=== PATIENT | female | born 1980 | race African-American/Black ===

== ENCOUNTER 2017-02-04 06:35 | Emergency (ER) | payer MEDICAID ==
[2017-02-04] MEDS ORDERED: HALOPERIDOL LACTATE INJ 5 MG/1 ML VIAL IV ONE (07:29)
[2017-02-04] MEDS ORDERED: NORMAL SALINE 1000 ML 1,000 ML IV ONE (07:55)
[2017-02-04 08:26] LABS: ABSOLUTE BASOPHILS # (AUTO) 0.1 10^3/uL (0.0-0.2); ABSOLUTE EOSINOPHILS # (AUTO) 0.4 10^3/uL (0.0-0.6); ABSOLUTE LYMPHOCYTES (AUTO) 1.8 10^3/uL (0.5-4.7); ABSOLUTE MONOCYTES (AUTO) 0.7 10^3/uL (0.1-1.4); ABSOLUTE NEUT (AUTO) 6.3 10^3/uL (1.7-8.2); BASOPHILS % (AUTO) 0.8 % (0-2); EOSINOPHILS % (AUTO) 3.9 % (0-6); HEMATOCRIT 30.4 % (36.0-47.0); HEMOGLOBIN 9.6 g/dL (12.0-15.5); HGB HCT DIFFERENCE -1.6; LYMPHOCYTES % (AUTO) 19.6 % (13-45); MEAN CORPUSCULAR HEMOGLOBIN 21.5 pg (27.0-33.4); MEAN CORPUSCULAR HGB CONC 31.7 g/dL (32.0-36.0); MEAN CORPUSCULAR VOLUME 68 fl (80-97); MONOCYTES % (AUTO) 7.2 % (3-13); RED BLOOD COUNT 4.48 10^6/uL (3.72-5.28); RED CELL DISTRIBUTION WIDTH 19.6 % (11.5-14.0); SEGMENTED NEUTROPHILS % (AUTO) 68.5 % (42-78); WHITE BLOOD COUNT 9.2 10^3/uL (4.0-10.5)
[2017-02-04 08:36] LABS: APPEARANCE,URINE SLIGHTLY-CLOUDY; BILIRUBIN,URINE NEGATIVE (NEGATIVE); GLUCOSE, URINE NEGATIVE (NEGATIVE); KETONES,URINE 80 mg/dL (NEGATIVE); LEUKOCYTE ESTERASE,URINE NEGATIVE (NEGATIVE); NITRITE,URINE NEGATIVE (NEGATIVE); PROTEIN,URINE 30 mg/dL (NEGATIVE); URINE SPECIFIC GRAVITY 1.024
[2017-02-04 08:55] LABS: ALANINE AMINOTRANSFERASE 23 U/L (9-52); ALBUMIN 4.5 g/dL (3.5-5.0); ALKALINE PHOSPHATASE 67 U/L (38-126); ASPARTATE AMINO TRANSFERASE 24 U/L (14-36); BILIRUBIN,DIRECT 0.5 mg/dL (0.0-0.4); BILIRUBIN,TOTAL 0.8 mg/dL (0.2-1.3); BLOOD UREA NITROGEN 18 mg/dL (7-20); CALCIUM 10.4 mg/dL (8.4-10.2); CARBON DIOXIDE 23 mmol/L (22-30); CHLORIDE 95 mmol/L (98-107); CREATININE RESULT 1.02 mg/dL (0.52-1.25); GLUCOSE 92 mg/dL (75-110); LIPASE 40.2 U/L (23-300); POTASSIUM 3.2 mmol/L (3.6-5.0); TOTAL PROTEIN 7.5 g/dL (6.3-8.2)
[2017-02-04 09:01] LABS: SODIUM 137.9 mmol/L (137-145)
[2017-02-04 09:08] LABS: ANION GAP 20 (5-19)
[2017-02-04] MEDS ORDERED: POTASSIUM CHLORIDE 10 MEQ TABLET.SA PO ONE (09:09)
--- NOTE | 2017-02-04 10:11 | ER Document Report ---
ED General - General Chief Complaint: Abdominal Pain Stated Complaint: STOMACH PAIN Time Seen by Provider: 02/04/17 07:28 Mode of Arrival: Ambulatory Information source: Patient Notes: 36-year-old female history of gastroparesis presents with complaints of nausea vomiting that will make duration. Patient was seen here recently was treated discharged home she states she has been able to hold down fluids but not solid food. Patient has not followed up with GI specialist as requested. Patient denies any blood in vomit or diarrhea. Patient states this is similar to all her previous gastroparesis TRAVEL OUTSIDE OF THE [place] IN LAST 30 DAYS: No - HPI Onset: Last week Onset/Duration: Intermittent Quality of pain: Cramping Severity: Mild Pain Level: 1 Associated symptoms: Nausea, Vomiting Exacerbated by: Food Relieved by: Denies Similar symptoms previously: Yes Recently seen / treated by doctor: Yes - Related Data Allergies/Adverse Reactions: No Known Allergies Allergy (Verified 01/30/17 19:05) Past Medical History - Social History Smoking Status: Never Smoker Cigarette use (# per day): No Chew tobacco use (# tins/day): No Smoking Education Provided: No Family History: Reviewed & Not Pertinent Patient has suicidal ideation: No Patient has homicidal ideation: No - Past Medical History Cardiac Medical History: Reports: Hx Hypertension Endocrine Medical History: Reports: Hx Diabetes Mellitus Type 2 Renal/ Medical History: Denies: Hx Peritoneal Dialysis Past Surgical History: Reports: Hx Section - Immunizations Hx Diphtheria, Pertussis, Tetanus Vaccination: Yes Review of Systems - Review of Systems Notes: REVIEW OF SYSTEMS: CONSTITUTIONAL : Denies fever, chills, or sweats. Denies recent illness. EENT: Denies eye, ear, throat, or mouth pain or symptoms. Denies nasal or sinus congestion or discharge. Denies throat, tongue, or mouth swelling or difficulty swallowing. CARDIOVASCULAR: Denies chest pain. Denies palpitations or racing or irregular heart beat. Denies ankle edema. RESPIRATORY: Denies cough, cold, or chest congestion. Denies shortness of breath, difficulty breathing, or wheezing. GASTROINTESTINAL: Admits to abdominal pain nausea vomiting diarrhea GENITOURINARY: Denies difficulty urinating, painful urination, burning, frequency, blood in urine, or discharge. FEMALE GENITOURINARY: Denies vaginal bleeding, heavy or abnormal periods, irregular periods. Denies vaginal discharge or odor. MUSCULOSKELETAL: Denies back or neck pain or stiffness. Denies joint pain or swelling. SKIN: Denies rash, lesions or sores. HEMATOLOGIC : Denies easy bruising or bleeding. LYMPHATIC: Denies swollen, enlarged glands. NEUROLOGICAL: Denies confusion or altered mental status. Denies passing out or loss of consciousness. Denies dizziness or lightheadedness. Denies headache. Denies weakness or paralysis or loss of use of either side. Denies problems with gait or speech. Denies sensory loss, numbness, or tingling. Denies seizures. PSYCHIATRIC: Denies anxiety or stress. Denies depression, suicidal ideation, or homicidal ideation. ALL OTHER SYSTEMS REVIEWED AND NEGATIVE. PHYSICAL EXAMINATION: GENERAL: Well-appearing, well-nourished and in no acute distress. HEAD: Atraumatic, normocephalic. EYES: Pupils equal round and reactive to light, extraocular movements intact, conjunctiva are normal. ENT: Nares patent, oropharynx clear without exudates. Moist mucous membranes. NECK: Normal range of motion, supple without lymphadenopathy LUNGS: Breath sounds clear to auscultation bilaterally and equal. No wheezes rales or rhonchi. HEART: Regular rate and rhythm without murmurs ABDOMEN: Soft, nontender, nondistended abdomen. No guarding, no rebound. No masses appreciated. Female : deferred Musculoskeletal: Normal range of motion, no pitting or edema. No cyanosis. NEUROLOGICAL: Cranial nerves grossly intact. Normal speech, normal gait. Normal sensory, motor exams PSYCH: Normal mood, normal affect. SKIN: Warm, Dry, normal turgor, no rashes or lesions noted. Dictation was performed using [employer] voice recognition software Physical Exam - Vital signs Vitals: Temp Pulse Resp BP Pulse Ox 98.0 F 108 H 19 154/89 H 96 02/04/17 06:38 02/04/17 06:38 02/04/17 06:38 02/04/17 06:38 02/04/17 06:38 Course - Re-evaluation Re-evalutation: 02/04/17 15:07 Patient was given Haldol and that symptom have improved significantly, I reevaluate her 3 separate times and she was in no distress felt well. We discussed the use of rectal Phenergan and oral Phenergan, she states she has had these in the past and they have worked for her. Given the patient has no fevers vital signs otherwise look well at this time I believe she is stable for discharge with understand that she must return immediately if there are any other concerns Mild hypokalemia noted and was placed After performing a Medical Screening Examination, I estimate there is LOW risk for ACUTE APPENDICITIS, BOWEL OBSTRUCTION, ACUTE CHOLECYSTITIS, PERFORATED DIVERTICULITIS, INCARCERATED HERNIA, PANCREATITIS, PELVIC INFLAMMATORY DISEASE, PERFORATED ULCER, ECTOPIC , or TUBO-OVARIAN ABSCESS, thus I consider the discharge disposition reasonable. Also, there is no evidence or peritonitis , sepsis, or toxicity. I have reevaluated this patient multiple times and no significant life threatening changes are noted. The patient and I have discussed the diagnosis and risks, and we agree with discharging home with close follow-up with the understanding that symptoms and presentations can change. We also discussed returning to the Emergency Department immediately if new or worsening symptoms occur. We have discussed the symptoms which are most concerning (e.g., bloody stool, fever, changing or worsening pain, vomiting) that necessitate immediate return. 02/04/17 15:08 - Vital Signs Vital signs: Temp Pulse Resp BP Pulse Ox 98.0 F 99 19 147/81 H 100 02/04/17 10:42 02/04/17 10:42 02/04/17 06:38 02/04/17 10:42 02/04/17 10:42 - Laboratory Result Diagrams: 02/04/17 08:01 02/04/17 08:01 Laboratory results interpreted by me: 02/04/17 02/04/17 02/04/17 08:01 08:01 08:01 Hgb 9.6 L Hct 30.4 L MCV 68 L MCH 21.5 L MCHC 31.7 L RDW 19.6 H Potassium 3.2 L Chloride 95 L Anion Gap 20 H Calcium 10.4 H Direct Bilirubin 0.5 H Urine Protein 30 H Urine Ketones 80 H Urine Urobilinogen 2.0 H Discharge - Discharge Clinical Impression: Gastroparesis, Hypokalemia Nausea & vomiting Qualifiers: Vomiting type: unspecified Vomiting Intractability: non-intractable Qualified Code(s): R11.2 - Nausea with vomiting, unspecified Condition: Stable Disposition: HOME, SELF-CARE Instructions: Vomiting ([facility]) Prescriptions: Promethazine HCl 25 mg PO Q6 #20 tablet Promethazine HCl 25 mg RC Q6 #20 supp.rect Referrals: ESTELITA BEARDEN MD [ACTIVE STAFF] - Follow up tomorrow
[2017-02-04 10:43] VITALS: BP 147/81
== END 2017-02-04 10:43 | disposition home or self-care (01) ==
LOC: ER 06:35
DX: K31.84 Gastroparesis (principal); E87.6 Hypokalemia; R10.9 Unspecified abdominal pain; R11.2 Nausea with vomiting, unspecified; R19.7 Diarrhea, unspecified; I10 Essential (primary) hypertension; E11.9 Type 2 diabetes mellitus without complications
CPT/HCPCS: 99284; 96374; 36415; 83690; 85025; 81025; 80053; 81001; J1630; J7030

== ENCOUNTER 2017-02-06 07:57 | Observation (INO) | payer MEDICAID ==
[2017-02-06] MEDS ORDERED: NORMAL SALINE 1000 ML 1,000 ML IV ONE (08:07)
[2017-02-06 08:40] LABS: ABSOLUTE EOSINOPHILS # (AUTO) 0.1 10^3/uL (0.0-0.6); ABSOLUTE LYMPHOCYTES (AUTO) 1.4 10^3/uL (0.5-4.7); ABSOLUTE MONOCYTES (AUTO) 0.5 10^3/uL (0.1-1.4); ABSOLUTE NEUT (AUTO) 7.8 10^3/uL (1.7-8.2); BASOPHILS % (AUTO) 0.4 % (0-2); EOSINOPHILS % (AUTO) 1.4 % (0-6); HEMATOCRIT 33.3 % (36.0-47.0); HEMOGLOBIN 10.4 g/dL (12.0-15.5); HGB HCT DIFFERENCE -2.1; LYMPHOCYTES % (AUTO) 14.3 % (13-45); MEAN CORPUSCULAR HEMOGLOBIN 21.6 pg (27.0-33.4); MEAN CORPUSCULAR HGB CONC 31.2 g/dL (32.0-36.0); MEAN CORPUSCULAR VOLUME 69 fl (80-97); MONOCYTES % (AUTO) 5.2 % (3-13); RED BLOOD COUNT 4.82 10^6/uL (3.72-5.28); RED CELL DISTRIBUTION WIDTH 20.5 % (11.5-14.0); SEGMENTED NEUTROPHILS % (AUTO) 78.7 % (42-78); WHITE BLOOD COUNT 9.9 10^3/uL (4.0-10.5)
[2017-02-06] MEDS ORDERED: METOCLOPRAMIDE HCL INJ/PF 10 MG/2 ML SDV IV ONE (08:41)
[2017-02-06] MEDS ORDERED: PANTOPRAZOLE SODIUM 40 MG VIAL IV ONE (08:41)
[2017-02-06 08:46] LABS: APPEARANCE,URINE SLIGHTLY-CLOUDY; BILIRUBIN,URINE NEGATIVE (NEGATIVE); GLUCOSE, URINE NEGATIVE (NEGATIVE); KETONES,URINE 80 mg/dL (NEGATIVE); LEUKOCYTE ESTERASE,URINE NEGATIVE (NEGATIVE); NITRITE,URINE NEGATIVE (NEGATIVE); PROTEIN,URINE 100 mg/dL (NEGATIVE); URINE SPECIFIC GRAVITY 1.027; UROBILINOGEN,URINE NEGATIVE mg/dL (<2.0)
[2017-02-06 09:06] LABS: ALANINE AMINOTRANSFERASE 24 U/L (9-52); ALKALINE PHOSPHATASE 71 U/L (38-126); ASPARTATE AMINO TRANSFERASE 23 U/L (14-36); BILIRUBIN,DIRECT 0.4 mg/dL (0.0-0.4); BILIRUBIN,TOTAL 0.6 mg/dL (0.2-1.3); BLOOD UREA NITROGEN 10 mg/dL (7-20); CALCIUM 10.7 mg/dL (8.4-10.2); CHLORIDE 93 mmol/L (98-107); CREATININE RESULT 0.93 mg/dL (0.52-1.25); GLUCOSE 93 mg/dL (75-110); LIPASE 40.8 U/L (23-300); POTASSIUM 3.4 mmol/L (3.6-5.0); TOTAL PROTEIN 7.9 g/dL (6.3-8.2)
[2017-02-06 09:17] LABS: CARBON DIOXIDE 24 mmol/L (22-30); SODIUM 139.8 mmol/L (137-145)
--- NOTE | 2017-02-06 09:17 | ER Document Report ---
ED GI/ - General Mode of Arrival: Ambulatory Information source: Patient TRAVEL OUTSIDE OF THE [place] IN LAST 30 DAYS: No <BIRGIT ALEJANDRA - Last Filed: 02/06/17 13:01> <ISHMAEL FISH - Last Filed: 02/06/17 15:11> - General Chief Complaint: Abdominal Pain Stated Complaint: ABDOMINAL PAIN Time Seen by Provider: 02/06/17 08:06 Notes: Patient is a 36-year-old female that presents to the emergency department today with complaints of a "gastroparesis flareup". Patient has been seen multiple times in the past for gastroparesis. Patient does smoke marijuana on a daily basis. Patient states "I need to be admitted". (BIRGIT ALEJANDRA) - Related Data Allergies/Adverse Reactions: No Known Allergies Allergy (Verified 02/06/17 07:59) Past Medical History - General Information source: Patient - Social History Smoking Status: Never Smoker Cigarette use (# per day): No Chew tobacco use (# tins/day): No Frequency of alcohol use: None Drug Abuse: Marijuana Lives with: Family Family History: Reviewed & Not Pertinent Patient has suicidal ideation: No Patient has homicidal ideation: No - Past Medical History Cardiac Medical History: Reports: Hx Hypertension Endocrine Medical History: Reports: Hx Diabetes Mellitus Type 2 GI Medical History: Reports: Hx Gastroesophageal Reflux Disease Past Surgical History: Reports: Hx Section - Immunizations Hx Diphtheria, Pertussis, Tetanus Vaccination: Yes <BIRGIT ALEJANDRA - Last Filed: 02/06/17 13:01> Review of Systems - Review of Systems Constitutional: No symptoms reported EENT: No symptoms reported Cardiovascular: No symptoms reported Respiratory: No symptoms reported Gastrointestinal: See HPI, Nausea, Vomiting Genitourinary: No symptoms reported Female Genitourinary: No symptoms reported Musculoskeletal: No symptoms reported Skin: No symptoms reported Hematologic/Lymphatic: No symptoms reported Neurological/Psychological: No symptoms reported -: Yes All other systems reviewed and negative <BIRGIT ALEJANDRA - Last Filed: 02/06/17 13:01> Physical Exam <BIRGIT ALEJANDRA - Last Filed: 02/06/17 13:01> <ISHMAEL FISH - Last Filed: 02/06/17 15:11> - Vital signs Vitals: Temp Pulse Resp BP Pulse Ox 98.4 F 125 H 16 131/88 H 99 02/06/17 08:00 02/06/17 08:00 02/06/17 08:00 02/06/17 08:00 02/06/17 08:00 - Notes Notes: Physical Exam: General: Alert, appears uncomfortable. Pleasant. HEENT: Normocephalic. Atraumatic. PERRL. Extraocular movements intact. Oropharynx clear. Dry mucous membranes. Neck: Supple. Non-tender. Respiratory: No respiratory distress. Clear and equal breath sounds bilaterally. Cardiovascular: Tachycardic, regular rhythm. Abdominal: Mild diffuse tenderness with palpation. No distension. Normal Bowel Sounds. Back: Non-tender. No deformity or step off. Extremities: Moves all four extremities. Upper extremities: Normal inspection. Normal ROM. Lower extremities: Normal inspection. No edema. Normal ROM. Neurological: Normal cognition. AAOx4. Normal speech. Psychological: Normal affect. Normal Mood. Skin: Warm. Dry. Normal color. (BIRGIT ALEJANDRA) Course - Laboratory Result Diagrams: 02/06/17 08:20 02/06/17 08:20 <BIRGIT ALEJANDRA - Last Filed: 02/06/17 13:01> - Laboratory Result Diagrams: 02/06/17 08:20 02/06/17 08:20 - Diagnostic Test Radiology reviewed: Reports reviewed <ISHMAEL FISH - Last Filed: 02/06/17 15:11> - Re-evaluation Re-evalutation: 02/06/17 Patient presents with abdominal cramping and vomiting. Patient states that she is unable to keep things down when she gets home. This is despite taking her nausea medicine. Patient states that when she tries to she just vomits it back up. Patient does not have a primary care doctor in the area. Patient has been fluid resuscitated. This is her third presentation for the same symptoms. Patient does have 80+ ketones on her urine. Patient is able to tolerate p.o. but states that now that she is woken up she is starting to feel nauseated again. No acute findings on imaging. Patient was discussed with the hospitalist service and will be admitted for intractable nausea and vomiting. ( ISHMAEL FISH) - Vital Signs Vital signs: Temp Pulse Resp BP Pulse Ox 98.0 F 92 18 137/72 H 100 02/06/17 14:07 02/06/17 14:07 02/06/17 14:07 02/06/17 14:07 02/06/17 14:07 - Laboratory Laboratory results interpreted by me: 02/06/17 02/06/17 02/06/17 08:20 08:20 08:20 Hgb 10.4 L Hct 33.3 L MCV 69 L MCH 21.6 L MCHC 31.2 L RDW 20.5 H Seg Neutrophils % 78.7 H Potassium 3.4 L Chloride 93 L Anion Gap 23 H Calcium 10.7 H Urine Protein 100 H Urine Ketones 80 H Discharge <BIRGIT ALEJANDRA - Last Filed: 02/06/17 13:01> - [facility] [place] [facility] Ad[facility]: Telemetry <ISHMAEL FISH - Last Filed: 02/06/17 15:11> - Discharge Clinical Impression: Abdominal cramping Vomiting Qualifiers: Vomiting type: unspecified Vomiting Intractability: intractable Nausea presence : with nausea Qualified Code(s): R11.2 - Nausea with vomiting, unspecified Condition: Stable Disposition: ADMITTED INPATIENT Scribe Attestation: 02/06/17 15:11 I personally performed the services described in the documentation, reviewed and edited the documentation which was dictated to the scribe in my presence, and it accurately records my words and actions. (ISHMAEL FISH) Scribe Documentation - Scribe Written by Judie:: Finn Nielsen, 02/06/2017 [id number] acting as scribe for :: Natalie <BIRGIT ALEJANDRA - Last Filed: 02/06/17 13:01>
[2017-02-06 09:20] LABS: ANION GAP 23 (5-19)
[2017-02-06] MEDS ORDERED: RINGERS SOLUTION,LACTATED 1,000 ML IV ONE (09:48)
--- NOTE | 2017-02-06 10:23 | RADIOLOGY REPORT (SQ) ---
EXAM DESCRIPTION: CT LTD RENAL STONE PROTOCOL ON COMPLETED DATE/TIME: 02/06/2017 9:43 am REASON FOR STUDY: pain, vomiting, dehydration COMPARISON: No previous TECHNIQUE: CT scan of the abdomen and pelvis performed without intravenous or oral contrast. Images reviewed with lung, soft tissue, and bone windows. Reconstructed coronal and sagittal MPR images revi ewed. All images stored on PACS. All CT scanners at this facility use dose modulation, iterative reconstruction, and/or weight based d osing when appropriate to reduce radiation dose to as low as reasonably achievable (ALARA). [facility]: Dose Right [facility]: CareDose [facility]: Dose Right [facility]: Teradose 4D [facility]: [employer] RADIATION DOSE: Up-to-date CT equipment and radiation dose reduction techniques were employed. CTDIv ol: 16.3 mGy. DLP: 891 mGy-cm.mGy. LIMITATIONS: No oral contrast FINDINGS: LOWER CHEST: Small hiatal hernia. No nodules or infiltrates. NON-CONTRASTED LIVER, SPLEEN, ADRENALS: Evaluation limited by lack of IV contrast. No identified sign ificant masses. PANCREAS: No masses. No peripancreatic inflammatory changes. GALLBLADDER: No identified stones by CT criteria. No inflammatory changes to suggest cholecystitis. RIGHT KIDNEY AND URETER: No suspicious masses. Assessment limited by lack of IV contrast. No signif icant calcifications. No hydronephrosis or hydroureter. LEFT KIDNEY AND URETER: No suspicious masses. Assessment limited by lack of IV contrast. No signifi cant calcifications. No hydronephrosis or hydroureter. AORTA AND RETROPERITONEUM: No aneurysm. No retroperitoneal masses or adenopathy. BOWEL AND PERITONEAL CAVITY: No obvious masses or inflammatory changes. No free fluid. APPENDIX: Normal. Best shown on coronal reconstruction image 34 PELVIS, BLADDER, AND ABDOMINAL WALL:No abnormal masses. No free fluid. Bladder normal. Normal size f emale pelvic organs. Clips post tubal ligation. BONES: No significant findings. OTHER: No other significant finding. IMPRESSION: Unremarkable noncontrast CT abdomen and pelvis COMMENT: Quality ID # [id number]: Final reports with documentation of one or more dose reduction techniques (e.g., Automated exposure control, adjustment of the mA and/or kV according to patient size, use of iterative reconstruction technique) TECHNICAL DOCUMENTATION: JOB ID: [id number]- All Rights Reserved
[2017-02-06] MEDS ORDERED: ONDANSETRON HCL INJ/PF 4 MG/2 ML SDV IV ONE (11:17)
[2017-02-06] MEDS ORDERED: DEXTROSE 50%-WATER 25 GM/50 ML DISP.SYRIN IV PRN ×2 (11:39)
[2017-02-06] MEDS ORDERED: GLUCAGON,HUMAN RECOMB 1 MG INJ IM PRN (11:39)
[2017-02-06] MEDS ORDERED: INSULIN LISPRO 100 UNIT/ML 3 ML VIAL SUBCUT PRN (11:39)
[2017-02-06] MEDS ORDERED: DEXTROSE 40% GEL 15 GM TUBE PO PRN ×2 (11:39)
--- NOTE | 2017-02-06 11:58 | PDOC H&P ---
History of Present Illness Admission Date/PCP: 02/06/2017 Patient complains of: Abd pain and Nausea History of Present Illness: JOSE GIVENS is a 36 year old female presents with complaint of abd pain for the last several days. Pt states that she is having a gastroparesis flare up. Pt states that she has not been able to keep anything down. Pt states that she smokes Marijuana on a regular bases. Pt states that her abd pain is severe 01/01. Past Medical History Cardiac Medical History: Reports: Hypertension Endocrine Medical History: Reports: Diabetes Mellitus Type 2 GI Medical History: Reports: Gastroesophageal Reflux Disease Past Surgical History Past Surgical History: Reports: Section Social History Lives with: Family Smoking Status: Never Smoker Drugs: Marijuana Family History Family History: Reviewed & Not Pertinent Parental Family History Reviewed: Yes Children Family History Reviewed: Yes Sibling(s) Family History Reviewed.: Yes Medication/Allergy Home Medications: Glyburide [Diabeta 5 mg Tablet] 5 mg PO 12/17/12 Glyburide [Diabeta 5 mg Tablet] 5 mg PO QAM #30 tablet 12/17/12 Lisinopril [Prinivil 10 mg Tablet] 10 mg PO DAILY #30 tablet 12/17/12 Metformin HCl [Glucophage 500 Mg Tablet] 500 mg PO 12/17/12 Metformin HCl [Glucophage 500 Mg Tablet] 500 mg PO BID #60 tablet 12/17/12 Promethazine HCl [Phenergan 25 mg Tablet] 1 - 2 tab PO Q6H PRN #15 tablet Promethazine HCl 25 mg PO Q6 #20 tablet 02/04/17 Promethazine HCl 25 mg RC Q6 #20 supp.rect 02/04/17 Allergies/Adverse Reactions: No Known Allergies Allergy (Verified 02/06/17 07:59) Review of Systems Constitutional: ABSENT: chills, fever(s), headache(s), weight gain, weight loss Eyes: ABSENT: visual disturbances Ears: ABSENT: hearing changes Cardiovascular: ABSENT: chest pain, dyspnea on exertion, edema, orthropnea, palpitations Respiratory: ABSENT: cough, hemoptysis Gastrointestinal: PRESENT: abdominal pain, nausea, vomiting. ABSENT: constipation, diarrhea, hematemesis, hematochezia Genitourinary: ABSENT: dysuria, hematuria Musculoskeletal: ABSENT: joint swelling Integumentary: ABSENT: rash, wounds Neurological: ABSENT: abnormal gait, abnormal speech, confusion, dizziness, focal weakness, syncope Psychiatric: ABSENT: anxiety, depression, homidical ideation, suicidal ideation Endocrine: ABSENT: cold intolerance, heat intolerance, polydipsia, polyuria Hematologic/Lymphatic: ABSENT: easy bleeding, easy bruising Physical Exam Vital Signs: Temp Pulse Resp BP Pulse Ox 98.4 F 125 H 16 131/88 H 99 02/06/17 08:00 02/06/17 08:00 02/06/17 08:00 02/06/17 08:00 02/06/17 08:00 Intake & Output 02/05/17 02/06/17 02/07/17 06:59 06:59 06:59 Weight 102.2 kg General appearance: PRESENT: mild distress, well-developed, well-nourished Head exam: PRESENT: atraumatic, normocephalic Eye exam: PRESENT: conjunctiva pink, EOMI, PERRLA. ABSENT: scleral icterus Ear exam: PRESENT: normal external ear exam Mouth exam: PRESENT: moist, tongue midline Neck exam: ABSENT: carotid bruit, JVD, lymphadenopathy, thyromegaly Respiratory exam: PRESENT: clear to auscultation andie. ABSENT: rales, rhonchi, wheezes Cardiovascular exam: PRESENT: RRR. ABSENT: diastolic murmur, rubs, systolic murmur Pulses: PRESENT: normal dorsalis pedis pul Vascular exam: PRESENT: normal capillary refill GI/Abdominal exam: PRESENT: normal bowel sounds, soft, tenderness. ABSENT: distended, guarding, mass, organolmegaly, rebound Rectal exam: PRESENT: deferred Extremities exam: PRESENT: full ROM. ABSENT: calf tenderness, clubbing, pedal edema Neurological exam: PRESENT: alert, awake, oriented to person, oriented to place , oriented to time, oriented to situation, CN II-XII grossly intact. ABSENT: motor sensory deficit Psychiatric exam: PRESENT: appropriate affect, normal mood. ABSENT: homicidal ideation, suicidal ideation Skin exam: PRESENT: dry, intact, warm. ABSENT: cyanosis, rash Results Laboratory Results: 02/06/17 08:20 02/06/17 08:20 02/06/17 02/06/17 02/06/17 08:20 08:20 08:20 WBC 9.9 RBC 4.82 Hgb 10.4 L Hct 33.3 L MCV 69 L MCH 21.6 L MCHC 31.2 L RDW 20.5 H Plt Count 430 Seg Neutrophils % 78.7 H Lymphocytes % 14.3 Monocytes % 5.2 Eosinophils % 1.4 Basophils % 0.4 Absolute Neutrophils 7.8 Absolute Lymphocytes 1.4 Absolute Monocytes 0.5 Absolute Eosinophils 0.1 Absolute Basophils 0.0 Sodium 139.8 Potassium 3.4 L Chloride 93 L Carbon Dioxide 24 Anion Gap 23 H BUN 10 Creatinine 0.93 Est GFR ( Amer) > 60 Est GFR (Non-Af Amer) > 60 Glucose 93 Calcium 10.7 H Total Bilirubin 0.6 AST 23 ALT 24 Alkaline Phosphatase 71 Total Protein 7.9 Albumin 5.0 Lipase 40.8 Urine Color YELLOW Urine Appearance SLIGHTLY-CLOUDY Urine pH 5.0 Ur Specific [place] 1.027 Urine Protein 100 H Urine Glucose (UA) NEGATIVE Urine Ketones 80 H Urine Blood NEGATIVE Urine Nitrite NEGATIVE Ur Leukocyte Esterase NEGATIVE Urine WBC (Auto) 2 Urine RBC (Auto) 0 Impressions: Limited or Localized CT 02/06/17 09:16 IMPRESSION: Unremarkable noncontrast CT abdomen and pelvis Assessment & Plan - Diagnosis (1) Nausea & vomiting Qualifiers: Vomiting type: unspecified Is this a current diagnosis for this admission?: Yes Plan: In setting of Marijuana Abuse and Gastroparesis: Will write for Zofran and continue IVF. Pt instructed to stop using marijuana because this is exasperating Gastroparesis. (2) Hypokalemia Is this a current diagnosis for this admission?: Yes Plan: Will give Potassium replacement. Will check Magnesium in am. (3) Hypercalcemia Is this a current diagnosis for this admission?: Yes Plan: Will give IVFs. Pt currently Volume depleted. Will check with pt about over the counter medications. (4) Metabolic acidosis Is this a current diagnosis for this admission?: Yes Plan: Will check Lactic acid level due to pt being on Metformin. Pt could have Lactic acidosis secondary to Metformin. Pt also noted to have ketones in urine which could be due to endocrine issues DKA. Will check abg. (5) Abdominal cramping Is this a current diagnosis for this admission?: Yes Plan: most likely secondary to Marijuana and Gastroparesis in setting of DM Type 2: Will improve. Will give Zofran and place pt on clear liquids. (6) Gastroparesis Is this a current diagnosis for this admission?: Yes Plan: Clear liquids and IVFs. (7) DVT prophylaxis Is this a current diagnosis for this admission?: Yes Plan: SCDs - Time Time Spent: 30 to 50 Minutes
[2017-02-06] MEDS: POTASSI CL 20 MEQ/50 ML RIDER 20 MEQ/50 ML RTUPB IV SCH ×3 (12:57→20:23)
[2017-02-06] MEDS: NORMAL SALINE 1000 ML 1,000 ML IV PRN ×2 (12:59→20:23)
[2017-02-06 13:34] LABS: ARTERIAL BLOOD BASE EXCESS -1.4 mmol/L; ARTERIAL BLOOD O2 SATURATION 97.8 % (94-98)
[2017-02-06] MEDS: METOCLOPRAMIDE HCL 10 MG TABLET PO SCH ×2 (14:40→17:29)
[2017-02-06] MEDS: ONDANSETRON HCL INJ/PF 4 MG/2 ML SDV IV SCH ×3 (14:40→21:25)
[2017-02-06] MEDS: MORPHINE SULFATE 10 MG/ML INJ IV PRN (21:25)
[2017-02-07] MEDS: ONDANSETRON HCL INJ/PF 4 MG/2 ML SDV IV SCH ×6 (03:49→21:24)
[2017-02-07] MEDS: MORPHINE SULFATE 10 MG/ML INJ IV PRN ×2 (03:49→21:12)
[2017-02-07 05:56] LABS: ABSOLUTE EOSINOPHILS # (AUTO) 0.4 10^3/uL (0.0-0.6); ABSOLUTE LYMPHOCYTES (AUTO) 1.5 10^3/uL (0.5-4.7); ABSOLUTE MONOCYTES (AUTO) 0.4 10^3/uL (0.1-1.4); ABSOLUTE NEUT (AUTO) 3.6 10^3/uL (1.7-8.2); BASOPHILS % (AUTO) 0.4 % (0-2); EOSINOPHILS % (AUTO) 6.6 % (0-6); HEMATOCRIT 27.6 % (36.0-47.0); HEMOGLOBIN 8.6 g/dL (12.0-15.5); HGB HCT DIFFERENCE -1.8; LYMPHOCYTES % (AUTO) 25.8 % (13-45); MEAN CORPUSCULAR HEMOGLOBIN 21.6 pg (27.0-33.4); MEAN CORPUSCULAR HGB CONC 31.3 g/dL (32.0-36.0); MEAN CORPUSCULAR VOLUME 69 fl (80-97); RED CELL DISTRIBUTION WIDTH 20.7 % (11.5-14.0); SEGMENTED NEUTROPHILS % (AUTO) 60.2 % (42-78); WHITE BLOOD COUNT 5.9 10^3/uL (4.0-10.5)
[2017-02-07 06:18] LABS: ALANINE AMINOTRANSFERASE 28 U/L (9-52); ALBUMIN 3.6 g/dL (3.5-5.0); ALKALINE PHOSPHATASE 54 U/L (38-126); ANION GAP 16 (5-19); ASPARTATE AMINO TRANSFERASE 17 U/L (14-36); BILIRUBIN,DIRECT 0.3 mg/dL (0.0-0.4); BILIRUBIN,TOTAL 0.5 mg/dL (0.2-1.3); BLOOD UREA NITROGEN 5 mg/dL (7-20); CALCIUM 9.3 mg/dL (8.4-10.2); CARBON DIOXIDE 20 mmol/L (22-30); CHLORIDE 105 mmol/L (98-107); CREATININE RESULT 0.75 mg/dL (0.52-1.25); GLUCOSE 76 mg/dL (75-110); MAGNESIUM 1.4 mg/dL (1.6-2.3); PHOSPHORUS 3.2 mg/dL (2.5-4.5); POTASSIUM 3.3 mmol/L (3.6-5.0); SODIUM 140.6 mmol/L (137-145)
[2017-02-07] MEDS: NORMAL SALINE 1000 ML 1,000 ML IV PRN (06:42)
[2017-02-07] MEDS: FAMOTIDINE 20 MG TABLET PO SCH (10:03)
[2017-02-07] MEDS: LISINOPRIL 10 MG TABLET PO SCH (10:04)
[2017-02-07] MEDS: METOCLOPRAMIDE HCL 10 MG TABLET PO SCH ×3 (10:04→18:05)
[2017-02-07] MEDS ORDERED: POTASSIUM CHLORIDE 10 MEQ TABLET.SA PO ONE (11:00)
[2017-02-07] MEDS: MAGNESIUM SULFATE 1 GM/D5W 100 ML IV SCH ×2 (11:14→12:29)
[2017-02-07] MEDS ORDERED: POTASSI CL 20 MEQ/50 ML RIDER 20 MEQ/50 ML RTUPB IV SCH (11:30)
--- NOTE | 2017-02-07 12:54 | PDOC PROGRESS REPORT ---
Subjective Progress Note for:: 02/07/17 Subjective:: Pt states that she is feeling better. Pt states that the cold shower did help with abd pain. Pt states that she is not going to smoke marijuana anymore. Pt was requesting for a regular diet. Physical Exam Vital Signs: Temp Pulse Resp BP Pulse Ox 98.1 F 77 20 148/88 H 100 02/07/17 07:43 02/07/17 07:43 02/07/17 07:43 02/07/17 07:43 02/07/17 07:43 Intake & Output 02/06/17 02/07/17 02/08/17 06:59 06:59 06:59 Intake Total 675 Balance 675 Weight 102.3 kg General appearance: PRESENT: no acute distress, well-developed, well-nourished Head exam: PRESENT: atraumatic, normocephalic Eye exam: PRESENT: conjunctiva pink, EOMI, PERRLA. ABSENT: scleral icterus Ear exam: PRESENT: normal external ear exam Mouth exam: PRESENT: moist, tongue midline Neck exam: ABSENT: carotid bruit, JVD, lymphadenopathy, thyromegaly Respiratory exam: PRESENT: clear to auscultation andie. ABSENT: rales, rhonchi, wheezes Cardiovascular exam: PRESENT: RRR. ABSENT: diastolic murmur, rubs, systolic murmur Pulses: PRESENT: normal dorsalis pedis pul Vascular exam: PRESENT: normal capillary refill GI/Abdominal exam: PRESENT: normal bowel sounds, soft. ABSENT: distended, guarding, mass, organolmegaly, rebound, tenderness Rectal exam: PRESENT: deferred Extremities exam: PRESENT: full ROM. ABSENT: calf tenderness, clubbing, pedal edema Neurological exam: PRESENT: alert, awake, oriented to person, oriented to place , oriented to time, oriented to situation, CN II-XII grossly intact. ABSENT: motor sensory deficit Psychiatric exam: PRESENT: appropriate affect, normal mood. ABSENT: homicidal ideation, suicidal ideation Skin exam: PRESENT: dry, intact, warm. ABSENT: cyanosis, rash Results Laboratory Results: 02/07/17 05:38 02/07/17 05:38 02/06/17 02/06/17 02/07/17 13:15 15:19 05:38 WBC 5.9 RBC 4.00 Hgb 8.6 L Hct 27.6 L MCV 69 L MCH 21.6 L MCHC 31.3 L RDW 20.7 H Plt Count 308 Seg Neutrophils % 60.2 Lymphocytes % 25.8 Monocytes % 7.0 Eosinophils % 6.6 H Basophils % 0.4 Absolute Neutrophils 3.6 Absolute Lymphocytes 1.5 Absolute Monocytes 0.4 Absolute Eosinophils 0.4 Absolute Basophils 0.0 Carbonic Acid 1.05 HCO3/H2CO3 Ratio 21:1 ABG pH 7.43 ABG pCO2 35.0 ABG pO2 101.0 H ABG HCO3 22.6 ABG O2 Saturation 97.8 ABG Base Excess -1.4 FiO2 21% Sodium Potassium Chloride Carbon Dioxide Anion Gap BUN Creatinine Est GFR ( Amer) Est GFR (Non-Af Amer) Glucose Lactic Acid 0.6 L Calcium Phosphorus Magnesium Total Bilirubin AST ALT Alkaline Phosphatase Total Protein Albumin 02/07/17 05:38 WBC RBC Hgb Hct MCV MCH MCHC RDW Plt Count Seg Neutrophils % Lymphocytes % Monocytes % Eosinophils % Basophils % Absolute Neutrophils Absolute Lymphocytes Absolute Monocytes Absolute Eosinophils Absolute Basophils Carbonic Acid HCO3/H2CO3 Ratio ABG pH ABG pCO2 ABG pO2 ABG HCO3 ABG O2 Saturation ABG Base Excess FiO2 Sodium 140.6 Potassium 3.3 L Chloride 105 Carbon Dioxide 20 L Anion Gap 16 BUN 5 L Creatinine 0.75 Est GFR ( Amer) > 60 Est GFR (Non-Af Amer) > 60 Glucose 76 Lactic Acid Calcium 9.3 Phosphorus 3.2 Magnesium 1.4 L Total Bilirubin 0.5 AST 17 ALT 28 Alkaline Phosphatase 54 Total Protein 6.0 L Albumin 3.6 Impressions: Limited or Localized CT 02/06/17 09:16 IMPRESSION: Unremarkable noncontrast CT abdomen and pelvis Assessment & Plan - Diagnosis (1) Nausea & vomiting Qualifiers: Vomiting type: unspecified Is this a current diagnosis for this admission?: Yes Plan: In setting of Marijuana Abuse and Gastroparesis: Zofran and continue IVF. Pt instructed to stop using marijuana because this is exasperating Gastroparesis. (2) Hypokalemia Is this a current diagnosis for this admission?: Yes Plan: Pt given 40 mEq of Potassium PO X 1 and 40 mEq of Potassium IV X 1. Will check BMP in am. (3) Hypomagnesemia Is this a current diagnosis for this admission?: Yes Plan: Will give 2 grams of magnesium sulfate X 1. Will check magnesium in am. (4) Hypercalcemia Is this a current diagnosis for this admission?: Yes Plan: Secondary to Volume Depletion: Resolved. (5) Metabolic acidosis Is this a current diagnosis for this admission?: Yes Plan: Possibly related to poor PO intake: Will check BMP in am. (6) Abdominal cramping Is this a current diagnosis for this admission?: Yes Plan: most likely secondary to Marijuana and Gastroparesis in setting of DM Type 2: Resolving. Will advance diet. (7) DVT prophylaxis Is this a current diagnosis for this admission?: Yes Plan: SCDs - Time Time Spent with patient: 15-24 minutes
[2017-02-07] MEDS ORDERED: MAG HYDROX/AL HYDROX/SIMETH SUSP 30 ML UDCUP PO ONE (13:00)
[2017-02-07] MEDS: POTASSIUM CHLORIDE 20 MEQ/50 ML RTU IV SCH ×2 (13:59→17:09)
[2017-02-07] MEDS ORDERED: MAGNESIUM SULFATE/D5W 1 GM/100 ML RTUPB IV SCH (16:00)
[2017-02-08] MEDS: ONDANSETRON HCL INJ/PF 4 MG/2 ML SDV IV SCH ×4 (01:27→13:36)
[2017-02-08] MEDS: MORPHINE SULFATE 10 MG/ML INJ IV PRN (05:22)
[2017-02-08 06:14] LABS: ABSOLUTE BASOPHILS # (AUTO) 0.1 10^3/uL (0.0-0.2); ABSOLUTE EOSINOPHILS # (AUTO) 0.3 10^3/uL (0.0-0.6); ABSOLUTE LYMPHOCYTES (AUTO) 1.4 10^3/uL (0.5-4.7); ABSOLUTE MONOCYTES (AUTO) 0.4 10^3/uL (0.1-1.4); ABSOLUTE NEUT (AUTO) 3.9 10^3/uL (1.7-8.2); EOSINOPHILS % (AUTO) 4.6 % (0-6); HEMATOCRIT 29.7 % (36.0-47.0); HEMOGLOBIN 9.3 g/dL (12.0-15.5); HGB HCT DIFFERENCE -1.8; LYMPHOCYTES % (AUTO) 23.1 % (13-45); MEAN CORPUSCULAR HEMOGLOBIN 21.5 pg (27.0-33.4); MEAN CORPUSCULAR HGB CONC 31.2 g/dL (32.0-36.0); MEAN CORPUSCULAR VOLUME 69 fl (80-97); MONOCYTES % (AUTO) 6.7 % (3-13); RED BLOOD COUNT 4.31 10^6/uL (3.72-5.28); RED CELL DISTRIBUTION WIDTH 20.9 % (11.5-14.0); SEGMENTED NEUTROPHILS % (AUTO) 64.6 % (42-78)
[2017-02-08 06:37] LABS: ANION GAP 11 (5-19); BLOOD UREA NITROGEN 2 mg/dL (7-20); CALCIUM 9.7 mg/dL (8.4-10.2); CARBON DIOXIDE 24 mmol/L (22-30); CHLORIDE 106 mmol/L (98-107); CREATININE RESULT 0.76 mg/dL (0.52-1.25); GLUCOSE 122 mg/dL (75-110); MAGNESIUM 1.7 mg/dL (1.6-2.3); PHOSPHORUS 2.5 mg/dL (2.5-4.5); POTASSIUM 3.8 mmol/L (3.6-5.0); SODIUM 141.2 mmol/L (137-145)
[2017-02-08] MEDS: LISINOPRIL 10 MG TABLET PO SCH (10:55)
[2017-02-08] MEDS: METOCLOPRAMIDE HCL 10 MG TABLET PO SCH ×2 (10:56→13:36)
[2017-02-08] MEDS: FAMOTIDINE 20 MG TABLET PO SCH (10:56)
--- NOTE | 2017-02-08 15:14 | PDOC DISCHARGE SUMMARY ---
General - Admit/Disc Date/PCP Admission Date/Primary Care Provider: 02/06/17 12:32 Discharge Date: 02/08/17 - Discharge Diagnosis (1) Nausea & vomiting Is this a current diagnosis for this admission?: Yes Summary: Secondary to Marijuana: Encouraged pt to stop smoking Marijuana. (2) Hypokalemia Is this a current diagnosis for this admission?: Yes Summary: Resolved. (3) Hypomagnesemia Is this a current diagnosis for this admission?: Yes Summary: Resolved. (4) Hypercalcemia Is this a current diagnosis for this admission?: Yes Summary: Secondary to Hypovolemia: Resolved. (5) Metabolic acidosis Is this a current diagnosis for this admission?: Yes Summary: resolved. (6) Abdominal cramping Is this a current diagnosis for this admission?: Yes Summary: Secondary to Marijuana: Resolved. - Additional Information Resuscitation Status: Full Code Discharge Diet: Cardiac, Diabetic Discharge Activity: Activity As Tolerated Home Medications: Fluoxetine HCl [Prozac] 20 mg PO DAILY MDD LAST FILLED 12/17/16 02/08/17 Lisinopril [Zestril] 20 mg PO DAILY 30 Days tablet 02/08/17 Metoclopramide HCl [Reglan 10 mg Tablet] 10 mg PO TID MDD LAST FILLED 12/17/16 02/08/17 Pantoprazole Sodium [Protonix] 40 mg PO DAILY 02/08/17 Potassium Chloride [Klor-Con M20] 20 meq PO BID MDD LAST FILLED 12/17/16 Promethazine HCl [Phenergan 25 mg Tablet] 25 mg PO Q6HP PRN 02/08/17 Triamterene/Hydrochlorothiazid [Dyazide 37.5-25 Capsule] 1 cap PO DAILY MDD LAST FILLED 12/20/16 02/08/17 History of Present Illness History of Present Illness: JOSE GIVENS is a 36 year old female presents with complaint of abd pain for the last several days. Pt states that she is having a gastroparesis flare up. Pt states that she has not been able to keep anything down. Pt states that she smokes Marijuana on a regular bases. Pt states that her abd pain is severe 10/10. Hospital Course Hospital Course: Pt was admitted to the hospital where she was placed on IVFs and made NPO. Pt' s nausea resolved and diet was advanced. Pt was instructed to stop smoking Marijuana. Pt's blood pressure medication was adjusted. Physical Exam Vital Signs: Temp Pulse Resp BP Pulse Ox 98.5 F 78 16 131/83 H 98 02/07/17 23:08 02/07/17 23:08 02/07/17 23:08 02/07/17 23:08 02/07/17 23:08 Intake & Output 02/07/17 02/08/17 02/09/17 06:59 06:59 06:59 Intake Total 675 100 Output Total 900 Balance 675 -800 Weight 102.3 kg 103.2 kg General appearance: PRESENT: no acute distress, well-developed, well-nourished Head exam: PRESENT: atraumatic, normocephalic Eye exam: PRESENT: conjunctiva pink, EOMI, PERRLA. ABSENT: scleral icterus Ear exam: PRESENT: normal external ear exam Mouth exam: PRESENT: moist, tongue midline Neck exam: ABSENT: carotid bruit, JVD, lymphadenopathy, thyromegaly Respiratory exam: PRESENT: clear to auscultation andie. ABSENT: rales, rhonchi, wheezes Cardiovascular exam: PRESENT: RRR. ABSENT: diastolic murmur, rubs, systolic murmur Pulses: PRESENT: normal dorsalis pedis pul Vascular exam: PRESENT: normal capillary refill GI/Abdominal exam: PRESENT: normal bowel sounds, soft. ABSENT: distended, guarding, mass, organolmegaly, rebound, tenderness Rectal exam: PRESENT: deferred Extremities exam: PRESENT: full ROM. ABSENT: calf tenderness, clubbing, pedal edema Neurological exam: PRESENT: alert, awake, oriented to person, oriented to place , oriented to time, oriented to situation, CN II-XII grossly intact. ABSENT: motor sensory deficit Psychiatric exam: PRESENT: appropriate affect, normal mood. ABSENT: homicidal ideation, suicidal ideation Skin exam: PRESENT: dry, intact, warm. ABSENT: cyanosis, rash Results Laboratory Results: 02/08/17 05:55 02/08/17 05:55 02/08/17 02/08/17 05:55 05:55 WBC 6.0 RBC 4.31 Hgb 9.3 L Hct 29.7 L MCV 69 L MCH 21.5 L MCHC 31.2 L RDW 20.9 H Plt Count 266 Seg Neutrophils % 64.6 Lymphocytes % 23.1 Monocytes % 6.7 Eosinophils % 4.6 Basophils % 1.0 Absolute Neutrophils 3.9 Absolute Lymphocytes 1.4 Absolute Monocytes 0.4 Absolute Eosinophils 0.3 Absolute Basophils 0.1 Sodium 141.2 Potassium 3.8 Chloride 106 Carbon Dioxide 24 Anion Gap 11 BUN 2 L Creatinine 0.76 Est GFR ( Amer) > 60 Est GFR (Non-Af Amer) > 60 Glucose 122 H Calcium 9.7 Phosphorus 2.5 Magnesium 1.7 Impressions: Limited or Localized CT 02/06/17 09:16 IMPRESSION: Unremarkable noncontrast CT abdomen and pelvis Plan Time Spent: Less than 30 Minutes
[2017-02-08 15:38] VITALS: BP 148/88
== END 2017-02-08 15:57 | disposition home or self-care (01) ==
LOC: ER 07:57 → EH 12:32 → INTOOBSV 12:32 → 5 14:18
PROVIDERS: ADMIT Emergency Medicine; ATTEND Emergency Medicine
DX: R11.2 Nausea with vomiting, unspecified (principal); R10.9 Unspecified abdominal pain; F12.10 Cannabis abuse, uncomplicated; K31.84 Gastroparesis; E87.6 Hypokalemia; E83.42 Hypomagnesemia; E86.1 Hypovolemia; E83.52 Hypercalcemia; E87.2 Acidosis; E11.43 Type 2 diabetes mellitus with diabetic autonomic (poly)neuropathy; Z79.899 Other long term (current) drug therapy; I10 Essential (primary) hypertension; Z79.84 Long term (current) use of oral hypoglycemic drugs; Z87.19 Personal history of other diseases of the digestive system
CPT/HCPCS: 99285; 96361; 96375; 96365; 36415 ×3; 82962 ×3; 82803; 83605; 83690; 83735 ×2; 84100 ×2; 85025 ×3; 80048; 80053 ×2; 81001; 83036; 76380; 36600; J3490 ×8; J2765; J2270 ×3; J3475; S0164; J2405 ×3; J3480 ×2; J7030 ×2; J7120

== ENCOUNTER 2017-02-09 14:31 | Emergency (ER) | payer MEDICAID ==
[2017-02-09] MEDS ORDERED: ONDANSETRON HCL INJ/PF 4 MG/2 ML SDV IV ONE (14:52)
[2017-02-09] MEDS ORDERED: NORMAL SALINE 1000 ML 1,000 ML IV ONE (14:52)
[2017-02-09] MEDS ORDERED: KETOROLAC TROMETHAMINE INJ/PF 30 MG/1 ML SDV IV ONE (14:52)
--- NOTE | 2017-02-09 14:57 | ER Document Report ---
ED Medical Screen (RME) - General Chief Complaint: Abdominal Pain Stated Complaint: STOMACH/ABDOMINAL PAIN Time Seen by Provider: 02/09/17 14:52 Mode of Arrival: Ambulatory Information source: Patient TRAVEL OUTSIDE OF THE [place] IN LAST 30 DAYS: No - HPI Patient complains to provider of: abd pain Onset: Other - pt states she has gastroparesis and was just d/c'd from [facility] yesterday. States pain recurred earlier today - Related Data Allergies/Adverse Reactions: No Known Allergies Allergy (Verified 02/09/17 14:40) Past Medical History - Social History Chew tobacco use (# tins/day): No Frequency of alcohol use: None Drug Abuse: None - Past Medical History Cardiac Medical History: Reports: Hx Hypertension Pulmonary Medical History: Reports: Hx Bronchitis Endocrine Medical History: Reports: Hx Diabetes Mellitus Type 2 Renal/ Medical History: Denies: Hx Peritoneal Dialysis GI Medical History: Reports: Hx Gastroesophageal Reflux Disease Past Surgical History: Reports: Hx Section - Immunizations Hx Diphtheria, Pertussis, Tetanus Vaccination: Yes History of Influenza Vaccine for 12/2016 - 05/2017 Season: Refused Physical Exam - Vital signs Vitals: Temp Pulse Resp BP Pulse Ox 99.1 F 106 H 16 142/91 H 97 02/09/17 14:39 02/09/17 14:39 02/09/17 14:39 02/09/17 14:39 02/09/17 14:39 Course - Vital Signs Vital signs: Temp Pulse Resp BP Pulse Ox 99.1 F 106 H 16 142/91 H 97 02/09/17 14:39 02/09/17 14:39 02/09/17 14:39 02/09/17 14:39 02/09/17 14:39
[2017-02-09 16:06] LABS: ABSOLUTE EOSINOPHILS # (AUTO) 0.2 10^3/uL (0.0-0.6); ABSOLUTE LYMPHOCYTES (AUTO) 1.7 10^3/uL (0.5-4.7); ABSOLUTE MONOCYTES (AUTO) 0.4 10^3/uL (0.1-1.4); ABSOLUTE NEUT (AUTO) 6.1 10^3/uL (1.7-8.2); BASOPHILS % (AUTO) 0.6 % (0-2); EOSINOPHILS % (AUTO) 2.3 % (0-6); HEMATOCRIT 30.6 % (36.0-47.0); HEMOGLOBIN 9.5 g/dL (12.0-15.5); HGB HCT DIFFERENCE -2.1; LYMPHOCYTES % (AUTO) 20.3 % (13-45); MEAN CORPUSCULAR HEMOGLOBIN 21.3 pg (27.0-33.4); MEAN CORPUSCULAR HGB CONC 30.9 g/dL (32.0-36.0); MEAN CORPUSCULAR VOLUME 69 fl (80-97); MONOCYTES % (AUTO) 5.1 % (3-13); RED BLOOD COUNT 4.44 10^6/uL (3.72-5.28); RED CELL DISTRIBUTION WIDTH 20.7 % (11.5-14.0); SEGMENTED NEUTROPHILS % (AUTO) 71.7 % (42-78); WHITE BLOOD COUNT 8.6 10^3/uL (4.0-10.5)
[2017-02-09 16:20] LABS: APPEARANCE,URINE CLOUDY; BILIRUBIN,URINE SMALL (NEGATIVE); GLUCOSE, URINE 50 mg/dL (NEGATIVE); KETONES,URINE 20 mg/dL (NEGATIVE); LEUKOCYTE ESTERASE,URINE NEGATIVE (NEGATIVE); NITRITE,URINE POSITIVE (NEGATIVE); PROTEIN,URINE >=500 mg/dL (NEGATIVE); URINE SPECIFIC GRAVITY 1.019
[2017-02-09 16:25] LABS: URINE BARBITURATES SCREEN NEGATIVE; URINE METHADONE SCREEN NEGATIVE; URINE OPIATES LOW UNCONFIRMED POSITIVE; URINE PHENCYCLIDINE SCREEN NEGATIVE
[2017-02-09 16:28] LABS: ALANINE AMINOTRANSFERASE 24 U/L (9-52); ALBUMIN 4.2 g/dL (3.5-5.0); ALKALINE PHOSPHATASE 57 U/L (38-126); ANION GAP 15 (5-19); ASPARTATE AMINO TRANSFERASE 19 U/L (14-36); BILIRUBIN,DIRECT 0.3 mg/dL (0.0-0.4); BILIRUBIN,TOTAL 0.5 mg/dL (0.2-1.3); BLOOD UREA NITROGEN 4 mg/dL (7-20); CALCIUM 10.2 mg/dL (8.4-10.2); CARBON DIOXIDE 29 mmol/L (22-30); CHLORIDE 102 mmol/L (98-107); CREATININE RESULT 0.85 mg/dL (0.52-1.25); GLUCOSE 96 mg/dL (75-110); LIPASE 32.3 U/L (23-300); MAGNESIUM 1.6 mg/dL (1.6-2.3); POTASSIUM 3.4 mmol/L (3.6-5.0); SODIUM 146.3 mmol/L (137-145)
[2017-02-09] MEDS ORDERED: NORMAL SALINE 1000 ML 1,000 ML IV PRN (17:41)
[2017-02-09] MEDS ORDERED: MAG HYDROX/AL HYDROX/SIMETH SUSP 30 ML UDCUP PO ONE (17:41)
[2017-02-09] MEDS ORDERED: METOCLOPRAMIDE HCL ORAL SOLN 10 MG/10 ML UDCUP PO ONE (17:41)
[2017-02-09] MEDS ORDERED: LIDOCAINE 2% VISCOUS SOLN 20 ML UDCUP PO ONE (17:41)
[2017-02-09] MEDS ORDERED: DIPHENHYDRAMINE HCL 50 MG/ML VIAL IV ONE (17:42)
[2017-02-09] MEDS ORDERED: HALOPERIDOL LACTATE INJ 5 MG/1 ML VIAL IM ONE (17:42)
--- NOTE | 2017-02-09 17:42 | ER Document Report ---
ED GI/ - General Chief Complaint: Abdominal Pain Stated Complaint: STOMACH/ABDOMINAL PAIN Time Seen by Provider: 02/09/17 14:52 Mode of Arrival: Ambulatory Information source: Patient TRAVEL OUTSIDE OF THE [place] IN LAST 30 DAYS: No - HPI Patient complains to provider of: Abdominal pain, Vomiting Onset: This morning Timing/Duration: Sudden, Persistent Quality of pain: Achy Severity at maximum: Moderate Severity in ED: Moderate Location: Epigastric Associated symptoms: Nausea, Vomiting Exacerbated by: Denies Relieved by: Denies Similar symptoms previously: Yes Recently seen / treated by doctor: Yes Notes: 02/09/17 19:28 Patient is a 36-year-old female presenting to the emergency room today complaining of nausea and vomiting with epigastric abdominal pain that is associated with gastroparesis, she was just seen and admitted to this hospital, discharged yesterday, states she was unable to fill the prescriptions since being discharged, although she has a long-standing history of gastroparesis and has some medications at home, she states she was unable to tolerate, she denies any fever, she is not vomiting blood today although she has in the past, patient only recently moved to the area from [place] - Related Data Allergies/Adverse Reactions: No Known Allergies Allergy (Verified 02/09/17 14:40) Past Medical History - General Information source: Patient - Social History Smoking Status: Never Smoker Chew tobacco use (# tins/day): No Frequency of alcohol use: None Drug Abuse: None Family History: Reviewed & Not Pertinent Patient has suicidal ideation: No Patient has homicidal ideation: No - Past Medical History Cardiac Medical History: Reports: Hx Hypertension Pulmonary Medical History: Reports: Hx Bronchitis Endocrine Medical History: Reports: Hx Diabetes Mellitus Type 2 Renal/ Medical History: Denies: Hx Peritoneal Dialysis GI Medical History: Reports: Hx Gastroesophageal Reflux Disease Past Surgical History: Reports: Hx Section - Immunizations Hx Diphtheria, Pertussis, Tetanus Vaccination: Yes Review of Systems - Review of Systems Constitutional: No symptoms reported EENT: No symptoms reported Cardiovascular: No symptoms reported Respiratory: No symptoms reported Gastrointestinal: See HPI Genitourinary: No symptoms reported Female Genitourinary: No symptoms reported Musculoskeletal: No symptoms reported Skin: No symptoms reported Hematologic/Lymphatic: No symptoms reported Neurological/Psychological: No symptoms reported -: Yes All other systems reviewed and negative Physical Exam - Vital signs Vitals: Temp Pulse Resp BP Pulse Ox 99.1 F 102 H 16 142/91 H 97 02/09/17 14:39 02/09/17 14:39 02/09/17 14:39 02/09/17 14:39 02/09/17 14:39 Interpretation: Tachycardic - General General appearance: Appears well, Alert - HEENT Head: Normocephalic, Atraumatic Eyes: Normal Pupils: PERRL - Respiratory Respiratory status: No respiratory distress Chest status: Nontender Breath sounds: Normal Chest palpation: Normal - Cardiovascular Rhythm: Regular Heart sounds: Normal auscultation Murmur: No - Abdominal Inspection: Obese Distension: No distension Bowel sounds: Normal Tenderness: Tender - Epigastric Organomegaly: No organomegaly - Back Back: Normal, Nontender - Extremities General upper extremity: Normal inspection, Nontender, Normal color, Normal ROM , Normal temperature General lower extremity: Normal inspection, Nontender, Normal color, Normal ROM , Normal temperature, Normal weight bearing. No: Teodoro's sign - Neurological Neuro grossly intact: Yes Cognition: Normal Orientation: AAOx4 Stacy Coma Scale Eye Opening: Spontaneous Stacy Coma Scale Verbal: Oriented Stacy Coma Scale Motor: Obeys Commands [place] Coma Scale Total: 15 Speech: Normal Motor strength normal: LUE, RUE, LLE, RLE Sensory: Normal - Psychological Associated symptoms: Normal affect, Normal mood - Skin Skin Temperature: Warm Skin Moisture: Dry Skin Color: Normal Course - Re-evaluation Re-evalutation: 02/09/17 18:51 Patient sleeping comfortably 02/09/17 20:23 Patient is still sleeping comfortably 02/09/17 20:25 Patient is awake and alert, no vomiting for several hours after being medicated , will be discharged with appropriate prescriptions and follow-up information - Vital Signs Vital signs: Temp Pulse Resp BP Pulse Ox 99.1 F 102 H 16 142/91 H 102 H 02/09/17 14:39 02/09/17 14:39 02/09/17 14:39 02/09/17 14:39 02/09/17 14:39 - Laboratory Result Diagrams: 02/09/17 15:20 02/09/17 15:20 Laboratory results interpreted by me: 02/09/17 02/09/17 02/09/17 15:20 15:20 15:45 Hgb 9.5 L Hct 30.6 L MCV 69 L MCH 21.3 L MCHC 30.9 L RDW 20.7 H Sodium 146.3 H Potassium 3.4 L BUN 4 L Urine Protein >=500 H Urine Glucose (UA) 50 H Urine Ketones 20 H Urine Nitrite POSITIVE H Urine Bilirubin SMALL H Urine Urobilinogen 4.0 H Discharge - Discharge Clinical Impression: Nausea & vomiting Qualifiers: Vomiting type: unspecified Vomiting Intractability: non-intractable Qualified Code(s): R11.2 - Nausea with vomiting, unspecified Condition: Stable Disposition: HOME, SELF-CARE Instructions: Antinausea Medication ([facility]), Gastroenterology, Intravenous (IV) Fluids ([facility]), Vomiting ([facility]) Additional Instructions: Follow up with your primary care provider in one to 2 days. Return to the emergency room immediately if symptoms worsen or any additional concerns. Prescriptions: Esomeprazole Mag Trihydrate [Nexium] 40 mg PO DAILY #30 capsule.
--- NOTE | 2017-02-09 17:50 | RADIOLOGY REPORT (SQ) ---
EXAM DESCRIPTION: ACUTE ABDOMEN SERIES COMPLETED DATE/TIME: 02/09/2017 5:34 pm REASON FOR STUDY: abd pain COMPARISON: None. NUMBER OF VIEWS: Three views. TECHNIQUE: Frontal chest, supine abdomen and upright/decubitus abdomen radiographic images acquired. LIMITATIONS: None. FINDINGS: CHEST: Lungs clear of infiltrates. FREE AIR: None. No abnormal gas collections. BOWEL GAS PATTERN: Nonobstructive pattern. No dilated loops or air fluid levels. CALCIFICATIONS: No suspicious calcifications. HARDWARE: None in the abdomen. SOFT TISSUES: No gross mass or suggestion of organomegaly. BONES: No acute fracture. No worrisome bone lesions. OTHER: No other significant finding. IMPRESSION: NO RADIOGRAPHIC EVIDENCE FOR ACUTE ABDOMINAL DISEASE. TECHNICAL DOCUMENTATION: JOB ID: [id number] [employer]- All Rights Reserved
[2017-02-09] MEDS ORDERED: ONDANSETRON ODT 4 MG TAB (6 TAB/DSPK) PO PRN (20:27)
[2017-02-09] MEDS ORDERED: PROMETHAZINE HCL 25 MG SUPP (4 SUPP/ER DISP) PR ONE (20:27)
[2017-02-09 20:55] VITALS: BP 152/99
== END 2017-02-09 20:55 | disposition home or self-care (01) ==
LOC: ER 14:31
DX: R11.2 Nausea with vomiting, unspecified (principal); R10.13 Epigastric pain; K31.84 Gastroparesis
CPT/HCPCS: 99284; 96372; 96361; 96374; 96375; 36415; 83690; 83735; 85025; 81025; 80053; 81001; 80307; 74022; J1200; J1630; J3490 ×4; J1885; J2405; J7030

== ENCOUNTER 2017-02-19 07:41 | Emergency (ER) | payer MEDICAID ==
[2017-02-19] MEDS ORDERED: HALOPERIDOL LACTATE INJ 5 MG/1 ML VIAL IM ONE ×2 (07:48→08:32)
[2017-02-19] MEDS ORDERED: KETOROLAC TROMETHAMINE INJ/PF 30 MG/1 ML SDV IV ONE (07:48)
[2017-02-19] MEDS ORDERED: LIDOCAINE 5% (700 MG) TRANSDERMAL ADH..PATCH TP ONE (07:57)
--- NOTE | 2017-02-19 08:03 | ER Document Report ---
ED Neck/Back Problem - General Chief Complaint: Back Pain Stated Complaint: BACK PAIN Time Seen by Provider: 02/19/17 07:47 Notes: The patient is a 36-year-old female who presents with 5 days of left lower back pain. She says that is worse with movement and improves when she sits. She received 1 mg of Dilaudid by EMS prior to arrival. Last time she had the symptoms, he said that it was an STD and she wishes to be checked again today. She denies change in bowel or bladder, saddle anesthesia, fall, injury, hematuria, dysuria, fevers, history of IVDA or difficulty walking. TRAVEL OUTSIDE OF THE [place] IN LAST 30 DAYS: No - Related Data Allergies/Adverse Reactions: No Known Allergies Allergy (Verified 02/09/17 14:40) Past Medical History - General Information source: Patient - Social History Smoking Status: Current Every Day Smoker Drug Abuse: Marijuana Family History: Reviewed & Not Pertinent - Past Medical History Cardiac Medical History: Reports: Hx Hypertension Pulmonary Medical History: Reports: Hx Bronchitis Endocrine Medical History: Reports: Hx Diabetes Mellitus Type 2 Renal/ Medical History: Denies: Hx Peritoneal Dialysis GI Medical History: Reports: Hx Gastroesophageal Reflux Disease Past Surgical History: Reports: Hx Section - Immunizations Hx Diphtheria, Pertussis, Tetanus Vaccination: Yes Review of Systems - Review of Systems Notes: REVIEW OF SYSTEMS: CONSTITUTIONAL: -fevers, -chills EENT: -eye pain, -difficulty swallowing, -nasal congestion CARDIOVASCULAR:-chest pain, -syncope. RESPIRATORY: -cough, -SOB GASTROINTESTINAL: -abdominal pain, - nausea, -vomiting, -diarrhea GENITOURINARY: -dysuria, -hematuria MUSCULOSKELETAL: +back pain, -neck pain SKIN: -rash or skin lesions. HEMATOLOGIC: -easy bruising or bleeding. LYMPHATIC: -swollen, enlarged glands. NEUROLOGICAL: -altered mental status or loss of consciousness, -headache, - neurologic symptoms PSYCHIATRIC: -anxiety, -depression. ALL OTHER SYSTEMS REVIEWED AND NEGATIVE. Physical Exam - Vital signs Vitals: Temp Pulse Resp BP Pulse Ox 98.5 F 106 H 20 189/119 H 100 02/19/17 07:57 02/19/17 07:57 02/19/17 07:57 02/19/17 07:57 02/19/17 07:57 - Notes Notes: PHYSICAL EXAMINATION: GENERAL: Well-appearing, well-nourished and in no acute distress. HEAD: Atraumatic, normocephalic. EYES: Pupils equal round and reactive to light, extraocular movements intact, sclera anicteric, conjunctiva are normal. ENT: nares patent, oropharynx clear without exudates. Moist mucous membranes. NECK: Normal range of motion, supple without lymphadenopathy LUNGS: Breath sounds clear to auscultation bilaterally and equal. No wheezes rales or rhonchi. HEART: Regular rate and rhythm without murmurs ABDOMEN: Soft, nontender, normoactive bowel sounds. No guarding, no rebound. No masses appreciated. EXTREMITIES: Normal range of motion, no pitting or edema. No cyanosis. BACK: Tenderness over right lower back, no midline tenderness. NEUROLOGICAL: Cranial nerves grossly intact. Normal speech, normal gait. Normal sensory and motor exams. PSYCH: Normal mood, normal affect. SKIN: Warm, Dry, normal turgor, no rashes or lesions noted. Course - Re-evaluation Re-evalutation: Pt did not take her BP meds this morning. She has no red flag signs for low back pain at this time. Her urinalysis does not show evidence of pyelonephritis and she is not . She is requesting testing for gonorrhea and chlamydia. Will hold off on treatment at this time. Instructed patient to continue anti-inflammatories, Lidoderm patch and f/u with her PMD. 02/19/17 08:58 Upon discharge, pt began to feel nauseous and vomited. She has no abdominal tenderness and suspect that it may have been from her 1 mg of Dilaudid given by EMS. She smokes marijuana daily, so Haldol was chosen as an antiemetic to help with possible marijuana hyperemesis. - Vital Signs Vital signs: Temp Pulse Resp BP Pulse Ox 98.7 F 98 18 170/99 H 98 02/19/17 08:57 02/19/17 08:57 02/19/17 08:57 02/19/17 08:57 02/19/17 08:57 - Laboratory Laboratory results interpreted by me: 02/19/17 07:51 Urine Glucose (UA) 150 H Discharge - Discharge Clinical Impression: Low back pain Qualifiers: Chronicity: acute Back pain laterality: left Sciatica presence: without sciatica Qualified Code(s): M54.5 - Low back pain Condition: Stable Disposition: HOME, SELF-CARE Additional Instructions: LOW BACK PAIN: Three out of every four people will have an episode of disabling back pain during their lifetime. Most commonly the pain is due to straining of the muscles and ligaments in the low back. Usual treatment includes: (1) Rest on a firm surface. Avoid lying on your stomach. (2) Ice pack the painful area. After a few days, gentle heat may be used intermittently to relax the area, or ice packs can be continued. (3) Medication may be needed -- muscle relaxers and antiinflammatory medicines are commonly used. (4) As the back improves, exercises are prescribed to strengthen the back and abdominal muscles. Your doctor will advise you on the proper care for your back at each stage in your recovery. You may be better in a few days -- or healing may take several weeks. If new symptoms of a "herniated disc" (radiation of pain, numbness, or tingling down the back of the leg or weakness in the leg) occur, you should be re-examined. Further testing may be necessary. ICE PACKS: Apply ice packs frequently against the painful area. Many different schedules are recommended, such as "20 minutes on, 20 minutes off" or "one hour ice, two hours rest." If you need to work, you may need to go longer between ice treatments. You should plan to have the area ice packed AT LEAST one fourth of the time. The ice should be applied over the wrap, tape, or splint, or over a layer of cloth -- not directly against the skin. Some ice bags have a built-in cloth and can be put directly on the skin. WARM PACKS: After approximately two days, apply gentle heat (such as a heating pad or hot water bottle) for about 20 to 30 minutes about every two hours -- at least four times daily. Warmth and elevation will help you make a more rapid recovery , and will ease the pain considerably. Do not use HOT heat, and never apply heat for longer than 30 minutes. The continuous heat can invisibly damage skin and muscles -- even when no burn is seen on the surface. Damaged muscles can make you MORE sore. FOLLOW-UP CARE: If you have been referred to a physician for follow-up care, call the physician s office for an appointment as you were instructed or within the next two days. If you experience worsening or a significant change in your symptoms, notify the physician immediately or return to the Emergency Department at any time for re-evaluation. Prescriptions: Lidocaine [Lidoderm 5% (700 mg) Transdermal Patch] 1 patch TP DAILY #10 adh..patch Naproxen [Naprosyn 250 mg Tablet] 500 mg PO Q12H PRN #30 tablet PRN Reason: Forms: Elevated Blood Pressure Referrals: [facility] [Outside] - Follow up as needed
[2017-02-19] MEDS ORDERED: HYDROCHLOROTHIAZIDE 25 MG TABLET PO ONE (08:04)
[2017-02-19] MEDS ORDERED: LISINOPRIL 10 MG TABLET PO ONE (08:04)
[2017-02-19 08:13] LABS: APPEARANCE,URINE CLEAR; BILIRUBIN,URINE NEGATIVE (NEGATIVE); GLUCOSE, URINE 150 mg/dL (NEGATIVE); KETONES,URINE NEGATIVE (NEGATIVE); LEUKOCYTE ESTERASE,URINE NEGATIVE (NEGATIVE); NITRITE,URINE NEGATIVE (NEGATIVE); PROTEIN,URINE NEGATIVE (NEGATIVE); URINE SPECIFIC GRAVITY 1.008; UROBILINOGEN,URINE NEGATIVE mg/dL (<2.0)
[2017-02-19 08:58] VITALS: BP 170/99
[2017-02-19 09:37] LABS: CHLAM PCR NOT DETECTED (NOT DETECT)
== END 2017-02-19 08:59 | disposition home or self-care (01) ==
LOC: ER 07:41
DX: M54.5 Low back pain (principal); F12.90 Cannabis use, unspecified, uncomplicated; R11.2 Nausea with vomiting, unspecified; F17.200 Nicotine dependence, unspecified, uncomplicated; E11.9 Type 2 diabetes mellitus without complications; I10 Essential (primary) hypertension
CPT/HCPCS: 99283; 96372; 96374; 81025; 81001; 87491; 87591; J1630; J3490 ×3; J1885

== ENCOUNTER 2017-04-19 11:37 | Inpatient (IN) | payer MEDICAID ==
[2017-04-19] MEDS ORDERED: DIPHENHYDRAMINE HCL 50 MG/ML VIAL IV ONE (12:38)
[2017-04-19] MEDS ORDERED: HALOPERIDOL LACTATE INJ 5 MG/1 ML VIAL IV ONE (12:38)
[2017-04-19] MEDS: NORMAL SALINE 1000 ML 1,000 ML IV PRN ×2 (12:50→16:36)
[2017-04-19 12:56] LABS: ABSOLUTE LYMPHOCYTES (AUTO) 2.4 10^3/uL (0.5-4.7); ABSOLUTE NEUT (AUTO) 14.7 10^3/uL (1.7-8.2); BASOPHILS % (AUTO) 0.2 % (0-2); EOSINOPHILS % (AUTO) 0.2 % (0-6); HEMATOCRIT 32.8 % (36.0-47.0); MEAN CORPUSCULAR HEMOGLOBIN 19.6 pg (27.0-33.4); MEAN CORPUSCULAR HGB CONC 30.5 g/dL (32.0-36.0); MONOCYTES % (AUTO) 5.3 % (3-13); PLATELET COUNT 436 10^3/uL (150-450); RED BLOOD COUNT 5.11 10^6/uL (3.72-5.28); RED CELL DISTRIBUTION WIDTH 19.5 % (11.5-14.0); SEGMENTED NEUTROPHILS % (AUTO) 81.3 % (42-78); TOTAL CELLS COUNTED % (AUTO) 100 %; WHITE BLOOD COUNT 18.1 10^3/uL (4.0-10.5)
[2017-04-19 13:16] LABS: MEAN CORPUSCULAR VOLUME 64 fl (80-97)
[2017-04-19 13:18] LABS: HYPOCHROMASIA 1+; OVALOCYTES 2+; PLATELET COMMENT ADEQUATE; POIKILOCYTOSIS 3+; POLYCHROMASIA SLIGHT; STOMATOCYTES 1+
[2017-04-19 13:41] LABS: ALANINE AMINOTRANSFERASE 47 U/L (9-52); ALKALINE PHOSPHATASE 91 U/L (38-126); ANION GAP 16 (5-19); ASPARTATE AMINO TRANSFERASE 43 U/L (14-36); BILIRUBIN,DIRECT 0.3 mg/dL (0.0-0.4); BLOOD UREA NITROGEN 36 mg/dL (7-20); CARBON DIOXIDE 39 mmol/L (22-30); CHLORIDE 76 mmol/L (98-107); GLUCOSE 229 mg/dL (75-110); POTASSIUM 3.3 mmol/L (3.6-5.0); SODIUM 131.3 mmol/L (137-145); TOTAL PROTEIN 8.6 g/dL (6.3-8.2)
--- NOTE | 2017-04-19 13:42 | ER Document Report ---
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 Patient states she vomited 100 times today but then when asked about the vomiting states she just spit up. She notes symptoms have been ongoing for 4 days. Patient denies any fevers or chills denies any diarrhea TRAVEL OUTSIDE OF THE [place] IN LAST 30 DAYS: No - HPI Onset: Last week Onset/Duration: Persistent Quality of pain: No pain Severity: Mild Pain Level: Denies Associated symptoms: Nausea, Vomiting Exacerbated by: Other - marijuana Relieved by: Denies Similar symptoms previously: Yes Recently seen / treated by doctor: Yes - Related Data Allergies/Adverse Reactions: No Known Allergies Allergy (Verified 02/09/17 14:40) Past Medical History - Social History Smoking Status: Never Smoker Cigarette use (# per day): No Chew tobacco use (# tins/day): No Smoking Education Provided: No Frequency of alcohol use: None Drug Abuse: Marijuana Family History: Reviewed & Not Pertinent Patient has suicidal ideation: No Patient has homicidal ideation: No - Past Medical History Cardiac Medical History: Reports: Hx Hypertension Pulmonary Medical History: Reports: Hx Bronchitis Endocrine Medical History: Reports: Hx Diabetes Mellitus Type 2 Renal/ Medical History: Denies: Hx Peritoneal Dialysis GI Medical History: Reports: Hx Gastroesophageal Reflux Disease Past Surgical History: Reports: Hx Section - Immunizations Hx Diphtheria, Pertussis, Tetanus Vaccination: Yes Review of Systems - Review of Systems Notes: REVIEW OF SYSTEMS: CONSTITUTIONAL : Denies fever, chills, or sweats. Denies recent illness. EENT: Denies eye, ear, throat, or mouth pain or symptoms. Denies nasal or sinus congestion or discharge. Denies throat, tongue, or mouth swelling or difficulty swallowing. CARDIOVASCULAR: Denies chest pain. Denies palpitations or racing or irregular heart beat. Denies ankle edema. RESPIRATORY: Denies cough, cold, or chest congestion. Denies shortness of breath, difficulty breathing, or wheezing. GASTROINTESTINAL: Admits to vomiting GENITOURINARY: Denies difficulty urinating, painful urination, burning, frequency, blood in urine, or discharge. FEMALE GENITOURINARY: Denies vaginal bleeding, heavy or abnormal periods, irregular periods. Denies vaginal discharge or odor. MUSCULOSKELETAL: Denies back or neck pain or stiffness. Denies joint pain or swelling. SKIN: Denies rash, lesions or sores. HEMATOLOGIC : Denies easy bruising or bleeding. LYMPHATIC: Denies swollen, enlarged glands. NEUROLOGICAL: Denies confusion or altered mental status. Denies passing out or loss of consciousness. Denies dizziness or lightheadedness. Denies headache. Denies weakness or paralysis or loss of use of either side. Denies problems with gait or speech. Denies sensory loss, numbness, or tingling. Denies seizures. PSYCHIATRIC: Denies anxiety or stress. Denies depression, suicidal ideation, or homicidal ideation. ALL OTHER SYSTEMS REVIEWED AND NEGATIVE. PHYSICAL EXAMINATION: GENERAL: Well-appearing, well-nourished and in no acute distress. HEAD: Atraumatic, normocephalic. EYES: Pupils equal round and reactive to light, extraocular movements intact, conjunctiva are normal. ENT: Dry lips moist mucous membranes NECK: Normal range of motion, supple without lymphadenopathy LUNGS: Breath sounds clear to auscultation bilaterally and equal. No wheezes rales or rhonchi. HEART: Regular rate and rhythm without murmurs ABDOMEN: Soft, nontender, nondistended abdomen. No guarding, no rebound. No masses appreciated. Female : deferred Musculoskeletal: Normal range of motion, no pitting or edema. No cyanosis. NEUROLOGICAL: Cranial nerves grossly intact. Normal speech, normal gait. Normal sensory, motor exams PSYCH: Normal mood, normal affect. SKIN: Right side had shaved left side. Grown out Dictation was performed using [employer] voice recognition software Physical Exam - Vital signs Vitals: Temp Pulse Resp BP Pulse Ox 98.3 F 126 H 18 114/75 98 04/19/17 11:48 04/19/17 11:48 04/19/17 11:48 04/19/17 11:48 04/19/17 11:48 Course - Re-evaluation Re-evalutation: 04/19/17 13:43 Patient has a white count 18, this would be consistent with her vomiting episodes. She overall looks well was noted to be tachycardic upon arrival IV was placed fluids will be given patient realizes that her symptoms are secondary to her marijuana use she continues to use it nonetheless. She was given Haldol and is resting comfortably when I woke her she asked for pain medication and immediately fell back to sleep, I will refrain from giving any pain medication at this time as it is not appropriate 04/19/17 14:37 Patient's CMP does come back, she is in acute renal failure, she continues to be quite drowsy and I do not believe narcotics are appropriate for her but I will observe her in the hospital for IV hydration. I explained to the patient that she needs to stop smoking marijuana - Vital Signs Vital signs: Temp Pulse Resp BP Pulse Ox 98.3 F 126 H 18 114/75 98 04/19/17 11:48 04/19/17 11:48 04/19/17 12:22 04/19/17 11:48 04/19/17 11:48 - Laboratory Result Diagrams: 04/19/17 12:40 04/19/17 12:40 Laboratory results interpreted by me: 04/19/17 04/19/17 12:40 12:40 WBC 18.1 H Hgb 10.0 L Hct 32.8 L MCV 64 L MCH 19.6 L MCHC 30.5 L RDW 19.5 H Seg Neutrophils % 81.3 H Absolute Neutrophils 14.7 H Sodium 131.3 L Potassium 3.3 L Chloride 76 L Carbon Dioxide 39 H BUN 36 H Creatinine 1.77 H Est GFR ( Amer) 39 L Est GFR (Non-Af Amer) 32 L Glucose 229 H Calcium 11.0 H AST 43 H Total Protein 8.6 H Critical Care Note - Critical Care Note Total time excluding time spent on procedures (mins): 34 Comments: 34 minutes of critical care time spent in direct contact evaluating and reevaluating the patient, treating symptoms, reviewing labs and studies and speaking with family and consultants excluding any procedures Discharge - Discharge Clinical Impression: Abdominal cramping, Tachycardia Vomiting Qualifiers: Vomiting type: unspecified Vomiting Intractability: intractable Nausea presence : with nausea Qualified Code(s): R11.2 - Nausea with vomiting, unspecified Acute renal failure Qualifiers: Acute renal failure type: unspecified Qualified Code(s): N17.9 - Acute kidney failure, unspecified Condition: Stable Disposition: ADMITTED INPATIENT Admitting Provider: Hospitalist Unit Admitted: Medical Floor
[2017-04-19] MEDS ORDERED: ONDANSETRON HCL INJ/PF 4 MG/2 ML SDV IV PRN (15:15)
[2017-04-19] MEDS ORDERED: ACETAMINOPHEN 325 MG TABLET PO PRN (15:15)
[2017-04-19] MEDS ORDERED: GLUCAGON,HUMAN RECOMB 1 MG INJ IM PRN (15:20)
[2017-04-19] MEDS ORDERED: DEXTROSE 40% GEL 15 GM TUBE PO PRN ×2 (15:20)
[2017-04-19] MEDS ORDERED: DEXTROSE 50%-WATER 25 GM/50 ML DISP.SYRIN IV PRN ×2 (15:20)
--- NOTE | 2017-04-19 15:39 | PDOC H&P ---
History of Present Illness Admission Date/PCP: 04/19/2015 Patient complains of: Abdominal Pain and Nausea History of Present Illness: JOSE GIVENS is a 36 year old female Presents with complaint of nausea and vomiting for the last several days. Patient states that she has had this happen before and was told that it was related to her marijuana use. Patient reports that she has tried to decrease her marijuana use however problem continues to happen. Patient states that she does not think that is due to her marijuana use. Past Medical History Cardiac Medical History: Reports: Hypertension Pulmonary Medical History: Reports: Bronchitis Endocrine Medical History: Reports: Diabetes Mellitus Type 2 GI Medical History: Reports: Gastroesophageal Reflux Disease Past Surgical History Past Surgical History: Reports: Section Social History Information Source: Patient Lives with: Alone Smoking Status: Never Smoker Frequency of Alcohol Use: Social Hx Recreational Drug Use: Yes Drugs: Marijuana Hx Prescription Drug Abuse: No - Advance Directive Resuscitation Status: Full Code Family History Family History: Reviewed & Not Pertinent Parental Family History Reviewed: No Children Family History Reviewed: No Sibling(s) Family History Reviewed.: No Medication/Allergy Home Medications: Fluoxetine HCl [Prozac] 20 mg PO DAILY MDD LAST FILLED 12/17/16 02/08/17 Lisinopril [Zestril] 20 mg PO DAILY 30 Days tablet 02/08/17 Metoclopramide HCl [Reglan 10 mg Tablet] 10 mg PO TID MDD LAST FILLED 12/17/16 02/08/17 Pantoprazole Sodium [Protonix] 40 mg PO DAILY 02/08/17 Potassium Chloride [Klor-Con M20] 20 meq PO BID MDD LAST FILLED 12/17/16 Promethazine HCl [Phenergan 25 mg Tablet] 25 mg PO Q6HP PRN 02/08/17 Triamterene/Hydrochlorothiazid [Dyazide 37.5-25 Capsule] 1 cap PO DAILY MDD LAST FILLED 12/20/16 02/08/17 Esomeprazole Mag Trihydrate [Nexium] 40 mg PO DAILY #30 capsule. 02/09/17 Lidocaine [Lidoderm 5% (700 mg) Transdermal Patch] 1 patch TP DAILY #10 adh..patch 02/19/17 Naproxen [Naprosyn 250 mg Tablet] 500 mg PO Q12H PRN #30 tablet 02/19/17 Allergies/Adverse Reactions: No Known Allergies Allergy (Verified 02/09/17 14:40) Review of Systems Constitutional: ABSENT: chills, fever(s), headache(s), weight gain, weight loss Eyes: ABSENT: visual disturbances Ears: ABSENT: hearing changes Cardiovascular: ABSENT: chest pain, dyspnea on exertion, edema, orthropnea, palpitations Respiratory: ABSENT: cough, hemoptysis Gastrointestinal: PRESENT: abdominal pain, nausea, vomiting. ABSENT: constipation, diarrhea, hematemesis, hematochezia Genitourinary: ABSENT: dysuria, hematuria Musculoskeletal: ABSENT: joint swelling Integumentary: ABSENT: rash, wounds Neurological: ABSENT: abnormal gait, abnormal speech, confusion, dizziness, focal weakness, syncope Psychiatric: ABSENT: anxiety, depression, homidical ideation, suicidal ideation Endocrine: ABSENT: cold intolerance, heat intolerance, polydipsia, polyuria Hematologic/Lymphatic: ABSENT: easy bleeding, easy bruising Physical Exam Vital Signs: Temp Pulse Resp BP Pulse Ox 98.3 F 126 H 18 114/75 98 04/19/17 11:48 04/19/17 11:48 04/19/17 12:22 04/19/17 11:48 04/19/17 11:48 Intake & Output 04/18/17 04/19/17 04/20/17 06:59 06:59 06:59 Weight 106.1 kg General appearance: PRESENT: mild distress, well-developed, well-nourished Head exam: PRESENT: atraumatic, normocephalic Eye exam: PRESENT: conjunctiva pink, EOMI. ABSENT: scleral icterus Ear exam: PRESENT: normal external ear exam Mouth exam: PRESENT: moist, tongue midline Neck exam: ABSENT: carotid bruit, JVD, lymphadenopathy, thyromegaly Respiratory exam: PRESENT: clear to auscultation andie. ABSENT: rales, rhonchi, wheezes Cardiovascular exam: PRESENT: RRR. ABSENT: diastolic murmur, rubs, systolic murmur Pulses: PRESENT: normal dorsalis pedis pul Vascular exam: PRESENT: normal capillary refill GI/Abdominal exam: PRESENT: normal bowel sounds, soft, tenderness. ABSENT: distended, guarding, mass, organolmegaly, rebound Rectal exam: PRESENT: deferred Extremities exam: PRESENT: full ROM. ABSENT: calf tenderness, clubbing, pedal edema Neurological exam: PRESENT: alert, awake, oriented to person, oriented to place , oriented to time, oriented to situation, CN II-XII grossly intact. ABSENT: motor sensory deficit Psychiatric exam: PRESENT: appropriate affect, normal mood. ABSENT: homicidal ideation, suicidal ideation Skin exam: PRESENT: dry, intact, warm. ABSENT: cyanosis, rash Results Laboratory Results: 04/19/17 12:40 04/19/17 12:40 04/19/17 04/19/17 04/19/17 12:40 12:40 12:40 WBC 18.1 H RBC 5.11 Hgb 10.0 L Hct 32.8 L MCV 64 L MCH 19.6 L MCHC 30.5 L RDW 19.5 H Plt Count 436 Seg Neutrophils % 81.3 H Lymphocytes % 13.0 Monocytes % 5.3 Eosinophils % 0.2 Basophils % 0.2 Absolute Neutrophils 14.7 H Absolute Lymphocytes 2.4 Absolute Monocytes 1.0 Absolute Eosinophils 0.0 Absolute Basophils 0.0 Sodium 131.3 L Potassium 3.3 L Chloride 76 L Carbon Dioxide 39 H Anion Gap 16 BUN 36 H Creatinine 1.77 H Est GFR ( Amer) 39 L Est GFR (Non-Af Amer) 32 L Glucose 229 H Calcium 11.0 H Total Bilirubin 1.0 AST 43 H ALT 47 Alkaline Phosphatase 91 Total Protein 8.6 H Albumin 5.0 Lipase 63.0 Serum HCG, Qual NEGATIVE Assessment & Plan - Diagnosis (1) Marijuana dependence Is this a current diagnosis for this admission?: Yes Plan: Will continue to encourage pt to stop using marijuana. (2) Abdominal cramping Is this a current diagnosis for this admission?: Yes Plan: Secondary to Marijuana dependence: continue to encourage pt to stop using marijuana. (3) Acute renal failure Qualifiers: Acute renal failure type: unspecified Qualified Code(s): N17.9 - Acute kidney failure, unspecified Is this a current diagnosis for this admission?: Yes Plan: Secondary to Dehydration: Will continue IVFs (4) Vomiting Qualifiers: Vomiting type: unspecified Vomiting Intractability: intractable Nausea presence: with nausea Qualified Code(s): R11.2 - Nausea with vomiting, unspecified Is this a current diagnosis for this admission?: Yes Plan: Secondary to Marijuana use: Encourage pt to stop using marijuana. (5) Hypercalcemia Is this a current diagnosis for this admission?: Yes Plan: Secondary to Dehydration: Will continue IVFs and check CMP in am (6) Hypokalemia Is this a current diagnosis for this admission?: Yes Plan: Will give Potassium Replacement. Will check CMP. (7) DVT prophylaxis Is this a current diagnosis for this admission?: Yes Plan: SCDs - Time Time Spent: 30 to 50 Minutes Anticipated discharge: Home
[2017-04-19] MEDS ORDERED: POTASSIUM CHLORIDE 10 MEQ TABLET.SA PO ONE (16:00)
[2017-04-19] MEDS: INSULIN LISPRO 100 UNIT/ML 3 ML VIAL SUBCUT PRN (18:45)
[2017-04-20] MEDS: INSULIN LISPRO 100 UNIT/ML 3 ML VIAL SUBCUT PRN ×3 (00:07→13:06)
[2017-04-20] MEDS: NORMAL SALINE 1000 ML 1,000 ML IV PRN ×2 (00:07→04:10)
[2017-04-20] MEDS ORDERED: LANSOPRAZOLE 30 MG TAB.RAP.DR PO SCH (06:00)
[2017-04-20 07:59] LABS: ABSOLUTE EOSINOPHILS # (AUTO) 0.1 10^3/uL (0.0-0.6); ABSOLUTE LYMPHOCYTES (AUTO) 2.3 10^3/uL (0.5-4.7); ABSOLUTE MONOCYTES (AUTO) 0.6 10^3/uL (0.1-1.4); BASOPHILS % (AUTO) 0.5 % (0-2); EOSINOPHILS % (AUTO) 1.3 % (0-6); HEMATOCRIT 30.9 % (36.0-47.0); HEMOGLOBIN 9.4 g/dL (12.0-15.5); LYMPHOCYTES % (AUTO) 22.6 % (13-45); MEAN CORPUSCULAR HEMOGLOBIN 20.1 pg (27.0-33.4); MEAN CORPUSCULAR HGB CONC 30.6 g/dL (32.0-36.0); MEAN CORPUSCULAR VOLUME 66 fl (80-97); MONOCYTES % (AUTO) 5.6 % (3-13); PLATELET COUNT 319 10^3/uL (150-450); RED BLOOD COUNT 4.68 10^6/uL (3.72-5.28); RED CELL DISTRIBUTION WIDTH 19.2 % (11.5-14.0); TOTAL CELLS COUNTED % (AUTO) 100 %
[2017-04-20 08:08] LABS: ALANINE AMINOTRANSFERASE 37 U/L (9-52); ALBUMIN 4.4 g/dL (3.5-5.0); ALKALINE PHOSPHATASE 79 U/L (38-126); ANION GAP 13 (5-19); ASPARTATE AMINO TRANSFERASE 28 U/L (14-36); BILIRUBIN,DIRECT 0.4 mg/dL (0.0-0.4); BILIRUBIN,TOTAL 0.8 mg/dL (0.2-1.3); BLOOD UREA NITROGEN 25 mg/dL (7-20); CALCIUM 9.9 mg/dL (8.4-10.2); CARBON DIOXIDE 35 mmol/L (22-30); CHLORIDE 88 mmol/L (98-107); GLUCOSE 163 mg/dL (75-110); SODIUM 136.4 mmol/L (137-145); TOTAL PROTEIN 7.4 g/dL (6.3-8.2)
--- NOTE | 2017-04-20 16:01 | PDOC DISCHARGE SUMMARY ---
General - Admit/Disc Date/PCP Admission Date/Primary Care Provider: 04/19/17 15:42 Discharge Date: 04/20/17 - Discharge Diagnosis (1) Marijuana dependence Is this a current diagnosis for this admission?: Yes Summary: Encourage pt to stop using Marijuana. (2) Abdominal cramping Is this a current diagnosis for this admission?: Yes Summary: Secondary to Marijuana: Resolved. (3) Acute renal failure Is this a current diagnosis for this admission?: Yes Summary: Resolved. (4) Vomiting Is this a current diagnosis for this admission?: Yes Summary: Resolved. (5) Hypercalcemia Is this a current diagnosis for this admission?: Yes Summary: Secondary Dehydration: Resolved. (6) Hypokalemia Is this a current diagnosis for this admission?: Yes Summary: Potassium Chloride 40mEq Qdaily for 3 days - Additional Information Resuscitation Status: Full Code Discharge Diet: Diabetic Discharge Activity: Activity As Tolerated Prescriptions: Potassium Chloride 40 meq PO Q8HP PRN #6 tab.er.prt PRN Reason: Home Medications: Esomeprazole Magnesium [Nexium] 40 mg PO DAILY 04/19/17 Lisinopril [Prinivil 10 mg Tablet] 10 mg PO DAILY 04/19/17 Metformin HCl [Glucophage] 1,000 mg PO BIDBS 04/19/17 Metoclopramide HCl [Reglan 10 mg Tablet] 10 mg PO TIDP PRN 04/19/17 Potassium Chloride [Klor-Con 10] 20 meq PO DAILY 04/19/17 Ranitidine HCl [Zantac 150 mg Tablet] 150 mg PO BID 04/19/17 Triamterene/Hydrochlorothiazid [Triamterene-Hctz 37.5-25 mg Cp] 1 cap PO DAILY 04/19/17 Potassium Chloride 40 meq PO Q8HP PRN #6 tab.er.prt 04/20/17 History of Present Illness Patient complains of: Vomiting History of Present Illness: JOSE GIVENS is a 36 year old female Presents with complaint of nausea and vomiting for the last several days. Patient states that she has had this happen before and was told that it was related to her marijuana use. Patient reports that she has tried to decrease her marijuana use however problem continues to happen. Patient states that she does not think that is due to her marijuana use. Hospital Course Hospital Course: Pt was placed on IVFs and given potassium replacement. Pt's nausea has resolved. Pt requesting to be discharge. Pt was noted to have acute renal injury secondary to dehydration which has resolved. Pt was told to stop use Marijuana. Physical Exam Vital Signs: Temp Pulse Resp BP Pulse Ox 99.5 F 117 H 20 113/74 100 04/20/17 08:37 04/20/17 08:37 04/20/17 08:37 04/20/17 08:37 04/20/17 08:37 Intake & Output 04/19/17 04/20/17 04/21/17 06:59 06:59 06:59 Intake Total 525 Output Total 0 Balance 525 Weight 108.4 kg General appearance: PRESENT: no acute distress, well-developed, well-nourished Head exam: PRESENT: atraumatic, normocephalic Eye exam: PRESENT: conjunctiva pink, EOMI. ABSENT: scleral icterus Ear exam: PRESENT: normal external ear exam Mouth exam: PRESENT: moist, tongue midline Neck exam: ABSENT: carotid bruit, JVD, lymphadenopathy, thyromegaly Respiratory exam: PRESENT: clear to auscultation andie. ABSENT: rales, rhonchi, wheezes Cardiovascular exam: PRESENT: RRR. ABSENT: diastolic murmur, rubs, systolic murmur Pulses: PRESENT: normal dorsalis pedis pul Vascular exam: PRESENT: normal capillary refill GI/Abdominal exam: PRESENT: normal bowel sounds, soft. ABSENT: distended, guarding, mass, organolmegaly, rebound, tenderness Rectal exam: PRESENT: deferred Extremities exam: PRESENT: full ROM. ABSENT: calf tenderness, clubbing, pedal edema Neurological exam: PRESENT: alert, awake, oriented to person, oriented to place , oriented to time, oriented to situation, CN II-XII grossly intact. ABSENT: motor sensory deficit Psychiatric exam: PRESENT: appropriate affect, normal mood. ABSENT: homicidal ideation, suicidal ideation Skin exam: PRESENT: dry, intact, warm. ABSENT: cyanosis, rash Results Laboratory Results: 04/20/17 07:12 04/20/17 07:12 04/20/17 04/20/17 07:12 07:12 WBC 10.0 RBC 4.68 Hgb 9.4 L Hct 30.9 L MCV 66 L MCH 20.1 L MCHC 30.6 L RDW 19.2 H Plt Count 319 Seg Neutrophils % 70.0 Lymphocytes % 22.6 Monocytes % 5.6 Eosinophils % 1.3 Basophils % 0.5 Absolute Neutrophils 7.0 Absolute Lymphocytes 2.3 Absolute Monocytes 0.6 Absolute Eosinophils 0.1 Absolute Basophils 0.0 Sodium 136.4 L Potassium 3.0 L* Chloride 88 L Carbon Dioxide 35 H Anion Gap 13 BUN 25 H Creatinine 1.01 Est GFR ( Amer) > 60 Est GFR (Non-Af Amer) > 60 Glucose 163 H Calcium 9.9 Total Bilirubin 0.8 AST 28 ALT 37 Alkaline Phosphatase 79 Total Protein 7.4 Albumin 4.4 Plan Time Spent: Greater than 30 Minutes
[2017-04-20 16:12] VITALS: BP 114/70
== END 2017-04-20 17:03 | disposition home or self-care (01) | DRG 684 ==
LOC: ER 11:37 → EH 15:42 → 3S 04-20 03:30
PROVIDERS: ADMIT Emergency Medicine; ATTEND Emergency Medicine
DX: N17.9 Acute kidney failure, unspecified (principal); F12.20 Cannabis dependence, uncomplicated; E83.52 Hypercalcemia; E87.6 Hypokalemia; E86.0 Dehydration; I10 Essential (primary) hypertension; E11.9 Type 2 diabetes mellitus without complications; K21.9 Gastro-esophageal reflux disease without esophagitis; R11.2 Nausea with vomiting, unspecified; Z60.2 Problems related to living alone; Z79.899 Other long term (current) drug therapy
CPT/HCPCS: 36415; 80053; 82962; 83690; 84703; 85025; 96361; 96374; 96375; 99291; J1200; J1630; J1815; J7030

== ENCOUNTER 2017-04-27 06:54 | Emergency (ER) | payer MEDICAID ==
[2017-04-27] MEDS ORDERED: ONDANSETRON HCL INJ/PF 4 MG/2 ML SDV IV ONE (07:20)
[2017-04-27] MEDS ORDERED: NORMAL SALINE 1000 ML 1,000 ML IV ONE (07:20)
[2017-04-27] MEDS ORDERED: DIPHENHYDRAMINE HCL 50 MG/ML VIAL IV ONE (07:23)
[2017-04-27] MEDS ORDERED: HALOPERIDOL LACTATE INJ 5 MG/1 ML VIAL IV ONE (07:25)
--- NOTE | 2017-04-27 07:26 | ER Document Report ---
ED General - General Chief Complaint: Vomiting Stated Complaint: VOMITING Time Seen by Provider: 04/27/17 07:10 Mode of Arrival: Ambulatory Information source: Patient Notes: Patient presents emergency department with complaints of vomiting for over a week. Patient reports she has a history of gastroparesis. Patient reports that she has been vomiting nonstop unable to hold any fluids or food down for the past week. Denies body aches, fever or diarrhea. LBM . Reports abdominal cramps. Patient was admitted last week for same symptoms. Patient reports she smokes marijuana and has been counseled on the correlation between vomiting and marijuana. She reports hot showers and marijuana helps decrease her stomach pain. Patient reports she did not drive herself here. She has not taken any medications for the vomiting. Patient constantly spitting in emesis bag, no active vomiting. TRAVEL OUTSIDE OF THE [place] IN LAST 30 DAYS: No - HPI Onset: Last week Onset/Duration: Persistent Quality of pain: Achy, Cramping Pain Level: 5 Associated symptoms: Vomiting Exacerbated by: Denies Relieved by: Denies Similar symptoms previously: Yes Recently seen / treated by doctor: Yes - Related Data Allergies/Adverse Reactions: No Known Allergies Allergy (Verified 02/09/17 14:40) Past Medical History - General Information source: Patient Last Menstrual Period: current - Social History Smoking Status: Unknown if Ever Smoked Cigarette use (# per day): No Frequency of alcohol use: None Drug Abuse: Marijuana Family History: Reviewed & Not Pertinent Patient has suicidal ideation: No Patient has homicidal ideation: No - Past Medical History Cardiac Medical History: Reports: Hx Hypertension Pulmonary Medical History: Reports: Hx Bronchitis Endocrine Medical History: Reports: Hx Diabetes Mellitus Type 2 Renal/ Medical History: Denies: Hx Peritoneal Dialysis GI Medical History: Reports: Hx Gastroesophageal Reflux Disease Psychiatric Medical History: Reports: Hx Depression Past Surgical History: Reports: Hx Section - Immunizations Hx Diphtheria, Pertussis, Tetanus Vaccination: Yes Review of Systems - Review of Systems Notes: Review HPI for review of systems., All other systems negative Physical Exam - Vital signs Vitals: Temp Pulse Resp BP Pulse Ox 98.7 F 103 H 18 147/90 H 98 04/27/17 06:54 04/27/17 06:54 04/27/17 06:54 04/27/17 06:54 04/27/17 06:54 - Notes Notes: PHYSICAL EXAMINATION: GENERAL: Well-appearing and in no acute distress nontoxic looking, emotional. HEAD: Atraumatic, normocephalic. EYES: Pupils equal round and reactive to light, extraocular movements intact, sclera anicteric, conjunctiva are normal. ENT: nares patent, oropharynx clear without exudates. Moist mucous membranes. NECK: Normal range of motion, supple without lymphadenopathy LUNGS: CTAB and equal. No wheezes rales or rhonchi. HEART: Regular rate and rhythm without murmurs ABDOMEN: Soft, slight facial grimacing with RUQ palpation. No guarding, no rebound EXTREMITIES: Normal range of motion, no pitting edema. No cyanosis. NEUROLOGICAL: Cranial nerves grossly intact. Normal sensory/motor exams. PSYCH: Normal mood, normal affect. SKIN: Warm, Dry, normal turgor, no rashes or lesions noted Course - Re-evaluation Re-evalutation: 04/27/17 07:[address] Zhang. He is very familiar with patient. He advises 5 mg Haldol IV with Benadryl. Will also give bolus of IV fluids. 04/27/17 09:23 No further vomiting. Patient has received IV fluids. Labs unremarkable. Patient was instructed to take antinausea medicine, reduce smoking marijuana, and follow-up with the primary care provider. She verbalized understanding to all instructions. - Vital Signs Vital signs: Temp Pulse Resp BP Pulse Ox 98.7 F 103 H 18 147/90 H 98 04/27/17 06:54 04/27/17 06:54 04/27/17 06:54 04/27/17 06:54 04/27/17 06:54 - Laboratory Result Diagrams: 04/27/17 07:27 04/27/17 07:27 Laboratory results interpreted by me: 04/27/17 04/27/17 04/27/17 07:20 07:27 07:27 Hgb 9.8 L Hct 32.4 L MCV 67 L MCH 20.1 L MCHC 30.2 L RDW 19.9 H Potassium 3.2 L Chloride 91 L Carbon Dioxide 35 H Glucose 182 H Calcium 10.9 H Urine Protein 100 H Urine Glucose (UA) 50 H Urine Ketones TRACE H Urine Urobilinogen 2.0 H Discharge - Discharge Clinical Impression: Marijuana abuse Vomiting Qualifiers: Vomiting type: unspecified Vomiting Intractability: non-intractable Condition: Stable Disposition: HOME, SELF-CARE Instructions: Antinausea Medication ([facility]), Intravenous (IV) Fluids ([facility]), Vomiting ([facility]) Additional Instructions: *You have been evaluated for nausea/vomiting, marijuana abuse *Take medication as prescribed for vomiting *Ensure adequate fluid intake as discussed to prevent dehydration *Follow up with a primary care provider within one week *Return to ED for worsening condition, changes, needs Prescriptions: Promethazine HCl [Phenergan 25 mg Tablet] 25 - 50 mg PO ASDIR PRN #12 tablet PRN Reason: Forms: Elevated Blood Pressure
[2017-04-27 07:48] LABS: ABSOLUTE BASOPHILS # (AUTO) 0.1 10^3/uL (0.0-0.2); ABSOLUTE EOSINOPHILS # (AUTO) 0.2 10^3/uL (0.0-0.6); ABSOLUTE LYMPHOCYTES (AUTO) 2.2 10^3/uL (0.5-4.7); ABSOLUTE MONOCYTES (AUTO) 0.5 10^3/uL (0.1-1.4); ABSOLUTE NEUT (AUTO) 3.8 10^3/uL (1.7-8.2); EOSINOPHILS % (AUTO) 3.4 % (0-6); HEMATOCRIT 32.4 % (36.0-47.0); HEMOGLOBIN 9.8 g/dL (12.0-15.5); LYMPHOCYTES % (AUTO) 32.4 % (13-45); MEAN CORPUSCULAR HEMOGLOBIN 20.1 pg (27.0-33.4); MEAN CORPUSCULAR HGB CONC 30.2 g/dL (32.0-36.0); MEAN CORPUSCULAR VOLUME 67 fl (80-97); MONOCYTES % (AUTO) 6.9 % (3-13); PLATELET COUNT 415 10^3/uL (150-450); RED BLOOD COUNT 4.87 10^6/uL (3.72-5.28); RED CELL DISTRIBUTION WIDTH 19.9 % (11.5-14.0); SEGMENTED NEUTROPHILS % (AUTO) 56.3 % (42-78); TOTAL CELLS COUNTED % (AUTO) 100 %; WHITE BLOOD COUNT 6.7 10^3/uL (4.0-10.5)
[2017-04-27 07:55] LABS: APPEARANCE,URINE SLIGHTLY-CLOUDY; BILIRUBIN,URINE NEGATIVE (NEGATIVE); COLOR,URINE YELLOW; GLUCOSE, URINE 50 mg/dL (NEGATIVE); KETONES,URINE TRACE mg/dL (NEGATIVE); LEUKOCYTE ESTERASE,URINE NEGATIVE (NEGATIVE); NITRITE,URINE NEGATIVE (NEGATIVE); PROTEIN,URINE 100 mg/dL (NEGATIVE); URINE SPECIFIC GRAVITY 1.017
[2017-04-27 07:56] LABS: ALANINE AMINOTRANSFERASE 25 U/L (9-52); ALBUMIN 4.8 g/dL (3.5-5.0); ALKALINE PHOSPHATASE 69 U/L (38-126); ANION GAP 12 (5-19); ASPARTATE AMINO TRANSFERASE 19 U/L (14-36); BILIRUBIN,DIRECT 0.2 mg/dL (0.0-0.4); BILIRUBIN,TOTAL 0.6 mg/dL (0.2-1.3); BLOOD UREA NITROGEN 8 mg/dL (7-20); CALCIUM 10.9 mg/dL (8.4-10.2); CARBON DIOXIDE 35 mmol/L (22-30); CHLORIDE 91 mmol/L (98-107); GLUCOSE 182 mg/dL (75-110); LIPASE 43.9 U/L (23-300); POTASSIUM 3.2 mmol/L (3.6-5.0); SODIUM 138.1 mmol/L (137-145); TOTAL PROTEIN 7.9 g/dL (6.3-8.2)
[2017-04-27 09:32] VITALS: BP 132/75
== END 2017-04-27 09:32 | disposition home or self-care (01) ==
LOC: ER 06:54
DX: F12.10 Cannabis abuse, uncomplicated (principal); R11.10 Vomiting, unspecified
CPT/HCPCS: 99283; 96361; 96374; 96375; 36415; 83690; 84703; 85025; 80053; 81001; J1200; J1630; J7030

== ENCOUNTER 2017-04-29 03:09 | Emergency (ER) | payer MEDICAID ==
--- NOTE | 2017-04-29 04:01 | ER Document Report ---
ED General - General Mode of Arrival: Ambulatory Information source: Patient TRAVEL OUTSIDE OF THE [place] IN LAST 30 DAYS: No <VERONICA LOREDO - Last Filed: 04/29/17 06:02> <PAOLA ORBBINS - Last Filed: 04/29/17 06:58> - General Chief Complaint: Abdominal Pain Stated Complaint: ABDOMINAL PAIN Time Seen by Provider: 04/29/17 03:44 Notes: Patient is a 36 year old female with a history of diabetes presents to the emergency department complaining of abdominal pain and vomiting. Patient was last seen here for the same symptoms 2 days ago and patient states her symptoms are not improving. Patient believes this is another flare up of her gastroparesis. Patients associated symptoms include decreased fluid intake, inability to down solids, and decreased bowel movements (last BM 2 days ago). Patient denies any fevers. Patient states that her vomiting is worsened with marijuana usage. (VERONICA LOREDO) - Related Data Allergies/Adverse Reactions: No Known Allergies Allergy (Verified 02/09/17 14:40) Past Medical History - General Information source: Patient - Social History Smoking Status: Current Some Day Smoker Cigarette use (# per day): No - Marijuana Drug Abuse: Marijuana Family History: Reviewed & Not Pertinent - Past Medical History Cardiac Medical History: Reports: Hx Hypertension Pulmonary Medical History: Reports: Hx Bronchitis Endocrine Medical History: Reports: Hx Diabetes Mellitus Type 2 GI Medical History: Reports: Hx Gastroesophageal Reflux Disease Psychiatric Medical History: Reports: Hx Depression Past Surgical History: Reports: Hx Section - Immunizations Hx Diphtheria, Pertussis, Tetanus Vaccination: Yes <VERONICA LOREDO - Last Filed: 04/29/17 06:02> Review of Systems - Review of Systems Constitutional: No symptoms reported EENT: No symptoms reported Cardiovascular: No symptoms reported Respiratory: No symptoms reported Gastrointestinal: See HPI, Abdominal pain, Vomiting, Poor fluid intake Genitourinary: No symptoms reported Female Genitourinary: No symptoms reported Musculoskeletal: No symptoms reported Skin: No symptoms reported Hematologic/Lymphatic: No symptoms reported Neurological/Psychological: No symptoms reported -: Yes All other systems reviewed and negative <VERONICA LOREDO - Last Filed: 04/29/17 06:02> Physical Exam <VERONICA LOREDO - Last Filed: 04/29/17 06:02> <PAOLA ROBBINS - Last Filed: 02/05/18 06:58> - Vital signs Vitals: Temp Pulse Resp BP Pulse Ox 98.8 F 98 16 121/77 98 04/29/17 03:18 04/29/17 03:18 04/29/17 03:18 04/29/17 03:18 04/29/17 03:18 - Notes Notes: GENERAL: Alert, interacts well. No acute distress. HEAD: Normocephalic, atraumatic. EYES: Pupils equal, round, and reactive to light. Extraocular movements intact. ENT: Oral mucosa moist, tongue midline. NECK: Full range of motion. Supple. Trachea midline. LUNGS: Clear to auscultation bilaterally, no wheezes, rales, or rhonchi. No respiratory distress. HEART: Mild tachycardia. No murmurs, gallops, or rubs. ABDOMEN: Soft, non-tender. Non-distended. Bowel sounds present in all 4 quadrants. EXTREMITIES: Moves all 4 extremities spontaneously. NEUROLOGICAL: Alert and oriented x3. Normal speech. PSYCH: Normal affect, normal mood. SKIN: Warm, dry, normal turgor. No rashes or lesions noted. (VERONICA LOREDO) Course - Laboratory Result Diagrams: 04/29/17 02:48 04/29/17 02:48 <VERONICA LOREDO - Last Filed: 04/29/17 06:02> - Laboratory Result Diagrams: 04/29/17 02:48 04/29/17 02:48 <PAOLA ROBBINS - Last Filed: 04/29/17 06:58> - Re-evaluation Re-evalutation: 04/29/17 06:52 CBC shows chronic anemia with hemoglobin 9.8, chemistries show worsening hypokalemia with a potassium of 2.9, no evidence of acute renal failure, urinalysis shows 20 of ketones, specific gravity of 1.027. No signs of infection. Patient was treated with reglan and benadryl, all vomiting is resolved. Patient 's vomiting in the room was actually just spitting into a bag no actual vomiting. Discussed with patient that her abdominal pain vomiting is worsened by smoking marijuana. I suspect patient is not actually having a gastroparesis flare but is having cyclic vomiting syndrome instead. Patient will continue to be repleted in the potassium with both IV and oral potassium. EKG does not have any changes related to hypokalemia. After fluids and potassium are finished patient will be discharged home with a prescription for Benadryl and Phenergan, she already has Reglan at home. Patient has been counseled once again to not smoke marijuana. (PAOLA ROBBINS) - Vital Signs Vital signs: Temp Pulse Resp BP Pulse Ox 98.8 F 98 16 121/77 98 04/29/17 03:18 04/29/17 03:18 04/29/17 03:18 04/29/17 03:18 04/29/17 03:18 - Laboratory Laboratory results interpreted by me: 04/29/17 04/29/17 04/29/17 02:48 02:48 04:20 Hgb 9.8 L Hct 31.3 L MCV 66 L MCH 20.9 L MCHC 31.5 L RDW 20.2 H Sodium 134.9 L Potassium 2.9 L* Chloride 88 L Carbon Dioxide 35 H Glucose 170 H Calcium 10.8 H Direct Bilirubin 0.5 H Urine Protein 100 H Urine Glucose (UA) 50 H Urine Ketones 20 H Urine Bilirubin SMALL H Urine Urobilinogen 4.0 H - EKG Interpretation by Me Additional EKG results interpreted by me: 04/29/17 06:54 EKG shows sinus rhythm at a rate of 74, normal axis, normal intervals, no ST segment elevations or depressions, there are T-wave inversions in 1, 2, aVF, V5 and V6, no QRS widening per my interpretation. (PAOLA ROBBINS) Discharge <VERONICA LOREDO - Last Filed: 04/29/17 06:02> <PAOLA ROBBINS - Last Filed: 04/29/17 06:58> - Discharge Clinical Impression: Hypokalemia Cyclic vomiting syndrome Qualifiers: Vomiting Intractability: intractable Nausea presence: with nausea Qualified Code(s): G43.A1 - Cyclical vomiting, intractable Condition: Stable Disposition: HOME, SELF-CARE Additional Instructions: Stop smoking marijuana. This is part of what is causing your vomiting. The Reglan that you have at home will help to decrease the vomiting. If you take it with Benadryl that can help. I have also given you a prescription for Phenergan. You do not need a prescription for Benadryl, it is available over- the-counter. Prescriptions: Promethazine HCl [Phenergan 25 mg Tablet] 1 - 2 tab PO Q6H PRN #15 tablet PRN Reason: Referrals: KAYCEE BONILLA MD [[facility] BASED STAFF] - Follow up as needed Scribe Documentation - Scribe Written by Scribe:: Finn Arteaga, 04/29/2017 04:06 acting as scribe for :: Sesar <VERONICA LOREDO - Last Filed: 04/29/17 06:02>
[2017-04-29] MEDS ORDERED: METOCLOPRAMIDE HCL INJ/PF 10 MG/2 ML SDV IV ONE (04:08)
[2017-04-29] MEDS ORDERED: DIPHENHYDRAMINE HCL 50 MG/ML VIAL IV ONE (04:08)
[2017-04-29] MEDS: RINGERS SOLUTION,LACTATED 1,000 ML IV PRN ×2 (04:21→04:22)
[2017-04-29 04:26] LABS: ABSOLUTE BASOPHILS # (AUTO) 0.1 10^3/uL (0.0-0.2); ABSOLUTE EOSINOPHILS # (AUTO) 0.2 10^3/uL (0.0-0.6); ABSOLUTE LYMPHOCYTES (AUTO) 2.9 10^3/uL (0.5-4.7); ABSOLUTE MONOCYTES (AUTO) 0.5 10^3/uL (0.1-1.4); ABSOLUTE NEUT (AUTO) 3.5 10^3/uL (1.7-8.2); BASOPHILS % (AUTO) 0.7 % (0-2); EOSINOPHILS % (AUTO) 3.3 % (0-6); HEMATOCRIT 31.3 % (36.0-47.0); HEMOGLOBIN 9.8 g/dL (12.0-15.5); LYMPHOCYTES % (AUTO) 39.9 % (13-45); MEAN CORPUSCULAR HEMOGLOBIN 20.9 pg (27.0-33.4); MEAN CORPUSCULAR HGB CONC 31.5 g/dL (32.0-36.0); MEAN CORPUSCULAR VOLUME 66 fl (80-97); MONOCYTES % (AUTO) 7.4 % (3-13); PLATELET COUNT 430 10^3/uL (150-450); RED CELL DISTRIBUTION WIDTH 20.2 % (11.5-14.0); SEGMENTED NEUTROPHILS % (AUTO) 48.7 % (42-78); TOTAL CELLS COUNTED % (AUTO) 100 %; WHITE BLOOD COUNT 7.3 10^3/uL (4.0-10.5)
[2017-04-29 04:41] LABS: ALANINE AMINOTRANSFERASE 24 U/L (9-52); ALBUMIN 4.3 g/dL (3.5-5.0); ALKALINE PHOSPHATASE 66 U/L (38-126); ANION GAP 12 (5-19); ASPARTATE AMINO TRANSFERASE 17 U/L (14-36); BILIRUBIN,DIRECT 0.5 mg/dL (0.0-0.4); BILIRUBIN,TOTAL 0.6 mg/dL (0.2-1.3); BLOOD UREA NITROGEN 7 mg/dL (7-20); CALCIUM 10.8 mg/dL (8.4-10.2); CARBON DIOXIDE 35 mmol/L (22-30); CHLORIDE 88 mmol/L (98-107); GLUCOSE 170 mg/dL (75-110); LIPASE 50.2 U/L (23-300); SODIUM 134.9 mmol/L (137-145); TOTAL PROTEIN 7.4 g/dL (6.3-8.2)
[2017-04-29 04:44] LABS: POTASSIUM 2.9 mmol/L (3.6-5.0)
[2017-04-29 04:45] LABS: BILIRUBIN,URINE SMALL (NEGATIVE); GLUCOSE, URINE 50 mg/dL (NEGATIVE); KETONES,URINE 20 mg/dL (NEGATIVE); LEUKOCYTE ESTERASE,URINE NEGATIVE (NEGATIVE); NITRITE,URINE NEGATIVE (NEGATIVE); PROTEIN,URINE 100 mg/dL (NEGATIVE); URINE SPECIFIC GRAVITY 1.027
[2017-04-29 04:49] LABS: APPEARANCE,URINE SLIGHTLY HAZY; COLOR,URINE DARK YELLOW
[2017-04-29] MEDS ORDERED: POTASSIUM CHLORIDE 20 MEQ/15 ML UDCUP PO ONE (05:01)
[2017-04-29] MEDS: POTASSI CL 20 MEQ/50 ML RIDER 20 MEQ/50 ML RTUPB IV SCH ×3 (05:25→09:44)
[2017-04-29] MEDS ORDERED: PROMETHAZINE HCL INJ 25 MG/1 ML VIAL IM ONE (07:21)
--- NOTE | 2017-04-29 09:52 | EKG REPORT ---
SEVERITY:- ABNORMAL ECG - SINUS RHYTHM NONSPECIFIC T ABNORMALITIES, LATERAL LEADS : Confirmed by: Jordyn Brandon 29-Apr-2017 09:51:26
[2017-04-29 12:46] VITALS: BP 146/88
== END 2017-04-29 12:45 | disposition home or self-care (01) ==
LOC: ER 03:09
DX: G43.A1 Cyclical vomiting, in migraine, intractable (principal); E87.6 Hypokalemia; R10.9 Unspecified abdominal pain; E11.9 Type 2 diabetes mellitus without complications; F12.90 Cannabis use, unspecified, uncomplicated
CPT/HCPCS: 93005; 99284; 96361; 96375; 96365; 96366; 36415; 83690; 85025; 80053; 81001; 93010; J1200; J2765; J3490; J2550; J3480; J7120

== ENCOUNTER 2017-05-03 05:39 | Emergency (ER) | payer MEDICAID, OTHER ==
[2017-05-03 06:42] LABS: APPEARANCE,URINE CLOUDY; BILIRUBIN,URINE SMALL (NEGATIVE); COLOR,URINE AMBER; GLUCOSE, URINE 50 mg/dL (NEGATIVE); KETONES,URINE TRACE mg/dL (NEGATIVE); LEUKOCYTE ESTERASE,URINE MODERATE (NEGATIVE); NITRITE,URINE NEGATIVE (NEGATIVE); PROTEIN,URINE >=500 mg/dL (NEGATIVE); URINE SPECIFIC GRAVITY 1.029
[2017-05-03] MEDS ORDERED: NORMAL SALINE 1000 ML 1,000 ML IV PRN (07:34)
[2017-05-03] MEDS ORDERED: ONDANSETRON HCL INJ/PF 4 MG/2 ML SDV IV ONE (08:07)
[2017-05-03] MEDS ORDERED: DIPHENHYDRAMINE HCL 50 MG/ML VIAL IV ONE (08:17)
--- NOTE | 2017-05-03 08:17 | ER Document Report ---
ED Medical Screen (RME) - General Chief Complaint: Abdominal Pain Stated Complaint: NAUSEA AND VOMIT Time Seen by Provider: 05/03/17 08:15 Notes: Patient is a 36-year-old female returns emergency department admitting to nausea and vomiting consistent with her history of esophageal reflux, gastroparesis. She also admits to odor to her urine and color change. She admits to mild pyuria but denies any hematuria, flank pain. Denies any fevers. Patient states that she follows with a apprentice stylist down in [place] she called him 2 days ago and has an appointment scheduled for May I have greeted and performed a rapid initial assessment of this patient. A comprehensive ED assessment and evaluation of the patient, analysis of test results and completion of the medical decision making process will be conducted by additional ED providers. TRAVEL OUTSIDE OF THE [place] IN LAST 30 DAYS: No - Related Data Allergies/Adverse Reactions: No Known Allergies Allergy (Verified 02/09/17 14:40) Past Medical History - Social History Frequency of alcohol use: None Drug Abuse: Marijuana - Past Medical History Cardiac Medical History: Reports: Hx Hypertension Pulmonary Medical History: Reports: Hx Bronchitis Endocrine Medical History: Reports: Hx Diabetes Mellitus Type 2 Renal/ Medical History: Denies: Hx Peritoneal Dialysis GI Medical History: Reports: Hx Gastroesophageal Reflux Disease Psychiatric Medical History: Reports: Hx Depression Past Surgical History: Reports: Hx Section - Immunizations Hx Diphtheria, Pertussis, Tetanus Vaccination: Yes History of Influenza Vaccine for 12/2016 - 05/2017 Season: Refused Physical Exam - Vital signs Vitals: Temp Pulse Resp BP Pulse Ox 98.8 F 109 H 28 H 150/98 H 98 05/03/17 05:40 05/03/17 05:40 05/03/17 05:40 05/03/17 05:40 05/03/17 05:40 - Notes Notes: PHYSICAL EXAM GENERAL: Alert, interacts well. ENT: Oral mucosa moist, tongue midline. NECK: Full range of motion. Supple. Trachea midline. LUNGS: Clear to auscultation bilaterally, no wheezes, rales, or rhonchi. No respiratory distress. HEART: Regular rate and rhythm. No murmurs, gallops, or rubs. NEUROLOGICAL: Alert and oriented x4. Normal speech. PSYCH: Normal affect, normal mood. Course - Vital Signs Vital signs: Temp Pulse Resp BP Pulse Ox 98.7 F 112 H 24 H 147/107 H 100 05/03/17 06:59 05/03/17 06:59 05/03/17 06:59 05/03/17 06:59 05/03/17 06:59 - Laboratory Laboratory results interpreted by me: 05/03/17 05:53 Urine Protein >=500 H Urine Glucose (UA) 50 H Urine Ketones TRACE H Urine Bilirubin SMALL H Urine Urobilinogen 4.0 H Ur Leukocyte Esterase MODERATE H
[2017-05-03 08:48] LABS: ABSOLUTE BASOPHILS # (AUTO) 0.1 10^3/uL (0.0-0.2); ABSOLUTE EOSINOPHILS # (AUTO) 0.2 10^3/uL (0.0-0.6); ABSOLUTE LYMPHOCYTES (AUTO) 1.6 10^3/uL (0.5-4.7); ABSOLUTE MONOCYTES (AUTO) 0.3 10^3/uL (0.1-1.4); ABSOLUTE NEUT (AUTO) 7.5 10^3/uL (1.7-8.2); EOSINOPHILS % (AUTO) 1.6 % (0-6); HEMATOCRIT 32.1 % (36.0-47.0); HEMOGLOBIN 9.9 g/dL (12.0-15.5); LYMPHOCYTES % (AUTO) 16.5 % (13-45); MEAN CORPUSCULAR HEMOGLOBIN 20.6 pg (27.0-33.4); MEAN CORPUSCULAR HGB CONC 30.7 g/dL (32.0-36.0); MEAN CORPUSCULAR VOLUME 67 fl (80-97); PLATELET COUNT 483 10^3/uL (150-450); RED BLOOD COUNT 4.78 10^6/uL (3.72-5.28); RED CELL DISTRIBUTION WIDTH 19.8 % (11.5-14.0); SEGMENTED NEUTROPHILS % (AUTO) 77.9 % (42-78); TOTAL CELLS COUNTED % (AUTO) 100 %; WHITE BLOOD COUNT 9.6 10^3/uL (4.0-10.5)
[2017-05-03] MEDS ORDERED: HALOPERIDOL LACTATE INJ 5 MG/1 ML VIAL IV ONE (09:13)
--- NOTE | 2017-05-03 09:30 | ER Document Report ---
ED General - General Chief Complaint: Abdominal Pain Stated Complaint: NAUSEA AND VOMIT Time Seen by Provider: 05/03/17 08:15 Notes: 36-year-old female with a history of diabetes gastroparesis and marijuana- induced cyclic vomiting presents with a flareup of her "GERD" which she describes as burning epigastric pain with vomiting for 2 days. She states that she has been sick for over a month and is due to see GI as an outpatient. She denies fever chills and polyuria. No urinary symptoms. She is asking "can I just be admitted." TRAVEL OUTSIDE OF THE [place] IN LAST 30 DAYS: No - Related Data Allergies/Adverse Reactions: No Known Allergies Allergy (Verified 02/09/17 14:40) Past Medical History - Social History Smoking Status: Current Every Day Smoker Smoking Education Provided: Yes - The patient ED visit today was directly related to their abuse of tobacco. Frequency of alcohol use: None Drug Abuse: Marijuana Family History: Reviewed & Not Pertinent Patient has suicidal ideation: No Patient has homicidal ideation: No - Past Medical History Cardiac Medical History: Reports: Hx Hypertension Pulmonary Medical History: Reports: Hx Bronchitis Endocrine Medical History: Reports: Hx Diabetes Mellitus Type 2 Renal/ Medical History: Denies: Hx Peritoneal Dialysis GI Medical History: Reports: Hx Gastroesophageal Reflux Disease Psychiatric Medical History: Reports: Hx Depression Past Surgical History: Reports: Hx Section - Immunizations Hx Diphtheria, Pertussis, Tetanus Vaccination: Yes Review of Systems - Review of Systems Notes: REVIEW OF SYSTEMS GEN: Denies fever, chills, weight loss ENT: Denies sore throat, nasal discharge, ear pain EYES: Denies blurry vision, eye pain, discharge CV: Denies chest pain, palpitations, edema RESP: Denies cough, shortness of breath, wheezing GI: Abdominal pain vomiting MSK: Denies joint pain/swelling, edema, SKIN: Denies rash, skin lesions LYMPH: Denies swollen glands/lymph nodes NEURO: Denies headache, focal weakness or numbness, dizziness PSYCH: Denies depression, suicidal or homicidal ideation PHYSICAL EXAMINATION General: No acute distress, well-nourished Head: Atraumatic, normocephalic ENT: Mouth normal, oropharynx moist, no exudates or tonsillar enlargement Eyes: Conjunctiva normal, pupils equal, lids normal Neck: No JVD, supple, no guarding CVS: Normal rate, regular rhythm, no murmurs Resp: No resp distress, equal and normal breath sounds bilaterally GI: Nondistended, soft, no tenderness to palpation, no rebound or guarding Ext: No deformities, no edema, normal range of motion in upper and lower ext Back: No CVA or midline TTP Skin: No rash, warm Lymphatic: No lymphadeopathy noted Neuro: Awake, alert. Face symmetric. GCS 15. Physical Exam - Vital signs Vitals: Temp Pulse Resp BP Pulse Ox 98.8 F 109 H 28 H 150/98 H 98 05/03/17 05:40 05/03/17 05:40 05/03/17 05:40 05/03/17 05:40 05/03/17 05:40 Course - Re-evaluation Re-evalutation: 05/03/17 09:29 36-year-old female with diabetes cyclic vomiting and gastroparesis presents with flareup of intermittent symptoms she has had before namely epigastric pain and vomiting. Her vitals are normal, her abdominal exam is quite reassuring making pancreatitis or surgical lesion very unlikely. Will rule out DKA, she is already received meds in triage and I will add Haldol. 05/03/17 09:50 Labs show chronic anemia and hypokalemia. No anion gap. Will replete potassium. Patient will be discharged home if she tolerates oral intake. She orally has follow-up with GI. 05/03/17 11:08 repleted K orally, no vomoiting. GI f/u, dc in stable condition - Vital Signs Vital signs: Temp Pulse Resp BP Pulse Ox 98.7 F 112 H 24 H 147/107 H 100 05/03/17 06:59 05/03/17 06:59 05/03/17 06:59 05/03/17 06:59 05/03/17 06:59 - Laboratory Result Diagrams: 05/03/17 08:28 05/03/17 08:28 Laboratory results interpreted by me: 05/03/17 05/03/17 05/03/17 05:53 07:38 08:28 Hgb 9.9 L Hct 32.1 L MCV 67 L MCH 20.6 L MCHC 30.7 L RDW 19.8 H Plt Count 483 H Potassium Chloride Carbon Dioxide Glucose POC Glucose 196 H Calcium Urine Protein >=500 H Urine Glucose (UA) 50 H Urine Ketones TRACE H Urine Bilirubin SMALL H Urine Urobilinogen 4.0 H Ur Leukocyte Esterase MODERATE H 05/03/17 08:28 Hgb Hct MCV MCH MCHC RDW Plt Count Potassium 2.6 L* Chloride 93 L Carbon Dioxide 37 H Glucose 194 H POC Glucose Calcium 10.6 H Urine Protein Urine Glucose (UA) Urine Ketones Urine Bilirubin Urine Urobilinogen Ur Leukocyte Esterase Discharge - Discharge Clinical Impression: Gastroparesis due to DM, Hypokalemia Cyclical vomiting Qualifiers: Vomiting Intractability: non-intractable Nausea presence: with nausea Qualified Code(s): G43.A0 - Cyclical vomiting, not intractable Condition: Good Disposition: HOME, SELF-CARE Instructions: Abdominal Pain ([facility]) Additional Instructions: Your nausea and vomiting is probably being caused by a combination of your diabetes and your daily marijuana use. Is very important to stop smoking marijuana as this may resolve your symptoms. Also like you to follow-up with gastrointestinal as is already scheduled. It can also be useful to put icy hot , which is sold [id number] for muscle pain, under abdominal skin when this happens. Forms: Smoking Cessation Education
[2017-05-03 09:40] LABS: ALANINE AMINOTRANSFERASE 27 U/L (9-52); ALBUMIN 4.9 g/dL (3.5-5.0); ALKALINE PHOSPHATASE 75 U/L (38-126); ANION GAP 12 (5-19); ASPARTATE AMINO TRANSFERASE 33 U/L (14-36); BILIRUBIN,DIRECT 0.3 mg/dL (0.0-0.4); BILIRUBIN,TOTAL 0.5 mg/dL (0.2-1.3); BLOOD UREA NITROGEN 9 mg/dL (7-20); CALCIUM 10.6 mg/dL (8.4-10.2); CARBON DIOXIDE 37 mmol/L (22-30); CHLORIDE 93 mmol/L (98-107); GLUCOSE 194 mg/dL (75-110); LIPASE 30.7 U/L (23-300); SODIUM 141.9 mmol/L (137-145)
[2017-05-03 09:48] LABS: POTASSIUM 2.6 mmol/L (3.6-5.0)
[2017-05-03] MEDS ORDERED: POTASSI CL 20 MEQ/50 ML RIDER 20 MEQ/50 ML RTUPB IV SCH (09:50)
[2017-05-03] MEDS ORDERED: POTASSIUM CHLORIDE 20 MEQ/15 ML UDCUP PO ONE ×2 (09:50→11:03)
[2017-05-03 11:25] VITALS: BP 123/67
== END 2017-05-03 11:24 | disposition home or self-care (01) ==
LOC: ER 05:39
DX: E11.43 Type 2 diabetes mellitus with diabetic autonomic (poly)neuropathy (principal); K31.84 Gastroparesis; G43.A0 Cyclical vomiting, in migraine, not intractable; R10.13 Epigastric pain; F17.210 Nicotine dependence, cigarettes, uncomplicated
CPT/HCPCS: 99284; 96361; 96374; 96375; 36415; 87086; 82962; 83690; 85025; 87088; 80053; 81001; 87186; J1200; J1630; J3490; J2405; J7030

== ENCOUNTER 2017-07-19 11:07 | Emergency (ER) | payer MEDICAID ==
[2017-07-19] MEDS ORDERED: HALOPERIDOL LACTATE INJ 5 MG/1 ML VIAL IV ONE (11:27)
[2017-07-19] MEDS ORDERED: DIPHENHYDRAMINE HCL 50 MG/ML VIAL IV ONE (11:27)
--- NOTE | 2017-07-19 11:28 | ER Document Report ---
ED Medical Screen (RME) - General Chief Complaint: Vomiting Stated Complaint: VOMITING BLOOD Time Seen by Provider: 07/19/17 11:19 Mode of Arrival: Wheelchair Information source: Patient, [facility] Records Notes: 37-year-old female history of gastroparesis presents with complaints of vomiting 20 times today. Patient notes this happens possibly once a month I have greeted and performed a rapid initial assessment of this patient. A comprehensive ED assessment and evaluation of the patient, analysis of test results and completion of the medical decision making process will be conducted by additional ED providers. PHYSICAL EXAMINATION: GENERAL: Well-appearing, well-nourished and is actively dry heaving HEAD: Atraumatic, normocephalic. EYES: Pupils equal round extraocular movements intact, conjunctiva are normal. ENT: Nares patent NECK: Normal range of motion LUNGS: No respiratory distress Musculoskeletal: Normal range of motion NEUROLOGICAL: Normal speech, normal gait. PSYCH: Normal mood, normal affect. SKIN: Warm, Dry, normal turgor, no rashes or lesions noted. TRAVEL OUTSIDE OF THE [place] IN LAST 30 DAYS: No - Related Data Allergies/Adverse Reactions: No Known Allergies Allergy (Verified 07/19/17 11:08) Past Medical History - Social History Chew tobacco use (# tins/day): No Frequency of alcohol use: None Drug Abuse: Marijuana - Past Medical History Cardiac Medical History: Reports: Hx Hypertension Pulmonary Medical History: Reports: Hx Bronchitis Endocrine Medical History: Reports: Hx Diabetes Mellitus Type 2 Renal/ Medical History: Denies: Hx Peritoneal Dialysis GI Medical History: Reports: Hx Gastroesophageal Reflux Disease Psychiatric Medical History: Reports: Hx Depression Past Surgical History: Reports: Hx Section - Immunizations Hx Diphtheria, Pertussis, Tetanus Vaccination: Yes History of Influenza Vaccine for 12/2016 - 05/2017 Season: Refused Physical Exam - Vital signs Vitals: Temp Pulse Resp BP Pulse Ox 98.4 F 92 20 149/98 H 98 07/19/17 11:12 07/19/17 11:12 07/19/17 11:12 07/19/17 11:12 07/19/17 11:12 Course - Vital Signs Vital signs: Temp Pulse Resp BP Pulse Ox 98.4 F 92 20 149/98 H 98 07/19/17 11:12 07/19/17 11:12 07/19/17 11:12 07/19/17 11:12 07/19/17 11:12
[2017-07-19] MEDS ORDERED: MORPHINE SULFATE 10 MG/ML INJ IV ONE (12:48)
[2017-07-19] MEDS ORDERED: PROMETHAZINE HCL INJ 50 MG/1 ML VIAL IM PRN (12:48)
[2017-07-19 12:52] LABS: ABSOLUTE EOSINOPHILS # (AUTO) 0.1 10^3/uL (0.0-0.6); ABSOLUTE LYMPHOCYTES (AUTO) 1.2 10^3/uL (0.5-4.7); ABSOLUTE MONOCYTES (AUTO) 0.3 10^3/uL (0.1-1.4); ABSOLUTE NEUT (AUTO) 10.2 10^3/uL (1.7-8.2); BASOPHILS % (AUTO) 0.5 % (0-2); EOSINOPHILS % (AUTO) 0.7 % (0-6); HEMATOCRIT 26.4 % (36.0-47.0); LYMPHOCYTES % (AUTO) 9.9 % (13-45); MEAN CORPUSCULAR HEMOGLOBIN 19.1 pg (27.0-33.4); MEAN CORPUSCULAR HGB CONC 30.4 g/dL (32.0-36.0); MONOCYTES % (AUTO) 2.6 % (3-13); PLATELET COUNT 412 10^3/uL (150-450); RED CELL DISTRIBUTION WIDTH 19.7 % (11.5-14.0); SEGMENTED NEUTROPHILS % (AUTO) 86.3 % (42-78); TOTAL CELLS COUNTED % (AUTO) 100 %; WHITE BLOOD COUNT 11.8 10^3/uL (4.0-10.5)
[2017-07-19 12:58] LABS: ABSOLUTE BASOPHILS # (AUTO) 0.1 10^3/uL (0.0-0.2)
[2017-07-19] MEDS ORDERED: NORMAL SALINE 1000 ML 1,000 ML IV ONE (12:59)
[2017-07-19] MEDS ORDERED: NORMAL SALINE 1000 ML 1,000 ML IV PRN (12:59)
[2017-07-19 13:08] LABS: ALANINE AMINOTRANSFERASE 24 U/L (9-52); ALBUMIN 4.1 g/dL (3.5-5.0); ALKALINE PHOSPHATASE 74 U/L (38-126); ANION GAP 14 (5-19); ASPARTATE AMINO TRANSFERASE 26 U/L (14-36); BILIRUBIN,DIRECT 0.2 mg/dL (0.0-0.4); BILIRUBIN,TOTAL 0.3 mg/dL (0.2-1.3); BLOOD UREA NITROGEN 9 mg/dL (7-20); CALCIUM 10.1 mg/dL (8.4-10.2); CARBON DIOXIDE 25 mmol/L (22-30); CHLORIDE 103 mmol/L (98-107); GLUCOSE 176 mg/dL (75-110); POTASSIUM 4.5 mmol/L (3.6-5.0); SODIUM 141.9 mmol/L (137-145); TOTAL PROTEIN 6.9 g/dL (6.3-8.2)
[2017-07-19 13:17] LABS: ANISOCYTOSIS 2+; HYPOCHROMASIA 1+; OVALOCYTES SLIGHT; PLATELET COMMENT ADEQUATE; PLATELET LARGE PRESENT; POIKILOCYTOSIS SLIGHT; POLYCHROMASIA 1+; SCHISTOCYTES SLIGHT
[2017-07-19 13:20] LABS: MEAN CORPUSCULAR VOLUME 63 fl (80-97)
--- NOTE | 2017-07-19 15:42 | RADIOLOGY REPORT (SQ) ---
EXAM DESCRIPTION: KUB/ABDOMEN (SINGLE VIEW) COMPLETED DATE/TIME: 07/19/2017 3:33 pm REASON FOR STUDY: Abdominal pain COMPARISON: None. NUMBER OF VIEWS: One view. TECHNIQUE: Supine radiographic image of the abdomen acquired. LIMITATIONS: None. FINDINGS: BOWEL GAS PATTERN: Normal bowel gas pattern. No dilated loops. CALCIFICATIONS: No suspicious calcifications. SOFT TISSUES: No gross mass or suggestion of organomegaly. HARDWARE: Tubal ligation clips. BONES: No bone lesions or fracture. OTHER: No other significant finding. IMPRESSION: NO RADIOGRAPHIC EVIDENCE FOR ACUTE ABDOMINAL DISEASE. Reading location - IP/workstation name: [facility]-[id number]
--- NOTE | 2017-07-19 17:01 | ER Document Report ---
ED GI/ - General Chief Complaint: Vomiting Stated Complaint: VOMITING BLOOD Time Seen by Provider: 07/19/17 11:19 Mode of Arrival: Wheelchair Information source: Patient Notes: History of complain-37 years old female with a history of gastroparesis and anemia presents today with abdominal pain nausea. And constipation. Denies any fever chills. Denies any rectal bleed. Denies any other constitutional symptoms. REVIEW OF SYSTEMS: CONSTITUTIONAL : Denies fever, chills, or sweats. Denies recent illness. EENT: Denies eye, ear, throat, or mouth pain or symptoms. Denies nasal or sinus congestion or discharge. Denies throat, tongue, or mouth swelling or difficulty swallowing. CARDIOVASCULAR: Denies chest pain. Denies palpitations or racing or irregular heart beat. Denies ankle edema. RESPIRATORY: Denies cough, cold, or chest congestion. Denies shortness of breath, difficulty breathing, or wheezing. GASTROINTESTINAL: Denies abdominal pain or distention. Denies nausea, vomiting , or diarrhea. Denies blood in vomitus, stools, or per rectum. Denies black, tarry stools. Denies constipation. GENITOURINARY: Denies difficulty urinating, painful urination, burning, frequency, blood in urine, or discharge. FEMALE GENITOURINARY: Denies vaginal bleeding, heavy or abnormal periods, irregular periods. Denies vaginal discharge or odor. MUSCULOSKELETAL: Denies back or neck pain or stiffness. Denies joint pain or swelling. SKIN: Denies rash, lesions or sores. HEMATOLOGIC : Denies easy bruising or bleeding. LYMPHATIC: Denies swollen, enlarged glands. NEUROLOGICAL: Denies confusion or altered mental status. Denies passing out or loss of consciousness. Denies dizziness or lightheadedness. Denies headache. Denies weakness or paralysis or loss of use of either side. Denies problems with gait or speech. Denies sensory loss, numbness, or tingling. Denies seizures. PSYCHIATRIC: Denies anxiety or stress. Denies depression, suicidal ideation, or homicidal ideation. ALL OTHER SYSTEMS REVIEWED AND NEGATIVE. PHYSICAL EXAMINATION: GENERAL: Well-appearing, well-nourished and in no acute distress. Morbid obesity HEAD: Atraumatic, normocephalic. EYES: Pupils equal round and reactive to light, extraocular movements intact, conjunctiva are normal. ENT: Nares patent, oropharynx clear without exudates. Moist mucous membranes. NECK: Normal range of motion, supple without lymphadenopathy LUNGS: Breath sounds clear to auscultation bilaterally and equal. No wheezes rales or rhonchi. HEART: Regular rate and rhythm without murmurs ABDOMEN: Soft, nontender, nondistended abdomen. No guarding, no rebound. No masses appreciated. Rectal exam-no vineet blood. Stool guaiac negative Female : deferred Musculoskeletal: Normal range of motion, no pitting or edema. No cyanosis. NEUROLOGICAL: Cranial nerves grossly intact. Normal speech, normal gait. Normal sensory, motor exams PSYCH: Normal mood, normal affect. SKIN: Warm, Dry, normal turgor, no rashes or lesions noted. Dictation was performed using [employer] voice recognition software TRAVEL OUTSIDE OF THE [place] IN LAST 30 DAYS: No - HPI Patient complains to provider of: Abdominal pain. No: Diarrhea, Dysuria, Feeding tube problem, Flank pain, Zhang catheter problem, Hematuria, Missed/ Late menses, Pelvic pain, , Urinary retention, Vaginal bleeding, Vaginal discharge, Vaginal pain, Vomiting, Other Timing/Duration: Gradual Quality of pain: Achy, Cramping Severity at maximum: Moderate Severity in ED: Moderate Pain Level: 3 Location: LLQ. No: Chest pain, Epigastric, LUQ, RUQ, RLQ, Left flank, Right flank, Low back, Suprapubic, Pelvis, Vaginal, Vulvar, Rectal, Other Vaginal bleeding (Compared to normal period): denies: None, Spotting, Adjunct Instructor Chemistry, Similar, Heavier, Severe, Bright red, Dark brown, Passing clots, Passing tissue - Related Data Allergies/Adverse Reactions: No Known Allergies Allergy (Verified 07/19/17 11:08) Past Medical History - General Information source: Patient, [facility] Records - Social History Smoking Status: Never Smoker Chew tobacco use (# tins/day): No Frequency of alcohol use: None Drug Abuse: Marijuana Family History: Reviewed & Not Pertinent Patient has suicidal ideation: No Patient has homicidal ideation: No - Past Medical History Cardiac Medical History: Reports: Hx Hypertension Pulmonary Medical History: Reports: Hx Bronchitis Endocrine Medical History: Reports: Hx Diabetes Mellitus Type 2 Renal/ Medical History: Denies: Hx Peritoneal Dialysis GI Medical History: Reports: Hx Gastroesophageal Reflux Disease Psychiatric Medical History: Reports: Hx Depression Past Surgical History: Reports: Hx Section - Immunizations Hx Diphtheria, Pertussis, Tetanus Vaccination: Yes Review of Systems - Review of Systems Constitutional: denies: No symptoms reported, See HPI, Chills, Diaphoresis, Fever, Malaise, Weakness, Other, Weight gain, Weight loss, Recent illness EENT: denies: No symptoms reported, See HPI, Eye pain, Eye discharge, Blurred vision, Tearing, Double vision, Ear pain, Ear discharge, Nose pain, Nose congestion, Nose discharge, Sinus pressure, Sinus discharge, Throat pain, Difficulty swallowing, Throat swelling, Mouth pain, Mouth swelling, Dental problem, Vertigo, Other Cardiovascular: denies: No symptoms reported, See HPI, Chest pain, Palpitations , Heart racing, Orthopnea, Dyspnea, Syncope, Dizziness, Lightheaded, Edema, Other, Paroxysmal Nocturnal Dysp Respiratory: denies: No symptoms reported, See HPI, Cough, Hurts to breathe, Hemoptysis, Short of breath, Sputum, Stridor, Wheezing, Other Gastrointestinal: See HPI Genitourinary: denies: No symptoms reported, See HPI, Burning, Dysuria, Discharge, Frequency, Flank pain, Hematuria, Incontinence, Pain, Urgency, Retention, Other Physical Exam - Vital signs Vitals: Temp Pulse Resp BP Pulse Ox 98.4 F 92 20 149/98 H 98 07/19/17 11:12 07/19/17 11:12 07/19/17 11:12 07/19/17 11:12 07/19/17 11:12 - Notes Notes: Dictated Course - Re-evaluation Re-evalutation: 07/19/17 16:59 Given pain medication with clinical improvement discharge home. - Vital Signs Vital signs: Temp Pulse Resp BP Pulse Ox 98.4 F 92 20 149/98 H 98 07/19/17 11:12 07/19/17 11:12 07/19/17 11:12 07/19/17 11:12 07/19/17 11:12 - Laboratory Result Diagrams: 07/19/17 12:27 07/19/17 12:27 Laboratory results interpreted by me: 07/19/17 07/19/17 12:27 12:27 WBC 11.8 H Hgb 8.0 L Hct 26.4 L MCV 63 L MCH 19.1 L MCHC 30.4 L RDW 19.7 H Seg Neutrophils % 86.3 H Lymphocytes % 9.9 L Monocytes % 2.6 L Absolute Neutrophils 10.2 H Glucose 176 H - Diagnostic Test Radiology reviewed: Reports reviewed - Abdominal x-ray reported by radiologist as normal. My view there is a retained stool noted. Discharge - Discharge Clinical Impression: Chronic abdominal pain, Chronic constipation, Chronic anemia Abdominal pain Qualifiers: Abdominal location: generalized Qualified Code(s): R10.84 - Generalized abdominal pain Condition: Fair Disposition: HOME, SELF-CARE Instructions: Abdominal Pain ([facility]) Prescriptions: Lactulose 20 gm PO BID #120 solution
[2017-07-19 18:55] VITALS: BP 149/95
[2017-07-22 14:45] LABS: PATH REVIEW PATHOLOGIST REVIEWED
== END 2017-07-19 18:50 | disposition home or self-care (01) ==
LOC: ER 11:07
DX: R10.84 Generalized abdominal pain (principal); G89.29 Other chronic pain; K59.09 Other constipation; D64.89 Other specified anemias; I10 Essential (primary) hypertension; E11.9 Type 2 diabetes mellitus without complications
CPT/HCPCS: 99284; 96374; 96375; 36415; 85025; 82272; 80053; 74018; J1200; J1630

== ENCOUNTER 2017-07-21 11:21 | Emergency (ER) | payer MEDICAID ==
[2017-07-21] MEDS ORDERED: ONDANSETRON HCL INJ/PF 4 MG/2 ML SDV IV ONE ×2 (12:08→15:06)
[2017-07-21] MEDS ORDERED: DIPHENHYDRAMINE HCL 50 MG/ML VIAL IV ONE (12:08)
[2017-07-21] MEDS ORDERED: METOCLOPRAMIDE HCL INJ/PF 10 MG/2 ML SDV IV ONE ×2 (12:08→17:00)
--- NOTE | 2017-07-21 12:09 | ER Document Report ---
ED Medical Screen (RME) - General Chief Complaint: Vomiting Stated Complaint: VOMITING Time Seen by Provider: 07/21/17 12:06 Notes: Patient is complaining of vomiting and abdominal pain for the past 3 days. She says she vomits everything she tries to drink. Vomiting at least 100 times a day. Patient has a history of gastroparesis and acid reflux, but cannot keep her medications down. Never had any abdominal surgery. TRAVEL OUTSIDE OF THE [place] IN LAST 30 DAYS: No - Related Data Allergies/Adverse Reactions: No Known Allergies Allergy (Verified 07/21/17 11:22) Past Medical History - Social History Frequency of alcohol use: None Drug Abuse: Marijuana - Past Medical History Cardiac Medical History: Reports: Hx Hypertension Pulmonary Medical History: Reports: Hx Bronchitis Endocrine Medical History: Reports: Hx Diabetes Mellitus Type 2 Renal/ Medical History: Denies: Hx Peritoneal Dialysis GI Medical History: Reports: Hx Gastroesophageal Reflux Disease Psychiatric Medical History: Reports: Hx Depression Past Surgical History: Reports: Hx Section - Immunizations Hx Diphtheria, Pertussis, Tetanus Vaccination: Yes History of Influenza Vaccine for 12/2016 - 05/2017 Season: Refused Physical Exam - Vital signs Vitals: Temp Pulse Resp BP Pulse Ox 98.8 F 117 H 14 153/87 H 97 07/21/17 11:26 07/21/17 11:26 07/21/17 11:26 07/21/17 11:26 07/21/17 11:26 Course - Vital Signs Vital signs: Temp Pulse Resp BP Pulse Ox 98.8 F 117 H 14 153/87 H 97 07/21/17 11:26 07/21/17 11:26 07/21/17 11:26 07/21/17 11:26 07/21/17 11:26
[2017-07-21 13:09] LABS: ABSOLUTE LYMPHOCYTES (AUTO) 1.8 10^3/uL (0.5-4.7); ABSOLUTE MONOCYTES (AUTO) 1.2 10^3/uL (0.1-1.4); ABSOLUTE NEUT (AUTO) 16.2 10^3/uL (1.7-8.2); BASOPHILS % (AUTO) 0.2 % (0-2); EOSINOPHILS % (AUTO) 0.1 % (0-6); HEMATOCRIT 29.2 % (36.0-47.0); HEMOGLOBIN 8.9 g/dL (12.0-15.5); LYMPHOCYTES % (AUTO) 9.1 % (13-45); MEAN CORPUSCULAR HEMOGLOBIN 18.7 pg (27.0-33.4); MEAN CORPUSCULAR HGB CONC 30.3 g/dL (32.0-36.0); MEAN CORPUSCULAR VOLUME 62 fl (80-97); MONOCYTES % (AUTO) 6.3 % (3-13); PLATELET COUNT 580 10^3/uL (150-450); RED BLOOD COUNT 4.74 10^6/uL (3.72-5.28); RED CELL DISTRIBUTION WIDTH 19.6 % (11.5-14.0); SEGMENTED NEUTROPHILS % (AUTO) 84.3 % (42-78); TOTAL CELLS COUNTED % (AUTO) 100 %; WHITE BLOOD COUNT 19.2 10^3/uL (4.0-10.5)
[2017-07-21 13:15] LABS: ALANINE AMINOTRANSFERASE 30 U/L (9-52); ALBUMIN 5.3 g/dL (3.5-5.0); ALKALINE PHOSPHATASE 93 U/L (38-126); ASPARTATE AMINO TRANSFERASE 35 U/L (14-36); BILIRUBIN,DIRECT 0.3 mg/dL (0.0-0.4); BILIRUBIN,TOTAL 0.8 mg/dL (0.2-1.3); BLOOD UREA NITROGEN 14 mg/dL (7-20); CALCIUM 11.4 mg/dL (8.4-10.2); CHLORIDE 86 mmol/L (98-107); GLUCOSE 145 mg/dL (75-110); LIPASE 54.4 U/L (23-300); POTASSIUM 3.4 mmol/L (3.6-5.0); SODIUM 139.5 mmol/L (137-145); TOTAL PROTEIN 9.1 g/dL (6.3-8.2)
[2017-07-21 13:21] LABS: ANION GAP 15 (5-19); CARBON DIOXIDE 39 mmol/L (22-30)
[2017-07-21 13:42] LABS: HYPOCHROMASIA 2+; POLYCHROMASIA SLIGHT
[2017-07-21 13:43] LABS: AMORPHOUS SEDIMENT,URINE TRACE /HPF; APPEARANCE,URINE SLIGHTLY-CLOUDY; BILIRUBIN,URINE SMALL (NEGATIVE); COLOR,URINE AMBER; GLUCOSE, URINE 50 mg/dL (NEGATIVE); KETONES,URINE 20 mg/dL (NEGATIVE); LEUKOCYTE ESTERASE,URINE NEGATIVE (NEGATIVE); NITRITE,URINE NEGATIVE (NEGATIVE); PROTEIN,URINE >=500 mg/dL (NEGATIVE); URINE SPECIFIC GRAVITY 1.024
[2017-07-21 13:47] LABS: ANISOCYTOSIS 2+; OVALOCYTES SLIGHT; PLATELET COMMENT INCREASED; PLATELET GIANT PRESENT; PLATELET LARGE PRESENT; POIKILOCYTOSIS SLIGHT; TARGET CELLS SLIGHT
[2017-07-21] MEDS ORDERED: LIDOCAINE 2% VISCOUS SOLN 20 ML UDCUP PO ONE (13:53)
[2017-07-21] MEDS ORDERED: MAG HYDROX/AL HYDROX/SIMETH SUSP 30 ML UDCUP PO ONE (13:53)
[2017-07-21] MEDS ORDERED: NORMAL SALINE 1000 ML 1,000 ML IV ONE ×2 (13:57→18:31)
--- NOTE | 2017-07-21 18:15 | RADIOLOGY REPORT (SQ) ---
EXAM DESCRIPTION: CT ABD/PELVIS WITH IV ORAL COMPLETED DATE/TIME: 07/21/2017 5:54 pm REASON FOR STUDY: abd pain, leukocytosis, n/v COMPARISON: 02/06/2017 TECHNIQUE: CT scan of the abdomen and pelvis performed using helical scanning technique with dynamic intravenous contrast injection. No oral contrast. Images reviewed with lung, soft tissue, and bone windows. Reconstructed coronal and sagittal MPR images reviewed. Delayed images for evaluation of the urinary system also acquired. All images stored on PACS. All CT scanners at this facility use dose modulation, iterative reconstruction, and/or weight based d osing when appropriate to reduce radiation dose to as low as reasonably achievable (ALARA). [facility]: Dose Right [facility]: CareDose [facility]: Dose Right [facility]: Teradose 4D [facility]: [employer] CONTRAST TYPE AND DOSE: contrast/concentration: Isovue 370.00 mg/ml; Total Contrast Delivered: 100.0 ml; Total Saline Delivered: 72.0 ml RENAL FUNCTION: GFR > 60. RADIATION DOSE: CT Rad equipment meets quality standard of care and radiation dose reduction techniq ues were employed. CTDIvol: 18.6 - 20.4 mGy. DLP: 2115 mGy-cm.. LIMITATIONS: None. FINDINGS: LOWER CHEST: No acute findings. Similar Small hiatus hernia. LIVER: Normal size. No masses. No dilated ducts. SPLEEN: Normal size. No focal lesions. PANCREAS: No masses. No significant calcifications. No adjacent inflammation or peripancreatic fluid collections. Pancreatic duct not dilated. GALLBLADDER: No identified stones by CT criteria. No inflammatory changes to suggest cholecystitis. ADRENAL GLANDS: No significant masses or asymmetry. RIGHT KIDNEY AND URETER: No solid masses. Small lower pole cyst. No significant calcifications. N o hydronephrosis or hydroureter. LEFT KIDNEY AND URETER: No solid masses. No significant calcifications. No hydronephrosis or hydr oureter. AORTA AND VESSELS: No aneurysm. No dissection. Renal arteries, SMA, celiac without stenosis. RETROPERITONEUM: No retroperitoneal adenopathy, hemorrhage or masses. BOWEL AND PERITONEAL CAVITY: No masses or inflammatory changes. No free fluid or peritoneal masses. APPENDIX: Normal. PELVIS: Bilateral tubal ligation clips. No free fluid. Normal bladder. ABDOMINAL WALL: No masses. No hernias. BONES: No acute findings. OTHER: No other significant finding. IMPRESSION: NO ACUTE FINDING IN THE ABDOMEN OR PELVIS ON CT SCAN WITH IV CONTRAST. TECHNICAL DOCUMENTATION: JOB ID: [id number] Quality ID # [id number]: Final reports with documentation of one or more dose reduction techniques (e.g., Au tomated exposure control, adjustment of the mA and/or kV according to patient size, use of iterative reconstruction technique) 2010 [employer]- All Rights Reserved Reading location - IP/workstation name: [email or web address]
--- NOTE | 2017-07-21 18:39 | ER Document Report ---
ED GI/ - General Chief Complaint: Vomiting Stated Complaint: VOMITING Time Seen by Provider: 07/21/17 12:06 Mode of Arrival: Ambulatory Information source: Patient Notes: Pt is a 37 year old female with DM, gastroparesis, GERD who presents to the ER today for nausea/vomiting "everything she drinks or eats" for 3 days. She states her last bowel movement was 4 days ago. She hasn't been taking her reglan , states it was just refilled and she just picked it up but hasn't taken it yet. She is passing gas. She denies fever/chills. TRAVEL OUTSIDE OF THE [place] IN LAST 30 DAYS: No - Related Data Allergies/Adverse Reactions: No Known Allergies Allergy (Verified 07/21/17 11:22) Past Medical History - General Information source: Patient - Social History Smoking Status: Never Smoker Frequency of alcohol use: None Drug Abuse: Marijuana Family History: Reviewed & Not Pertinent Patient has suicidal ideation: No Patient has homicidal ideation: No - Past Medical History Cardiac Medical History: Reports: Hx Hypertension Pulmonary Medical History: Reports: Hx Bronchitis Endocrine Medical History: Reports: Hx Diabetes Mellitus Type 2 Renal/ Medical History: Denies: Hx Peritoneal Dialysis GI Medical History: Reports: Hx Gastroesophageal Reflux Disease Psychiatric Medical History: Reports: Hx Depression Past Surgical History: Reports: Hx Section - Immunizations Hx Diphtheria, Pertussis, Tetanus Vaccination: Yes Review of Systems - Review of Systems Constitutional: No symptoms reported EENT: No symptoms reported Cardiovascular: No symptoms reported Respiratory: No symptoms reported Gastrointestinal: See HPI Genitourinary: No symptoms reported Female Genitourinary: No symptoms reported Musculoskeletal: No symptoms reported Skin: No symptoms reported Hematologic/Lymphatic: No symptoms reported Neurological/Psychological: No symptoms reported Physical Exam - Vital signs Vitals: Temp Pulse Resp BP Pulse Ox 98.8 F 117 H 14 153/87 H 97 07/21/17 11:26 07/21/17 11:26 07/21/17 11:26 07/21/17 11:26 07/21/17 11:26 - Notes Notes: PHYSICAL EXAMINATION: GENERAL: uncomfortable, but in no acute distress. HEAD: Atraumatic, normocephalic. EYES: Pupils equal round and reactive to light, extraocular movements intact, sclera anicteric, conjunctiva are normal. NECK: Normal range of motion, supple without lymphadenopathy LUNGS: CTAB and equal. No wheezes rales or rhonchi. HEART: Regular rate and rhythm without murmurs ABDOMEN: Soft, no tenderness. No guarding, no rebound BACK: no vertebral tenderness, normal ROM GI/: no CVA tenderness EXTREMITIES: Normal range of motion, no pitting edema. No cyanosis. NEUROLOGICAL: Cranial nerves grossly intact. Normal sensory/motor exams. PSYCH: Normal mood, normal affect. SKIN: Warm, Dry, normal turgor, no rashes or lesions noted Course - Re-evaluation Re-evalutation: 07/21/17 19:59 Pt has a WBC of 19.2, CT abd/pelvis with IV and oral contrast negative for any pathology. Pt feels better after reglan and fluids IV. was able to tolerate po contrast and not vomit. Pt is begging us for something to eat at this time. I will start her on reglan again and give her erythromycin to treat gastroparesis acutely with leukoyctosis. urine shows no leukocytes or nitrites. - Vital Signs Vital signs: Temp Pulse Resp BP Pulse Ox 98.9 F 97 17 148/80 H 98 07/21/17 19:03 07/21/17 19:03 07/21/17 19:03 07/21/17 19:03 07/21/17 19:03 - Laboratory Result Diagrams: 07/21/17 12:35 07/21/17 12:35 Laboratory results interpreted by me: 07/21/17 07/21/17 07/21/17 12:35 12:35 12:35 WBC 19.2 H Hgb 8.9 L Hct 29.2 L MCV 62 L MCH 18.7 L MCHC 30.3 L RDW 19.6 H Plt Count 580 H Seg Neutrophils % 84.3 H Lymphocytes % 9.1 L Absolute Neutrophils 16.2 H Potassium 3.4 L Chloride 86 L Carbon Dioxide 39 H Glucose 145 H Calcium 11.4 H Total Protein 9.1 H Albumin 5.3 H Urine Protein >=500 H Urine Glucose (UA) 50 H Urine Ketones 20 H Urine Bilirubin SMALL H Urine Urobilinogen 4.0 H Discharge - Discharge Clinical Impression: Gastroparesis Vomiting Qualifiers: Vomiting type: unspecified Vomiting Intractability: non-intractable Nausea presence: with nausea Qualified Code(s): R11.2 - Nausea with vomiting, unspecified Condition: Stable Disposition: HOME, SELF-CARE Additional Instructions: Return immediately for any new or worsening symptoms. Follow up with primary care provider, call tomorrow to make followup appointment. Prescriptions: Erythromycin Base [Erythromycin] 250 mg PO TID #42 tablet Metoclopramide HCl [Reglan 10 mg Tablet] 10 mg PO TID #60 tablet
[2017-07-21 19:05] VITALS: BP 148/80
== END 2017-07-21 19:04 | disposition home or self-care (01) ==
LOC: ER 11:21
DX: E11.43 Type 2 diabetes mellitus with diabetic autonomic (poly)neuropathy (principal); K31.84 Gastroparesis; R11.2 Nausea with vomiting, unspecified; Z79.899 Other long term (current) drug therapy; I10 Essential (primary) hypertension
CPT/HCPCS: 96376; 99284; 96361; 96374; 96375; 36415; 83690; 84703; 85025; 80053; 81001; 74177; J1200; J3490 ×2; J2765; J2405; J7030

== ENCOUNTER 2017-07-22 20:02 | Emergency (ER) | payer MEDICAID ==
[2017-07-22] MEDS ORDERED: NORMAL SALINE 1000 ML 1,000 ML IV ONE ×3 (20:32→23:20)
[2017-07-22] MEDS ORDERED: KETOROLAC TROMETHAMINE INJ/PF 30 MG/1 ML SDV IV ONE (20:32)
[2017-07-22] MEDS ORDERED: METOCLOPRAMIDE HCL INJ/PF 10 MG/2 ML SDV IV ONE ×2 (20:32→21:21)
--- NOTE | 2017-07-22 20:33 | ER Document Report ---
ED Medical Screen (RME) - General Chief Complaint: Vomiting Stated Complaint: VOMITING Time Seen by Provider: 07/22/17 20:31 Notes: Patient states that she has a history of gastroparesis. She states she is having severe abdominal cramping and vomiting. TRAVEL OUTSIDE OF THE [place] IN LAST 30 DAYS: No - Related Data Allergies/Adverse Reactions: No Known Allergies Allergy (Verified 07/21/17 11:22) Past Medical History - Social History Frequency of alcohol use: None Drug Abuse: Marijuana - Past Medical History Cardiac Medical History: Reports: Hx Hypertension Pulmonary Medical History: Reports: Hx Bronchitis Endocrine Medical History: Reports: Hx Diabetes Mellitus Type 2 Renal/ Medical History: Denies: Hx Peritoneal Dialysis GI Medical History: Reports: Hx Gastroesophageal Reflux Disease Psychiatric Medical History: Reports: Hx Depression Past Surgical History: Reports: Hx Section - Immunizations Hx Diphtheria, Pertussis, Tetanus Vaccination: Yes History of Influenza Vaccine for 12/2016 - 05/2017 Season: Refused Physical Exam - Vital signs Vitals: Temp Pulse Resp BP Pulse Ox 98.3 F 117 H 18 121/80 97 07/22/17 20:21 07/22/17 20:21 07/22/17 20:21 07/22/17 20:21 07/22/17 20:21 Course - Vital Signs Vital signs: Temp Pulse Resp BP Pulse Ox 98.3 F 117 H 18 121/80 97 07/22/17 20:21 07/22/17 20:21 07/22/17 20:21 07/22/17 20:21 07/22/17 20:21
[2017-07-22] MEDS ORDERED: DIPHENHYDRAMINE HCL 50 MG/ML VIAL IV ONE (21:22)
--- NOTE | 2017-07-22 21:31 | ER Document Report ---
ED GI/ - General Chief Complaint: Vomiting Stated Complaint: VOMITING Time Seen by Provider: 07/22/17 20:31 Notes: Patient is a 37-year-old female with a history of diabetes, gastroparesis, cyclic vomiting syndrome, cannabis abuse, but comes emergency department for chief complaint of persistent vomiting. She was here yesterday. She states she has not vomited any blood today, think she vomited a little yesterday, denies fever. LMP within the past month. Denies any surgeries. Seen here yesterday for the same and 2 days prior. TRAVEL OUTSIDE OF THE [place] IN LAST 30 DAYS: No - Related Data Allergies/Adverse Reactions: No Known Allergies Allergy (Verified 07/21/17 11:22) Past Medical History - General Information source: Patient - Social History Smoking Status: Former Smoker Frequency of alcohol use: None Drug Abuse: Marijuana Lives with: Family Family History: Reviewed & Not Pertinent Patient has suicidal ideation: No Patient has homicidal ideation: No - Past Medical History Cardiac Medical History: Reports: Hx Hypertension Pulmonary Medical History: Reports: Hx Bronchitis Endocrine Medical History: Reports: Hx Diabetes Mellitus Type 2 Renal/ Medical History: Denies: Hx Peritoneal Dialysis GI Medical History: Reports: Hx Gastroesophageal Reflux Disease Psychiatric Medical History: Reports: Hx Depression Past Surgical History: Reports: Hx Section - Immunizations Hx Diphtheria, Pertussis, Tetanus Vaccination: Yes Review of Systems - Review of Systems Constitutional: No symptoms reported EENT: No symptoms reported Cardiovascular: No symptoms reported Respiratory: No symptoms reported Gastrointestinal: See HPI Genitourinary: No symptoms reported Female Genitourinary: No symptoms reported Musculoskeletal: No symptoms reported Skin: No symptoms reported Hematologic/Lymphatic: No symptoms reported Neurological/Psychological: No symptoms reported Physical Exam - Vital signs Vitals: Temp Pulse Resp BP Pulse Ox 98.3 F 117 H 18 121/80 97 07/22/17 20:21 07/22/17 20:21 07/22/17 20:21 07/22/17 20:21 07/22/17 20:21 Interpretation: Normal - General General appearance: Alert, Anxious - Patient appears anxious, she threw up in the room - HEENT Head: Normocephalic, Atraumatic Eyes: Normal Conjunctiva: Normal Extraocular movements intact: Yes Eyelashes: Normal Pupils: PERRL Nasal: Normal Mouth/Lips: Normal Mucous membranes: Dry Pharynx: Normal Neck: Normal - Respiratory Respiratory status: No respiratory distress Chest status: Nontender Breath sounds: Normal Chest palpation: Normal - Cardiovascular Rhythm: Regular, Tachycardia Heart sounds: Normal auscultation, S1 appreciated, S2 appreciated Murmur: No - Abdominal Inspection: Normal Distension: No distension Bowel sounds: Normal Tenderness: Nontender. No: Tender - I do not appreciate any abdominal tenderness, rigidity, or rebound tenderness, Guarding Organomegaly: No organomegaly - Back Back: Normal, Nontender. No: Tender, CVA tenderness - Extremities General upper extremity: Normal inspection, Nontender, Normal color, Normal ROM , Normal temperature General lower extremity: Normal inspection, Nontender, Normal color, Normal ROM , Normal temperature, Normal weight bearing. No: Teodoro's sign - Neurological Neuro grossly intact: Yes Cognition: Normal Orientation: AAOx4 Stacy Coma Scale Eye Opening: Spontaneous [place] Coma Scale Verbal: Oriented [place] Coma Scale Motor: Obeys Commands St[place] Coma Scale Total: 15 Speech: Normal Motor strength normal: LUE, RUE, LLE, RLE Sensory: Normal - Psychological Associated symptoms: Anxious - Skin Skin Temperature: Warm Skin Moisture: Dry Skin Color: Normal Course - Re-evaluation Re-evalutation: CBC shows leukocytosis, this is decreased from prior, anemia not significantly changed. Chemistry does show lower potassium, mild renal insufficiency insistent with vomiting and dehydration. Ketones in the urine, hyaline casts in the urine, some white blood cells in the urine as well. Patient initially vomiting and uncomfortable appearing, mild generalized abdominal tenderness, however after Reglan and Benadryl along with IV fluids patient stopped vomiting and became calm and relaxed. She denies dysuria, she does not have CVA tenderness, she has no fever, she does not have vaginal discharge. Urine culture was placed. Tachycardia resolved with treatment. Patient provided with p.o. medications, she tolerated this very well and then fell asleep. She was awakened and took potassium without any difficulty. Drug screen is positive for marijuana. Discussed this with patient, explained again cyclical vomiting syndrome, gastroparesis, recommendations. Patient stating she actually feels good now she is ready to go home. She is requesting Phenergan instead Reglan, states she will fill take her erythromycin, discussed follow-up and return precautions. Patient states understanding and agreement. - Vital Signs Vital signs: Temp Pulse Resp BP Pulse Ox 99.0 F 117 H 16 123/72 100 07/22/17 22:00 07/22/17 20:21 07/23/17 02:01 07/23/17 02:01 07/23/17 02:01 - Laboratory Result Diagrams: 07/22/17 21:45 07/22/17 21:45 Laboratory results interpreted by me: 07/22/17 07/22/17 07/22/17 21:45 21:45 23:26 WBC 17.6 H Hgb 9.1 L Hct 29.9 L MCV 62 L MCH 19.1 L MCHC 30.6 L RDW 19.6 H Plt Count 557 H Seg Neutrophils % 86.4 H Lymphocytes % 8.1 L Absolute Neutrophils 15.2 H Potassium 3.1 L Chloride 84 L Carbon Dioxide 39 H Creatinine 1.37 H Est GFR ( Amer) 52 L Est GFR (Non-Af Amer) 43 L Glucose 202 H Calcium 10.5 H Direct Bilirubin 0.5 H AST 46 H Total Protein 9.1 H Urine Protein >=500 H Urine Glucose (UA) 50 H Urine Ketones 20 H Urine Bilirubin SMALL H Urine Urobilinogen 4.0 H Ur Leukocyte Esterase TRACE H Discharge - Discharge Clinical Impression: Gastroparesis, Dehydration Vomiting Qualifiers: Vomiting type: unspecified Vomiting Intractability: non-intractable Nausea presence: with nausea Qualified Code(s): R11.2 - Nausea with vomiting, unspecified Condition: Stable Disposition: HOME, SELF-CARE Additional Instructions: You have been rehydrated and given a dose of potassium, your electrolytes and kidney functioning will need to be rechecked to make sure this continues to improve. Follow-up with your primary care provider for this. Take Phenergan or Reglan for nausea, take the erythromycin, start with clear fluids, progress to bland food. Take the Carafate for stomach inflammation. You can take [id number]-[id number] medication such as Zantac or Pepcid as well. Avoid marijuana. Return if you worsen including fever, uncontrolled vomiting, vomiting blood, or any other concerning or worsening symptoms. Prescriptions: Promethazine HCl [Phenergan 25 mg Tablet] 1 - 2 tab PO Q6H PRN #20 tablet PRN Reason: Sucralfate [Carafate 1 gm Tablet] 1 gm PO QID #20 tablet Forms: Return to Work
[2017-07-22 22:01] LABS: ABSOLUTE BASOPHILS # (AUTO) 0.1 10^3/uL (0.0-0.2); ABSOLUTE LYMPHOCYTES (AUTO) 1.4 10^3/uL (0.5-4.7); ABSOLUTE MONOCYTES (AUTO) 0.8 10^3/uL (0.1-1.4); ABSOLUTE NEUT (AUTO) 15.2 10^3/uL (1.7-8.2); BASOPHILS % (AUTO) 0.6 % (0-2); EOSINOPHILS % (AUTO) 0.2 % (0-6); HEMATOCRIT 29.9 % (36.0-47.0); HEMOGLOBIN 9.1 g/dL (12.0-15.5); LYMPHOCYTES % (AUTO) 8.1 % (13-45); MEAN CORPUSCULAR HEMOGLOBIN 19.1 pg (27.0-33.4); MEAN CORPUSCULAR HGB CONC 30.6 g/dL (32.0-36.0); MEAN CORPUSCULAR VOLUME 62 fl (80-97); MONOCYTES % (AUTO) 4.7 % (3-13); PLATELET COUNT 557 10^3/uL (150-450); RED BLOOD COUNT 4.79 10^6/uL (3.72-5.28); RED CELL DISTRIBUTION WIDTH 19.6 % (11.5-14.0); SEGMENTED NEUTROPHILS % (AUTO) 86.4 % (42-78); TOTAL CELLS COUNTED % (AUTO) 100 %; WHITE BLOOD COUNT 17.6 10^3/uL (4.0-10.5)
[2017-07-22 22:10] LABS: ALANINE AMINOTRANSFERASE 32 U/L (9-52); ALBUMIN 4.9 g/dL (3.5-5.0); ALKALINE PHOSPHATASE 95 U/L (38-126); ANION GAP 16 (5-19); ASPARTATE AMINO TRANSFERASE 46 U/L (14-36); BILIRUBIN,DIRECT 0.5 mg/dL (0.0-0.4); BILIRUBIN,TOTAL 0.8 mg/dL (0.2-1.3); BLOOD UREA NITROGEN 17 mg/dL (7-20); CALCIUM 10.5 mg/dL (8.4-10.2); CARBON DIOXIDE 39 mmol/L (22-30); CHLORIDE 84 mmol/L (98-107); GLUCOSE 202 mg/dL (75-110); LIPASE 40.1 U/L (23-300); POTASSIUM 3.1 mmol/L (3.6-5.0); SODIUM 138.5 mmol/L (137-145); TOTAL PROTEIN 9.1 g/dL (6.3-8.2)
[2017-07-22 22:28] LABS: POLYCHROMASIA 1+; TOXIC GRANULATION SLIGHT; TOXIC VACUOLATION PRESENT
[2017-07-22 22:29] LABS: ANISOCYTOSIS 2+; HYPOCHROMASIA 2+; OVALOCYTES 1+; PLATELET COMMENT INCREASED; PLATELET LARGE PRESENT; POIKILOCYTOSIS 1+
[2017-07-22] MEDS ORDERED: PROMETHAZINE HCL 25 MG TABLET PO ONE (22:40)
[2017-07-22] MEDS ORDERED: SUCRALFATE 1 GM TABLET PO ONE (22:40)
[2017-07-22] MEDS ORDERED: FAMOTIDINE 20 MG TABLET PO ONE (22:40)
[2017-07-22 23:47] LABS: APPEARANCE,URINE CLOUDY; BILIRUBIN,URINE SMALL (NEGATIVE); COLOR,URINE AMBER; GLUCOSE, URINE 50 mg/dL (NEGATIVE); KETONES,URINE 20 mg/dL (NEGATIVE); LEUKOCYTE ESTERASE,URINE TRACE (NEGATIVE); NITRITE,URINE NEGATIVE (NEGATIVE); PROTEIN,URINE >=500 mg/dL (NEGATIVE); URINE SPECIFIC GRAVITY 1.029
[2017-07-22 23:59] LABS: URINE AMPHETAMINES SCREEN NEGATIVE; URINE BARBITURATES SCREEN NEGATIVE; URINE BENZODIAZEPINES SCREEN NEGATIVE; URINE COCAINE SCREEN NEGATIVE; URINE MARIJUANA (THC) SCREEN UNCONFIRMED POSITIVE; URINE METHADONE SCREEN NEGATIVE; URINE PHENCYCLIDINE SCREEN NEGATIVE
[2017-07-23] MEDS ORDERED: POTASSIUM CHLORIDE 10 MEQ TABLET.SA PO ONE (00:38)
[2017-07-23] MEDS ORDERED: PROMETHAZINE HCL INJ 25 MG/1 ML VIAL IM ONE (01:33)
[2017-07-23] MEDS ORDERED: ONDANSETRON ODT 4 MG TAB (6 TAB/ER DISP) PO PRN (01:33)
[2017-07-23 02:54] VITALS: BP 123/72
--- NOTE | 2017-07-23 22:38 | EKG REPORT ---
SEVERITY:- ABNORMAL ECG - SINUS TACHYCARDIA BIATRIAL ABNORMALITIES LVH WITH SECONDARY REPOLARIZATION ABNORMALITY : Confirmed by: Jordyn Brandon 23-Jul-2017 22:37:14
== END 2017-07-23 02:40 | disposition home or self-care (01) ==
LOC: ER 20:02
DX: E11.43 Type 2 diabetes mellitus with diabetic autonomic (poly)neuropathy (principal); K31.84 Gastroparesis; E86.0 Dehydration; R11.2 Nausea with vomiting, unspecified; Z87.891 Personal history of nicotine dependence
CPT/HCPCS: 93005; 99284; 96361; 96374; 96375; 36415; 87086; 83690; 83735; 85025; 81025; 87088; 80053; 81001; 87186; 80307; 93010; J3490 ×3; J1200; J1885; J2765; J2550; J7030

== ENCOUNTER 2017-07-30 11:20 | Emergency (ER) | payer MEDICAID ==
[2017-07-30 11:26] VITALS: BP 121/77
[2017-07-30] MEDS ORDERED: KETOROLAC TROMETHAMINE INJ/PF 30 MG/1 ML SDV IM ONE (11:36)
--- NOTE | 2017-07-30 11:42 | ER Document Report ---
ED Neck/Back Problem - General Chief Complaint: Back Pain Stated Complaint: BACK PAIN Time Seen by Provider: 07/30/17 11:27 Mode of Arrival: Ambulatory Information source: Patient TRAVEL OUTSIDE OF THE [place] IN LAST 30 DAYS: No - HPI Patient complains to provider of: Pain, Lower back Onset: Other - 5 days Notes: The patient is here with complaints of left low back pain. States the pain is been present for about 5 days. Is worse with movement and touching the area. She denies any fall or trauma. She denies any bowel or bladder dysfunction. She denies abdominal pain. She denies any nausea vomiting today. She denies any dysuria or hematuria. She denies any blood thinners, IV drug use, numbness , tingling, weakness. Pain is worse with movement, better with rest. No rash. No chest pain or shortness of breath. No other complaints at this time. - Related Data Allergies/Adverse Reactions: No Known Allergies Allergy (Verified 07/30/17 11:21) Past Medical History - Social History Smoking Status: Unknown if Ever Smoked Family History: Reviewed & Not Pertinent - Past Medical History Cardiac Medical History: Reports: Hx Hypertension Pulmonary Medical History: Reports: Hx Bronchitis Endocrine Medical History: Reports: Hx Diabetes Mellitus Type 2 Renal/ Medical History: Denies: Hx Peritoneal Dialysis GI Medical History: Reports: Hx Gastroesophageal Reflux Disease Psychiatric Medical History: Reports: Hx Depression Past Surgical History: Reports: Hx Section - Immunizations Hx Diphtheria, Pertussis, Tetanus Vaccination: Yes Review of Systems - Review of Systems -: Yes All other systems reviewed and negative Physical Exam - Vital signs Vitals: Temp Pulse Resp BP Pulse Ox 98.7 F 117 H 20 121/77 98 07/30/17 11:25 07/30/17 11:25 07/30/17 11:25 07/30/17 11:25 07/30/17 11:25 - Notes Notes: GENERAL: alert, cooperative, nontoxic, no distress. HEAD: normocephalic, atraumatic EYES: conjunctiva pink without discharge, no external redness or swelling. EARS: no external swelling, no external redness NOSE: atraumatic, no external swelling MOUTH/THROAT: mucous membranes moist and pink, posterior pharynx without erythema, swelling, exudate. No trismus or drooling. NECK: soft, supple, full range of motion, no meningismus. CHEST: no distress, lungs clear and equal throughout. No wheezing, rales, rhonchi. CARDIAC: regular rate and rhythm, no murmur, normal capillary refill, normal pulses. No peripheral edema noted. ABDOMEN: soft, nontender, no pusatile mass. BACK: No CVA tenderness. Slightly limited range of motion of the lower back. Tenderness along the left lumbar paraspinal muscles with lumbar muscle spasm noted. EXTREMITIES: full range of motion of all extremities. No redness, no swelling. NEURO: alert and oriented A&O x 3, no focal deficits, full range of motion of all extremities. 5 out of 5 flexion and extension of the lower extremities bilaterally. Patellar and Achilles deep tendon reflexes are +2 bilaterally. Normal sensation with no saddle anesthesia. Patient can dorsiflex the great toes bilaterally. PYSCH: appropriate mood, affect. Patient is cooperative. SKIN: pink, warm, dry, no rash. Course - Re-evaluation Re-evalutation: 07/30/17 11:38 Patient is nontoxic appearing with stable vitals. She is here with complaints of left low back pain for the last 5 days. No trauma or injury. She was recently treated for urinary tract infection. She denies any urinary symptoms currently. No abdominal tenderness. No vomiting today. On exam she is noted to have left lumbar paraspinal muscle spasm and tenderness. Pain certainly seems to be most likely muscle skeletal in nature. No sign or risk of cauda equina, epidural abscess/bleed, discitis, osteomyelitis, AAA, pyelonephritis. No CVA tenderness. Patient will be given a shot of Toradol here in the emergency department. She will be discharged home with prescription for Voltaren and Zanaflex. Instructions to apply heat to the sore area. Follow-up with her doctor if not better in 1 week, sooner for worsening pain, fever, difficulty controlling her bowels or bladder, persistent vomiting, or for any further concerns. The patient is noted to have elevated blood pressure during today's emergency department visit. The patient was informed of this finding. The patient was instructed that this may be related to pre-hypertension and requires further evaluation with a primary care provider. The patient has no hypertensive symptoms at this time. The patient's emergency department workup and current diagnosis were explained to the patient and or family. Follow-up instructions were provided. Medications if prescribed were discussed. Instructions for when to return to the emergency department including specific worrisome symptoms were discussed with the patient and/or family. - Vital Signs Vital signs: Temp Pulse Resp BP Pulse Ox 98.7 F 117 H 20 121/77 98 07/30/17 11:25 07/30/17 11:25 07/30/17 11:25 07/30/17 11:25 07/30/17 11:25 Discharge - Discharge Clinical Impression: Muscle spasm Low back pain Qualifiers: Chronicity: acute Back pain laterality: left Sciatica presence: without sciatica Qualified Code(s): M54.5 - Low back pain Condition: Stable Disposition: HOME, SELF-CARE Instructions: Low Back Pain ([facility]), Pain Medication Injection ([facility]), Warm Packs ([facility]) Additional Instructions: Take medications as prescribed. Apply heat to sore area. Stretch. Follow-up with your doctor if not better in 1 week, sooner for worsening pain, fever, numbness, tingling, weakness, bowel or bladder dysfunction, high fever, persistent vomiting, or for any further concerns. Your blood pressure was elevated during today's visit. Have this rechecked with your doctor. Prescriptions: Diclofenac Sodium [Voltaren 50 Mg Tablet.] 50 mg PO BID #20 tablet. Ranitidine HCl 150 mg PO BID #30 tablet Tizanidine HCl [Zanaflex 4 Mg Tablet] 4 mg PO BID PRN #10 tablet PRN Reason: Forms: Elevated Blood Pressure, Smoking Cessation Education Referrals: [facility] [Provider Group] - Follow up as needed
== END 2017-07-30 11:53 | disposition home or self-care (01) ==
LOC: ER 11:20
DX: M54.5 Low back pain (principal); M54.9 Dorsalgia, unspecified; I10 Essential (primary) hypertension; E11.9 Type 2 diabetes mellitus without complications
CPT/HCPCS: 99283; 96372; J1885

== ENCOUNTER 2017-08-31 10:41 | Emergency (ER) | payer MEDICAID ==
[2017-08-31] MEDS ORDERED: NORMAL SALINE 1000 ML 1,000 ML IV PRN (11:03)
[2017-08-31] MEDS ORDERED: ONDANSETRON HCL INJ/PF 4 MG/2 ML SDV IV ONE (11:04)
[2017-08-31] MEDS ORDERED: METOCLOPRAMIDE HCL INJ/PF 10 MG/2 ML SDV IV ONE (11:05)
--- NOTE | 2017-08-31 11:11 | ER Document Report ---
ED Medical Screen (RME) - General Chief Complaint: Nausea/Vomiting Stated Complaint: VOMITING Time Seen by Provider: 08/31/17 11:02 Mode of Arrival: Ambulatory Information source: Patient TRAVEL OUTSIDE OF THE [place] IN LAST 30 DAYS: No - HPI Notes: 08/31/17 11:06 37-year-old female with a past medical history of diabetes, gastroparesis, GERD , cyclic vomiting, cannabis use presents to the ED with complaints nausea vomiting diarrhea for the last 24 hours. Patient states she has exacerbations of her gastroparesis, states occurs monthly. Denies any coffee-ground emesis or melena. Has not taken any of her medications today due to vomiting. denies any travel outside the country, new medications or new foods. 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 LMP over 1 month ago, has been sexually active and is unsure of . Denies fevers, chills, chest pain, palpitations, shortness of breath, dyspnea, hematuria,blurred vision, , LH, dizziness, syncope, headaches, wheezing, ST, URI, neck pain, weakness, bowel or bladder dysfunction, saddle anesthesia, muscle paralysis, weakness in bilateral upper or lower extremities, rash or IV drug use. - Related Data Allergies/Adverse Reactions: No Known Allergies Allergy (Verified 08/31/17 10:44) Past Medical History - Social History Chew tobacco use (# tins/day): No Frequency of alcohol use: None Drug Abuse: Marijuana - Past Medical History Cardiac Medical History: Reports: Hx Hypertension Pulmonary Medical History: Reports: Hx Bronchitis Endocrine Medical History: Reports: Hx Diabetes Mellitus Type 2 Renal/ Medical History: Denies: Hx Peritoneal Dialysis GI Medical History: Reports: Hx Gastroesophageal Reflux Disease Psychiatric Medical History: Reports: Hx Depression Past Surgical History: Reports: Hx Section - Immunizations Hx Diphtheria, Pertussis, Tetanus Vaccination: Yes History of Influenza Vaccine for 12/2016 - 05/2017 Season: Refused Physical Exam - Vital signs Vitals: Temp Pulse Resp BP Pulse Ox 98.4 F 111 H 22 H 152/120 H 99 08/31/17 10:47 08/31/17 10:47 08/31/17 10:47 08/31/17 10:47 08/31/17 10:47 - Respiratory Respiratory status: Depressed respirations Chest status: Nontender Breath sounds: Normal Chest palpation: Normal - Cardiovascular Rhythm: Tachycardia Heart sounds: Normal auscultation Normal capillary refill: Yes - Abdominal Tenderness: Tender - generalized. no cva tenderness - Psychological Associated symptoms: Anxious Course - Vital Signs Vital signs: Temp Pulse Resp BP Pulse Ox 98.4 F 111 H 22 H 152/120 H 99 08/31/17 10:47 08/31/17 10:47 08/31/17 10:47 08/31/17 10:47 08/31/17 10:47
[2017-08-31] MEDS ORDERED: NORMAL SALINE 500 ML IV PRN (11:37)
[2017-08-31] MEDS ORDERED: KETOROLAC TROMETHAMINE INJ/PF 30 MG/1 ML SDV IV ONE (11:38)
--- NOTE | 2017-08-31 11:40 | ER Document Report ---
ED General - General Chief Complaint: Nausea/Vomiting Stated Complaint: VOMITING Time Seen by Provider: 08/31/17 11:02 Mode of Arrival: Ambulatory Information source: Patient TRAVEL OUTSIDE OF THE [place] IN LAST 30 DAYS: No - HPI Notes: 37-year-old female with a past medical history of diabetes, gastroparesis, GERD , cyclic vomiting, cannabis use presents to the ED with complaints nausea vomiting diarrhea for the last 24 hours. Patient states she has exacerbations of her gastroparesis, states occurs monthly. Denies any coffee-ground emesis or melena. Has not taken any of her medications today due to vomiting. denies any travel outside the country, new medications or new foods. 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 LMP over 1 month ago, has been sexually active and is unsure of . Denies fevers, chills, chest pain, palpitations, shortness of breath, dyspnea, hematuria,blurred vision, , LH, dizziness, syncope, headaches, wheezing, ST, URI, neck pain, weakness, bowel or bladder dysfunction, saddle anesthesia, muscle paralysis, weakness in bilateral upper or lower extremities, rash or IV drug use. - Related Data Allergies/Adverse Reactions: No Known Allergies Allergy (Verified 08/31/17 10:44) Past Medical History - General Information source: Patient - Social History Smoking Status: Unknown if Ever Smoked Chew tobacco use (# tins/day): No Frequency of alcohol use: None Drug Abuse: Marijuana Family History: Reviewed & Not Pertinent Patient has suicidal ideation: No Patient has homicidal ideation: No - Past Medical History Cardiac Medical History: Reports: Hx Hypertension Pulmonary Medical History: Reports: Hx Bronchitis Endocrine Medical History: Reports: Hx Diabetes Mellitus Type 2 Renal/ Medical History: Denies: Hx Peritoneal Dialysis GI Medical History: Reports: Hx Gastroesophageal Reflux Disease Psychiatric Medical History: Reports: Hx Depression Past Surgical History: Reports: Hx Section - Immunizations Hx Diphtheria, Pertussis, Tetanus Vaccination: Yes Review of Systems - Review of Systems Constitutional: See HPI EENT: No symptoms reported Cardiovascular: No symptoms reported Respiratory: No symptoms reported Gastrointestinal: See HPI Genitourinary: No symptoms reported Female Genitourinary: No symptoms reported Musculoskeletal: No symptoms reported Skin: No symptoms reported Hematologic/Lymphatic: No symptoms reported Neurological/Psychological: No symptoms reported -: Yes All other systems reviewed and negative Physical Exam - Vital signs Vitals: Temp Pulse Resp BP Pulse Ox 98.4 F 111 H 22 H 152/120 H 99 08/31/17 10:47 08/31/17 10:47 08/31/17 10:47 08/31/17 10:47 08/31/17 10:47 - Notes Notes: PHYSICAL EXAMINATION: GENERAL: Well-appearing, well-nourished and in no mild distress. HEAD: Atraumatic, normocephalic. EYES: Pupils equal round and reactive to light, extraocular movements intact, conjunctiva are normal. ENT: Nares patent, oropharynx clear without exudates. Moist mucous membranes. NECK: Normal range of motion, supple without lymphadenopathy LUNGS: Breath sounds clear to auscultation bilaterally and equal. No wheezes rales or rhonchi. HEART: Regular rate and rhythm without murmurs ABDOMEN: Soft, nondistended abdomen. Generalized abdominal pain. No guarding, no rebound. No masses appreciated. Female : deferred Musculoskeletal: Normal range of motion, no pitting or edema. No cyanosis. NEUROLOGICAL: Cranial nerves grossly intact. Normal speech, normal gait. Normal sensory, motor exams PSYCH: Normal mood, normal affect. SKIN: Warm, Dry, normal turgor, no rashes or lesions noted. Course - Re-evaluation Re-evalutation: 08/31/17 16:46 37-year-old female presents for evaluation of gastroparesis. Vitals elevated due to pain, no distress. Patient is afebrile patient given bolus of fluids, on reevaluation, patient's tachycardia has resolved, patient's blood pressure has decreased. She is resting peacefully. Vitals stable, patient is not in any distress. Remains afebrile patient is feeling much better sleeping. Delaying labs due to labs hemolyzing twice, which causes awaiting results. CMP not being drawn on the second attempt for labs. a another redraw was done. Once labs are finalized, CBC negative for any anemia or leukocytosis. CMP negative for any hepatic or renal dysfunction, electrolyte dysfunctions. Urinalysis remarkable. Cardiac enzymes unremarkable. EKG normal sinus rhythm with a heart rate of 80. No STEMI. Patient given antibiotics. I have reevaluated this patient multiple times and no significant appendicitis, bowel obstruction, acute cholecystitis, perforated diverticulitis, incarcerated hernia , pancreatitis, pelvic inflammatory disease, perforated ulcer, ectopic , tubo-ovarian abscess, life threatening changes, no signs of toxicity, sepsis or peritonitis are noted. The patient and I have discussed the diagnosis and risks, and we agree with discharging home and close follow-up. We also discussed returning to the Emergency Department immediately if new or worsening symptoms occur with the understanding that symptoms and presentations can change. At this time will discharge with return precautions and follow-up recommendations. Verbal discharge instructions given a the bedside and opportunity for questions given. We have discussed the symptoms which are most concerning (e.g., bloody stool, fever, changing or worsening pain, worsening vomiting) that necessitate immediate return. Medication warnings reviewed. All questions and concerns answered by this provider. Patient is in agreement with this plan and has verbalized understanding of return precautions and the need for primary care follow-up in the next 24-72 hours. Patient verbalized understanding of plan of care and agree with plan of care. - Vital Signs Vital signs: Temp Pulse Resp BP Pulse Ox 98.4 F 111 H 17 143/86 H 100 08/31/17 10:47 08/31/17 10:47 08/31/17 15:32 08/31/17 15:32 08/31/17 15:32 - Laboratory Result Diagrams: 08/31/17 12:50 08/31/17 14:34 Laboratory results interpreted by me: 08/31/17 08/31/17 08/31/17 11:10 12:50 14:24 WBC 11.0 H Hgb 8.1 L Hct 26.8 L MCV 63 L MCH 19.2 L MCHC 30.3 L RDW 20.5 H Seg Neutrophils % 79.0 H Absolute Neutrophils 8.7 H Glucose POC Glucose 147 H Creatine Kinase Urine Protein 30 H Urine Glucose (UA) 50 H Urine Urobilinogen 2.0 H 08/31/17 14:34 WBC Hgb Hct MCV MCH MCHC RDW Seg Neutrophils % Absolute Neutrophils Glucose 125 H POC Glucose Creatine Kinase 220 H Urine Protein Urine Glucose (UA) Urine Urobilinogen - EKG Interpretation by Me EKG shows normal: Sinus rhythm Rate: Normal Rhythm: NSR - bpm 80 Discharge - Discharge Clinical Impression: Gastroparesis Condition: Good Disposition: HOME, SELF-CARE Instructions: Nausea or Vomiting, Nonspecific ([facility]) Additional Instructions: Follow-up with PCP 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 It is important to stop smoking marijuana as this may resolve her symptoms. Also like you to follow-up with granite cutter apprentice. Return to the ER for symptoms become worse. Return immediately for any new or worsening symptoms. Follow up with primary care provider, call tomorrow to make followup appointment. Prescriptions: Erythromycin Base [Erythromycin] 250 mg PO TID #60 capsule. Metoclopramide HCl [Reglan 10 mg Tablet] 1 - 2 tab PO ASDIR PRN #25 tablet PRN Reason: Referrals: ROXANA ORTEGA DO [NO LOCAL MD] - Follow up in 3-5 days ESTELITA BEARDEN MD [ACTIVE STAFF] - Follow up in 3-5 days
[2017-08-31 11:48] LABS: APPEARANCE,URINE SLIGHTLY-CLOUDY; BILIRUBIN,URINE NEGATIVE (NEGATIVE); COLOR,URINE YELLOW; GLUCOSE, URINE 50 mg/dL (NEGATIVE); KETONES,URINE NEGATIVE (NEGATIVE); LEUKOCYTE ESTERASE,URINE NEGATIVE (NEGATIVE); NITRITE,URINE NEGATIVE (NEGATIVE); PROTEIN,URINE 30 mg/dL (NEGATIVE); URINE SPECIFIC GRAVITY 1.024
[2017-08-31 12:08] LABS: URINE AMPHETAMINES SCREEN NEGATIVE; URINE BARBITURATES SCREEN NEGATIVE; URINE BENZODIAZEPINES SCREEN NEGATIVE; URINE COCAINE SCREEN NEGATIVE; URINE MARIJUANA (THC) SCREEN UNCONFIRMED POSITIVE; URINE METHADONE SCREEN NEGATIVE; URINE PHENCYCLIDINE SCREEN NEGATIVE
[2017-08-31] MEDS ORDERED: PROMETHAZINE HCL INJ 25 MG/1 ML VIAL IV ONE (12:43)
--- NOTE | 2017-08-31 13:09 | RADIOLOGY REPORT (SQ) ---
EXAM DESCRIPTION: CHEST 2 VIEWS; KUB/ABDOMEN (SINGLE VIEW) COMPLETED DATE/TIME: 08/31/2017 12:53 pm REASON FOR STUDY: htn, tachycardia; abd pain COMPARISON: CT from June. FINDINGS: Two view chest: Normal. Clear lungs. Normal cardiomediastinal silhouette. No free air. Single-view abdomen: Tubal clips in the pelvis. Nonobstructive bowel gas pattern. No suspicious ca lcifications. IMPRESSION: Negative chest and abdominal radiographs. TECHNICAL DOCUMENTATION: JOB ID: [id number] Reading location - IP/workstation name: [email or web address]
--- NOTE | 2017-08-31 13:10 | RADIOLOGY REPORT (SQ) ---
EXAM DESCRIPTION: CHEST 2 VIEWS; KUB/ABDOMEN (SINGLE VIEW) COMPLETED DATE/TIME: 08/31/2017 12:53 pm REASON FOR STUDY: htn, tachycardia; abd pain COMPARISON: CT from June. FINDINGS: Two view chest: Normal. Clear lungs. Normal cardiomediastinal silhouette. No free air. Single-view abdomen: Tubal clips in the pelvis. Nonobstructive bowel gas pattern. No suspicious ca lcifications. IMPRESSION: Negative chest and abdominal radiographs. TECHNICAL DOCUMENTATION: JOB ID: [id number] Reading location - IP/workstation name: [email or web address]
[2017-08-31 13:22] LABS: ABSOLUTE BASOPHILS # (AUTO) 0.1 10^3/uL (0.0-0.2); ABSOLUTE EOSINOPHILS # (AUTO) 0.2 10^3/uL (0.0-0.6); ABSOLUTE LYMPHOCYTES (AUTO) 1.6 10^3/uL (0.5-4.7); ABSOLUTE MONOCYTES (AUTO) 0.4 10^3/uL (0.1-1.4); ABSOLUTE NEUT (AUTO) 8.7 10^3/uL (1.7-8.2); BASOPHILS % (AUTO) 1.2 % (0-2); EOSINOPHILS % (AUTO) 1.7 % (0-6); HEMATOCRIT 26.8 % (36.0-47.0); HEMOGLOBIN 8.1 g/dL (12.0-15.5); LYMPHOCYTES % (AUTO) 14.6 % (13-45); MEAN CORPUSCULAR HEMOGLOBIN 19.2 pg (27.0-33.4); MEAN CORPUSCULAR HGB CONC 30.3 g/dL (32.0-36.0); MEAN CORPUSCULAR VOLUME 63 fl (80-97); MONOCYTES % (AUTO) 3.5 % (3-13); PLATELET COUNT 234 10^3/uL (150-450); RED BLOOD COUNT 4.24 10^6/uL (3.72-5.28); RED CELL DISTRIBUTION WIDTH 20.5 % (11.5-14.0); TOTAL CELLS COUNTED % (AUTO) 100 %
[2017-08-31 13:40] LABS: ANISOCYTOSIS 2+; HYPOCHROMASIA 2+; OVALOCYTES 1+; PLATELET COMMENT ADEQUATE; POIKILOCYTOSIS 1+; TEAR DROP CELLS SLIGHT
[2017-08-31 15:11] LABS: ALANINE AMINOTRANSFERASE 16 U/L (9-52); ALBUMIN 3.6 g/dL (3.5-5.0); ALKALINE PHOSPHATASE 60 U/L (38-126); ANION GAP 9 (5-19); ASPARTATE AMINO TRANSFERASE 17 U/L (14-36); BILIRUBIN,DIRECT 0.2 mg/dL (0.0-0.4); BILIRUBIN,TOTAL 0.2 mg/dL (0.2-1.3); BLOOD UREA NITROGEN 11 mg/dL (7-20); CALCIUM 9.5 mg/dL (8.4-10.2); CARBON DIOXIDE 26 mmol/L (22-30); CHLORIDE 107 mmol/L (98-107); CREATINE KINASE 220 U/L (30-135); GLUCOSE 125 mg/dL (75-110); POTASSIUM 4.4 mmol/L (3.6-5.0); SODIUM 141.8 mmol/L (137-145); TOTAL PROTEIN 6.6 g/dL (6.3-8.2)
[2017-08-31 15:23] LABS: TROPONIN I < 0.012 ng/mL
[2017-08-31 15:38] VITALS: BP 143/86
--- NOTE | 2017-08-31 16:23 | EKG REPORT ---
SEVERITY:- OTHERWISE NORMAL ECG - SINUS ARRHYTHMIA, RATE [id number] : Confirmed by: Charo Nichole MD 31-Aug-2017 16:22:58
== END 2017-08-31 15:46 | disposition home or self-care (01) ==
LOC: ER 10:41
DX: E11.43 Type 2 diabetes mellitus with diabetic autonomic (poly)neuropathy (principal); K31.84 Gastroparesis; R11.2 Nausea with vomiting, unspecified; R10.84 Generalized abdominal pain; I10 Essential (primary) hypertension; F12.10 Cannabis abuse, uncomplicated
CPT/HCPCS: 93005; 99284; 96361; 96374; 96375; 36415; 82553; 82962; 82550; 85025; 81025; 80053; 81001; 84484; 80307; 71046; 74018; 93010; J1885; J2765; J2550; J7030; J7040

== ENCOUNTER 2017-09-09 11:40 | Emergency (ER) | payer MEDICAID ==
[2017-09-09] MEDS ORDERED: LIDOCAINE 2% VISCOUS SOLN 20 ML UDCUP PO ONE (13:03)
[2017-09-09] MEDS ORDERED: MAG HYDROX/AL HYDROX/SIMETH SUSP 30 ML UDCUP PO ONE (13:03)
[2017-09-09] MEDS ORDERED: METOCLOPRAMIDE HCL ORAL SOLN 10 MG/10 ML UDCUP PO ONE (13:03)
[2017-09-09] MEDS ORDERED: ONDANSETRON 4 MG TAB.RAPDIS PO ONE (13:03)
[2017-09-09] MEDS ORDERED: DIPHENHYDRAMINE HCL 50 MG/ML VIAL IM ONE (13:07)
[2017-09-09] MEDS ORDERED: METOCLOPRAMIDE HCL INJ/PF 10 MG/2 ML SDV IM ONE (13:07)
[2017-09-09 14:11] LABS: ABSOLUTE BASOPHILS # (AUTO) 0.1 10^3/uL (0.0-0.2); ABSOLUTE EOSINOPHILS # (AUTO) 0.2 10^3/uL (0.0-0.6); ABSOLUTE LYMPHOCYTES (AUTO) 1.5 10^3/uL (0.5-4.7); ABSOLUTE MONOCYTES (AUTO) 0.3 10^3/uL (0.1-1.4); ABSOLUTE NEUT (AUTO) 6.8 10^3/uL (1.7-8.2); BASOPHILS % (AUTO) 0.7 % (0-2); EOSINOPHILS % (AUTO) 2.6 % (0-6); HEMATOCRIT 27.2 % (36.0-47.0); HEMOGLOBIN 8.4 g/dL (12.0-15.5); LYMPHOCYTES % (AUTO) 16.4 % (13-45); MEAN CORPUSCULAR HEMOGLOBIN 19.6 pg (27.0-33.4); MEAN CORPUSCULAR VOLUME 63 fl (80-97); MONOCYTES % (AUTO) 3.7 % (3-13); PLATELET COUNT 328 10^3/uL (150-450); RED CELL DISTRIBUTION WIDTH 21.3 % (11.5-14.0); SEGMENTED NEUTROPHILS % (AUTO) 76.6 % (42-78); TOTAL CELLS COUNTED % (AUTO) 100 %; WHITE BLOOD COUNT 8.9 10^3/uL (4.0-10.5)
[2017-09-09 14:20] LABS: ALANINE AMINOTRANSFERASE 23 U/L (9-52); ALBUMIN 4.7 g/dL (3.5-5.0); ALKALINE PHOSPHATASE 70 U/L (38-126); ANION GAP 12 (5-19); ASPARTATE AMINO TRANSFERASE 23 U/L (14-36); BILIRUBIN,DIRECT 0.3 mg/dL (0.0-0.4); BILIRUBIN,TOTAL 0.4 mg/dL (0.2-1.3); BLOOD UREA NITROGEN 12 mg/dL (7-20); CALCIUM 10.3 mg/dL (8.4-10.2); CARBON DIOXIDE 26 mmol/L (22-30); CHLORIDE 104 mmol/L (98-107); GLUCOSE 142 mg/dL (75-110); LIPASE 63.7 U/L (23-300); POTASSIUM 4.6 mmol/L (3.6-5.0); SODIUM 141.7 mmol/L (137-145); TOTAL PROTEIN 8.2 g/dL (6.3-8.2)
[2017-09-09 14:34] LABS: ANISOCYTOSIS 2+; PLATELET COMMENT ADEQUATE; POIKILOCYTOSIS 2+; POLYCHROMASIA 1+
[2017-09-09 14:35] LABS: STOMATOCYTES 2+
--- NOTE | 2017-09-09 15:25 | ER Document Report ---
ED Medical Screen (RME) - General Chief Complaint: Vomiting Stated Complaint: ABDOMINAL PAIN / VOMITTING Time Seen by Provider: 09/09/17 13:02 Notes: Patient is a 37-year-old female that presents to the emergency department today with complaints of abdominal pain. Patient has a history of GERD and has had frequent emergency department visits for GERD related abdominal pain. Patient states her pain today is exactly the same as her previous GERD related pain. Patient states she takes Nexium for her GERD. Patient states she has vomited once but denies any diarrhea or fevers. I have greeted and performed a rapid initial assessment of this patient. A comprehensive ED assessment and evaluation of the patient, analysis of test results, and completion of the medical decision making process will be conducted by additional ED providers. Review of systems: Positive for abdominal pain and vomiting. Negative for diarrhea and fevers. PHYSICAL EXAM GENERAL: Alert, interacts well. No acute distress. Rocking back and forth while crying and making tears. HEAD: Normocephalic, atraumatic. EYES: Pupils equal, round, and reactive to light. Extraocular movements intact. ENT: Oral mucosa moist, tongue midline. NECK: Full range of motion. Supple. Trachea midline. LUNGS: No respiratory distress. HEART: Regular rate and rhythm. No murmurs, gallops, or rubs. ABDOMEN: Soft, non-tender. Non-distended. Bowel sounds present in all 4 quadrants. No guarding, rigidity, or rebound. EXTREMITIES: Moves all 4 extremities spontaneously. NEUROLOGICAL: Alert and oriented x3. Normal speech. PSYCH: Normal affect, normal mood. SKIN: Warm, dry, normal turgor. No rashes or lesions noted. TRAVEL OUTSIDE OF THE [place] IN LAST 30 DAYS: No - Related Data Allergies/Adverse Reactions: No Known Allergies Allergy (Verified 09/09/17 11:43) Past Medical History - Social History Chew tobacco use (# tins/day): No Frequency of alcohol use: Rare Drug Abuse: None - Past Medical History Cardiac Medical History: Reports: Hx Hypertension Pulmonary Medical History: Reports: Hx Bronchitis Endocrine Medical History: Reports: Hx Diabetes Mellitus Type 2 Renal/ Medical History: Denies: Hx Peritoneal Dialysis GI Medical History: Reports: Hx Gastroesophageal Reflux Disease Psychiatric Medical History: Reports: Hx Depression Past Surgical History: Reports: Hx Section - Immunizations Hx Diphtheria, Pertussis, Tetanus Vaccination: Yes History of Influenza Vaccine for 12/2016 - 05/2017 Season: Refused Physical Exam - Vital signs Vitals: Temp Pulse Resp BP Pulse Ox 98.9 F 96 14 144/98 H 98 09/09/17 11:44 09/09/17 11:44 09/09/17 11:44 09/09/17 11:44 09/09/17 11:44 Course - Vital Signs Vital signs: Temp Pulse Resp BP Pulse Ox 98.9 F 96 14 144/98 H 98 09/09/17 11:44 09/09/17 11:44 09/09/17 11:44 09/09/17 11:44 09/09/17 11:44 - Laboratory Result Diagrams: 09/09/17 13:32 09/09/17 13:32 Laboratory results interpreted by me: 09/09/17 09/09/17 13:32 13:32 Hgb 8.4 L Hct 27.2 L MCV 63 L MCH 19.6 L MCHC 31.0 L RDW 21.3 H Glucose 142 H Calcium 10.3 H Scribe Documentation - Scribe Written by Finn:: Finn Nielsen, 09/09/2017 1525 acting as scribe for :: Sesar
[2017-09-09 15:44] VITALS: BP 133/89
--- NOTE | 2017-09-09 15:44 | ER Document Report ---
ED General <BIRGIT ALEJANDRA - Last Filed: 09/09/17 21:30> - General TRAVEL OUTSIDE OF THE [place] IN LAST 30 DAYS: No <PAOLA ROBBINS - Last Filed: 09/09/17 21:31> - General Chief Complaint: Vomiting Stated Complaint: ABDOMINAL PAIN / VOMITTING Time Seen by Provider: 09/09/17 13:02 Notes: Patient is a 37-year-old female that presents to the emergency department today with complaints of abdominal pain. Patient has a history of GERD and has had frequent emergency department visits for GERD related abdominal pain. Patient states her pain today is exactly the same as her previous GERD related pain. Patient states she takes Nexium for her GERD. Patient states she has vomited once but denies any diarrhea or fevers. (BIRGIT ALEJANDRA) - Related Data Allergies/Adverse Reactions: No Known Allergies Allergy (Verified 09/09/17 11:43) Past Medical History - General Information source: Patient - Social History Smoking Status: Former Smoker Chew tobacco use (# tins/day): No Frequency of alcohol use: Rare Drug Abuse: None Family History: Reviewed & Not Pertinent Patient has suicidal ideation: No Patient has homicidal ideation: No - Past Medical History Cardiac Medical History: Reports: Hx Hypertension Pulmonary Medical History: Reports: Hx Bronchitis Endocrine Medical History: Reports: Hx Diabetes Mellitus Type 2 GI Medical History: Reports: Hx Gastroesophageal Reflux Disease Psychiatric Medical History: Reports: Hx Depression Past Surgical History: Reports: Hx Section <BIRGIT ALEJANDRA - Last Filed: 09/09/17 21:30> - Social History Smoking Status: Former Smoker Chew tobacco use (# tins/day): No Frequency of alcohol use: Rare Drug Abuse: None Family History: Reviewed & Not Pertinent Patient has suicidal ideation: No Patient has homicidal ideation: No - Past Medical History Cardiac Medical History: Reports: Hx Hypertension Pulmonary Medical History: Reports: Hx Bronchitis Endocrine Medical History: Reports: Hx Diabetes Mellitus Type 2 Renal/ Medical History: Denies: Hx Peritoneal Dialysis GI Medical History: Reports: Hx Gastroesophageal Reflux Disease Psychiatric Medical History: Reports: Hx Depression Past Surgical History: Reports: Hx Section - Immunizations Hx Diphtheria, Pertussis, Tetanus Vaccination: Yes <PAOLA ROBBINS - Last Filed: 09/09/17 21:31> Review of Systems - Review of Systems Constitutional: denies: Fever EENT: No symptoms reported Cardiovascular: No symptoms reported Respiratory: No symptoms reported Gastrointestinal: See HPI, Abdominal pain, Vomiting. denies: Diarrhea Genitourinary: No symptoms reported Female Genitourinary: No symptoms reported Musculoskeletal: No symptoms reported Skin: No symptoms reported Hematologic/Lymphatic: No symptoms reported Neurological/Psychological: No symptoms reported -: Yes All other systems reviewed and negative <BIRGIT ALEJANDRA - Last Filed: 09/09/17 21:30> Physical Exam <BIRGIT ALEJANDRA - Last Filed: 09/09/17 21:30> <PAOLA ROBBINS - Last Filed: 09/09/17 21:31> - Vital signs Vitals: Temp Pulse Resp BP Pulse Ox 98.9 F 96 14 144/98 H 98 09/09/17 11:44 09/09/17 11:44 09/09/17 11:44 09/09/17 11:44 09/09/17 11:44 - Notes Notes: PHYSICAL EXAM GENERAL: Alert, interacts well. Rocking back and forth while crying and making tears. HEAD: Normocephalic, atraumatic. EYES: Pupils equal, round, and reactive to light. Extraocular movements intact. ENT: Oral mucosa moist, tongue midline. NECK: Full range of motion. Supple. Trachea midline. LUNGS: No respiratory distress. HEART: Regular rate and rhythm. No murmurs, gallops, or rubs. ABDOMEN: Soft, non-tender. Non-distended. Bowel sounds present in all 4 quadrants. No guarding, rigidity, or rebound. EXTREMITIES: Moves all 4 extremities spontaneously. NEUROLOGICAL: Alert and oriented x3. Normal speech. PSYCH: Normal affect, normal mood. SKIN: Warm, dry, normal turgor. No rashes or lesions noted. (BIRGIT ALEJANDRA) Course - Laboratory Result Diagrams: 09/09/17 13:32 09/09/17 13:32 <BIRGIT ALEJANDRA - Last Filed: 09/09/17 21:30> - Laboratory Result Diagrams: 09/09/17 13:32 09/09/17 13:32 <PAOLA ROBBINS - Last Filed: 09/09/17 21:31> - Re-evaluation Re-evalutation: 09/09/17 15:44 CBC shows chronic anemia with hemoglobin 8.4, patient is aware that she has iron deficiency anemia, does not take her iron because it upsets her stomach, discussed alternative methods for treating this, chemistries grossly unremarkable, she is not , lipase is normal, no signs of dehydration. She is feeling much better, no longer crying, tolerating oral liquids well, discharged home. (PAOLA ROBBINS) - Vital Signs Vital signs: Temp Pulse Resp BP Pulse Ox 98.3 F 82 18 133/89 H 98 09/09/17 15:42 09/09/17 15:42 09/09/17 15:42 09/09/17 15:42 09/09/17 15:42 - Laboratory Laboratory results interpreted by me: 09/09/17 09/09/17 13:32 13:32 Hgb 8.4 L Hct 27.2 L MCV 63 L MCH 19.6 L MCHC 31.0 L RDW 21.3 H Glucose 142 H Calcium 10.3 H Discharge <BIRGIT ALEJANDRA - Last Filed: 09/09/17 21:30> <PAOLA ROBBINS - Last Filed: 09/09/17 21:31> - Discharge Clinical Impression: Epigastric abdominal pain GERD (gastroesophageal reflux disease) Qualifiers: Esophagitis presence: esophagitis presence not specified Qualified Code(s): K21.9 - Gastro-esophageal reflux disease without esophagitis Nausea and vomiting Qualifiers: Vomiting type: unspecified Vomiting Intractability: intractable Qualified Code( s): R11.2 - Nausea with vomiting, unspecified Iron deficiency anemia Qualifiers: Iron deficiency anemia type: unspecified iron deficiency Qualified Code(s): D50.9 - Iron deficiency anemia, unspecified Condition: Stable Disposition: HOME, SELF-CARE Additional Instructions: Please continue taking your ranitidine in addition to your erythromycin. Today your blood work did not show any signs of infection or dehydration. The Reglan and Benadryl seemed to help. Your blood work did show your chronic anemia. It is very important that you take your iron to fix this. Sometimes iron can make your stomach pain worse so you may wish to talk to your primary care physician about other types of iron that may upset her stomach less. You may also try cooking and cast iron cookware, this can help your anemia without hurting her stomach. Scribe Attestation: 09/09/17 21:31 I personally performed the services described in the documentation, reviewed and edited the documentation which was dictated to the scribe in my presence, and it accurately records my words and actions. (PAOLA ROBBINS) Scribe Documentation - Scribe Written by Finn:: Finn Nielsen, [id number] acting as scribe for :: Sesar <BIRGIT ALEJANDRA - Last Filed: 09/09/17 21:30>
== END 2017-09-09 15:46 | disposition home or self-care (01) ==
LOC: ER 11:40
DX: K21.9 Gastro-esophageal reflux disease without esophagitis (principal); Z79.899 Other long term (current) drug therapy; D50.9 Iron deficiency anemia, unspecified; T45.4X6A Underdosing of iron and its compounds, initial encounter; Z91.128 Patient's intentional underdosing of medication regimen for other reason; Z91.14 Patient's other noncompliance with medication regimen; R10.13 Epigastric pain; R11.2 Nausea with vomiting, unspecified; I10 Essential (primary) hypertension; E11.9 Type 2 diabetes mellitus without complications; Z87.891 Personal history of nicotine dependence
CPT/HCPCS: 99284; 96372; 36415; 83690; 84703; 85025; 80053; J1200; S0119; J3490 ×3; J2765

== ENCOUNTER 2017-11-04 13:53 | Emergency (ER) | payer MEDICAID ==
[2017-11-04 14:13] VITALS: BP 160/93
[2017-11-04] MEDS ORDERED: ONDANSETRON 4 MG TAB.RAPDIS PO ONE (15:34)
--- NOTE | 2017-11-04 15:37 | ER Document Report ---
ED Medical Screen (RME) - General Chief Complaint: Abdominal Pain Stated Complaint: ABDOMINAL PAIN Time Seen by Provider: 11/04/17 15:30 Mode of Arrival: Medic Information source: Patient Notes: Patient is a 37-year-old female who presents to the emergency department today with complaint of abdominal pain and vomiting. Patient reports history of gastroparesis and acid reflux and reports that this is a severe flareup. Patient reports this started approximately 730 this morning. Patient denies any diarrhea or fevers. Patient denies any history of any abdominal surgeries. Exam: Generalized tenderness to palpation to abdomen. Patient screaming out for pain medicines trying to throw herself off of the wheelchair. I have greeted and performed a rapid initial assessment of this patient. A comprehensive ED assessment and evaluation of the patient, analysis of test results and completion of the medical decision making process will be conducted by additional ED providers. Dictation of this chart was performed using voice recognition software; therefore, there may be some unintended grammatical errors. TRAVEL OUTSIDE OF THE [place] IN LAST 30 DAYS: No - Related Data Allergies/Adverse Reactions: No Known Allergies Allergy (Verified 09/09/17 11:43) Past Medical History - Past Medical History Cardiac Medical History: Reports: Hx Hypertension Pulmonary Medical History: Reports: Hx Bronchitis Endocrine Medical History: Reports: Hx Diabetes Mellitus Type 2 Renal/ Medical History: Denies: Hx Peritoneal Dialysis GI Medical History: Reports: Hx Gastroesophageal Reflux Disease Psychiatric Medical History: Reports: Hx Depression Past Surgical History: Reports: Hx Section - Immunizations Hx Diphtheria, Pertussis, Tetanus Vaccination: Yes History of Influenza Vaccine for 12/2016 - 05/2017 Season: Refused Physical Exam - Vital signs Vitals: Temp Pulse Resp BP Pulse Ox 97.3 F 80 16 160/93 H 96 11/04/17 14:12 11/04/17 14:12 11/04/17 14:12 11/04/17 14:12 11/04/17 14:12 Course - Vital Signs Vital signs: Temp Pulse Resp BP Pulse Ox 97.3 F 80 16 160/93 H 96 11/04/17 14:12 11/04/17 14:12 11/04/17 14:12 11/04/17 14:12 11/04/17 14:12
[2017-11-04] MEDS ORDERED: ONDANSETRON HCL 8 MG TABLET PO ONE (16:13)
[2017-11-04 16:55] LABS: ABSOLUTE BASOPHILS # (AUTO) 0.1 10^3/uL (0.0-0.2); ABSOLUTE LYMPHOCYTES (AUTO) 0.8 10^3/uL (0.5-4.7); ABSOLUTE MONOCYTES (AUTO) 0.2 10^3/uL (0.1-1.4); ABSOLUTE NEUT (AUTO) 9.3 10^3/uL (1.7-8.2); BASOPHILS % (AUTO) 0.7 % (0-2); EOSINOPHILS % (AUTO) 0.5 % (0-6); HEMATOCRIT 26.9 % (36.0-47.0); HEMOGLOBIN 8.1 g/dL (12.0-15.5); LYMPHOCYTES % (AUTO) 7.3 % (13-45); MEAN CORPUSCULAR HGB CONC 30.2 g/dL (32.0-36.0); MEAN CORPUSCULAR VOLUME 63 fl (80-97); MONOCYTES % (AUTO) 1.7 % (3-13); PLATELET COUNT 304 10^3/uL (150-450); RED BLOOD COUNT 4.28 10^6/uL (3.72-5.28); RED CELL DISTRIBUTION WIDTH 19.9 % (11.5-14.0); SEGMENTED NEUTROPHILS % (AUTO) 89.8 % (42-78); TOTAL CELLS COUNTED % (AUTO) 100 %; WHITE BLOOD COUNT 10.4 10^3/uL (4.0-10.5)
[2017-11-04 17:00] LABS: APPEARANCE,URINE CLEAR; BILIRUBIN,URINE NEGATIVE (NEGATIVE); COLOR,URINE YELLOW; GLUCOSE, URINE 50 mg/dL (NEGATIVE); KETONES,URINE NEGATIVE (NEGATIVE); LEUKOCYTE ESTERASE,URINE NEGATIVE (NEGATIVE); NITRITE,URINE NEGATIVE (NEGATIVE); PROTEIN,URINE 100 mg/dL (NEGATIVE); URINE SPECIFIC GRAVITY 1.023
[2017-11-04 17:23] LABS: ANISOCYTOSIS 2+; PLATELET COMMENT ADEQUATE
[2017-11-04 17:24] LABS: STOMATOCYTES 2+
[2017-11-04 18:09] LABS: ALANINE AMINOTRANSFERASE 22 U/L (9-52); ALBUMIN 4.7 g/dL (3.5-5.0); ALKALINE PHOSPHATASE 69 U/L (38-126); ANION GAP 14 (5-19); ASPARTATE AMINO TRANSFERASE 23 U/L (14-36); BILIRUBIN,DIRECT 0.2 mg/dL (0.0-0.4); BILIRUBIN,TOTAL 0.3 mg/dL (0.2-1.3); BLOOD UREA NITROGEN 10 mg/dL (7-20); CALCIUM 10.1 mg/dL (8.4-10.2); CARBON DIOXIDE 23 mmol/L (22-30); CHLORIDE 104 mmol/L (98-107); GLUCOSE 165 mg/dL (75-110); LIPASE 121.8 U/L (23-300); POTASSIUM 4.2 mmol/L (3.6-5.0); SODIUM 140.7 mmol/L (137-145); TOTAL PROTEIN 8.5 g/dL (6.3-8.2)
== END 2017-11-04 17:45 | disposition left against medical advice (07) ==
LOC: ER 13:53
DX: R10.9 Unspecified abdominal pain (principal); R10.817 Generalized abdominal tenderness; R11.10 Vomiting, unspecified; E11.9 Type 2 diabetes mellitus without complications; I10 Essential (primary) hypertension; Z53.20 Procedure and treatment not carried out because of patient's decision for unspecified reasons; Z87.19 Personal history of other diseases of the digestive system
CPT/HCPCS: 99281; 36415; 83690; 85025; 81025; 80053; 81001; S0119

== ENCOUNTER 2018-01-22 05:48 | Emergency (ER) | payer MEDICAID ==
[2018-01-22] MEDS ORDERED: METOCLOPRAMIDE HCL INJ/PF 10 MG/2 ML SDV IV ONE (06:32)
[2018-01-22] MEDS ORDERED: NORMAL SALINE 1000 ML 1,000 ML IV ONE (06:32)
[2018-01-22] MEDS ORDERED: DIPHENHYDRAMINE HCL 50 MG/ML VIAL IV ONE (06:32)
--- NOTE | 2018-01-22 06:34 | ER Document Report ---
ED General - General Chief Complaint: Flank Pain Stated Complaint: LOWER LEFT BACK PAIN Time Seen by Provider: 01/22/18 06:26 Mode of Arrival: Ambulatory Information source: Patient Notes: 37-year-old female presents emergency department with 4-day history of epigastric abdominal pain, nausea, vomiting. Patient states that she has a history of gastroparesis, cyclic vomiting syndrome, DM and believes that her gastroparesis is flaring up at this time. She describes her pain as an aching sensation in the epigastric area. She denies any radiation of the pain. She denies any alleviating or exacerbating factors. Patient is on metformin for her diabetes. Patient states that when it gets this bad and she comes to the hospital she usually gets Haldol, Benadryl, Reglan. Currently on her menstrual cycle. TRAVEL OUTSIDE OF THE [place] IN LAST 30 DAYS: No - HPI Onset: Other - 4 days Onset/Duration: Gradual Quality of pain: Achy, Dull Severity: Moderate Associated symptoms: Nausea, Vomiting Exacerbated by: Denies Relieved by: Denies Similar symptoms previously: Yes Recently seen / treated by doctor: No - Related Data Allergies/Adverse Reactions: No Known Allergies Allergy (Verified 09/09/17 11:43) Past Medical History - Social History Smoking Status: Current Every Day Smoker Chew tobacco use (# tins/day): No Frequency of alcohol use: None Drug Abuse: Marijuana Family History: Reviewed & Not Pertinent Patient has suicidal ideation: No Patient has homicidal ideation: No - Past Medical History Cardiac Medical History: Reports: Hx Hypertension Pulmonary Medical History: Reports: Hx Bronchitis Endocrine Medical History: Reports: Hx Diabetes Mellitus Type 2 Renal/ Medical History: Denies: Hx Peritoneal Dialysis GI Medical History: Reports: Hx Gastroesophageal Reflux Disease Psychiatric Medical History: Reports: Hx Depression Past Surgical History: Reports: Hx Section, Hx Tubal Ligation - Immunizations Hx Diphtheria, Pertussis, Tetanus Vaccination: Yes Review of Systems - Review of Systems Constitutional: No symptoms reported EENT: No symptoms reported Cardiovascular: No symptoms reported Respiratory: No symptoms reported Gastrointestinal: Abdominal pain, Nausea, Vomiting Genitourinary: No symptoms reported Female Genitourinary: No symptoms reported Musculoskeletal: No symptoms reported Skin: No symptoms reported Hematologic/Lymphatic: No symptoms reported Neurological/Psychological: No symptoms reported -: Yes All other systems reviewed and negative Physical Exam - Vital signs Vitals: Temp Pulse Resp BP Pulse Ox 99 F 118 H 18 144/79 H 98 01/22/18 05:56 01/22/18 05:56 01/22/18 05:56 01/22/18 05:56 01/22/18 05:56 - General Notes: PHYSICAL EXAMINATION: GENERAL: Well-appearing, well-nourished and in no acute distress. HEAD: Atraumatic, normocephalic. EYES: Pupils equal round and reactive to light, extraocular movements intact, conjunctiva are normal. ENT: Nares patent, oropharynx clear without exudates. Moist mucous membranes. NECK: Normal range of motion, supple without lymphadenopathy LUNGS: Breath sounds clear to auscultation bilaterally and equal. No wheezes rales or rhonchi. HEART: Regular rate and rhythm without murmurs ABDOMEN: Soft, tenderness to palpation in the epigastric area. No rebound or guarding. Female : deferred Musculoskeletal: Normal range of motion, no pitting or edema. No cyanosis. NEUROLOGICAL: Cranial nerves grossly intact. Normal speech, normal gait. Normal sensory, motor exams PSYCH: Normal mood, normal affect. SKIN: Warm, Dry, normal turgor, no rashes or lesions noted. Course - Re-evaluation Re-evalutation: 01/22/18 08:39 Labs and imaging obtained. Patient has ketones in the urine. Anion gap is within normal limits. Patient given a Fluids, GI cocktail, Pepcid, Benadryl, Reglan. On reevaluation, patient states that she is feeling a little better. Patient is on phenergan suppositories at home. I instructed her to continue this medication. I will start erythromycin. Patient instructed to follow-up with her GI physician this week, to continue taking medications as directed, and to return to the emergency department for worsening symptoms. Patient is agreeable with plan of care. 01/22/18 08:41 01/22/18 08:48 - Vital Signs Vital signs: Temp Pulse Resp BP Pulse Ox 99 F 118 H 18 144/79 H 98 01/22/18 05:56 01/22/18 05:56 01/22/18 05:56 01/22/18 05:56 01/22/18 05:56 - Laboratory Result Diagrams: 01/22/18 06:30 01/22/18 06:30 Laboratory results interpreted by me: 10/31/18 10/31/18 10/31/18 06:30 06:30 06:30 WBC 13.3 H Hgb 8.6 L Hct 27.6 L MCV 63 L MCH 19.5 L MCHC 31.1 L RDW 19.9 H Seg Neutrophils % 90.1 H Lymphocytes % 6.3 L Absolute Neutrophils 12.0 H Sodium 136.2 L Potassium 3.1 L Chloride 87 L Carbon Dioxide 32 H Glucose 202 H Urine Protein >=500 H Urine Glucose (UA) 50 H Urine Ketones 80 H Urine Bilirubin SMALL H Urine Urobilinogen 4.0 H Discharge - Discharge Clinical Impression: Epigastric abdominal pain, Hypokalemia Condition: Good Disposition: HOME, SELF-CARE Instructions: Abdominal Pain ([facility]) Prescriptions: Erythromycin Base [Erythromycin] 500 mg PO BID #10 tablet Referrals: ROXANA ORTEGA DO [NO LOCAL MD] - Follow up as needed
[2018-01-22 06:48] LABS: APPEARANCE,URINE CLOUDY; BILIRUBIN,URINE SMALL (NEGATIVE); COLOR,URINE AMBER; GLUCOSE, URINE 50 mg/dL (NEGATIVE); KETONES,URINE 80 mg/dL (NEGATIVE); LEUKOCYTE ESTERASE,URINE NEGATIVE (NEGATIVE); NITRITE,URINE NEGATIVE (NEGATIVE); PROTEIN,URINE >=500 mg/dL (NEGATIVE); URINE SPECIFIC GRAVITY 1.033
[2018-01-22] MEDS ORDERED: LIDOCAINE 2% VISCOUS SOLN 20 ML UDCUP PO ONE (06:48)
[2018-01-22] MEDS ORDERED: MAG HYDROX/AL HYDROX/SIMETH SUSP 30 ML UDCUP PO ONE (06:48)
[2018-01-22] MEDS ORDERED: METOCLOPRAMIDE HCL ORAL SOLN 10 MG/10 ML UDCUP PO ONE (06:48)
[2018-01-22] MEDS ORDERED: FAMOTIDINE INJ/PF 20 MG/2 ML SDV IV ONE (06:49)
[2018-01-22 06:58] LABS: ALANINE AMINOTRANSFERASE 28 U/L (9-52); ALBUMIN 4.2 g/dL (3.5-5.0); ALKALINE PHOSPHATASE 96 U/L (38-126); ANION GAP 17 (5-19); ASPARTATE AMINO TRANSFERASE 29 U/L (14-36); BILIRUBIN,DIRECT 0.2 mg/dL (0.0-0.4); BILIRUBIN,TOTAL 0.7 mg/dL (0.2-1.3); BLOOD UREA NITROGEN 16 mg/dL (7-20); CALCIUM 9.6 mg/dL (8.4-10.2); CARBON DIOXIDE 32 mmol/L (22-30); CHLORIDE 87 mmol/L (98-107); GLUCOSE 202 mg/dL (75-110); LIPASE 44.6 U/L (23-300); POTASSIUM 3.1 mmol/L (3.6-5.0); SODIUM 136.2 mmol/L (137-145); TOTAL PROTEIN 7.5 g/dL (6.3-8.2)
[2018-01-22 07:11] LABS: ABSOLUTE BASOPHILS # (AUTO) 0.1 10^3/uL (0.0-0.2); ABSOLUTE LYMPHOCYTES (AUTO) 0.8 10^3/uL (0.5-4.7); ABSOLUTE MONOCYTES (AUTO) 0.4 10^3/uL (0.1-1.4); BASOPHILS % (AUTO) 0.4 % (0-2); EOSINOPHILS % (AUTO) 0.1 % (0-6); HEMATOCRIT 27.6 % (36.0-47.0); HEMOGLOBIN 8.6 g/dL (12.0-15.5); LYMPHOCYTES % (AUTO) 6.3 % (13-45); MEAN CORPUSCULAR HEMOGLOBIN 19.5 pg (27.0-33.4); MEAN CORPUSCULAR HGB CONC 31.1 g/dL (32.0-36.0); MEAN CORPUSCULAR VOLUME 63 fl (80-97); MONOCYTES % (AUTO) 3.1 % (3-13); PLATELET COUNT 322 10^3/uL (150-450); RED BLOOD COUNT 4.41 10^6/uL (3.72-5.28); RED CELL DISTRIBUTION WIDTH 19.9 % (11.5-14.0); SEGMENTED NEUTROPHILS % (AUTO) 90.1 % (42-78); TOTAL CELLS COUNTED % (AUTO) 100 %; WHITE BLOOD COUNT 13.3 10^3/uL (4.0-10.5)
[2018-01-22 07:17] LABS: URINE AMPHETAMINES SCREEN NEGATIVE; URINE BARBITURATES SCREEN NEGATIVE; URINE BENZODIAZEPINES SCREEN NEGATIVE; URINE COCAINE SCREEN NEGATIVE; URINE MARIJUANA (THC) SCREEN UNCONFIRMED POSITIVE; URINE METHADONE SCREEN NEGATIVE; URINE PHENCYCLIDINE SCREEN NEGATIVE
[2018-01-22] MEDS ORDERED: POTASSIUM CHLORIDE 10 MEQ CAPSULE.ER PO ONE (07:27)
[2018-01-22 08:10] LABS: HYPOCHROMASIA 2+
[2018-01-22 08:11] LABS: ANISOCYTOSIS 2+; PLATELET COMMENT ADEQUATE; POLYCHROMASIA SLIGHT
--- NOTE | 2018-01-22 08:22 | RADIOLOGY REPORT (SQ) ---
EXAM DESCRIPTION: ACUTE ABDOMEN SERIES COMPLETED DATE/TIME: 01/22/2018 7:54 am REASON FOR STUDY: abdominal pain COMPARISON: 08/31/2017. NUMBER OF VIEWS: Three views. TECHNIQUE: Frontal chest, supine abdomen and upright/decubitus abdomen radiographic images acquired. LIMITATIONS: None. FINDINGS: CHEST: Lungs clear of infiltrates. FREE AIR: None. No abnormal gas collections. BOWEL GAS PATTERN: Nonobstructive pattern. No dilated loops or air fluid levels. CALCIFICATIONS: No suspicious calcifications. HARDWARE: Tubal ligation clips in the pelvis. SOFT TISSUES: No gross mass or suggestion of organomegaly. BONES: No acute fracture. No worrisome bone lesions. OTHER: No other significant finding. IMPRESSION: NO RADIOGRAPHIC EVIDENCE FOR ACUTE ABDOMINAL DISEASE. TECHNICAL DOCUMENTATION: JOB ID: [id number] [employer]- All Rights Reserved Reading location - IP/workstation name: [email or web address]
[2018-01-22 09:00] VITALS: BP 159/60
== END 2018-01-22 08:58 | disposition home or self-care (01) ==
LOC: ER 05:48
DX: E11.43 Type 2 diabetes mellitus with diabetic autonomic (poly)neuropathy (principal); K31.84 Gastroparesis; Z79.84 Long term (current) use of oral hypoglycemic drugs; E87.6 Hypokalemia; R10.13 Epigastric pain; R11.2 Nausea with vomiting, unspecified; F17.200 Nicotine dependence, unspecified, uncomplicated; I10 Essential (primary) hypertension; Z87.19 Personal history of other diseases of the digestive system; Z98.51 Tubal ligation status
CPT/HCPCS: 99284; 96361; 96374; 96375; 36415; 83690; 85025; 81025; 80053; 81001; 80307; 74022; J1200; J3490 ×3; J2765; J7030; S0028

== ENCOUNTER 2018-03-27 04:51 | Emergency (ER) | payer MEDICAID ==
[2018-03-27] MEDS ORDERED: NORMAL SALINE 1000 ML 1,000 ML IV ONE (06:09)
[2018-03-27] MEDS ORDERED: PROMETHAZINE HCL INJ 25 MG/1 ML VIAL IV ONE (06:10)
[2018-03-27] MEDS ORDERED: PANTOPRAZOLE SODIUM 40 MG VIAL IV ONE (06:18)
[2018-03-27] MEDS ORDERED: MORPHINE SULFATE 10 MG/ML INJ IV ONE (06:18)
[2018-03-27 06:20] LABS: ABSOLUTE BASOPHILS # (AUTO) 0.1 10^3/uL (0.0-0.2); ABSOLUTE EOSINOPHILS # (AUTO) 0.6 10^3/uL (0.0-0.6); ABSOLUTE MONOCYTES (AUTO) 0.3 10^3/uL (0.1-1.4); ABSOLUTE NEUT (AUTO) 4.7 10^3/uL (1.7-8.2); EOSINOPHILS % (AUTO) 7.6 % (0-6); HEMATOCRIT 28.4 % (36.0-47.0); HEMOGLOBIN 8.5 g/dL (12.0-15.5); LYMPHOCYTES % (AUTO) 25.7 % (13-45); MEAN CORPUSCULAR HEMOGLOBIN 19.6 pg (27.0-33.4); MEAN CORPUSCULAR VOLUME 65 fl (80-97); MONOCYTES % (AUTO) 4.3 % (3-13); PLATELET COUNT 322 10^3/uL (150-450); RED BLOOD COUNT 4.34 10^6/uL (3.72-5.28); RED CELL DISTRIBUTION WIDTH 20.3 % (11.5-14.0); SEGMENTED NEUTROPHILS % (AUTO) 61.4 % (42-78); TOTAL CELLS COUNTED % (AUTO) 100 %; WHITE BLOOD COUNT 7.7 10^3/uL (4.0-10.5)
[2018-03-27 06:25] LABS: ALANINE AMINOTRANSFERASE 17 U/L (9-52); ALBUMIN 4.3 g/dL (3.5-5.0); ALKALINE PHOSPHATASE 79 U/L (38-126); ANION GAP 11 (5-19); ASPARTATE AMINO TRANSFERASE 24 U/L (14-36); BILIRUBIN,DIRECT 0.3 mg/dL (0.0-0.4); BILIRUBIN,TOTAL 0.3 mg/dL (0.2-1.3); BLOOD UREA NITROGEN 15 mg/dL (7-20); CALCIUM 10.2 mg/dL (8.4-10.2); CARBON DIOXIDE 22 mmol/L (22-30); CHLORIDE 105 mmol/L (98-107); GLUCOSE 176 mg/dL (75-110); LIPASE 166.1 U/L (23-300); POTASSIUM 4.3 mmol/L (3.6-5.0); SODIUM 138.2 mmol/L (137-145); TOTAL PROTEIN 7.5 g/dL (6.3-8.2)
--- NOTE | 2018-03-27 06:26 | ER Document Report ---
ED General - General Chief Complaint: Abdominal Pain Stated Complaint: ABDOMINAL PAIN Time Seen by Provider: 03/27/18 06:09 Notes: Patient is a 37-year-old female with history of gastroparesis that presents to the emergency department for chief complaint of nausea and vomiting abdominal pain. Patient states she is had multiple episodes of vomiting over the last 4 days, since she was discharged from another institution for similar complaints. She denies having any fevers, chills or diarrhea. She claims she was taking her medications at home, except for her Nexium which she ran out of. She also states she is having generalized abdominal pain as a result of her gastroparesis, this is similar to what she describes as a flare of her ga stroparesis. She currently rates her pain as a 6 out of 10, the patient describes it as a constant aching sensation, and worse when she is dry heaving. Past Medical History: Diabetes mellitus, hypertension, diabetic gastroparesis, GERD Past Surgical History: EGD and colonoscopy Social History: Denies tobacco, alcohol but does admit to smoking marijuana which she states she is cutting back on Family History: Reviewed and noncontributory for presenting illness Allergies: Reviewed, see documented allergy list. REVIEW OF SYSTEMS: Other than noted above, the 12 point review of systems was reviewed with the patient and were negative, all pertinent findings are included in the HPI. PHYSICAL EXAMINATION: Vital signs reviewed, nursing noted reviewed. GENERAL: Obese female, appears uncomfortable, writhing in the bed, but then will act normal and speaking complete in clear sentences when asked the question HEAD: Atraumatic, normocephalic. EYES: Eyes appear normal, extraocular movements intact, sclera anicteric, conjunctiva are normal. ENT: nares patent, oropharynx clear without exudates. Moist mucous membranes. NECK: Normal range of motion, supple without lymphadenopathy LUNGS: Breath sounds clear to auscultation bilaterally and equal. No wheezes rales or rhonchi. HEART: Regular rate and rhythm without murmurs ABDOMEN: Soft, obese, mildly diffusely uncomfortable with palpation but no focal tenderness, no peritoneal signs, normoactive bowel sounds. No rebound, guarding, or rigidity. No masses appreciated. EXTREMITIES: Nontender, good range of motion, no pitting or edema. NEUROLOGICAL: No focal neurological deficits. Moves all extremities spontaneously Motor and sensory grossly intact on exam. PSYCH: Flat affect, bizarre interactions at times. SKIN: Warm, Dry, normal turgor, no rashes or lesions noted on exposed skin TRAVEL OUTSIDE OF THE [place] IN LAST 30 DAYS: No - Related Data Allergies/Adverse Reactions: No Known Allergies Allergy (Verified 03/27/18 05:23) Past Medical History - Social History Smoking Status: Never Smoker Frequency of alcohol use: None Drug Abuse: Marijuana Family History: Reviewed & Not Pertinent Patient has suicidal ideation: No Patient has homicidal ideation: No - Past Medical History Cardiac Medical History: Reports: Hx Hypertension Pulmonary Medical History: Reports: Hx Bronchitis Endocrine Medical History: Reports: Hx Diabetes Mellitus Type 2 Renal/ Medical History: Denies: Hx Peritoneal Dialysis GI Medical History: Reports: Hx Gastroesophageal Reflux Disease Psychiatric Medical History: Reports: Hx Depression Past Surgical History: Reports: Hx Section, Hx Tubal Ligation - Immunizations Hx Diphtheria, Pertussis, Tetanus Vaccination: Yes Physical Exam - Vital signs Vitals: Temp Pulse Resp BP Pulse Ox 98.6 F 90 28 H 171/107 H 98 03/27/18 04:56 03/27/18 04:56 03/27/18 04:56 03/27/18 04:56 03/27/18 04:56 Course - Re-evaluation Re-evalutation: Patient seen and examined vital signs reviewed. Laboratory data and imaging were ordered as appropriate for the patient's presenting symptoms and complaint, with consideration of any critical or life threatening conditions that may be associated with their obtained history and exam as noted above. Patient was treated with IV fluids, IV Reglan, and Phenergan, and morphine for pain Results were reviewed when available and demonstrated unremarkable blood work, patient's had multiple imaging studies in the past, prior charts reviewed, patient was reevaluated, and when I entered the room, the patient was standing up at the sink in the room, and did not appear to be in any acute distress, and then promptly laid back down in the bed, and started writhing complaining of pain stating that she needs to be admitted to the hospital, she recently had admission for this. I discussed with her that we can give her a dose of IM Haldol, that may help with her intractable vomiting, and that she needs to follow-up. She did not have any abnormal electrolytes, or abnormal renal function, I advised her that she does not have an admissible diagnosis, that she needs to follow-up with her public relations officer, and take her home medications that have been CBC prescribed, I did refill her Nexium prescription, advised her to take this as well, and she was discharged home. Evaluation was most consistent with nausea and vomiting and abdominal pain Results were discussed with the patient at this point, after careful consideration I feel that that patient can be discharged from the emergency department, the patient was educated treatments and reasons to return to the emergency department based on their presumed diagnosis as noted above, they were advised to followup with a primary care physician in 2-3 days. Patient was agreeable to plan of care. *Note is created using voice recognition software and may contain spelling, syntax or grammatical errors. Laboratory 03/27/18 03/27/18 03/27/18 05:09 05:09 05:09 WBC 7.7 RBC 4.34 Hgb 8.5 L Hct 28.4 L MCV 65 L MCH 19.6 L MCHC 30.0 L RDW 20.3 H Plt Count 322 Seg Neutrophils % 61.4 Lymphocytes % 25.7 Monocytes % 4.3 Eosinophils % 7.6 H Basophils % 1.0 Absolute Neutrophils 4.7 Absolute Lymphocytes 2.0 Absolute Monocytes 0.3 Absolute Eosinophils 0.6 Absolute Basophils 0.1 Sodium 138.2 Potassium 4.3 Chloride 105 Carbon Dioxide 22 Anion Gap 11 BUN 15 Creatinine 0.69 Est GFR ( Amer) > 60 Est GFR (Non-Af Amer) > 60 Glucose 176 H Calcium 10.2 Total Bilirubin 0.3 Direct Bilirubin 0.3 Neonat Total Bilirubin Not Reportable Neonat Direct Bilirubin Not Reportable Neonat Indirect Bili Not Reportable AST 24 ALT 17 Alkaline Phosphatase 79 Total Protein 7.5 Albumin 4.3 Lipase 166.1 Serum HCG, Qual NEGATIVE Urine Color Urine Appearance Urine pH Ur Specific [place] Urine Protein Urine Glucose (UA) Urine Ketones Urine Blood Urine Nitrite Urine Bilirubin Urine Urobilinogen Ur Leukocyte Esterase Urine WBC (Auto) Urine RBC (Auto) Squamous Epi Cells Auto Urine Mucus (Auto) Urine Ascorbic Acid 03/27/18 06:11 WBC RBC Hgb Hct MCV MCH MCHC RDW Plt Count Seg Neutrophils % Lymphocytes % Monocytes % Eosinophils % Basophils % Absolute Neutrophils Absolute Lymphocytes Absolute Monocytes Absolute Eosinophils Absolute Basophils Sodium Potassium Chloride Carbon Dioxide Anion Gap BUN Creatinine Est GFR ( Amer) Est GFR (Non-Af Amer) Glucose Calcium Total Bilirubin Direct Bilirubin Neonat Total Bilirubin Neonat Direct Bilirubin Neonat Indirect Bili AST ALT Alkaline Phosphatase Total Protein Albumin Lipase Serum HCG, Qual Urine Color STRAW Urine Appearance CLEAR Urine pH 5.0 Ur Specific [place] 1.016 Urine Protein 30 H Urine Glucose (UA) NEGATIVE Urine Ketones NEGATIVE Urine Blood NEGATIVE Urine Nitrite NEGATIVE Urine Bilirubin NEGATIVE Urine Urobilinogen NEGATIVE Ur Leukocyte Esterase NEGATIVE Urine WBC (Auto) 0 Urine RBC (Auto) 0 Squamous Epi Cells Auto 1 Urine Mucus (Auto) RARE Urine Ascorbic Acid NEGATIVE - Vital Signs Vital signs: Temp Pulse Resp BP Pulse Ox 98 F 80 16 169/91 H 96 03/27/18 08:23 03/27/18 08:34 03/27/18 08:34 03/27/18 08:23 03/27/18 08:34 - Laboratory Result Diagrams: 03/27/18 05:09 03/27/18 05:09 Laboratory results interpreted by me: 03/27/18 03/27/18 03/27/18 05:09 05:09 06:11 Hgb 8.5 L Hct 28.4 L MCV 65 L MCH 19.6 L MCHC 30.0 L RDW 20.3 H Eosinophils % 7.6 H Glucose 176 H Urine Protein 30 H Discharge - Discharge Clinical Impression: Nausea, Gastroparesis Condition: Stable Disposition: HOME, SELF-CARE Instructions: Nausea or Vomiting, Nonspecific ([facility]) Additional Instructions: Please follow-up with your public relations officer, call to make an appointment today. Prescriptions: Esomeprazole Mag Trihydrate [Nexium] 40 mg PO DAILY #30 capsule. Referrals: ESTELITA BEARDEN MD [ACTIVE STAFF] - Follow up as needed [facility] [Provider Group] - Follow up as needed
--- NOTE | 2018-03-27 06:44 | RADIOLOGY REPORT (SQ) ---
EXAM DESCRIPTION: XR CHEST 1 VIEW COMPLETED DATE/TME: 03/27/2018 06:18 CLINICAL HISTORY: 37 years Female, cough COMPARISON: None. NUMBER OF VIEWS/TECHNIQUE: 1/AP FINDINGS: Adequate lung volume, clear parenchyma, normal cardiac silhouette, and intact bony thorax. IMPRESSION: No acute cardiopulmonary findings.
[2018-03-27 06:51] LABS: APPEARANCE,URINE CLEAR; BILIRUBIN,URINE NEGATIVE (NEGATIVE); COLOR,URINE STRAW; GLUCOSE, URINE NEGATIVE (NEGATIVE); KETONES,URINE NEGATIVE (NEGATIVE); LEUKOCYTE ESTERASE,URINE NEGATIVE (NEGATIVE); NITRITE,URINE NEGATIVE (NEGATIVE); PROTEIN,URINE 30 mg/dL (NEGATIVE); URINE SPECIFIC GRAVITY 1.016; UROBILINOGEN,URINE NEGATIVE mg/dL (<2.0)
[2018-03-27] MEDS ORDERED: METOCLOPRAMIDE HCL INJ/PF 10 MG/2 ML SDV IV ONE (08:25)
[2018-03-27] MEDS ORDERED: HALOPERIDOL LACTATE INJ 5 MG/1 ML VIAL IM ONE (09:03)
[2018-03-27 09:05] VITALS: BP 169/91
== END 2018-03-27 09:45 | disposition home or self-care (01) ==
LOC: ER 04:51
DX: E11.43 Type 2 diabetes mellitus with diabetic autonomic (poly)neuropathy (principal); K31.84 Gastroparesis; R11.2 Nausea with vomiting, unspecified; R10.9 Unspecified abdominal pain; Z79.4 Long term (current) use of insulin
CPT/HCPCS: 99284; 96372; 96361; 96374; 96375; 36415; 83690; 84703; 85025; 80053; 81001; 71045; J1630; J2765; J2270; S0164; J2550; J7030

== ENCOUNTER 2018-03-29 11:22 | Emergency (ER) | payer MEDICAID ==
[2018-03-29] MEDS ORDERED: NORMAL SALINE 1000 ML 1,000 ML IV ONE (11:51)
[2018-03-29] MEDS ORDERED: ONDANSETRON HCL INJ/PF 4 MG/2 ML SDV IV ONE (11:51)
--- NOTE | 2018-03-29 11:58 | ER Document Report ---
ED GI/ - General Chief Complaint: Abdominal Pain Stated Complaint: ABDOMINAL PAIN Time Seen by Provider: 03/29/18 11:32 Mode of Arrival: Ambulatory Information source: Patient Notes: Patient presents with a 5-day history of nausea vomiting and abdominal pain. Patient states she is vomited about 20 times today. Patient does have a history of frequent episodes of abdominal pain with vomiting and states that she is having a flareup of her GERD and gastroparesis. Patient does acknowledge continued history of frequent marijuana use. TRAVEL OUTSIDE OF THE [place] IN LAST 30 DAYS: No - HPI Patient complains to provider of: Abdominal pain, Vomiting Onset: Last week Timing/Duration: Persistent Quality of pain: Achy Pain Level: 3 Location: Other - Generalized abdomen Associated symptoms: Nausea, Vomiting. denies: Diarrhea, Dysuria, Fever, Urinary hesitancy, Urinary frequency, Urinary retention Exacerbated by: Denies Relieved by: Denies Similar symptoms previously: Yes Recently seen / treated by doctor: Yes - Related Data Allergies/Adverse Reactions: No Known Allergies Allergy (Verified 03/27/18 05:23) Past Medical History - General Information source: Patient - Social History Smoking Status: Never Smoker Frequency of alcohol use: None Drug Abuse: Marijuana Occupation: None Lives with: Family Family History: Reviewed & Not Pertinent Patient has suicidal ideation: No Patient has homicidal ideation: No - Past Medical History Cardiac Medical History: Reports: Hx Hypertension Pulmonary Medical History: Reports: Hx Bronchitis Endocrine Medical History: Reports: Hx Diabetes Mellitus Type 2 Renal/ Medical History: Denies: Hx Peritoneal Dialysis GI Medical History: Reports: Hx Gastroesophageal Reflux Disease, Other - Gastroparesis Psychiatric Medical History: Reports: Hx Depression Past Surgical History: Reports: Hx Section, Hx Tubal Ligation - Immunizations Hx Diphtheria, Pertussis, Tetanus Vaccination: Yes Review of Systems - Review of Systems Constitutional: No symptoms reported. denies: Fever EENT: No symptoms reported Cardiovascular: No symptoms reported. denies: Chest pain Respiratory: No symptoms reported. denies: Cough Gastrointestinal: Abdominal pain, Nausea, Vomiting. denies: Diarrhea Genitourinary: No symptoms reported. denies: Dysuria Female Genitourinary: No symptoms reported Musculoskeletal: No symptoms reported. denies: Back pain Skin: No symptoms reported Hematologic/Lymphatic: No symptoms reported Neurological/Psychological: No symptoms reported Physical Exam - Vital signs Vitals: Temp Pulse Resp BP Pulse Ox 97.3 F 88 16 175/91 H 97 03/29/18 11:32 03/29/18 11:32 03/29/18 11:32 03/29/18 11:32 03/29/18 11:32 - General General appearance: Appears well, Alert In distress: None - HEENT Head: Normocephalic, Atraumatic Eyes: Normal Conjunctiva: Normal Nasal: Normal Mouth/Lips: Normal Mucous membranes: Normal Neck: Normal, Supple. No: Lymphadenopathy - Respiratory Respiratory status: No respiratory distress Chest status: Nontender Breath sounds: Normal. No: Rales, Rhonchi, Stridor, Wheezing Chest palpation: Normal - Cardiovascular Rhythm: Regular. No: Tachycardia Heart sounds: S1 appreciated, S2 appreciated Murmur: No - Abdominal Inspection: Morbidly Obese Distension: No distension Bowel sounds: Normal Tenderness: Tender - general abd tenderness. No: Guarding Organomegaly: No organomegaly - Back Back: Normal, Nontender. No: CVA tenderness - Extremities General upper extremity: Normal inspection, Nontender, Normal strength General lower extremity: Normal inspection, Nontender, Normal strength - Neurological Neuro grossly intact: Yes Cognition: Normal [place] Coma Scale Eye Opening: Spontaneous [place] Coma Scale Verbal: Oriented [place] Coma Scale Motor: Obeys Commands [place] Coma Scale Total: 15 - Psychological Associated symptoms: Normal affect, Normal mood - Skin Skin Temperature: Warm Skin Moisture: Dry Skin Color: Normal Course - Re-evaluation Re-evalutation: 03/29/18 12:[address] Haines regarding pt presentation and planned treatment. EKG reviewed, no QT prolongation. Will give Haldol for pain and vomiting symptoms. 03/29/18 13:30 pt sleeping arouses easily to voice. Pt without any vomiting at this time. 03/29/18 13:56 RN reports that pt complains of vomiting again, medication ordered 03/29/18 15:36 Patient sleeping, arouses easily to voice. Patient with difficult presentation of her chronic abdominal pain with vomiting symptoms that she is coming here within the past. Patient attributes her symptoms to a flareup of her GERD and her gastroparesis. Patient has been counseled today as well as in the past regarding the association between chronic marijuana use and abdominal pain with vomiting. Patient encouraged to recheck with her program/music director for recheck. - Vital Signs Vital signs: Temp Pulse Resp BP Pulse Ox 98.9 F 78 17 154/76 H 98 03/29/18 16:26 03/29/18 16:26 03/29/18 16:26 03/29/18 16:26 03/29/18 16:26 - Laboratory Result Diagrams: 03/29/18 12:08 03/29/18 12:08 Laboratory results interpreted by me: 03/29/18 03/29/18 03/29/18 12:08 12:08 14:08 Hgb 8.9 L Hct 29.2 L MCV 64 L MCH 19.6 L MCHC 30.6 L RDW 20.0 H Seg Neutrophils % 82.6 H Glucose 177 H Urine Protein >=500 H Urine Glucose (UA) 50 H Urine Ketones 20 H Urine Urobilinogen 2.0 H Labs- Entire Visit 03/29/18 03/29/18 03/29/18 12:08 12:08 12:08 WBC 9.3 RBC 4.55 Hgb 8.9 L Hct 29.2 L MCV 64 L MCH 19.6 L MCHC 30.6 L RDW 20.0 H Plt Count 376 Seg Neutrophils % 82.6 H Lymphocytes % 13.1 Monocytes % 3.4 Eosinophils % 0.1 Basophils % 0.8 Absolute Neutrophils 7.7 Absolute Lymphocytes 1.2 Absolute Monocytes 0.3 Absolute Eosinophils 0.0 Absolute Basophils 0.1 Giant Platelets PRESENT Platelet Comment ADEQUATE Hypochromasia 3+ Poikilocytosis 1+ Anisocytosis 2+ Microcytosis 3+ Stomatocytes 1+ Sodium 139.6 Potassium 3.7 Chloride 99 Carbon Dioxide 29 Anion Gap 12 BUN 9 Creatinine 0.60 Est GFR ( Amer) > 60 Est GFR (Non-Af Amer) > 60 Glucose 177 H Calcium 10.2 Total Bilirubin 0.4 Direct Bilirubin 0.2 Neonat Total Bilirubin Not Reportable Neonat Direct Bilirubin Not Reportable Neonat Indirect Bili Not Reportable AST 28 ALT 21 Alkaline Phosphatase 82 Total Protein 8.0 Albumin 4.5 Lipase 91.1 Serum HCG, Qual NEGATIVE Urine Color Urine Appearance Urine pH Ur Specific [place] Urine Protein Urine Glucose (UA) Urine Ketones Urine Blood Urine Nitrite Urine Bilirubin Urine Urobilinogen Ur Leukocyte Esterase Urine WBC (Auto) Urine RBC (Auto) Squamous Epi Cells Auto Urine Mucus (Auto) Urine Ascorbic Acid Urine Opiates Screen Urine Methadone Screen Ur Barbiturates Screen Ur Phencyclidine Scrn Ur Amphetamines Screen U Benzodiazepines Scrn Urine Cocaine Screen U Marijuana (THC) Screen 03/29/18 03/29/18 14:08 14:08 WBC RBC Hgb Hct MCV MCH MCHC RDW Plt Count Seg Neutrophils % Lymphocytes % Monocytes % Eosinophils % Basophils % Absolute Neutrophils Absolute Lymphocytes Absolute Monocytes Absolute Eosinophils Absolute Basophils Giant Platelets Platelet Comment Hypochromasia Poikilocytosis Anisocytosis Microcytosis Stomatocytes Sodium Potassium Chloride Carbon Dioxide Anion Gap BUN Creatinine Est GFR ( Amer) Est GFR (Non-Af Amer) Glucose Calcium Total Bilirubin Direct Bilirubin Neonat Total Bilirubin Neonat Direct Bilirubin Neonat Indirect Bili AST ALT Alkaline Phosphatase Total Protein Albumin Lipase Serum HCG, Qual Urine Color YELLOW Urine Appearance SLIGHTLY-CLOUDY Urine pH 8.0 Ur Specific [place] 1.026 Urine Protein >=500 H Urine Glucose (UA) 50 H Urine Ketones 20 H Urine Blood NEGATIVE Urine Nitrite NEGATIVE Urine Bilirubin NEGATIVE Urine Urobilinogen 2.0 H Ur Leukocyte Esterase NEGATIVE Urine WBC (Auto) 1 Urine RBC (Auto) 1 Squamous Epi Cells Auto 1 Urine Mucus (Auto) FEW Urine Ascorbic Acid NEGATIVE Urine Opiates Screen NEGATIVE Urine Methadone Screen NEGATIVE Ur Barbiturates Screen NEGATIVE Ur Phencyclidine Scrn NEGATIVE Ur Amphetamines Screen NEGATIVE U Benzodiazepines Scrn NEGATIVE Urine Cocaine Screen NEGATIVE U Marijuana (THC) Screen UNCONFIRMED POSITIVE Discharge - Discharge Clinical Impression: Nausea, Marijuana dependence, Abdominal cramping Vomiting Qualifiers: Vomiting type: unspecified Vomiting Intractability: unspecified Nausea presence: with nausea Qualified Code(s): R11.2 - Nausea with vomiting, unspecified Condition: Stable Disposition: HOME, SELF-CARE Instructions: Abdominal Pain ([facility]), Antinausea Medication ([facility]), Intravenous (IV) Fluids ([facility]), Vomiting ([facility]) Additional Instructions: Return immediately for any new or worsening symptoms Followup with your primary care provider, call tomorrow to make a followup appointment Stop using marijuana as this can contribute to your abdominal pain and vomiting symptoms Follow-up with your program/music director, call Saturday for an appointment Prescriptions: Promethazine HCl [Phenergan 25 mg Supp.rect] 1 supp [place] Q6H PRN #8 supp.rect PRN Reason: Referrals: NELIDA SANTORO MD [ACTIVE STAFF] - Follow up as needed MEAGHAN MALAGON MD [ACTIVE STAFF] - Follow up as needed JOLLY MCFARLAND MD [NO LOCAL MD] - Follow up as needed
[2018-03-29] MEDS ORDERED: HALOPERIDOL LACTATE INJ 5 MG/1 ML VIAL IV ONE (12:04)
[2018-03-29] MEDS ORDERED: DIPHENHYDRAMINE HCL 50 MG/ML VIAL IV ONE (12:04)
[2018-03-29] MEDS ORDERED: FAMOTIDINE INJ/PF 20 MG/2 ML SDV IV ONE (12:06)
[2018-03-29 12:21] LABS: ABSOLUTE BASOPHILS # (AUTO) 0.1 10^3/uL (0.0-0.2); ABSOLUTE LYMPHOCYTES (AUTO) 1.2 10^3/uL (0.5-4.7); ABSOLUTE MONOCYTES (AUTO) 0.3 10^3/uL (0.1-1.4); ABSOLUTE NEUT (AUTO) 7.7 10^3/uL (1.7-8.2); BASOPHILS % (AUTO) 0.8 % (0-2); EOSINOPHILS % (AUTO) 0.1 % (0-6); HEMATOCRIT 29.2 % (36.0-47.0); HEMOGLOBIN 8.9 g/dL (12.0-15.5); LYMPHOCYTES % (AUTO) 13.1 % (13-45); MEAN CORPUSCULAR HEMOGLOBIN 19.6 pg (27.0-33.4); MEAN CORPUSCULAR HGB CONC 30.6 g/dL (32.0-36.0); MEAN CORPUSCULAR VOLUME 64 fl (80-97); MONOCYTES % (AUTO) 3.4 % (3-13); PLATELET COUNT 376 10^3/uL (150-450); RED BLOOD COUNT 4.55 10^6/uL (3.72-5.28); SEGMENTED NEUTROPHILS % (AUTO) 82.6 % (42-78); TOTAL CELLS COUNTED % (AUTO) 100 %; WHITE BLOOD COUNT 9.3 10^3/uL (4.0-10.5)
[2018-03-29 12:41] LABS: ALANINE AMINOTRANSFERASE 21 U/L (9-52); ALBUMIN 4.5 g/dL (3.5-5.0); ALKALINE PHOSPHATASE 82 U/L (38-126); ANION GAP 12 (5-19); ASPARTATE AMINO TRANSFERASE 28 U/L (14-36); BILIRUBIN,DIRECT 0.2 mg/dL (0.0-0.4); BILIRUBIN,TOTAL 0.4 mg/dL (0.2-1.3); BLOOD UREA NITROGEN 9 mg/dL (7-20); CALCIUM 10.2 mg/dL (8.4-10.2); CARBON DIOXIDE 29 mmol/L (22-30); CHLORIDE 99 mmol/L (98-107); GLUCOSE 177 mg/dL (75-110); LIPASE 91.1 U/L (23-300); POTASSIUM 3.7 mmol/L (3.6-5.0); SODIUM 139.6 mmol/L (137-145)
--- NOTE | 2018-03-29 12:43 | EKG REPORT ---
SEVERITY:- ABNORMAL ECG - SINUS RHYTHM CONSIDER LEFT VENTRICULAR HYPERTROPHY : Confirmed by: Charo Nichole MD 29-Mar-2018 12:42:59
[2018-03-29 12:50] LABS: ANISOCYTOSIS 2+; HYPOCHROMASIA 3+; PLATELET COMMENT ADEQUATE; PLATELET GIANT PRESENT; POIKILOCYTOSIS 1+; STOMATOCYTES 1+
[2018-03-29] MEDS ORDERED: PROMETHAZINE HCL INJ 25 MG/1 ML VIAL IV ONE (13:55)
[2018-03-29 14:47] LABS: APPEARANCE,URINE SLIGHTLY-CLOUDY; BILIRUBIN,URINE NEGATIVE (NEGATIVE); COLOR,URINE YELLOW; GLUCOSE, URINE 50 mg/dL (NEGATIVE); KETONES,URINE 20 mg/dL (NEGATIVE); LEUKOCYTE ESTERASE,URINE NEGATIVE (NEGATIVE); NITRITE,URINE NEGATIVE (NEGATIVE); PROTEIN,URINE >=500 mg/dL (NEGATIVE); URINE SPECIFIC GRAVITY 1.026
[2018-03-29 15:01] LABS: URINE AMPHETAMINES SCREEN NEGATIVE; URINE BARBITURATES SCREEN NEGATIVE; URINE BENZODIAZEPINES SCREEN NEGATIVE; URINE COCAINE SCREEN NEGATIVE; URINE MARIJUANA (THC) SCREEN UNCONFIRMED POSITIVE; URINE METHADONE SCREEN NEGATIVE; URINE PHENCYCLIDINE SCREEN NEGATIVE
[2018-03-29 16:27] VITALS: BP 154/76
== END 2018-03-29 16:27 | disposition home or self-care (01) ==
LOC: ER 11:22
DX: R11.2 Nausea with vomiting, unspecified (principal); F12.20 Cannabis dependence, uncomplicated; R10.84 Generalized abdominal pain; R10.9 Unspecified abdominal pain; I10 Essential (primary) hypertension; E11.9 Type 2 diabetes mellitus without complications
CPT/HCPCS: 93005; 99284; 96361; 96374; 96375; 36415; 83690; 84703; 85025; 80053; 81001; 80307; 93010; J1200; J1630; J2550; J7030; S0028

== ENCOUNTER 2018-03-31 07:01 | Emergency (ER) | payer MEDICAID ==
--- NOTE | 2018-03-31 07:40 | ER Document Report ---
ED GI/ - General Mode of Arrival: Ambulatory Information source: Patient TRAVEL OUTSIDE OF THE [place] IN LAST 30 DAYS: No <BIRGIT ALEJANDRA - Last Filed: 03/31/18 07:54> <ISMAEL LAINEZ - Last Filed: 03/31/18 09:59> - General Chief Complaint: Abdominal Pain Stated Complaint: ABDOMINAL PAIN Time Seen by Provider: 03/31/18 07:32 Notes: 37 year old female with a history of GERD and gastroparesis that presents to the emergency department today with complaints of "everything that I eat is coming back up". Patient has been here twice in the last week for these complaints. On March 27 the patient was prescribed Nexium and on March 29 patient was prescribed Phenergan suppositories, both of which the patient states she has "in her pocket" as she has not filled either prescription yet. Patient states she has an upper GI scope scheduled for tomorrow morning but adds that she "needs to reschedule because she has no way to get there". Patient does admit to chronic marijuana usage however she states she did not smoke yesterday. Patient states her symptoms today feel identical to previous GERD/Gastroparesis flares. (BIRGIT ALEJANDRA) - Related Data Allergies/Adverse Reactions: No Known Allergies Allergy (Verified 03/31/18 07:38) Past Medical History - General Information source: Patient - Social History Smoking Status: Never Smoker Frequency of alcohol use: None Drug Abuse: Marijuana Family History: Reviewed & Not Pertinent Patient has suicidal ideation: No Patient has homicidal ideation: No - Past Medical History Cardiac Medical History: Reports: Hx Hypertension Pulmonary Medical History: Reports: Hx Bronchitis Endocrine Medical History: Reports: Hx Diabetes Mellitus Type 2 GI Medical History: Reports: Hx Gastroesophageal Reflux Disease Psychiatric Medical History: Reports: Hx Depression Past Surgical History: Reports: Hx Section, Hx Tubal Ligation - Immunizations Hx Diphtheria, Pertussis, Tetanus Vaccination: Yes <BIRGIT ALEJANDRA - Last Filed: 03/31/18 07:54> Review of Systems - Review of Systems Constitutional: No symptoms reported EENT: No symptoms reported Cardiovascular: No symptoms reported Respiratory: No symptoms reported Gastrointestinal: See HPI, Abdominal pain, Vomiting - yesterday, last at 2200 last night Genitourinary: No symptoms reported Female Genitourinary: No symptoms reported Musculoskeletal: No symptoms reported Skin: No symptoms reported Hematologic/Lymphatic: No symptoms reported Neurological/Psychological: No symptoms reported -: Yes All other systems reviewed and negative <BIRGIT ALEJANDRA - Last Filed: 03/31/18 07:54> Physical Exam <BIRGIT ALEJANDRA - Last Filed: 03/31/18 07:54> - Vital signs Vitals: Temp Pulse Resp BP Pulse Ox 98.8 F 112 H 16 157/95 H 98 03/31/18 07:04 03/31/18 07:04 03/31/18 07:04 03/31/18 07:04 03/31/18 07:04 - Notes Notes: Physical Exam: General: Alert, lying down with blanket over head, easily aroused and interacts appropriately after awakening. HEENT: Normocephalic. Atraumatic. PERRL. Extraocular movements intact. Oropharynx clear. Neck: Supple. Non-tender. Respiratory: No respiratory distress. Clear and equal breath sounds bilaterally. Cardiovascular: Regular rate and rhythm. Abdominal: Morbidly obese. No abdominal tenderness with palpation. No distension. Normal Bowel Sounds. Back: Non-tender. No deformity or step off. Extremities: Moves all four extremities. Upper extremities: Normal inspection. Normal ROM. Lower extremities: Normal inspection. No edema. Normal ROM. Neurological: Normal cognition. AAOx4. Normal speech. Psychological: Normal affect. Normal Mood. Skin: Warm. Dry. Normal color. (BIRGIT ALEJANDRA) Course - Laboratory Result Diagrams: 03/31/18 08:15 03/31/18 08:15 <ISMAEL LAINEZ - Last Filed: 03/31/18 09:59> - Vital Signs Vital signs: Temp Pulse Resp BP Pulse Ox 98.8 F 112 H 16 157/95 H 98 03/31/18 07:04 03/31/18 07:04 03/31/18 07:04 03/31/18 07:04 03/31/18 07:04 - Laboratory Laboratory results interpreted by me: 03/31/18 03/31/18 03/31/18 08:15 08:15 08:15 Hgb 9.2 L Hct 30.2 L MCV 65 L MCH 19.7 L MCHC 30.5 L RDW 19.6 H Potassium 3.5 L Chloride 97 L Glucose 124 H Calcium 10.3 H Urine Protein >=500 H Urine Ketones 80 H Urine Bilirubin SMALL H Urine Urobilinogen 4.0 H Discharge <BIRGIT ALEJANDRA - Last Filed: 03/31/18 07:54> <ISMAEL LAINEZ - Last Filed: 03/31/18 09:59> - Discharge Clinical Impression: Cannabinoid hyperemesis syndrome Condition: Stable Disposition: HOME, SELF-CARE Additional Instructions: It appears that the vomiting and abdominal pain you experience is most likely due to cannabis hyperemesis syndrome. You should get the prescriptions you received over the last 2 visits filled and start taking medication. You will need to stop using marijuana for up to 30 days before the symptoms of the abdominal pain and vomiting completely stop. You should make every effort to show up for your scheduled endoscopy tomorrow in [place]. Follow-up with your primary care provider if not improving. Scribe Attestation: 03/31/18 08:37 I personally performed the services described in the documentation, reviewed and edited the documentation which was dictated to the scribe in my presence, and it accurately records my words and actions. (ISMAEL LAINEZ) Scribe Documentation - Scribe Written by Finn:: Finn Nielsen, 03/31/2018 [id number] acting as scribe for :: Yaya <BIRGIT ALEJANDRA - Last Filed: 03/31/18 07:54>
[2018-03-31 08:35] LABS: APPEARANCE,URINE CLOUDY; BILIRUBIN,URINE SMALL (NEGATIVE); GLUCOSE, URINE NEGATIVE (NEGATIVE); KETONES,URINE 80 mg/dL (NEGATIVE); LEUKOCYTE ESTERASE,URINE NEGATIVE (NEGATIVE); NITRITE,URINE NEGATIVE (NEGATIVE); PROTEIN,URINE >=500 mg/dL (NEGATIVE); URINE SPECIFIC GRAVITY 1.026
[2018-03-31 08:36] LABS: ABSOLUTE BASOPHILS # (AUTO) 0.1 10^3/uL (0.0-0.2); ABSOLUTE EOSINOPHILS # (AUTO) 0.1 10^3/uL (0.0-0.6); ABSOLUTE LYMPHOCYTES (AUTO) 1.5 10^3/uL (0.5-4.7); ABSOLUTE MONOCYTES (AUTO) 0.5 10^3/uL (0.1-1.4); ABSOLUTE NEUT (AUTO) 5.9 10^3/uL (1.7-8.2); BASOPHILS % (AUTO) 0.8 % (0-2); EOSINOPHILS % (AUTO) 1.6 % (0-6); HEMATOCRIT 30.2 % (36.0-47.0); HEMOGLOBIN 9.2 g/dL (12.0-15.5); LYMPHOCYTES % (AUTO) 19.1 % (13-45); MEAN CORPUSCULAR HEMOGLOBIN 19.7 pg (27.0-33.4); MEAN CORPUSCULAR HGB CONC 30.5 g/dL (32.0-36.0); MEAN CORPUSCULAR VOLUME 65 fl (80-97); MONOCYTES % (AUTO) 5.9 % (3-13); PLATELET COUNT 408 10^3/uL (150-450); RED BLOOD COUNT 4.67 10^6/uL (3.72-5.28); RED CELL DISTRIBUTION WIDTH 19.6 % (11.5-14.0); SEGMENTED NEUTROPHILS % (AUTO) 72.6 % (42-78); TOTAL CELLS COUNTED % (AUTO) 100 %; WHITE BLOOD COUNT 8.1 10^3/uL (4.0-10.5)
[2018-03-31 08:37] LABS: COLOR,URINE DARK YELLOW
[2018-03-31] MEDS ORDERED: NORMAL SALINE 1000 ML 1,000 ML IV ONE (08:54)
[2018-03-31] MEDS ORDERED: HALOPERIDOL LACTATE INJ 5 MG/1 ML VIAL IV ONE (08:54)
[2018-03-31] MEDS ORDERED: DIPHENHYDRAMINE HCL 50 MG/ML VIAL IV ONE (08:54)
[2018-03-31 08:57] LABS: ALANINE AMINOTRANSFERASE 17 U/L (9-52); ALBUMIN 4.2 g/dL (3.5-5.0); ALKALINE PHOSPHATASE 78 U/L (38-126); ANION GAP 12 (5-19); ASPARTATE AMINO TRANSFERASE 17 U/L (14-36); BILIRUBIN,DIRECT 0.3 mg/dL (0.0-0.4); BILIRUBIN,TOTAL 0.5 mg/dL (0.2-1.3); BLOOD UREA NITROGEN 9 mg/dL (7-20); CALCIUM 10.3 mg/dL (8.4-10.2); CARBON DIOXIDE 29 mmol/L (22-30); CHLORIDE 97 mmol/L (98-107); GLUCOSE 124 mg/dL (75-110); LIPASE 44.9 U/L (23-300); POTASSIUM 3.5 mmol/L (3.6-5.0); SODIUM 137.7 mmol/L (137-145); TOTAL PROTEIN 7.4 g/dL (6.3-8.2)
[2018-03-31 09:07] LABS: ANISOCYTOSIS 2+; HYPOCHROMASIA 3+; POIKILOCYTOSIS 2+; STOMATOCYTES 2+
[2018-03-31 09:08] LABS: PLATELET COMMENT ADEQUATE
[2018-03-31 10:17] VITALS: BP 140/98
== END 2018-03-31 10:17 | disposition home or self-care (01) ==
LOC: ER 07:01
DX: F12.988 Cannabis use, unspecified with other cannabis-induced disorder (principal); R10.9 Unspecified abdominal pain; K21.9 Gastro-esophageal reflux disease without esophagitis; I10 Essential (primary) hypertension; E11.9 Type 2 diabetes mellitus without complications; E66.01 Morbid (severe) obesity due to excess calories; Z98.51 Tubal ligation status
CPT/HCPCS: 99284; 96361; 96374; 96375; 36415; 83690; 85025; 80053; 81001; 83036; J1200; J1630; J7030

== ENCOUNTER 2018-05-20 06:27 | Emergency (ER) | payer MEDICAID ==
[2018-05-20] MEDS ORDERED: ONDANSETRON HCL INJ/PF 4 MG/2 ML SDV IV ONE (06:37)
[2018-05-20 07:07] LABS: ABSOLUTE EOSINOPHILS # (AUTO) 0.2 10^3/uL (0.0-0.6); ABSOLUTE LYMPHOCYTES (AUTO) 1.4 10^3/uL (0.5-4.7); ABSOLUTE MONOCYTES (AUTO) 0.4 10^3/uL (0.1-1.4); ABSOLUTE NEUT (AUTO) 7.6 10^3/uL (1.7-8.2); BASOPHILS % (AUTO) 0.5 % (0-2); EOSINOPHILS % (AUTO) 2.5 % (0-6); HEMATOCRIT 28.4 % (36.0-47.0); HEMOGLOBIN 8.8 g/dL (12.0-15.5); LYMPHOCYTES % (AUTO) 14.7 % (13-45); MEAN CORPUSCULAR HEMOGLOBIN 19.6 pg (27.0-33.4); MEAN CORPUSCULAR VOLUME 63 fl (80-97); MONOCYTES % (AUTO) 3.7 % (3-13); PLATELET COUNT 244 10^3/uL (150-450); RED BLOOD COUNT 4.49 10^6/uL (3.72-5.28); RED CELL DISTRIBUTION WIDTH 19.2 % (11.5-14.0); SEGMENTED NEUTROPHILS % (AUTO) 78.6 % (42-78); TOTAL CELLS COUNTED % (AUTO) 100 %; WHITE BLOOD COUNT 9.7 10^3/uL (4.0-10.5)
[2018-05-20 07:25] LABS: APPEARANCE,URINE CLEAR; BILIRUBIN,URINE NEGATIVE (NEGATIVE); COLOR,URINE YELLOW; GLUCOSE, URINE 150 mg/dL (NEGATIVE); KETONES,URINE TRACE mg/dL (NEGATIVE); LEUKOCYTE ESTERASE,URINE NEGATIVE (NEGATIVE); NITRITE,URINE NEGATIVE (NEGATIVE); PROTEIN,URINE 100 mg/dL (NEGATIVE); URINE SPECIFIC GRAVITY 1.019; UROBILINOGEN,URINE NEGATIVE mg/dL (<2.0)
[2018-05-20 07:26] LABS: ALANINE AMINOTRANSFERASE 16 U/L (9-52); ALBUMIN 4.7 g/dL (3.5-5.0); ALKALINE PHOSPHATASE 89 U/L (38-126); ANION GAP 12 (5-19); ASPARTATE AMINO TRANSFERASE 24 U/L (14-36); BILIRUBIN,DIRECT 0.3 mg/dL (0.0-0.4); BILIRUBIN,TOTAL 0.5 mg/dL (0.2-1.3); BLOOD UREA NITROGEN 8 mg/dL (7-20); CALCIUM 10.5 mg/dL (8.4-10.2); CARBON DIOXIDE 25 mmol/L (22-30); CHLORIDE 102 mmol/L (98-107); GLUCOSE 236 mg/dL (75-110); SODIUM 139.4 mmol/L (137-145); TOTAL PROTEIN 7.7 g/dL (6.3-8.2)
[2018-05-20] MEDS ORDERED: PROMETHAZINE HCL INJ 25 MG/1 ML VIAL IV ONE (07:50)
[2018-05-20] MEDS ORDERED: HALOPERIDOL LACTATE INJ 5 MG/1 ML VIAL IV ONE (07:51)
[2018-05-20] MEDS ORDERED: DIPHENHYDRAMINE HCL 50 MG/ML VIAL IV ONE (07:51)
[2018-05-20 08:09] LABS: ANISOCYTOSIS 2+; HYPOCHROMASIA 3+; OVALOCYTES 1+; PLATELET COMMENT ADEQUATE; POIKILOCYTOSIS 1+; TEAR DROP CELLS 1+
[2018-05-20] MEDS ORDERED: NORMAL SALINE 1000 ML 1,000 ML IV ONE (09:31)
--- NOTE | 2018-05-20 10:18 | ER Document Report ---
ED General - General Chief Complaint: Nausea/Vomiting Stated Complaint: ABDOMINAL PAIN Time Seen by Provider: 05/20/18 07:30 Notes: Patient is a 37-year-old female with gastroparesis that presents to the emergency department for chief complaint of abdominal pain and vomiting. Patient states that she has been having nausea and vomiting at home for the past few days with associated abdominal pain that is in the epigastric region of her abdomen, she has a history of gastroparesis, takes Reglan at home but has not been helping. She denies noting any blood in the vomit. 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 She is had about 10 episodes in the past 2 days. She currently rates her pain as a 4 out of 10, d escribes as her "typical pain" that she has associated with this. Denies recent fevers, chills, night sweats, chest pain, shortness of breath, difficulty breathing, dysuria, hematuria. Past Medical History: Gastroparesis Past Surgical History: EGD Social History: Admits to smoking marijuana, denies current alcohol or tobacco use. Family History: Reviewed and noncontributory for presenting illness Allergies: Reviewed, see documented allergy list. REVIEW OF SYSTEMS: Other than noted above, the 12 point review of systems was reviewed with the patient and were negative, all pertinent findings are included in the HPI. PHYSICAL EXAMINATION: Vital signs reviewed, nursing noted reviewed. GENERAL: Obese female, appears uncomfortable HEAD: Atraumatic, normocephalic. EYES: Eyes appear normal, extraocular movements intact, sclera anicteric, conjunctiva are normal. ENT: nares patent, oropharynx clear without exudates. Moist mucous membranes. NECK: Normal range of motion, supple without lymphadenopathy LUNGS: Breath sounds clear to auscultation bilaterally and equal. No wheezes rales or rhonchi. HEART: Regular rate and rhythm without murmurs ABDOMEN: Soft, obese, mild epigastric tenderness, normoactive bowel sounds. No rebound, guarding, or rigidity. No masses appreciated. EXTREMITIES: Nontender, good range of motion, no pitting or edema. NEUROLOGICAL: No focal neurological deficits. Moves all extremities spontaneously Motor and sensory grossly intact on exam. PSYCH: Normal mood, normal affect. SKIN: Warm, Dry, normal turgor, no rashes or lesions noted on exposed skin TRAVEL OUTSIDE OF THE [place] IN LAST 30 DAYS: No - Related Data Allergies/Adverse Reactions: No Known Allergies Allergy (Verified 03/31/18 07:38) Past Medical History - Social History Smoking Status: Never Smoker Frequency of alcohol use: None Drug Abuse: Marijuana Family History: Reviewed & Not Pertinent Patient has suicidal ideation: No Patient has homicidal ideation: No - Past Medical History Cardiac Medical History: Reports: Hx Hypertension Pulmonary Medical History: Reports: Hx Bronchitis Endocrine Medical History: Reports: Hx Diabetes Mellitus Type 2 Renal/ Medical History: Denies: Hx Peritoneal Dialysis GI Medical History: Reports: Hx Gastroesophageal Reflux Disease Psychiatric Medical History: Reports: Hx Depression Past Surgical History: Reports: Hx Section, Hx Tubal Ligation - Immunizations Hx Diphtheria, Pertussis, Tetanus Vaccination: Yes Physical Exam - Vital signs Vitals: Temp Pulse Resp BP Pulse Ox 97.9 F 100 18 181/107 H 96 05/20/18 06:29 05/20/18 06:29 05/20/18 06:29 05/20/18 06:29 05/20/18 06:29 Course - Re-evaluation Re-evalutation: Patient seen and examined vital signs reviewed. Laboratory data and imaging were ordered as appropriate for the patient's presenting symptoms and complaint, with consideration of any critical or life threatening conditions that may be associated with their obtained history and exam as noted above. Patient was treated with IV Haldol, Benadryl, and Phenergan. Results were reviewed when available and demonstrated stable blood work from prior labs The patient was re-evaluated and was improved, she had not vomited in the emergency department since being medicated, did give her a dose of IV Reglan, and advised to follow-up with her camera assembler Evaluation was most consistent with nausea and vomiting, gastroparesis Results were discussed with the patient at this point, after careful consideration I feel that that patient can be discharged from the emergency department, the patient was educated treatments and reasons to return to the emergency department based on their presumed diagnosis as noted above, they were advised to followup with a primary care physician in 2-3 days. Patient was agreeable to plan of care. *Note is created using voice recognition software and may contain spelling, syntax or grammatical errors. Laboratory 05/20/18 05/20/18 05/20/18 06:48 06:48 06:56 WBC 9.7 RBC 4.49 Hgb 8.8 L Hct 28.4 L MCV 63 L MCH 19.6 L MCHC 31.0 L RDW 19.2 H Plt Count 244 Seg Neutrophils % 78.6 H Lymphocytes % 14.7 Monocytes % 3.7 Eosinophils % 2.5 Basophils % 0.5 Absolute Neutrophils 7.6 Absolute Lymphocytes 1.4 Absolute Monocytes 0.4 Absolute Eosinophils 0.2 Absolute Basophils 0.0 Platelet Comment ADEQUATE Hypochromasia 3+ Poikilocytosis 1+ Anisocytosis 2+ Microcytosis 3+ Tear Drop Cells 1+ Ovalocytes 1+ Sodium 139.4 Potassium 4.0 Chloride 102 Carbon Dioxide 25 Anion Gap 12 BUN 8 Creatinine 0.66 Est GFR ( Amer) > 60 Est GFR (Non-Af Amer) > 60 Glucose 236 H Calcium 10.5 H Total Bilirubin 0.5 Direct Bilirubin 0.3 Neonat Total Bilirubin Not Reportable Neonat Direct Bilirubin Not Reportable Neonat Indirect Bili Not Reportable AST 24 ALT 16 Alkaline Phosphatase 89 Total Protein 7.7 Albumin 4.7 Urine Color YELLOW Urine Appearance CLEAR Urine pH 6.0 Ur Specific [place] 1.019 Urine Protein 100 H Urine Glucose (UA) 150 H Urine Ketones TRACE H Urine Blood NEGATIVE Urine Nitrite NEGATIVE Urine Bilirubin NEGATIVE Urine Urobilinogen NEGATIVE Ur Leukocyte Esterase NEGATIVE Urine WBC (Auto) 1 Urine RBC (Auto) 1 Squamous Epi Cells Auto 2 Urine Mucus (Auto) RARE Urine Ascorbic Acid 20 H - Vital Signs Vital signs: Temp Pulse Resp BP Pulse Ox 97.9 F 100 18 177/112 H 98 05/20/18 06:29 05/20/18 06:29 05/20/18 06:29 05/20/18 08:01 05/20/18 08:01 - Laboratory Result Diagrams: 05/20/18 06:48 05/20/18 06:48 Laboratory results interpreted by me: 05/20/18 05/20/18 05/20/18 06:48 06:48 06:56 Hgb 8.8 L Hct 28.4 L MCV 63 L MCH 19.6 L MCHC 31.0 L RDW 19.2 H Seg Neutrophils % 78.6 H Glucose 236 H Calcium 10.5 H Urine Protein 100 H Urine Glucose (UA) 150 H Urine Ketones TRACE H Urine Ascorbic Acid 20 H Discharge - Discharge Clinical Impression: Marijuana dependence Vomiting Qualifiers: Vomiting type: unspecified Vomiting Intractability: unspecified Nausea presence: with nausea Qualified Code(s): R11.2 - Nausea with vomiting, unspecified Condition: Stable Disposition: HOME, SELF-CARE Instructions: Vomiting ([facility]) Additional Instructions: Please follow-up with your camera assembler, continue to take your Reglan, you need to discontinue smoking marijuana, as too much marijuana smoking cause cyclic vomiting, and will persist, the only thing that clears this is discontinuing marijuana use, and using capsaicin cream or a hot shower. Referrals: CLARE ADAMES MD [ACTIVE STAFF] - Follow up in 3-5 days (or your primary care. )
[2018-05-20] MEDS ORDERED: METOCLOPRAMIDE HCL INJ/PF 10 MG/2 ML SDV IV ONE (10:25)
[2018-05-20 10:52] VITALS: BP 159/101
== END 2018-05-20 10:52 | disposition home or self-care (01) ==
LOC: ER 06:27
DX: R11.2 Nausea with vomiting, unspecified (principal); F12.20 Cannabis dependence, uncomplicated; R10.9 Unspecified abdominal pain; R10.13 Epigastric pain; I10 Essential (primary) hypertension; E11.9 Type 2 diabetes mellitus without complications
CPT/HCPCS: 99284; 96374; 96375; 36415; 85025; 80053; 81001; J1200; J1630; J2765; J2550; J2405; J7030

== ENCOUNTER 2018-05-22 02:48 | Emergency (ER) | payer MEDICAID ==
[2018-05-22] MEDS ORDERED: HALOPERIDOL LACTATE INJ 5 MG/1 ML VIAL IV ONE (03:52)
[2018-05-22] MEDS ORDERED: NORMAL SALINE 1000 ML 1,000 ML IV ONE ×3 (03:52→06:30)
[2018-05-22] MEDS ORDERED: DIPHENHYDRAMINE HCL 50 MG/ML VIAL IV ONE (03:52)
--- NOTE | 2018-05-22 03:55 | ER Document Report ---
ED GI/ - General Chief Complaint: Abdominal Pain Stated Complaint: ABDOMINAL PAIN Time Seen by Provider: 05/22/18 03:38 Notes: Patient is a 37-year-old female that comes to the emergency as her upper abdomen. She has a history of gastroparesis, she states she smokes marijuana, she states that she was seen a few days ago, felt better, but has had vomiting again today about 5 times. Denies diarrhea, fever, chest pain, flank pain. She denies any hematemesis. She has had EGD, colonoscopy, gastric emptying studies, denies surgery otherwise. She states she has type 2 diabetes. TRAVEL OUTSIDE OF THE [place] IN LAST 30 DAYS: No - Related Data Allergies/Adverse Reactions: No Known Allergies Allergy (Verified 03/31/18 07:38) Past Medical History - General Information source: Patient - Social History Smoking Status: Current Every Day Smoker Frequency of alcohol use: None Drug Abuse: Marijuana Lives with: Family Family History: Reviewed & Not Pertinent - Past Medical History Cardiac Medical History: Reports: Hx Hypertension Pulmonary Medical History: Reports: Hx Bronchitis Endocrine Medical History: Reports: Hx Diabetes Mellitus Type 2 Renal/ Medical History: Denies: Hx Peritoneal Dialysis GI Medical History: Reports: Hx Gastroesophageal Reflux Disease Psychiatric Medical History: Reports: Hx Depression Past Surgical History: Reports: Hx Section, Hx Tubal Ligation - Immunizations Hx Diphtheria, Pertussis, Tetanus Vaccination: Yes Review of Systems - Review of Systems Constitutional: No symptoms reported EENT: No symptoms reported Cardiovascular: No symptoms reported Respiratory: No symptoms reported Gastrointestinal: See HPI Genitourinary: No symptoms reported Female Genitourinary: No symptoms reported Musculoskeletal: No symptoms reported Skin: No symptoms reported Hematologic/Lymphatic: No symptoms reported Neurological/Psychological: No symptoms reported Physical Exam - Vital signs Vitals: Temp Pulse Resp BP Pulse Ox 98 F 98 22 H 112/90 H 98 05/22/18 02:56 05/22/18 02:56 05/22/18 02:56 05/22/18 02:56 05/22/18 02:56 - Notes Notes: GENERAL: Appears uncomfortable, lying on her side, holding her abdomen HEAD: Normocephalic, atraumatic. EYES: Pupils equal, round, and reactive to light. Extraocular movements intact. ENT: Oral mucosa. Dry, tongue midline. Oropharynx unremarkable. Airway patent. Nares patent, no nasal septal hematoma, TM's intact. NECK: Full range of motion. Supple. Trachea midline. LUNGS: Clear to auscultation bilaterally, no wheezes, rales, or rhonchi. No respiratory distress. HEART: Regular rate and rhythm. No murmur ABDOMEN: Lower abdomen unremarkable, upper abdomen with some generalized tenderness, no guarding, no rigidity GENITOURINARY: Deferred EXTREMITIES: Moves all 4 extremities spontaneously. No edema, normal radial and dorsalis pedis pulses bilaterally. No cyanosis. BACK: no cervical, thoracic, lumbar midline tenderness. No saddle anesthesia, normal distal neurovascular exam. NEUROLOGICAL: Alert and oriented x3. Normal speech. [cranial nerves II through XII grossly intact]. PSYCH: Slightly agitated SKIN: Warm, dry, normal turgor. No rashes or lesions noted. Course - Re-evaluation Re-evalutation: Patient with very dry mucous membranes, lower abdomen unremarkable, general upper abdomen with some tenderness but no rigidity or guarding. CBC shows leukocytosis, nonspecific given patient's vomiting. Chemistry shows some renal insufficiency with creatinine of 1.35, potassium is slightly low at 3.5 probably from vomiting as well. Patient given Haldol, Benadryl, IV fluids. On reevaluation she states she is feeling better. She did drink a little bit of juice, requesting GI cocktail. Urine pending. On reevaluation patient is doing much better. She has been drinking fluids without any difficulty, she states she feels much better after the GI cocktail, she states she is ready to go home. She was given additional IV fluids. Provided with prescriptions. Discussed follow-up and return precautions. Discussed recommendations. Patient states satisfaction and agreement. - Vital Signs Vital signs: Temp Pulse Resp BP Pulse Ox 98 F 98 22 H 112/90 H 100 05/22/18 02:56 05/22/18 06:02 05/22/18 02:56 05/22/18 02:56 05/22/18 06:00 - Laboratory Result Diagrams: 05/22/18 03:49 05/22/18 03:49 Laboratory results interpreted by me: 05/22/18 05/22/18 05/22/18 03:49 03:49 05:59 WBC 12.0 H Hgb 9.4 L Hct 31.4 L MCV 63 L MCH 19.0 L MCHC 30.1 L RDW 19.0 H Seg Neutrophils % 79.2 H Absolute Neutrophils 9.5 H Potassium 3.5 L Chloride 93 L Creatinine 1.35 H Est GFR ( Amer) 53 L Est GFR (Non-Af Amer) 44 L Glucose 254 H Calcium 11.3 H Total Protein 8.4 H Urine Protein 30 H Urine Glucose (UA) 50 H Urine Ketones 20 H Urine Urobilinogen 2.0 H Urine Ascorbic Acid 40 H Discharge - Discharge Clinical Impression: Dehydration Vomiting Qualifiers: Vomiting type: unspecified Vomiting Intractability: non-intractable Nausea presence: with nausea Qualified Code(s): R11.2 - Nausea with vomiting, unspecified Condition: Stable Disposition: HOME, SELF-CARE Additional Instructions: Take the prescribed medications, start with clear fluids and progress to bland food. Avoid marijuana as this can cause hyperemesis syndrome. Follow-up with your provider for additional management. Return if you worsen including returned or uncontrolled vomiting, fever, black stools, or any other concerning symptoms. Prescriptions: Promethazine HCl [Phenergan 25 mg Tablet] 25 mg PO Q6H PRN #20 tablet PRN Reason: Sucralfate [Carafate 1 gm Tablet] 1 gm PO QID #20 tablet Forms: Return to Work
[2018-05-22 04:49] LABS: ABSOLUTE EOSINOPHILS # (AUTO) 0.1 10^3/uL (0.0-0.6); ABSOLUTE LYMPHOCYTES (AUTO) 1.7 10^3/uL (0.5-4.7); ABSOLUTE MONOCYTES (AUTO) 0.5 10^3/uL (0.1-1.4); ABSOLUTE NEUT (AUTO) 9.5 10^3/uL (1.7-8.2); BASOPHILS % (AUTO) 0.4 % (0-2); EOSINOPHILS % (AUTO) 1.3 % (0-6); HEMATOCRIT 31.4 % (36.0-47.0); HEMOGLOBIN 9.4 g/dL (12.0-15.5); LYMPHOCYTES % (AUTO) 14.6 % (13-45); MEAN CORPUSCULAR HGB CONC 30.1 g/dL (32.0-36.0); MEAN CORPUSCULAR VOLUME 63 fl (80-97); MONOCYTES % (AUTO) 4.5 % (3-13); PLATELET COUNT 255 10^3/uL (150-450); RED BLOOD COUNT 4.96 10^6/uL (3.72-5.28); SEGMENTED NEUTROPHILS % (AUTO) 79.2 % (42-78); TOTAL CELLS COUNTED % (AUTO) 100 %
[2018-05-22 04:53] LABS: ALANINE AMINOTRANSFERASE 22 U/L (9-52); ALBUMIN 4.9 g/dL (3.5-5.0); ALKALINE PHOSPHATASE 99 U/L (38-126); ANION GAP 15 (5-19); ASPARTATE AMINO TRANSFERASE 24 U/L (14-36); BILIRUBIN,DIRECT 0.4 mg/dL (0.0-0.4); BILIRUBIN,TOTAL 0.9 mg/dL (0.2-1.3); BLOOD UREA NITROGEN 19 mg/dL (7-20); CALCIUM 11.3 mg/dL (8.4-10.2); CARBON DIOXIDE 30 mmol/L (22-30); CHLORIDE 93 mmol/L (98-107); GLUCOSE 254 mg/dL (75-110); LIPASE 110.7 U/L (23-300); POTASSIUM 3.5 mmol/L (3.6-5.0); SODIUM 137.6 mmol/L (137-145); TOTAL PROTEIN 8.4 g/dL (6.3-8.2)
[2018-05-22 05:40] LABS: ANISOCYTOSIS 2+; HYPOCHROMASIA 3+; PLATELET COMMENT ADEQUATE; POIKILOCYTOSIS 2+; ROULEAUX 1+; STOMATOCYTES 1+; TEAR DROP CELLS 1+
[2018-05-22] MEDS ORDERED: METOCLOPRAMIDE HCL ORAL SOLN 10 MG/10 ML UDCUP PO ONE (05:45)
[2018-05-22] MEDS ORDERED: LIDOCAINE 2% VISCOUS SOLN 20 ML UDCUP PO ONE (05:45)
[2018-05-22] MEDS ORDERED: MAG HYDROX/AL HYDROX/SIMETH SUSP 30 ML UDCUP PO ONE (05:45)
[2018-05-22 06:14] LABS: APPEARANCE,URINE CLOUDY; BILIRUBIN,URINE NEGATIVE (NEGATIVE); COLOR,URINE YELLOW; GLUCOSE, URINE 50 mg/dL (NEGATIVE); KETONES,URINE 20 mg/dL (NEGATIVE); LEUKOCYTE ESTERASE,URINE NEGATIVE (NEGATIVE); NITRITE,URINE NEGATIVE (NEGATIVE); PROTEIN,URINE 30 mg/dL (NEGATIVE); URINE SPECIFIC GRAVITY 1.019
[2018-05-22 08:54] VITALS: BP 152/123
== END 2018-05-22 08:54 | disposition home or self-care (01) ==
LOC: ER 02:48
DX: E86.0 Dehydration (principal); R11.2 Nausea with vomiting, unspecified; R10.10 Upper abdominal pain, unspecified; F17.200 Nicotine dependence, unspecified, uncomplicated; I10 Essential (primary) hypertension; E11.9 Type 2 diabetes mellitus without complications; Z98.51 Tubal ligation status
CPT/HCPCS: 99284; 96361; 96374; 96375; 36415; 83690; 85025; 81025; 80053; 81001; J1200; J1630; J3490 ×3; J7030

== ENCOUNTER 2018-10-14 16:00 | Emergency (ER) | payer MEDICAID ==
--- NOTE | 2018-10-14 17:24 | ER Document Report ---
ED General - General Chief Complaint: Back Pain Stated Complaint: BACK PAIN Time Seen by Provider: 10/14/18 17:24 Primary Care Provider: PRABHAKAR FREIRE MD [ACTIVE STAFF] - Follow up in 3-5 days (for orthopedic follow up) TRAVEL OUTSIDE OF THE [place] IN LAST 30 DAYS: No - HPI Notes: 38 year old female to the ED with C/O low back pain and right knee pain that has gotten worse since yesterday. States that she has known lumbar herniation, but denies any new falls, trauma. Has had an MRI and is being followed for her back. She has an appointment with neurosurgery. Also reports right knee pain. She states she has known arthritis in it and has seen an orthopedist for it. States that she has morning stiffness and then it begins to feel better as she starts to move. She denies any fevers, chills, NVD, abd pain, headache, bladder/bowel incontinence, radiculopathy, urinary retention, IVDA, saddle paresthesia, urinary pain. States that she usually gets a shot and then will follow up outpatient. - Related Data Allergies/Adverse Reactions: No Known Allergies Allergy (Verified 10/14/18 16:00) Past Medical History - General Information source: Patient - Social History Smoking Status: Never Smoker Frequency of alcohol use: None Drug Abuse: None Family History: Reviewed & Not Pertinent - Past Medical History Cardiac Medical History: Reports: Hx Hypertension Pulmonary Medical History: Reports: Hx Bronchitis Endocrine Medical History: Reports: Hx Diabetes Mellitus Type 2 Renal/ Medical History: Denies: Hx Peritoneal Dialysis GI Medical History: Reports: Hx Gastroesophageal Reflux Disease Psychiatric Medical History: Reports: Hx Depression Past Surgical History: Reports: Hx Section, Hx Tubal Ligation - Immunizations Hx Diphtheria, Pertussis, Tetanus Vaccination: Yes Review of Systems - Review of Systems Constitutional: denies: Chills, Fever EENT: No symptoms reported Cardiovascular: denies: Chest pain, Palpitations, Dyspnea, Syncope, Dizziness, Lightheaded Respiratory: denies: Cough, Short of breath Gastrointestinal: denies: Abdominal pain, Diarrhea, Nausea, Vomiting Genitourinary: denies: Frequency, Flank pain, Incontinence Musculoskeletal: Back pain, Joint pain - right knee pain Skin: No symptoms reported Neurological/Psychological: No symptoms reported -: Yes All other systems reviewed and negative Physical Exam - Vital signs Vitals: Temp Pulse Resp BP Pulse Ox 98.1 F 98 16 132/80 H 100 10/14/18 16:14 10/14/18 16:14 10/14/18 16:14 10/14/18 16:14 10/14/18 16:14 Interpretation: Normal - General General appearance: Appears well, Alert - HEENT Head: Normocephalic, Atraumatic Eyes: Normal Pupils: PERRL - Respiratory Respiratory status: No respiratory distress Chest status: Nontender Breath sounds: Normal Chest palpation: Normal - Cardiovascular Rhythm: Regular Heart sounds: Normal auscultation Murmur: No - Abdominal Inspection: Normal Distension: No distension Bowel sounds: Normal Tenderness: Nontender Organomegaly: No organomegaly - Back Back: Tender - + TTP over the bilateral paraspinals with noted muscle tightness. no midline TTP over the cervical, thoracic, or lumbar vertebra. Negative SLR bilaterally. Patient can rise out of Wheelchair by herself and walk without any difficulty.. No: Vertebra tenderness - Extremities Knee: Tender - mild TTP over the anterior knee joint with no appreciable joint effusion. No edema, no erythema, negative valgus/varus stress testing, negative anterior drawer. she has 5/5 strength in flexion and extension against resistance in bilateral lower extremity. non tender to palpation of the right hip, right ankle, and right foot. DP pulses intact and equal - Neurological Neuro grossly intact: Yes Cognition: Normal Orientation: AAOx4 [place] Coma Scale Eye Opening: Spontaneous [place] Coma Scale Verbal: Oriented [place] Coma Scale Motor: Obeys Commands [place] Coma Scale Total: 15 Speech: Normal Motor strength normal: LUE, RUE, LLE, RLE Sensory: Normal - Psychological Associated symptoms: Normal affect, Normal mood - Skin Skin Temperature: Warm Skin Moisture: Dry Skin Color: Normal Course - Re-evaluation Re-evalutation: Impression: Acute on chronic low back pain and knee pain. Patient without any emergent back symptoms and ambulates in the ER. She has no evidence of superimposed infection to the knee. Will give IM toradol here and have her follow closely with her specialist outpatient as scheduled. She agrees with the plan. Urged to return if her symptoms worsen at all. Do not think that plain films will be beneficial tonight. - Vital Signs Vital signs: Temp Pulse Resp BP Pulse Ox 98.8 F 72 24 H 165/102 H 100 10/14/18 18:57 10/14/18 18:57 10/14/18 18:57 10/14/18 18:57 10/14/18 18:57 Discharge - Discharge Clinical Impression: Chronic pain of right knee Chronic low back pain Qualifiers: Back pain laterality: bilateral Sciatica presence: without sciatica Qualified Code(s): M54.5 - Low back pain Disposition: HOME, SELF-CARE Instructions: Arthritis ([facility]), Low Back Pain ([facility]) Additional Instructions: FOLLOW UP WITH DR. ZAMAN. GET THE MEDICINE HE WROTE FOR YOUR YESTERDAY FILLED. PLEASE FILL LIDODERM PATCHES. RETURN IF ANY BLADDER/BOWEL INCONTINENCE, INABILITY TO WALK, INABILITY TO URINATE, FEVERS. FOLLOW UP WITH ORTHOPEDIST. Prescriptions: Lidocaine [Lidoderm 5% (700 mg) Transdermal Patch] 1 patch TP DAILY #20 adh..patch Referrals: PRABHAKAR FREIRE MD [ACTIVE STAFF] - Follow up in 3-5 days (for orthopedic follow up)
[2018-10-14] MEDS ORDERED: KETOROLAC TROMETHAMINE 60 MG/2 ML SDV IM ONE (17:49)
[2018-10-14 19:00] VITALS: BP 165/102
== END 2018-10-14 19:16 | disposition home or self-care (01) ==
LOC: ER 16:00
DX: M54.5 Low back pain (principal); M25.561 Pain in right knee; G89.29 Other chronic pain; M54.9 Dorsalgia, unspecified; I10 Essential (primary) hypertension; E11.9 Type 2 diabetes mellitus without complications
CPT/HCPCS: 99283; 96372; J1885

== ENCOUNTER 2018-11-22 22:40 | Inpatient (IN) | payer MEDICAID ==
--- NOTE | 2018-11-22 23:37 | ER Document Report ---
ED General - General Chief Complaint: Nausea/Vomiting Stated Complaint: BACK PAIN Time Seen by Provider: 11/22/18 23:35 Notes: Patient is a 38-year-old female with diabetes and gastroparesis that presents to the emergency department for chief complaint of vomiting. Patient states that she is been having vomiting from her gastroparesis and severe acid reflux over the past several days, states she really has not eaten anything in about a week, and feels she is getting dehydrated, she tried taking Phenergan without any help, this was prescribed from the emergency department she was seen on the . She states she still cannot keep anything down has burning in her throat. She recently did have an EGD, she is not sure of all the results but states that she has gastritis. She was prescribed something for the acid but has not been able to keep it down. She currently describes her pain as a burning in her epigastric region of her abdomen, describes it as a 4 out of 10 in an aching sensation. She is specifically requesting to be admitted at this time because she states she is very flared up but does not think she can tolerate treatment at home. Past Medical History: Diabetes mellitus, diabetic gastroparesis, hypertension Past Surgical History: EGD Social History: Denies current tobacco, alcohol or drug use. Primary care sal pugh is Dr. Mcpherson Family History: Reviewed and noncontributory for presenting illness Allergies: Reviewed, see documented allergy list. REVIEW OF SYSTEMS: Other than noted above, the 12 point review of systems was reviewed with the patient and were negative, all pertinent findings are included in the HPI. PHYSICAL EXAMINATION: Vital signs reviewed, nursing noted reviewed. GENERAL: Patient appears uncomfortable on exam, but no acute distress, but she is tearful HEAD: Atraumatic, normocephalic. EYES: Eyes appear normal, extraocular movements intact, sclera anicteric, conjunctiva are normal. ENT: nares patent, oropharynx clear without exudates. Moist mucous membranes. NECK: Normal range of motion, supple without lymphadenopathy LUNGS: Breath sounds clear to auscultation bilaterally and equal. No wheezes rales or rhonchi. HEART: Heart rate tachycardic, regular rhythm, no audible murmur. ABDOMEN: Soft, epigastric tenderness to palpation, normoactive bowel sounds. No rebound, guarding, or rigidity. No masses appreciated. EXTREMITIES: Nontender, good range of motion, no pitting or edema. NEUROLOGICAL: No focal neurological deficits. Moves all extremities spontaneo usly Motor and sensory grossly intact on exam. PSYCH: Tearful on exam, but answers questions appropriately, not suicidal. SKIN: Warm, Dry, normal turgor, no rashes or lesions noted on exposed skin TRAVEL OUTSIDE OF THE [place] IN LAST 30 DAYS: No - Related Data Allergies/Adverse Reactions: No Known Allergies Allergy (Verified 11/17/18 13:51) Past Medical History - Social History Smoking Status: Never Smoker Family History: Reviewed & Not Pertinent - Past Medical History Cardiac Medical History: Reports: Hx Hypertension Pulmonary Medical History: Reports: Hx Bronchitis Endocrine Medical History: Reports: Hx Diabetes Mellitus Type 2 Renal/ Medical History: Denies: Hx Peritoneal Dialysis GI Medical History: Reports: Hx Gastroesophageal Reflux Disease Musculoskeletal Medical History: Reports Hx Musculoskeletal Trauma Psychiatric Medical History: Reports: Hx Depression Past Surgical History: Reports: Hx Section, Hx Tubal Ligation - Immunizations Immunizations up to date: Yes Hx Diphtheria, Pertussis, Tetanus Vaccination: Yes Physical Exam - Vital signs Vitals: Temp Pulse Resp BP Pulse Ox 98.4 F 110 H 20 129/77 H 96 11/22/18 22:47 11/22/18 22:47 11/22/18 22:47 11/22/18 22:47 11/22/18 22:47 Course - Re-evaluation Re-evalutation: Patient seen and examined vital signs reviewed. Laboratory data and imaging were ordered as appropriate for the patient's presenting symptoms and complaint, with consideration of any critical or life threatening conditions that may be associated with their obtained history and exam as noted above. Patient was treated with IV fluid bolusing, IV Zofran and Protonix Results were reviewed when available and demonstrated severe hypokalemia, with a potassium of 2.6, with a metabolic alkalosis, due to patient's persistent vomiting, she also has a mild acute kidney injury as well. After results, she was ordered IV potassium replacement as well as IV magnesium replacement and magnesium level was ordered. The patient was re-evaluated and was improved. Evaluation was most consistent with intractable nausea vomiting, gastroparesis, hypokalemia, hypercalcemia, acute kidney injury. Results were discussed with the patient at this point after careful consideration I feel that that patient should be admitted to the hospital. This was discussed with the patient that it is in the best interest for their care to be admitted for further evaluation and management. Patient agreed with this plan of care. A call was placed to the admitting physician, Dr. Mcpherson who graciously accepted the patient onto their service. *Note is created using voice recognition software and may contain spelling, syntax or grammatical errors. Laboratory 11/22/18 11/22/18 11/22/18 23:46 23:46 23:46 WBC 12.5 H RBC 5.29 H Hgb 10.2 L Hct 33.7 L MCV 64 L MCH 19.3 L MCHC 30.3 L RDW 19.8 H Plt Count 379 Lymph % (Auto) 14.4 [place] % (Auto) 6.0 Eos % (Auto) 2.1 Baso % (Auto) 0.4 Absolute Neuts (auto) 9.7 H Absolute Lymphs (auto) 1.8 Absolute Monos (auto) 0.8 Absolute Eos (auto) 0.3 Absolute Basos (auto) 0.0 Seg Neutrophils % 77.1 Platelet Comment ADEQUATE Hypochromasia 1+ Anisocytosis 2+ Microcytosis 3+ Target Cells SLIGHT Sodium 129.3 L Potassium 2.6 L* Chloride 70 L Carbon Dioxide 41 H* Anion Gap 18 BUN 38 H Creatinine 1.42 H Est GFR ( Amer) 50 L Est GFR (MDRD) Non-Af 41 L Glucose 263 H Calcium 10.6 H Magnesium 2.1 Total Bilirubin 0.7 Direct Bilirubin 0.3 Neonat Total Bilirubin Not Reportable Neonat Direct Bilirubin Not Reportable Neonat Indirect Bili Not Reportable AST 27 ALT 16 Alkaline Phosphatase 99 Total Protein 8.0 Albumin 4.7 Lipase 40.0 - Vital Signs Vital signs: Temp Pulse Resp BP Pulse Ox 98.4 F 110 H 20 129/77 H 96 11/22/18 22:47 11/22/18 22:47 11/22/18 22:47 11/22/18 22:47 11/22/18 22:47 - Laboratory Result Diagrams: 11/22/18 23:46 11/22/18 23:46 Laboratory results interpreted by me: 11/22/18 11/22/18 23:46 23:46 WBC 12.5 H RBC 5.29 H Hgb 10.2 L Hct 33.7 L MCV 64 L MCH 19.3 L MCHC 30.3 L RDW 19.8 H Absolute Neuts (auto) 9.7 H Sodium 129.3 L Potassium 2.6 L* Chloride 70 L Carbon Dioxide 41 H* BUN 38 H Creatinine 1.42 H Est GFR ( Amer) 50 L Est GFR (MDRD) Non-Af 41 L Glucose 263 H Calcium 10.6 H - EKG Interpretation by Me Additional EKG results interpreted by me: EKG demonstrates sinus tachycardia with a ventricular rate of 100 bpm, normal axis, normal intervals, no evidence of acute ischemia, this is compared with the prior EKG from 03/29/2018, without significant change. Critical Care Note - Critical Care Note Total time excluding time spent on procedures (mins): 36 Comments: Critical care time 36 minutes exclusive from separate billable procedures for a patient requiring complex medical decision making, and high potential for clinical deterioration. In a patient with severe hypo-kalemia, requiring IV replacement, and admission to the hospital. Time spent obtaining history from patient or surrogate, discussions with consultants, development of treatment plan with patient or surrogate, evaluation of patient's response to treatment, examination of patient, ordering and performing treatments and interventions, ordering and review of laboratory studies, re-evaluation of patient's condition, ordering and review of radiographic studies and review of old charts Discharge - Discharge Clinical Impression: Hypercalcemia, Acute kidney injury, Hypokalemia, Hyponatremia Nausea & vomiting Qualifiers: Vomiting type: unspecified Vomiting Intractability: non-intractable Qualified Code(s): R11.2 - Nausea with vomiting, unspecified Condition: Stable Disposition: ADMITTED INPATIENT Admitting Provider: Mcpherson Unit Admitted: Telemetry
[2018-11-22] MEDS ORDERED: NORMAL SALINE 1000 ML 1,000 ML IV ONE (23:42)
[2018-11-22] MEDS ORDERED: ONDANSETRON HCL INJ/PF 4 MG/2 ML SDV IV ONE (23:43)
[2018-11-22] MEDS ORDERED: PANTOPRAZOLE SODIUM 40 MG VIAL IV ONE (23:49)
[2018-11-23 00:02] LABS: ABSOLUTE EOSINOPHILS # (AUTO) 0.3 10^3/uL (0.0-0.6); ABSOLUTE LYMPHOCYTES (AUTO) 1.8 10^3/uL (0.5-4.7); ABSOLUTE MONOCYTES (AUTO) 0.8 10^3/uL (0.1-1.4); ABSOLUTE NEUT (AUTO) 9.7 10^3/uL (1.7-8.2); BASOPHILS % (AUTO) 0.4 % (0-2); EOSINOPHILS % (AUTO) 2.1 % (0-6); HEMATOCRIT 33.7 % (36.0-47.0); HEMOGLOBIN 10.2 g/dL (12.0-15.5); LYMPHOCYTES % (AUTO) 14.4 % (13-45); MEAN CORPUSCULAR HEMOGLOBIN 19.3 pg (27.0-33.4); MEAN CORPUSCULAR HGB CONC 30.3 g/dL (32.0-36.0); MEAN CORPUSCULAR VOLUME 64 fl (80-97); PLATELET COUNT 379 10^3/uL (150-450); RED BLOOD COUNT 5.29 10^6/uL (3.72-5.28); RED CELL DISTRIBUTION WIDTH 19.8 % (11.5-14.0); SEGMENTED NEUTROPHILS % (AUTO) 77.1 % (42-78); TOTAL CELLS COUNTED % (AUTO) 100 %; WHITE BLOOD COUNT 12.5 10^3/uL (4.0-10.5)
[2018-11-23 00:17] LABS: ALBUMIN 4.7 g/dL (3.5-5.0); ALKALINE PHOSPHATASE 99 U/L (38-126); ASPARTATE AMINO TRANSFERASE 27 U/L (14-36); BILIRUBIN,DIRECT 0.3 mg/dL (0.0-0.4); BILIRUBIN,TOTAL 0.7 mg/dL (0.2-1.3); BLOOD UREA NITROGEN 38 mg/dL (7-20); CALCIUM 10.6 mg/dL (8.4-10.2); CHLORIDE 70 mmol/L (98-107); GLUCOSE 263 mg/dL (75-110)
[2018-11-23 00:27] LABS: ANION GAP 18 (5-19)
[2018-11-23 00:29] LABS: POTASSIUM 2.6 mmol/L (3.6-5.0)
[2018-11-23 00:30] LABS: CARBON DIOXIDE 41 mmol/L (22-30)
[2018-11-23] MEDS ORDERED: NORMAL SALINE 1000 ML 1,000 ML IV ONE (00:36)
[2018-11-23 00:42] LABS: HYPOCHROMASIA 1+
[2018-11-23 00:43] LABS: ANISOCYTOSIS 2+; PLATELET COMMENT ADEQUATE; TARGET CELLS SLIGHT
[2018-11-23] MEDS: MAGNESIUM SULFATE/D5W 1 GM/100 ML RTUPB IV SCH ×2 (01:05→03:47)
[2018-11-23] MEDS: POTASSI CL 20 MEQ/50 ML RIDER 20 MEQ/50 ML RTUPB IV SCH ×2 (01:06→03:47)
[2018-11-23] MEDS ORDERED: POTASSI CL 20 MEQ/NS 1L 1,000 ML IV PRN (03:15)
[2018-11-23] MEDS ORDERED: DEXTROSE 50%-WATER SYRINGE 12.5 GM/25 ML DOSE IV PRN (03:30)
[2018-11-23] MEDS ORDERED: DEXTROSE 40% GEL 15 GM TUBE X 2 PO PRN (03:30)
[2018-11-23] MEDS ORDERED: GLUCAGON,HUMAN RECOMB 1 MG INJ IM PRN (03:30)
[2018-11-23] MEDS ORDERED: DEXTROSE 50%-WATER SYRINGE 25 GM/50 ML DOSE IV PRN (03:30)
[2018-11-23] MEDS ORDERED: DEXTROSE 40% GEL 15 GM TUBE PO PRN (03:30)
[2018-11-23 05:26] LABS: BLOOD UREA NITROGEN 33 mg/dL (7-20); CALCIUM 9.6 mg/dL (8.4-10.2); CHLORIDE 79 mmol/L (98-107); GLUCOSE 206 mg/dL (75-110)
[2018-11-23 05:32] LABS: ANION GAP 15 (5-19); CARBON DIOXIDE 38 mmol/L (22-30)
[2018-11-23 05:34] LABS: POTASSIUM 2.6 mmol/L (3.6-5.0)
[2018-11-23] MEDS: INSULIN LISPRO 100 UNIT/ML 3 ML VIAL SUBCUT SCH ×4 (07:41→21:29)
[2018-11-23] MEDS: ONDANSETRON HCL INJ/PF 4 MG/2 ML SDV IV PRN ×3 (07:43→23:01)
--- NOTE | 2018-11-23 07:57 | PDOC H&P ---
History of Present Illness Admission Date/PCP: 11/23/18 01:02 HEIDI ZAMAN MD Patient complains of: recurrent vomiting History of Present Illness: JOSE GIVENS is a 38 year old female with diabetic gastroparesis [place] [address] [place]ry with several flares a year lasting a week. She moved to [place] then back. Dr Lowry's endoscopy 3d ago showed "acid". He gave her omeprazole which she is throwing up. She has heartburn odynophagia and constipation. Last stool was 1w ago. Cscop is pending. Past Medical History Cardiac Medical History: Reports: Hypertension Pulmonary Medical History: Reports: Bronchitis Neurological Medical History: Reports: None Endocrine Medical History: Reports: Diabetes Mellitus Type 2, Obesity Renal/ Medical History: Reports: None Malignancy Medical History: Reports: None GI Medical History: Reports: Gastroesophageal Reflux Disease Musculoskeltal Medical History: Reports: Arthritis - knees, Other - sciatica Skin Medical History: Reports: None Psychiatric Medical History: Reports: None, Depression Hematology: Reports: Anemia Past Surgical History Past Surgical History: Reports: Section, Tubal Ligation Social History Information Source: Dr. Pan Smoking Status: Former Smoker Frequency of Alcohol Use: Occasional Hx Recreational Drug Use: Yes Drugs: Marijuana Hx Prescription Drug Abuse: No - Advance Directive Resuscitation Status: Full Code Family History Family History: Reviewed & Not Pertinent Parental Family History Reviewed: Yes Children Family History Reviewed: Yes Sibling(s) Family History Reviewed.: Yes Medication/Allergy Home Medications: Lisinopril [Prinivil 10 mg Tablet] 10 mg PO DAILY 04/19/17 Metformin HCl [Glucophage] 500 mg PO BIDBS 04/19/17 Metoclopramide HCl [Reglan 10 mg Tablet] 10 mg PO TID #60 tablet 07/21/17 Ranitidine HCl 150 mg PO BID #30 tablet 07/30/17 Promethazine HCl [Phenergan 25 mg Tablet] 25 mg PO Q6H PRN #20 tablet 05/22/18 Omeprazole Magnesium [Prilosec] 10 mg PO BID 11/23/18 Tizanidine HCl [Zanaflex 4 Mg Tablet] 4 mg PO BID PRN 11/23/18 Allergies/Adverse Reactions: No Known Allergies Allergy (Verified 11/17/18 13:51) Review of Systems Constitutional: PRESENT: weight loss - little. ABSENT: fever(s), headache(s) Nose, Mouth, and Throat: PRESENT: sore throat Cardiovascular: PRESENT: chest pain - heartburn Respiratory: PRESENT: cough, sputum Gastrointestinal: PRESENT: constipation, dysphagia, heartburn, vomiting. ABSENT: abdominal pain, hematochezia Genitourinary: ABSENT: dysuria, hematuria Integumentary: ABSENT: rash Physical Exam Vital Signs: Temp Pulse Resp BP Pulse Ox 98.4 F 91 18 154/81 H 99 11/23/18 03:17 11/23/18 03:49 11/23/18 03:17 11/23/18 03:17 11/23/18 03:17 Intake & Output 11/21/18 11/22/18 11/23/18 07:59 07:59 07:59 Intake Total 2150 Balance 2150 Weight 242 lb 15.19 oz General appearance: PRESENT: mild distress Eye exam: ABSENT: conjunctival injection, scleral icterus Mouth exam: PRESENT: moist, neck supple Neck exam: ABSENT: lymphadenopathy, tenderness, thyromegaly, tracheal deviation Respiratory exam: PRESENT: clear to auscultation andie Cardiovascular exam: ABSENT: diastolic murmur, irregular rhythm, systolic murmur GI/Abdominal exam: ABSENT: mass, organolmegaly, tenderness Extremities exam: ABSENT: pedal edema Neurological exam: PRESENT: oriented to situation Psychiatric exam: PRESENT: appropriate affect Results Laboratory Results: Abnormal - 24 hr 11/22/18 11/22/18 11/23/18 23:46 23:46 04:03 WBC 12.5 H RBC 5.29 H Hgb 10.2 L Hct 33.7 L MCV 64 L MCH 19.3 L MCHC 30.3 L RDW 19.8 H Absolute Neuts (auto) 9.7 H Sodium 129.3 L 131.7 L Potassium 2.6 L* 2.6 L* Chloride 70 L 79 L Carbon Dioxide 41 H* 38 H BUN 38 H 33 H Creatinine 1.42 H Est GFR ( Amer) 50 L Est GFR (MDRD) Non-Af 41 L 54 L Glucose 263 H 206 H Calcium 10.6 H Assessment & Plan - Diagnosis (1) Cannabis hyperemesis syndrome concurrent with and due to cannabis abuse Is this a current diagnosis for this admission?: Yes Plan: NS with 40KCl. Ondansetron (2) Type 2 diabetes mellitus with diabetic polyneuropathy Qualifiers: Diabetes mellitus moth exterminator insulin use: without custodial use Qualified Code(s): E11.42 - Type 2 diabetes mellitus with diabetic polyneuropathy Is this a current diagnosis for this admission?: Yes (3) Acute kidney injury Is this a current diagnosis for this admission?: Yes (4) Hypokalemia Is this a current diagnosis for this admission?: Yes (5) Hyponatremia Is this a current diagnosis for this admission?: Yes (6) Nausea & vomiting Qualifiers: Vomiting type: cyclical vomiting Vomiting Intractability: intractable Qualified Code(s): G43.A1 - Cyclical vomiting, intractable Is this a current diagnosis for this admission?: Yes (7) Sciatica of right side Is this a current diagnosis for this admission?: Yes (8) Bilateral primary osteoarthritis of knee Is this a current diagnosis for this admission?: Yes - Inpatient Certification Based on my medical assessment, after consideration of the patient's comorbidities, presenting symptoms, or acuity I expect that the services needed warrant INPATIENT care.: Yes I certify that my determination is in accordance with my understanding of Medicare's requirements for reasonable and necessary INPATIENT services [42 CFR 412.3e].: Yes Medical Necessity: Failure to Improve With Outpatient Therapy, Significant Comorbidiites Make Outpatient Treatment Too Risky, Need Close Monitoring Due to Risk of Patient Decompensation, Need For IV Fluids, Need For Continuous Telemetry Monitoring, Risk of Complication if Not Cared For in Hospital, Risk of Diagnosis Which Will Require Inpatient Eval/Care/Monitoring
[2018-11-23] MEDS: POTASSI CL 40 MEQ/NS 1L 1,000 ML IV PRN ×2 (08:35→16:06)
[2018-11-23] MEDS: FAMOTIDINE INJ/PF 20 MG/2 ML SDV IV SCH ×2 (09:01→21:29)
--- NOTE | 2018-11-23 09:42 | EKG REPORT ---
SEVERITY:- ABNORMAL ECG - SINUS TACHYCARDIA BIATRIAL ABNORMALITIES LVH WITH SECONDARY REPOLARIZATION ABNORMALITY PROLONGED QT INTERVAL : Confirmed by: Win Jesus MD 23-Nov-2018 09:42:13
[2018-11-23] MEDS: GABAPENTIN 300 MG CAPSULE PO SCH (21:29)
[2018-11-24] MEDS: POTASSI CL 40 MEQ/NS 1L 1,000 ML IV PRN ×3 (01:01→16:40)
[2018-11-24 04:05] LABS: APPEARANCE,URINE CLEAR; BILIRUBIN,URINE NEGATIVE (NEGATIVE); COLOR,URINE YELLOW; GLUCOSE, URINE NEGATIVE (NEGATIVE); KETONES,URINE 20 mg/dL (NEGATIVE); LEUKOCYTE ESTERASE,URINE NEGATIVE (NEGATIVE); NITRITE,URINE NEGATIVE (NEGATIVE); PROTEIN,URINE NEGATIVE (NEGATIVE); URINE SPECIFIC GRAVITY 1.014
[2018-11-24 05:00] LABS: ANION GAP 7 (5-19); BLOOD UREA NITROGEN 15 mg/dL (7-20); CALCIUM 9.4 mg/dL (8.4-10.2); CARBON DIOXIDE 36 mmol/L (22-30); CHLORIDE 92 mmol/L (98-107); GLUCOSE 160 mg/dL (75-110); POTASSIUM 3.2 mmol/L (3.6-5.0)
--- NOTE | 2018-11-24 07:02 | PDOC PROGRESS REPORT ---
Subjective Progress Note for:: 11/24/18 Subjective:: no more vomiting. Ate salad. Starving Reason For Visit: JULIANO, HYPONATREMIA,HYPOKALEIMA Physical Exam Vital Signs: Temp Pulse Resp BP Pulse Ox 98.3 F 77 17 122/65 100 11/23/18 23:00 11/24/18 02:00 11/23/18 23:00 11/23/18 23:00 11/23/18 23:00 Intake & Output 11/22/18 11/23/18 11/24/18 07:59 07:59 07:59 Intake Total 2150 3721 Balance 2150 3721 Weight 242 lb 15.19 oz 240 lb 15.444 oz General appearance: PRESENT: no acute distress Respiratory exam: PRESENT: clear to auscultation andie Cardiovascular exam: ABSENT: diastolic murmur, irregular rhythm, systolic murmur GI/Abdominal exam: ABSENT: tenderness Extremities exam: ABSENT: pedal edema Neurological exam: PRESENT: oriented to situation Psychiatric exam: PRESENT: appropriate affect Results Laboratory Results: 11/22/18 23:46 11/24/18 03:31 11/24/18 11/24/18 03:31 03:45 Sodium 134.7 L Potassium 3.2 L Chloride 92 L Carbon Dioxide 36 H Anion Gap 7 BUN 15 Creatinine 0.94 Est GFR ( Amer) > 60 Glucose 160 H Calcium 9.4 Urine Color YELLOW Urine Appearance CLEAR Urine pH 7.0 Ur Specific [place] 1.014 Urine Protein NEGATIVE Urine Glucose (UA) NEGATIVE Urine Ketones 20 H Urine Blood NEGATIVE Urine Nitrite NEGATIVE Ur Leukocyte Esterase NEGATIVE Urine WBC (Auto) 4 Urine RBC (Auto) 1 Assessment & Plan - Diagnosis (1) Cannabis hyperemesis syndrome concurrent with and due to cannabis abuse Is this a current diagnosis for this admission?: Yes Plan: advance diet (2) Type 2 diabetes mellitus with diabetic polyneuropathy Qualifiers: Diabetes mellitus alf insulin use: without keno terminal operator use Qualified Code(s): E11.42 - Type 2 diabetes mellitus with diabetic polyneuropathy Is this a current diagnosis for this admission?: Yes (3) Acute kidney injury Is this a current diagnosis for this admission?: Yes (4) Hypokalemia Is this a current diagnosis for this admission?: Yes Plan: imroving (5) Hyponatremia Is this a current diagnosis for this admission?: Yes (6) Nausea & vomiting Qualifiers: Vomiting type: cyclical vomiting Vomiting Intractability: intractable Qualified Code(s): G43.A1 - Cyclical vomiting, intractable Is this a current diagnosis for this admission?: Yes (7) Sciatica of right side Is this a current diagnosis for this admission?: Yes (8) Bilateral primary osteoarthritis of knee Is this a current diagnosis for this admission?: Yes - Inpatient Certification Medical Necessity: Failure to Improve With Outpatient Therapy, Significant Comorbidiites Make Outpatient Treatment Too Risky, Need Close Monitoring Due to Risk of Patient Decompensation, Need For IV Fluids, Need For Continuous Telemetry Monitoring, Need for Pain Control, Risk of Complication if Not Cared For in Hospital, Risk of Diagnosis Which Will Require Inpatient Eval/Care/Monitoring
[2018-11-24] MEDS: INSULIN LISPRO 100 UNIT/ML 3 ML VIAL SUBCUT SCH ×4 (07:35→21:10)
[2018-11-24] MEDS: FAMOTIDINE INJ/PF 20 MG/2 ML SDV IV SCH ×2 (08:31→21:11)
[2018-11-24] MEDS: ONDANSETRON HCL INJ/PF 4 MG/2 ML SDV IV PRN (21:09)
[2018-11-24] MEDS: GABAPENTIN 300 MG CAPSULE PO SCH (21:11)
[2018-11-25] MEDS: POTASSI CL 40 MEQ/NS 1L 1,000 ML IV PRN (01:58)
[2018-11-25 03:42] LABS: ANION GAP 6 (5-19); BLOOD UREA NITROGEN 11 mg/dL (7-20); CALCIUM 9.6 mg/dL (8.4-10.2); CARBON DIOXIDE 29 mmol/L (22-30); CHLORIDE 103 mmol/L (98-107); GLUCOSE 160 mg/dL (75-110); POTASSIUM 3.8 mmol/L (3.6-5.0)
[2018-11-25] MEDS ORDERED: ONDANSETRON 4 MG TAB.RAPDIS PO PRN (05:19)
[2018-11-25 05:45] LABS: CHOLESTEROL 214.46 mg/dL (0-200); TRIGLYCERIDES 179 mg/dL (<150)
[2018-11-25 05:55] LABS: DIRECT LDL 169 mg/dL (<100)
[2018-11-25 05:58] LABS: VLDL CHOLESTEROL 35.8 mg/dL (10-31)
--- NOTE | 2018-11-25 08:08 | PDOC PROGRESS REPORT ---
Subjective Progress Note for:: 11/25/18 Subjective:: no more vomiting. Has been biting metformin in half. Reason For Visit: JULIANO, HYPONATREMIA,HYPOKALEIMA Physical Exam Vital Signs: Temp Pulse Resp BP Pulse Ox 98.3 F 96 20 142/97 H 100 11/25/18 07:52 11/25/18 07:52 11/25/18 07:52 11/25/18 07:52 11/25/18 07:52 Intake & Output 11/24/18 11/25/18 11/26/18 07:59 07:59 07:59 Intake Total 3721 6017 Balance 3721 6017 Weight 240 lb 15.444 oz 258 lb 6.108 oz General appearance: PRESENT: no acute distress Respiratory exam: PRESENT: clear to auscultation andie Cardiovascular exam: ABSENT: diastolic murmur, irregular rhythm, systolic murmur Extremities exam: ABSENT: pedal edema Neurological exam: PRESENT: alert Psychiatric exam: PRESENT: agitated - about meat cut up in kitchen Results Laboratory Results: 11/22/18 23:46 11/25/18 03:13 11/25/18 11/25/18 03:13 03:13 Sodium 137.8 Potassium 3.8 Chloride 103 Carbon Dioxide 29 Anion Gap 6 BUN 11 Creatinine 0.83 Est GFR ( Amer) > 60 Glucose 160 H Calcium 9.6 Triglycerides 179 H Cholesterol 214.46 H LDL Cholesterol Direct 169 H VLDL Cholesterol 35.8 H HDL Cholesterol 31 L Assessment & Plan - Diagnosis (1) Cannabis hyperemesis syndrome concurrent with and due to cannabis abuse Is this a current diagnosis for this admission?: Yes Plan: stopped ivf (2) Type 2 diabetes mellitus with diabetic polyneuropathy Qualifiers: Diabetes mellitus intermediate card tender insulin use: without usp use Qualified Code(s): E11.42 - Type 2 diabetes mellitus with diabetic polyneuropathy Is this a current diagnosis for this admission?: Yes Plan: switch metformin to glimepiride (3) Acute kidney injury Is this a current diagnosis for this admission?: Yes (4) Hypokalemia Is this a current diagnosis for this admission?: Yes Plan: gone (5) Hyponatremia Is this a current diagnosis for this admission?: Yes (6) Nausea & vomiting Qualifiers: Vomiting type: cyclical vomiting Vomiting Intractability: intractable Qualified Code(s): G43.A1 - Cyclical vomiting, intractable Is this a current diagnosis for this admission?: Yes (7) Sciatica of right side Is this a current diagnosis for this admission?: Yes (8) Bilateral primary osteoarthritis of knee Is this a current diagnosis for this admission?: Yes Plan: told no more ibuprofen - Inpatient Certification Medical Necessity: Failure to Improve With Outpatient Therapy, Significant Comor bidiites Make Outpatient Treatment Too Risky, Need Close Monitoring Due to Risk of Patient Decompensation, Need For Continuous Telemetry Monitoring, Risk of Complication if Not Cared For in Hospital, Risk of Diagnosis Which Will Require Inpatient Eval/Care/Monitoring
[2018-11-25] MEDS ORDERED: LISINOPRIL 10 MG TABLET PO SCH (10:00)
[2018-11-25] MEDS ORDERED: GLIMEPIRIDE 4 MG TABLET PO SCH (10:00)
[2018-11-25] MEDS: PANTOPRAZOLE SODIUM 40 MG TABLET.DR PO SCH (10:37)
[2018-11-25] MEDS: METOCLOPRAMIDE HCL 10 MG TABLET PO SCH ×3 (10:43→18:43)
[2018-11-25 20:17] VITALS: BP 147/87
[2018-11-25] MEDS: GABAPENTIN 300 MG CAPSULE PO SCH (21:18)
[2018-11-26 03:40] LABS: ANION GAP 8 (5-19); BLOOD UREA NITROGEN 13 mg/dL (7-20); CALCIUM 9.9 mg/dL (8.4-10.2); CARBON DIOXIDE 26 mmol/L (22-30); CHLORIDE 103 mmol/L (98-107); GLUCOSE 170 mg/dL (75-110); POTASSIUM 4.4 mmol/L (3.6-5.0)
[2018-11-26] MEDS: PANTOPRAZOLE SODIUM 40 MG TABLET.DR PO SCH (05:47)
[2018-11-26] MEDS ORDERED: PIOGLITAZONE HCL 30 MG TABLET PO SCH (08:00)
--- NOTE | 2018-11-26 08:08 | PDOC DISCHARGE SUMMARY ---
General - Admit/Disc Date/PCP Admission Date/Primary Care Provider: 11/23/18 01:02 HEIDI ZAMAN MD Discharge Date: 11/26/18 - Discharge Diagnosis (1) Cannabis hyperemesis syndrome concurrent with and due to cannabis abuse Is this a current diagnosis for this admission?: Yes (2) Type 2 diabetes mellitus with diabetic polyneuropathy Is this a current diagnosis for this admission?: Yes (3) Acute kidney injury Is this a current diagnosis for this admission?: Yes (4) Hypokalemia Is this a current diagnosis for this admission?: Yes (5) Hyponatremia Is this a current diagnosis for this admission?: Yes (6) Nausea & vomiting Is this a current diagnosis for this admission?: Yes (7) Sciatica of right side Is this a current diagnosis for this admission?: Yes (8) Bilateral primary osteoarthritis of knee Is this a current diagnosis for this admission?: Yes - Additional Information Resuscitation Status: Full Code Discharge Diet: Diabetic Discharge Activity: Activity As Tolerated Prescriptions: Pioglitazone HCl [Actos 30 mg Tablet] 30 mg PO QAM #90 tablet Glimepiride [Amaryl 4 mg Tablet] 4 mg PO DAILY #90 tablet Lisinopril [Prinivil] 20 mg PO DAILY #90 tablet Home Medications: Metoclopramide HCl [Reglan 10 mg Tablet] 10 mg PO TID 11/23/18 Omeprazole 10 mg PO BID 11/23/18 Promethazine HCl [Phenergan 25 mg Tablet] 25 mg PO Q6HP PRN 11/23/18 Tizanidine HCl [Zanaflex 4 mg Tablet] 4 mg PO BIDP PRN 11/23/18 Gabapentin [Neurontin 300 mg Capsule] 300 mg PO QHS capsule 11/26/18 Glimepiride [Amaryl 4 mg Tablet] 4 mg PO DAILY #90 tablet 11/26/18 Lisinopril [Prinivil] 20 mg PO DAILY #90 tablet 11/26/18 Pioglitazone HCl [Actos 30 mg Tablet] 30 mg PO QAM #90 tablet 11/26/18 History of Present Illness Patient complains of: vomiting History of Present Illness: JOSE GIVENS is a 38 year old female with diabetic gastroparesis [place] [address] Lowry with several flares a year lasting a week. She moved to [facility]. Dr Lowry's endoscopy 3d ago showed "acid". He gave her omeprazole which she is throwing up. She has heartburn odynophagia and constipation. Last stool was 1w ago. Cscop is pending. Hospital Course Hospital Course: on NS40K vomiting stopped and she ate. Metformin was switched to glimepiride and pioglitazone. Lisinopril was increased. Physical Exam Vital Signs: Temp Pulse Resp BP Pulse Ox 98.1 F 83 18 147/87 H 100 11/26/18 07:50 11/26/18 07:50 11/26/18 07:50 11/26/18 07:50 11/26/18 07:50 Intake & Output 11/25/18 11/26/18 11/27/18 07:59 07:59 07:59 Intake Total 6017 3414 Balance 6017 3414 Weight 258 lb 6.108 oz 258 lb 2.581 oz General appearance: PRESENT: no acute distress Respiratory exam: PRESENT: clear to auscultation andie Cardiovascular exam: ABSENT: diastolic murmur, irregular rhythm, systolic murmur GI/Abdominal exam: ABSENT: tenderness Extremities exam: ABSENT: pedal edema Neurological exam: PRESENT: oriented to situation Psychiatric exam: PRESENT: appropriate affect Results Laboratory Results: Labs- Last Values WBC 12.5 10^3/uL (4.0-10.5) H 11/22/18 23:46 RBC 5.29 10^6/uL (3.72-5.28) H 11/22/18 23:46 Hgb 10.2 g/dL (12.0-15.5) L 11/22/18 23:46 Hct 33.7 % (36.0-47.0) L 11/22/18 23:46 MCV 64 fl (80-97) L 11/22/18 23:46 MCH 19.3 pg (27.0-33.4) L 11/22/18 23:46 MCHC 30.3 g/dL (32.0-36.0) L 11/22/18 23:46 RDW 19.8 % (11.5-14.0) H 11/22/18 23:46 Plt Count 379 10^3/uL (150-450) 11/22/18 23:46 Lymph % (Auto) 14.4 % (13-45) 11/22/18 23:46 [place] % (Auto) 6.0 % (3-13) 11/22/18 23:46 Eos % (Auto) 2.1 % (0-6) 11/22/18 23:46 Baso % (Auto) 0.4 % (0-2) 11/22/18 23:46 Absolute Neuts (auto) 9.7 10^3/uL (1.7-8.2) H 11/22/18 23:46 Absolute Lymphs (auto) 1.8 10^3/uL (0.5-4.7) 11/22/18 23:46 Absolute Monos (auto) 0.8 10^3/uL (0.1-1.4) 11/22/18 23:46 Absolute Eos (auto) 0.3 10^3/uL (0.0-0.6) 11/22/18 23:46 Absolute Basos (auto) 0.0 10^3/uL (0.0-0.2) 11/22/18 23:46 Seg Neutrophils % 77.1 % (42-78) 11/22/18 23:46 Platelet Comment ADEQUATE 11/22/18 23:46 Hypochromasia 1+ 11/22/18 23:46 Anisocytosis 2+ 11/22/18 23:46 Microcytosis 3+ 11/22/18 23:46 Target Cells SLIGHT 11/22/18 23:46 Sodium 137.0 mmol/L (137-145) 11/26/18 03:06 Potassium 4.4 mmol/L (3.6-5.0) 11/26/18 03:06 Chloride 103 mmol/L (98-107) 11/26/18 03:06 Carbon Dioxide 26 mmol/L (22-30) 11/26/18 03:06 Anion Gap 8 (5-19) 11/26/18 03:06 BUN 13 mg/dL (7-20) 11/26/18 03:06 Creatinine 0.84 mg/dL (0.52-1.25) 11/26/18 03:06 Est GFR ( Amer) > 60 (>60) 11/26/18 03:06 Est GFR (MDRD) Non-Af > 60 (>60) 11/26/18 03:06 Glucose 170 mg/dL (75-110) H 11/26/18 03:06 POC Glucose 203 mg/dL (70-110) H 11/25/18 20:54 Hemoglobin A1c % 8.2 % (4.7-6.0) H 11/25/18 03:13 Calcium 9.9 mg/dL (8.4-10.2) 11/26/18 03:06 Magnesium 2.1 mg/dL (1.6-2.3) 11/22/18 23:46 Total Bilirubin 0.7 mg/dL (0.2-1.3) 11/22/18 23:46 Direct Bilirubin 0.3 mg/dL (0.0-0.4) 11/22/18 23:46 Neonat Total Bilirubin Not Reportable 11/22/18 23:46 Neonat Direct Bilirubin Not Reportable 11/22/18 23:46 Neonat Indirect Bili Not Reportable 11/22/18 23:46 AST 27 U/L (14-36) 11/22/18 23:46 ALT 16 U/L (<35) 11/22/18 23:46 Alkaline Phosphatase 99 U/L (38-126) 11/22/18 23:46 Total Protein 8.0 g/dL (6.3-8.2) 11/22/18 23:46 Albumin 4.7 g/dL (3.5-5.0) 11/22/18 23:46 Triglycerides 179 mg/dL (<150) H 11/25/18 03:13 Cholesterol 214.46 mg/dL (0-200) H 11/25/18 03:13 LDL Cholesterol Direct 169 mg/dL (<100) H 11/25/18 03:13 VLDL Cholesterol 35.8 mg/dL (10-31) H 11/25/18 03:13 HDL Cholesterol 31 mg/dL (>40) L 11/25/18 03:13 Lipase 40.0 U/L (23-300) 11/22/18 23:46 Urine Color YELLOW 11/24/18 03:45 Urine Appearance CLEAR 11/24/18 03:45 Urine pH 7.0 (5.0-9.0) 11/24/18 03:45 Ur Specific [place] 1.014 11/24/18 03:45 Urine Protein NEGATIVE mg/dL (NEGATIVE) 11/24/18 03:45 Urine Glucose (UA) NEGATIVE mg/dL (NEGATIVE) 11/24/18 03:45 Urine Ketones 20 mg/dL (NEGATIVE) H 11/24/18 03:45 Urine Blood NEGATIVE (NEGATIVE) 11/24/18 03:45 Urine Nitrite NEGATIVE (NEGATIVE) 11/24/18 03:45 Urine Bilirubin NEGATIVE (NEGATIVE) 11/24/18 03:45 Urine Urobilinogen 4.0 mg/dL (<2.0) H 11/24/18 03:45 Ur Leukocyte Esterase NEGATIVE (NEGATIVE) 11/24/18 03:45 Urine WBC (Auto) 4 /HPF 11/24/18 03:45 Urine RBC (Auto) 1 /HPF 11/24/18 03:45 Urine Bacteria (Auto) TRACE /HPF 11/24/18 03:45 Squamous Epi Cells Auto 6 /HPF 11/24/18 03:45 Urine Mucus (Auto) RARE /LPF 11/24/18 03:45 Urine Ascorbic Acid NEGATIVE (NEGATIVE) 11/24/18 03:45 11/24/18 03:45 Clean Catch Midstream Urine Culture - Final Mixed Skin. Possible Pathogen Qualifiers - * PATIENT BEING DISCHARGED WITH ANY OF THE FOLLOWING DIAGNOSIS: No Acute Heart Failure - Is this a Heart Failure Patient?: No Plan Discharge Plan: home. 1w ov. ?statin.
[2018-11-26] MEDS ORDERED: LISINOPRIL 10 MG TABLET PO SCH (10:00)
== END 2018-11-26 08:42 | disposition home or self-care (01) | DRG 897 ==
LOC: ER 22:40 → EH 11-23 01:02 → 4S 11-23 02:48
PROVIDERS: ADMIT Family Medicine; ATTEND Family Medicine
DX: F12.188 Cannabis abuse with other cannabis-induced disorder (principal); N17.9 Acute kidney failure, unspecified; E87.1 Hypo-osmolality and hyponatremia; E11.43 Type 2 diabetes mellitus with diabetic autonomic (poly)neuropathy; K31.84 Gastroparesis; E86.0 Dehydration; I10 Essential (primary) hypertension; K21.9 Gastro-esophageal reflux disease without esophagitis; E83.52 Hypercalcemia; E87.6 Hypokalemia; M54.31 Sciatica, right side; M17.0 Bilateral primary osteoarthritis of knee; Z79.84 Long term (current) use of oral hypoglycemic drugs; Z79.899 Other long term (current) drug therapy
CPT/HCPCS: 36415; 80048; 80053; 80061; 81001; 82962; 83036; 83690; 83735; 85025; 87086; 93005; 93010; 96361; 96374; 96375; 99285; J1815; J2405; J3475; J3480; J3490; J7030; S0028; S0164

== ENCOUNTER 2018-11-30 14:48 | Emergency (ER) | payer MEDICAID, OTHER ==
[2018-11-30 14:58] VITALS: BP 136/90
[2018-11-30] MEDS ORDERED: KETOROLAC TROMETHAMINE 60 MG/2 ML SDV IM ONE (16:48)
[2018-11-30] MEDS ORDERED: LIDOCAINE 5% (700 MG) TRANSDERMAL ADH..PATCH TP ONE (16:49)
[2018-11-30] MEDS ORDERED: DEXAMETHASONE SOD PHOS INJ 10 MG/1 ML VIAL IM ONE (16:49)
--- NOTE | 2018-11-30 16:54 | ER Document Report ---
HPI - HPI Patient complains to provider of: LBP Time Seen by Provider: 11/30/18 16:47 Pain Level: 4 Context: 38-year-old female with chronic back pain presents to the emergency department with chief complaint of low back pain. Patient states she is supposed to get monthly steroid injections. Patient has been moaning approached and says that she is in significant pain. Patient denies any urinary retention, saddle, limb weakness or tingling, IV drug use, fevers, bowel incontinence, no other concerning symptoms. - REPRODUCTIVE Reproductive: DENIES: : Past Medical History - Social History Smoking Status: Current Every Day Smoker Family History: Reviewed & Not Pertinent Patient has suicidal ideation: No Patient has homicidal ideation: No - Past Medical History Cardiac Medical History: Reports: Hx Hypertension Pulmonary Medical History: Reports: Hx Bronchitis Endocrine Medical History: Reports: Hx Diabetes Mellitus Type 2 Renal/ Medical History: Denies: Hx Peritoneal Dialysis GI Medical History: Reports: Hx Gastroesophageal Reflux Disease Musculoskeletal Medical History: Reports Hx Arthritis - knees, Reports Hx Musculoskeletal Trauma Psychiatric Medical History: Reports: Hx Depression Past Surgical History: Reports: Hx Section, Hx Tubal Ligation - Immunizations Immunizations up to date: Yes Hx Diphtheria, Pertussis, Tetanus Vaccination: Yes Vertical Provider Document - CONSTITUTIONAL Notes: PHYSICAL EXAMINATION: Reviewed vital signs and charting by RN GENERAL: Alert, interacts well. No acute distress. HEAD: Normocephalic, atraumatic. EYES: Pupils equal and round. Extraocular movements intact. ENT: Oral mucosa moist, tongue midline. NECK: Full range of motion. Trachea midline. ABDOMEN: soft, non-tender. No distention. Bowel sounds present BACK: Left paraspinal tenderness in the L4-L5 area, no midline spine tenderness, no SI joint tenderness NEURO: 5 out of 5 strength both distally and proximally bilateral lower extremities. 2+ patellar reflexes bilaterally. No clonus. Sensation grossly intact in the bilateral lower extremities. Patient is able to ambulate without difficulty. EXTREMITIES: Moves all 4 extremities spontaneously. No edema, No cyanosis. PSYCH: Normal affect, normal mood. SKIN: Warm, dry, normal turgor. No rashes or lesions noted. - INFECTION CONTROL TRAVEL OUTSIDE OF THE [place] IN LAST 30 DAYS: No Course - Re-evaluation Re-evalutation: 11/30/18 16:51 Presentation of a well appearing patient complaining of acute on chronic back pain. No rapid progression of symptoms, systemic symptoms including fevers, chills, weight loss, history of recent bacterial infection, bilateral symptoms, numbness, weakness, difficulty walking, urinary retention or bowel incontinence, personal history of cancer, immunosuppression, diabetes, known AAA, or history of IV drug use. Exam is without point tenderness over vertebral bodies, pulsatile abdominal mass, and patient has symmetric and intact lower extremity strength, sensation, and reflexes without clonus. 2+ symmetric medial malleolar and dorsalis pedis pulses Based on history and physical, I have a very low suspicion of a concerning etiology of pain including epidural compression syndrome, spinal infection, transverse myelitis, malignancy, abdominal aortic aneurysm, renal colic, acute lower extremity claudication, neurogenic claudication, ankylosing spondylitis, or other intra-abdominal process. Due to absence of concerning risk factors in history and physical as well as absence of rapidly progressive, severe, or bilateral symptoms, will defer imaging at this point. - Vital Signs Vital signs: Temp Pulse Resp BP Pulse Ox 98.8 F 90 18 136/90 H 98 11/30/18 14:55 11/30/18 14:55 11/30/18 14:55 11/30/18 14:55 11/30/18 14:55 Discharge - Discharge Clinical Impression: Low back pain Qualifiers: Chronicity: chronic Back pain laterality: left Sciatica presence: without sciatica Qualified Code(s): M54.5 - Low back pain; G89.29 - Other chronic pain Condition: Good Disposition: HOME, SELF-CARE Instructions: Warm Packs ([facility]), Pain Medication Injection ([facility]), Low Back Pain ([facility]) Additional Instructions: You have been seen in the Emergency Department (ED) today for back pain. Your workup and exam have not shown any acute abnormalities and you are likely suffering from muscle strain or possible problems with your discs, but there is no treatment that will fix your symptoms at this time. Please take Motrin 600 mg every 6 hours and/or Tylenol every 6 hours for pain/inflammation. You should also purchase a local lidocaine cream such as "aspercreme with lidocaine" and use per bottle instructions to the affected area. Apply heat to the area as often as you are able. Continue to keep active and avoid prolonged periods of bed rest. Please follow up with your doctor as soon as possible regarding today's ED visit and your back pain. Return to the ED for worsening back pain, fever, weakness or numbness of either leg, or if you develop either (1) an inability to urinate or have bowel movements, or (2) loss of your ability to control your bathroom functions (if you start having "accidents"), or if you develop other new symptoms that concern you.concern you. Prescriptions: Cyclobenzaprine HCl [Flexeril 5 mg Tablet] 1 tab PO TID PRN #15 tablet PRN Reason: Referrals: HEIDI ZAMAN MD [Primary Care Provider] - Follow up as needed
== END 2018-11-30 17:45 | disposition home or self-care (01) ==
LOC: ER 14:48
DX: M54.5 Low back pain (principal); G89.29 Other chronic pain; F17.200 Nicotine dependence, unspecified, uncomplicated; I10 Essential (primary) hypertension; E11.9 Type 2 diabetes mellitus without complications
CPT/HCPCS: 99283; J1885; J3490; J1100

== ENCOUNTER 2018-12-04 06:41 | Emergency (ER) | payer MEDICAID ==
[2018-12-04 06:50] VITALS: BP 184/116
[2018-12-04] MEDS ORDERED: ONDANSETRON 4 MG TAB.RAPDIS PO ONE (08:52)
[2018-12-04 09:37] LABS: APPEARANCE,URINE CLEAR; BILIRUBIN,URINE NEGATIVE (NEGATIVE); COLOR,URINE STRAW; GLUCOSE, URINE >=500 mg/dL (NEGATIVE); KETONES,URINE NEGATIVE (NEGATIVE); LEUKOCYTE ESTERASE,URINE NEGATIVE (NEGATIVE); NITRITE,URINE NEGATIVE (NEGATIVE); PROTEIN,URINE NEGATIVE (NEGATIVE); URINE SPECIFIC GRAVITY 1.014; UROBILINOGEN,URINE NEGATIVE mg/dL (<2.0)
[2018-12-04 10:01] LABS: ADD MANUAL MICROSCOPIC YES
[2018-12-04 10:24] LABS: BACTERIA,URINE TRACE /HPF; HYALINE CASTS, URINE 0-1 /LPF
--- NOTE | 2018-12-06 09:52 | ER Document Report ---
Entered by BIRGIT ALEJANDRA SCRIBE 12/04/18 0846 Acting as scribe for:ISMAEL LAINEZ MD ED General - General Chief Complaint: Back Pain Stated Complaint: BACK PAIN Time Seen by Provider: 12/04/18 08:35 Primary Care Provider: [facility] [Provider Group] - 12/04/18 HEIDI ZAMAN MD [Primary Care Provider] - 12/04/18 Information source: Patient Notes: Patient is a 38-year-old female that presents to the emergency department today with complaints of chronic back pain. Patient was seen here on 11/30/2018 for her chronic back pain and was prescribed flexeril. Patient states that she is followed by [facility] where she has monthly steroid injections in her back. Patient states she has not been to get her shot this month but d oes not have any real reason for why she has not gone. Patient was sleeping comfortably, wakes up and complains of his back pain. Patient also complains of nausea and vomiting. Patient is known to have cyclic vomiting syndrome and continues to smoke marijuana. TRAVEL OUTSIDE OF THE [place] IN LAST 30 DAYS: No - Related Data Allergies/Adverse Reactions: No Known Allergies Allergy (Verified 12/04/18 07:37) Past Medical History - General Information source: Patient - Social History Smoking Status: Current Every Day Smoker Cigarette use (# per day): Yes Drug Abuse: Marijuana Lives with: Family Family History: Reviewed & Not Pertinent Patient has suicidal ideation: No Patient has homicidal ideation: No - Past Medical History Cardiac Medical History: Reports: Hx Hypertension Pulmonary Medical History: Reports: Hx Bronchitis Endocrine Medical History: Reports: Hx Diabetes Mellitus Type 2 GI Medical History: Reports: Hx Gastroesophageal Reflux Disease Musculoskeletal Medical History: Reports Hx Arthritis - osteo/knees, Reports Hx Musculoskeletal Trauma Psychiatric Medical History: Reports: Hx Depression Past Surgical History: Reports: Hx Section, Hx Tubal Ligation - Immunizations Immunizations up to date: Yes Hx Diphtheria, Pertussis, Tetanus Vaccination: Yes Review of Systems - Review of Systems Constitutional: No symptoms reported EENT: No symptoms reported Cardiovascular: No symptoms reported Respiratory: No symptoms reported Gastrointestinal: See HPI, Nausea, Vomiting Genitourinary: No symptoms reported Female Genitourinary: No symptoms reported Musculoskeletal: See HPI, Back pain Skin: No symptoms reported Hematologic/Lymphatic: No symptoms reported Neurological/Psychological: No symptoms reported -: Yes All other systems reviewed and negative Physical Exam - Vital signs Vitals: Temp Pulse Resp BP Pulse Ox 98.8 F 106 H 22 H 184/116 H 98 12/04/18 06:48 12/04/18 06:48 12/04/18 06:48 12/04/18 06:48 12/04/18 06:48 - Notes Notes: Physical Exam: General: Patient sound asleep snoring. Awakens easily. HEENT: Normocephalic. Atraumatic. PERRLA. Extraocular movements intact. Oropharynx clear. Neck: Supple. Back: Mild paraspinal lumbar tenderness with palpation. Respiratory: No respiratory distress. Abdominal: Morbidly obese. Extremities: Moves all four extremities. Neurological: Normal cognition. AAOx4. Normal speech. Psychological: Normal affect. Normal Mood. Skin: Warm. Dry. Normal color. Course - Vital Signs Vital signs: Temp Pulse Resp BP Pulse Ox 98.8 F 106 H 22 H 184/116 H 98 12/04/18 06:48 12/04/18 06:48 12/04/18 06:48 12/04/18 06:48 12/04/18 06:48 Discharge - Discharge Clinical Impression: Chronic nausea Chronic lower back pain Qualifiers: Back pain laterality: unspecified Sciatica presence: without sciatica Qualified Code(s): M54.5 - Low back pain; G89.29 - Other chronic pain High blood pressure Qualifiers: Hypertension type: essential hypertension Qualified Code(s): I10 - Essential (primary) hypertension Condition: Stable Disposition: HOME, SELF-CARE Additional Instructions: Chronic nausea: Your chronic nausea and vomiting is probably related to your diabetes, and your chronic use of marijuana. You will need to follow-up with your primary care provider, Dr. Zaman to discuss management of your chronic nausea and vomiting. Chronic low back pain: Your chronic low back pain cannot be fixed in the emergency room. You will need to follow-up with your orthopedic doctors at [facility] for surgery to discuss management of your back pain. Chronic Back Pain: Chronic back pain (pain persisting longer than three months) is a common problem. A medical evaluation can look for herniated disc, arthritis, osteoporosis, tumors, and infections. But at least half the time, there's no obvious treatable cause. Anxiety and depression tend to worsen back pain. Ibuprofen or other anti-inflammatory medicine can help. A heating pad, used for 15-20 minutes at a time, can ease pain. For this type of back pain, narcotic medicines should be avoided. Muscle relaxers are rarely helpful unless you're having spasms. Activity is important. Find an aerobic exercise program that your back can tolerate. Too much rest makes back pain worse. Specific back exercises are usually prescribed to strengthen the back and abdominal muscles. Often, a physical therapist can help. Avoid heavy lifting, working while bent over, or standing with both knees straight. Most back pain patients do better with a firm mattress. If new symptoms of a "herniated disc" (radiation of pain, numbness, or tingling down the back of the leg or weakness in the leg) occur, you should be re-examined. Chronic Pain Control Stress, inactivity, and depression make pain more severe regardless of the cause of the pain. Stress and poor physical condition can cause pain such as headaches and backache. Relaxation: Rest in a quiet place with your eyes closed for 20 minutes twice daily. Concentrate on a pleasant image, or simply "feel" your breathing. Clear your mind. Stress management: Deal with your "stressors." Either take action, or eliminate the stressor from your life. Don't let things hang over you. Accept those things you can't change. Nutrition: Eat small, balanced meals -- don't skip, don't overeat. Meals should be high-carbohydrate, low-sugar, low-fat. Exercise: Exercise helps painful conditions and eases stress. Get 30 minutes of moderate exercise, five days a week. Do an activity that does not f lare your pain. Precautions: Pain which continues to disrupt daily activities, or which changes in nature, requires a medical evaluation. Pain Clinic referral is available. We do not manage chronic pain in the Emergency Department. We will try to appropriately help you through an acute flare of your chronic painful condition, but for on-going chronic pain that does not improve, you will need to see your private doctor or [facility] [employer]. We do not provide repeated medication management of chronic painful conditions. Take your nausea medication and your blood pressure medication when you get home. Follow-up with Dr. Zaman in the office to discuss management of your chronic nausea--call the office today. Follow-up with [facility] for surgery to discuss managing your chronic low back pain--call the office today. RETURN TO THE EMERGENCY ROOM IF ANY NEW OR WORSENING SYMPTOMS. Referrals: HEIDI ZAMAN MD [Primary Care Provider] - 12/04/18 [facility] [Provider Group] - 12/04/18 Scribe Attestation: 12/04/18 08:48 I personally performed the services described in the documentation, reviewed and edited the documentation which was dictated to the scribe in my presence, and it accurately records my words and actions. I personally performed the services described in the documentation, reviewed and edited the documentation which was dictated to the scribe in my presence, and it accurately records my words and actions.
== END 2018-12-04 09:01 | disposition home or self-care (01) ==
LOC: ER 06:41
DX: G89.29 Other chronic pain (principal); M54.5 Low back pain; F17.210 Nicotine dependence, cigarettes, uncomplicated; R11.0 Nausea; I10 Essential (primary) hypertension; E66.01 Morbid (severe) obesity due to excess calories; E11.9 Type 2 diabetes mellitus without complications; Z98.51 Tubal ligation status
CPT/HCPCS: 99283; 81025; 81001; S0119

== ENCOUNTER 2019-08-24 10:33 | Emergency (ER) | payer MEDICAID ==
[2019-08-24] MEDS ORDERED: IBUPROFEN 600 MG TABLET PO ONE (10:52)
[2019-08-24] MEDS ORDERED: OXYCODONE-ACETAMINOPHEN 5-325 MG TABLET PO ONE (10:52)
--- NOTE | 2019-08-24 10:53 | ER Document Report ---
HPI - HPI Time Seen by Provider: 08/24/19 10:49 Notes: 39-year-old female patient with history of knee problems presents to the emergency department with right knee pain after she fell yesterday. She states that she felt and heard a snap in the back of her knee. She reports the pain is worse now. She states that she usually gets injections into this knee and she has [id number]. She states she is due for an injection to the knee. - REPRODUCTIVE Reproductive: DENIES: : Past Medical History - General Information source: Patient - Social History Smoking Status: Never Smoker Frequency of alcohol use: None Drug Abuse: None Family History: Reviewed & Not Pertinent - Past Medical History Cardiac Medical History: Reports: Hx Hypertension Denies: Hx Coronary Artery Disease, Hx Heart Attack Pulmonary Medical History: Reports: Hx Bronchitis Denies: Hx Asthma, Hx COPD, Hx Pneumonia Neurological Medical History: Denies: Hx Cerebrovascular Accident, Hx Seizures Endocrine Medical History: Reports: Hx Diabetes Mellitus Type 2 Renal/ Medical History: Denies: Hx Peritoneal Dialysis GI Medical History: Reports: Hx Gastroesophageal Reflux Disease Musculoskeletal Medical History: Reports Hx Arthritis - osteo/knees, Reports Hx Musculoskeletal Trauma Psychiatric Medical History: Reports: Hx Depression Past Surgical History: Reports: Hx Section, Hx Tubal Ligation. Denies: Hx Hysterectomy - Immunizations Immunizations up to date: Yes Hx Diphtheria, Pertussis, Tetanus Vaccination: Yes Vertical Provider Document - CONSTITUTIONAL Notes: PHYSICAL EXAMINATION: GENERAL: Well-appearing, well-nourished and in no acute distress. HEAD: Atraumatic, normocephalic. EYES: Pupils equal round extraocular movements intact, conjunctiva are normal. ENT: Nares patent, cerumen impaction noted to right ear. Unable to visualize the TM. NECK: Normal range of motion LUNGS: No respiratory distress Musculoskeletal: Limited range of motion to right knee. Tenderness to posterior knee. No obvious swelling or deformity. No crepitus on palpation. NEUROLOGICAL: Normal speech. PSYCH: Normal mood, normal affect. SKIN: Warm, Dry, normal turgor, no rashes or lesions noted. - INFECTION CONTROL TRAVEL OUTSIDE OF THE [place] IN LAST 30 DAYS: No Course - Re-evaluation Re-evalutation: 08/24/19 12:30 Knee X-Ray 08/24/19 10:52 IMPRESSION: 1. No acute osseous abnormality of the right knee. 2. Tricompartmental osteoarthrosis with intra-articular loose bodies and a joint effusion that is likely reactive. Patient will be placed in a knee immobilizer and crutches for her knee pain. She will follow-up with orthopedics. She has an established relationship with [facility] already. As far as patient's complaint of right ear pain and bleeding. I think the patient may have a perforated TM based upon the fact that she was digging in her ear with a Q-tip and then had some bleeding. There is no bleeding now but there is a cerumen impaction up against the TM. We did put a few drops of Colace in the ear to help soften the cerumen impaction. I told patient to have a primary care provider recheck her ears in the next week. Patient is agreeable to this plan. We did not irrigate the ear due to possible perforated TM. - Vital Signs Vital signs: Temp Pulse Resp BP Pulse Ox 97.8 F 93 18 155/91 H 100 08/24/19 10:37 08/24/19 10:37 08/24/19 10:37 08/24/19 10:37 08/24/19 10:37 Procedures - Immobilization Right knee Pre-Proc Neuro Vasc Exam: Normal Immobilizer type: Crutches, Knee immobilizer Performed by: PCT Post-Proc Neuro Vasc Exam: Normal Alignment checked and good: Yes Discharge - Discharge Clinical Impression: Effusion, right knee Knee pain Qualifiers: Chronicity: acute Laterality: right Qualified Code(s): M25.561 - Pain in right knee Cerumen impaction Qualifiers: Laterality: right Qualified Code(s): H61.21 - Impacted cerumen, right ear Condition: Stable Disposition: HOME, SELF-CARE Prescriptions: Hydrocodone/Acetaminophen [[employer] 5-325 mg Tablet] 1 tab PO Q6H PRN #10 tablet PRN Reason: Referrals: HEIDI ZAMAN MD [ACTIVE STAFF] - Follow up as needed
[2019-08-24] MEDS ORDERED: DOCUSATE SODIUM 100 MG CAPSULE RT_EAR ONE (11:09)
--- NOTE | 2019-08-24 12:25 | RADIOLOGY REPORT (SQ) ---
EXAM DESCRIPTION: KNEE RIGHT 4 VIEWS IMAGES COMPLETED DATE/TIME: 08/24/2019 11:57 am REASON FOR STUDY: fall, knee pain COMPARISON: None. NUMBER OF VIEWS: Four views. TECHNIQUE: AP, lateral, and both oblique radiographic images acquired of the right knee. LIMITATIONS: None. FINDINGS: MINERALIZATION: Normal. BONES: No acute fracture or dislocation. JOINT: Joint effusion and tricompartmental osteoarthrosis with intra-articular loose bodies SOFT TISSUES: No soft tissue swelling. The the quadriceps and patellar tendon silhouettes are intact . OTHER: No other finding. IMPRESSION: 1. No acute osseous abnormality of the right knee. 2. Tricompartmental osteoarthrosis with intra-articular loose bodies and a joint effusion that is lik randolph reactive. TECHNICAL DOCUMENTATION: JOB ID: [id number] 2010 [email or web address]- All Rights Reserved Reading location - IP/workstation name: [email or web address]
[2019-08-24 12:52] VITALS: BP 175/106
== END 2019-08-24 12:53 | disposition home or self-care (01) ==
LOC: ER 10:33
DX: M17.11 Unilateral primary osteoarthritis, right knee (principal); M23.41 Loose body in knee, right knee; M25.461 Effusion, right knee; M25.561 Pain in right knee; H61.21 Impacted cerumen, right ear; I10 Essential (primary) hypertension; E11.9 Type 2 diabetes mellitus without complications
CPT/HCPCS: 99283; 73564; J3490 ×2

== ENCOUNTER 2019-12-04 15:57 | Emergency (ER) | payer MEDICAID ==
--- NOTE | 2019-12-04 16:34 | ER Document Report ---
HPI - HPI Time Seen by Provider: 12/04/19 16:15 Context: Patient is a 39-year-old female who presents emergency department with a chief complaint of right thumb pain. Patient states that she thinks she might have gotten bit by a bug about a week ago. Patient states that it hurts to move her thumb, but she is able to move it. Denies any fevers, body aches, or chills. Patient is right-handed. - ROS Systems Reviewed and Negative: Yes All other systems reviewed and negative - CONSTITUTIONAL Constitutional: DENIES: Fever, Chills - REPRODUCTIVE Reproductive: DENIES: : - MUSCULOSKELETAL Musculoskeletal: REPORTS: Extremity pain - Right thumb, Swelling - Slight to right thumb - DERM Skin Color: Normal Skin Problems: None Past Medical History - General Information source: Patient - Social History Smoking Status: Unknown if Ever Smoked Family History: Reviewed & Not Pertinent - Past Medical History Cardiac Medical History: Reports: Hx Hypertension Denies: Hx Coronary Artery Disease, Hx Heart Attack Pulmonary Medical History: Reports: Hx Bronchitis Denies: Hx Asthma, Hx COPD, Hx Pneumonia Neurological Medical History: Denies: Hx Cerebrovascular Accident, Hx Seizures Endocrine Medical History: Reports: Hx Diabetes Mellitus Type 2 Renal/ Medical History: Denies: Hx Peritoneal Dialysis GI Medical History: Reports: Hx Gastroesophageal Reflux Disease Musculoskeletal Medical History: Reports Hx Arthritis - osteo/knees, Reports Hx Musculoskeletal Trauma Psychiatric Medical History: Reports: Hx Depression Past Surgical History: Reports: Hx Section, Hx Tubal Ligation. Denies: Hx Hysterectomy - Immunizations Immunizations up to date: Yes Hx Diphtheria, Pertussis, Tetanus Vaccination: Yes Vertical Provider Document - CONSTITUTIONAL Agree With Documented VS: Yes Exam Limitations: No Limitations General Appearance: No Apparent Distress - INFECTION CONTROL TRAVEL OUTSIDE OF THE [place] IN LAST 30 DAYS: No - HEENT HEENT: Atraumatic, Normocephalic, PERRLA - NECK Neck: Normal Inspection - RESPIRATORY Respiratory: No Respiratory Distress - CARDIOVASCULAR Cardiovascular: Regular Rate, Regular Rhythm Pulses: Normal: Radial - MUSCULOSKELETAL/EXTREMETIES Musculoskeletal/Extremeties: FROM, Tender - Right distal thumb, Edema - Very slight to right distal thumb - NEURO Level of Consciousness: Awake, Alert, Appropriate Motor/Sensory: No Motor Deficit, No Sensory Deficit - DERM Integumentary: Warm, Dry Course - Re-evaluation Re-evalutation: 12/04/19 16:31 Patient is able to flex and extend thumb with no difficulty. There is a little bit of swelling noted to her right thumb. Patient is already on ibuprofen. We will start the patient on Keflex for cellulitis. I have a low suspicion for necrotizing fasciitis. Patient will follow-up with her primary care provider. No evidence of tenosynovitis. Follow-up precautions were given. Verbal discharge instructions were given to the patient. They verbalized understanding. They are stable for discharge. Discharge - Discharge Clinical Impression: Cellulitis Qualifiers: Site of cellulitis: extremity Site of cellulitis of extremity: finger Laterality: right Qualified Code(s): L03.011 - Cellulitis of right finger Condition: Stable Disposition: HOME, SELF-CARE Additional Instructions: You were seen today in the emergency department for swelling of your right thumb. Start your antibiotics. You are being treated for cellulitis. Follow- up with your primary care provider in the next 3 to 5 days. Prescriptions: Cephalexin Monohydrate [Keflex 500 mg Capsule] 500 mg PO QID 7 Days #28 capsule Referrals: HEIDI ZAMAN MD [Primary Care Provider] - Follow up in 3-5 days
== END 2019-12-04 16:40 | disposition home or self-care (01) ==
LOC: ER 15:57
DX: L03.011 Cellulitis of right finger (principal); M79.644 Pain in right finger(s); E11.9 Type 2 diabetes mellitus without complications; I10 Essential (primary) hypertension
CPT/HCPCS: 99283

== ENCOUNTER 2020-01-12 07:42 | Emergency (ER) | payer MEDICAID ==
[2020-01-12 10:31] LABS: APPEARANCE,URINE CLEAR; BILIRUBIN,URINE NEGATIVE (NEGATIVE); COLOR,URINE YELLOW; GLUCOSE, URINE NEGATIVE (NEGATIVE); KETONES,URINE NEGATIVE (NEGATIVE); LEUKOCYTE ESTERASE,URINE NEGATIVE (NEGATIVE); NITRITE,URINE NEGATIVE (NEGATIVE); PROTEIN,URINE 30 mg/dL (NEGATIVE)
[2020-01-12 10:39] LABS: ABSOLUTE BASOPHILS # (AUTO) 0.1 10^3/uL (0.0-0.2); ABSOLUTE EOSINOPHILS # (AUTO) 0.3 10^3/uL (0.0-0.6); ABSOLUTE LYMPHOCYTES (AUTO) 2.2 10^3/uL (0.5-4.7); ABSOLUTE MONOCYTES (AUTO) 0.4 10^3/uL (0.1-1.4); ABSOLUTE NEUT (AUTO) 6.4 10^3/uL (1.7-8.2); BASOPHILS % (AUTO) 0.7 % (0-2); EOSINOPHILS % (AUTO) 3.6 % (0-6); HEMOGLOBIN 8.3 g/dL (12.0-15.5); LYMPHOCYTES % (AUTO) 23.2 % (13-45); MEAN CORPUSCULAR HEMOGLOBIN 19.7 pg (27.0-33.4); MEAN CORPUSCULAR HGB CONC 30.8 g/dL (32.0-36.0); MEAN CORPUSCULAR VOLUME 64 fl (80-97); MONOCYTES % (AUTO) 4.4 % (3-13); PLATELET COUNT 362 10^3/uL (150-450); RED BLOOD COUNT 4.22 10^6/uL (3.72-5.28); RED CELL DISTRIBUTION WIDTH 19.4 % (11.5-14.0); SEGMENTED NEUTROPHILS % (AUTO) 68.1 % (42-78); TOTAL CELLS COUNTED % (AUTO) 100 %; WHITE BLOOD COUNT 9.4 10^3/uL (4.0-10.5)
[2020-01-12 10:50] LABS: ALBUMIN 4.3 g/dL (3.5-5.0); ALKALINE PHOSPHATASE 63 U/L (38-126); ANION GAP 10 (5-19); ASPARTATE AMINO TRANSFERASE 19 U/L (14-36); BILIRUBIN,DIRECT 0.3 mg/dL (0.0-0.4); BILIRUBIN,TOTAL 0.5 mg/dL (0.2-1.3); BLOOD UREA NITROGEN 17 mg/dL (7-20); CALCIUM 10.6 mg/dL (8.4-10.2); CARBON DIOXIDE 27 mmol/L (22-30); CHLORIDE 101 mmol/L (98-107); GLUCOSE 109 mg/dL (75-110); POTASSIUM 4.5 mmol/L (3.6-5.0); TOTAL PROTEIN 7.4 g/dL (6.3-8.2)
[2020-01-12 11:04] LABS: ANISOCYTOSIS 2+; HYPOCHROMASIA 1+
[2020-01-12 11:05] LABS: PLATELET COMMENT ADEQUATE; POIKILOCYTOSIS SLIGHT; POLYCHROMASIA SLIGHT; TARGET CELLS SLIGHT
[2020-01-12] MEDS ORDERED: METOCLOPRAMIDE HCL INJ/PF 10 MG/2 ML SDV IV SCH (12:15)
[2020-01-12] MEDS ORDERED: NORMAL SALINE 1000 ML 1,000 ML IV ONE (12:15)
[2020-01-12] MEDS ORDERED: LISINOPRIL 10 MG TABLET PO ONE (12:18)
[2020-01-12] MEDS ORDERED: HYDROCHLOROTHIAZIDE 25 MG TABLET PO ONE (12:18)
--- NOTE | 2020-01-12 12:51 | RADIOLOGY REPORT (SQ) ---
EXAM DESCRIPTION: HAND RIGHT 3 VIEWS IMAGES COMPLETED DATE/TIME: 01/12/2020 12:40 pm REASON FOR STUDY: pain COMPARISON: None. EXAM PARAMETERS: NUMBER OF VIEWS: Three views. TECHNIQUE: AP, lateral and oblique radiographic images acquired of the right hand. LIMITATIONS: None. FINDINGS: MINERALIZATION: Normal. BONES: No acute fracture or dislocation. No worrisome bone lesions. No significant osteophytes. JOINTS: No erosions. No daphne-articular osteopenia. No chondrocalcinosis. SOFT TISSUES: No swelling. No calcifications. OTHER: No other significant finding. IMPRESSION: NEGATIVE STUDY OF THE RIGHT HAND. NO ACUTE POST-TRAUMATIC CHANGES. NO EXPLANATION FOR PA IN. TECHNICAL DOCUMENTATION: JOB ID: [id number] 2010 [employer]- All Rights Reserved Reading location - IP/workstation name: [email or web address]
--- NOTE | 2020-01-12 13:47 | ER Document Report ---
ED General - General Chief Complaint: Abdominal Pain Stated Complaint: NAUSEA Time Seen by Provider: 01/12/20 11:53 Primary Care Provider: HEIDI ZAMAN MD [Primary Care Provider] - Follow up as needed Mode of Arrival: Ambulatory Information source: Patient TRAVEL OUTSIDE OF THE [place] IN LAST 30 DAYS: No - HPI Notes: Patient presents complaint of abdominal pain right thumb pain with nausea vomiting. She states nausea vomiting is the worst. The abdominal pain is a crampy sensation and radiates throughout her abdomen. It is diffuse. Nothing makes it better or worse. She states has not been able to eat or take her medic shantel today. She states that her right thumb has been hurting for approximate 1 year but she has not seen a doctor concerning this. She states she does have gastroparesis. - Related Data Allergies/Adverse Reactions: acetaminophen [From Tylenol] Allergy (Verified 01/12/20 09:27) tramadol Allergy (Verified 01/12/20 09:27) Home Medications: metformin. lisinopril. oxycodone. gabapentin. celebrex Past Medical History - General Information source: Patient - Social History Smoking Status: Never Smoker Chew tobacco use (# tins/day): No Frequency of alcohol use: None Drug Abuse: Marijuana Family History: Reviewed & Not Pertinent Patient has homicidal ideation: No - Past Medical History Cardiac Medical History: Reports: Hx Hypertension Denies: Hx Coronary Artery Disease, Hx Heart Attack Pulmonary Medical History: Reports: Hx Bronchitis Denies: Hx Asthma, Hx COPD, Hx Pneumonia Neurological Medical History: Denies: Hx Cerebrovascular Accident, Hx Seizures Endocrine Medical History: Reports: Hx Diabetes Mellitus Type 2 Renal/ Medical History: Denies: Hx Peritoneal Dialysis GI Medical History: Reports: Hx Gastroesophageal Reflux Disease Musculoskeletal Medical History: Reports Hx Arthritis - osteo/knees, Reports Hx Musculoskeletal Trauma Psychiatric Medical History: Reports: Hx Depression Past Surgical History: Reports: Hx Section, Hx Tubal Ligation. Denies: Hx Hysterectomy - Immunizations Immunizations up to date: Yes Hx Diphtheria, Pertussis, Tetanus Vaccination: Yes Review of Systems - Review of Systems Constitutional: denies: Chills, Fever Cardiovascular: denies: Chest pain, Palpitations Respiratory: denies: Cough, Short of breath -: Yes All other systems reviewed and negative Physical Exam - Vital signs Vitals: Temp Pulse BP Pulse Ox 98.2 F 92 137/81 H 97 01/12/20 08:22 01/12/20 08:22 01/12/20 08:22 01/12/20 08:22 Interpretation: Normal - General General appearance: Appears well, Alert - HEENT Head: Normocephalic, Atraumatic Eyes: Normal Pupils: PERRL - Respiratory Respiratory status: No respiratory distress Chest status: Nontender Breath sounds: Normal Chest palpation: Normal - Cardiovascular Rhythm: Regular Heart sounds: Normal auscultation Murmur: No - Abdominal Inspection: Normal Distension: No distension Bowel sounds: Normal Tenderness: Nontender Organomegaly: No organomegaly - Back Back: Normal, Nontender - Extremities General upper extremity: Normal inspection, Tender - Right thumb is diffusely tender about the base. Inspection of the area is unremarkable however, Normal color, Normal ROM, Normal temperature General lower extremity: Normal inspection, Nontender, Normal color, Normal ROM, Normal temperature, Normal weight bearing. No: Teodoro's sign - Neurological Neuro grossly intact: Yes Cognition: Normal Orientation: AAOx4 Rodney Coma Scale Eye Opening: Spontaneous Stacy Coma Scale Verbal: Oriented Stacy Coma Scale Motor: Obeys Commands Rodney Coma Scale Total: 15 Speech: Normal Motor strength normal: LUE, RUE, LLE, RLE Sensory: Normal - Psychological Associated symptoms: Normal affect, Normal mood - Skin Skin Temperature: Warm Skin Moisture: Dry Skin Color: Normal Course - Re-evaluation Re-evalutation: 01/12/20 13:44 Patient presents with nausea vomiting and abdominal pain. She states she has history of gastroparesis however patient is also out of her oxycodone which brings up the possibility that she may have a combination withdrawal as well as some gastroparesis symptoms. She also complains of some right thumb pain. Inspection and x-ray are unremarkable of this area. It is possible she may have a mild tendinitis. I am going to refer her to orthopedics for this. In addition patient is found to be anemic with a hemoglobin of 8.3 for which I will start the patient on some oral iron pills. - Vital Signs Vital signs: Temp Pulse Resp BP Pulse Ox 98.2 F 92 137/81 H 97 01/12/20 08:22 01/12/20 08:22 01/12/20 08:22 01/12/20 08:22 - Laboratory Result Diagrams: 01/12/20 10:01 01/12/20 10:01 Laboratory results interpreted by me: 01/12/20 01/12/20 01/12/20 10:01 10:01 10:01 Hgb 8.3 L Hct 27.0 L MCV 64 L MCH 19.7 L MCHC 30.8 L RDW 19.4 H Calcium 10.6 H Urine Protein 30 H Urine Urobilinogen 2.0 H - Diagnostic Test Radiology reviewed: Image reviewed, Reports reviewed - EKG Interpretation by Me EKG shows normal: Sinus rhythm Rate: Normal - 68 Rhythm: NSR [place]/QRS: No: Right axis deviation, Left axis deviation Procedures - Immobilization Right Thumb Time completed: 13:45 Pre-Proc Neuro Vasc Exam: Normal Immobilizer type: Thumb spica Performed by: RN Post-Proc Neuro Vasc Exam: Normal Alignment checked and good: Yes Discharge - Discharge Clinical Impression: Gastroparesis, Tendonitis Anemia Qualifiers: Anemia type: iron deficiency Iron deficiency anemia type: chronic blood loss Qualified Code(s): D50.0 - Iron deficiency anemia secondary to blood loss (chronic) Condition: Stable Disposition: HOME, SELF-CARE Instructions: Tendonitis ([facility]), Anemia ([facility]) Prescriptions: Ferrous Sulfate 325 mg PO TID 30 Days #90 tablet. Oxycodone HCl 5 mg PO Q8 PRN 3 Days #8 capsule PRN Reason: For Pain Referrals: RAJEEV GO MD [NO LOCAL MD] - Follow up in 1 week
[2020-01-12 14:23] VITALS: BP 136/121
--- NOTE | 2020-01-12 21:30 | EKG REPORT ---
SEVERITY:- ABNORMAL ECG - SINUS RHYTHM LEFT VENTRICULAR HYPERTROPHY : Confirmed by: Jeremi Waggoner MD 12-Jan-2020 21:29:44
== END 2020-01-12 14:32 | disposition home or self-care (01) ==
LOC: ER 07:42
DX: E11.43 Type 2 diabetes mellitus with diabetic autonomic (poly)neuropathy (principal); K31.84 Gastroparesis; D50.0 Iron deficiency anemia secondary to blood loss (chronic); M77.9 Enthesopathy, unspecified; M79.644 Pain in right finger(s); I10 Essential (primary) hypertension; F12.10 Cannabis abuse, uncomplicated; M17.0 Bilateral primary osteoarthritis of knee; Z79.899 Other long term (current) drug therapy; Z79.84 Long term (current) use of oral hypoglycemic drugs; Z79.1 Long term (current) use of non-steroidal anti-inflammatories (NSAID); Z88.8 Allergy status to other drugs, medicaments and biological substances; Z88.6 Allergy status to analgesic agent
CPT/HCPCS: 93005; 99285; 96361; 96374; 36415; 83690; 85025; 81025; 80053; 81001; 73130; 93010; 29125; J3490 ×2; J2765; J7030

== ENCOUNTER 2020-01-26 23:49 | Observation (INO) | payer MEDICAID ==
[2020-01-27] MEDS ORDERED: METOCLOPRAMIDE HCL INJ/PF 10 MG/2 ML SDV IV ONE ×2 (00:27→03:45)
--- NOTE | 2020-01-27 00:28 | ER Document Report ---
ED Medical Screen (RME) - General Stated Complaint: GI ISSUES Time Seen by Provider: 01/27/20 00:19 Primary Care Provider: HEIDI ZAMAN MD [Primary Care Provider] - Follow up as needed Notes: Patient is a 39-year-old female who presents emergency department with a chief complaint of nausea and vomiting. Patient states that she has gastroparesis and this feels like her gastroparesis. Denies any contact with anybody who tested positive for COVID-19. Exam: Patient was upset, yelling because she was in the "Covid area." Social distancing maintained. I have greeted and performed a rapid initial assessment of this patient. A comprehensive ED assessment and evaluation of the patient, analysis of test results and completion of medical decision making process will be conducted by an additional ED providers. TRAVEL OUTSIDE OF THE [place] IN LAST 30 DAYS: No - Related Data Allergies/Adverse Reactions: acetaminophen [From Tylenol] Allergy (Verified 01/19/20 10:52) tramadol Allergy (Verified 01/19/20 10:52) Past Medical History - Past Medical History Cardiac Medical History: Reports: Hx Hypertension Denies: Hx Coronary Artery Disease, Hx Heart Attack Pulmonary Medical History: Denies: Hx Asthma, Hx Bronchitis, Hx COPD, Hx Pneumonia Neurological Medical History: Denies: Hx Cerebrovascular Accident, Hx Seizures Endocrine Medical History: Reports: Hx Diabetes Mellitus Type 2 Renal/ Medical History: Denies: Hx Peritoneal Dialysis GI Medical History: Reports: Hx Gastroesophageal Reflux Disease Musculoskeltal Medical History: Reports Hx Arthritis - GENERALIZED, Reports Hx Musculoskeletal Trauma Psychiatric Medical History: Reports: Hx Depression Past Surgical History: Reports: Hx Section, Hx Tubal Ligation. Denies: Hx Hysterectomy - Immunizations Immunizations up to date: Yes Hx Diphtheria, Pertussis, Tetanus Vaccination: Yes Doctor's Discharge - Discharge Referrals: HEIDI ZAMAN MD [Primary Care Provider] - Follow up as needed
[2020-01-27 01:13] LABS: ABSOLUTE EOSINOPHILS # (AUTO) 0.3 10^3/uL (0.0-0.6); ABSOLUTE LYMPHOCYTES (AUTO) 1.5 10^3/uL (0.5-4.7); ABSOLUTE MONOCYTES (AUTO) 0.5 10^3/uL (0.1-1.4); ABSOLUTE NEUT (AUTO) 5.2 10^3/uL (1.7-8.2); BASOPHILS % (AUTO) 0.7 % (0-2); EOSINOPHILS % (AUTO) 3.8 % (0-6); HEMATOCRIT 30.2 % (36.0-47.0); HEMOGLOBIN 9.5 g/dL (12.0-15.5); LYMPHOCYTES % (AUTO) 19.5 % (13-45); MEAN CORPUSCULAR HEMOGLOBIN 20.2 pg (27.0-33.4); MEAN CORPUSCULAR HGB CONC 31.5 g/dL (32.0-36.0); MEAN CORPUSCULAR VOLUME 64 fl (80-97); MONOCYTES % (AUTO) 6.7 % (3-13); PLATELET COUNT 343 10^3/uL (150-450); RED BLOOD COUNT 4.72 10^6/uL (3.72-5.28); SEGMENTED NEUTROPHILS % (AUTO) 69.3 % (42-78); TOTAL CELLS COUNTED % (AUTO) 100 %; WHITE BLOOD COUNT 7.5 10^3/uL (4.0-10.5)
[2020-01-27 01:26] LABS: ALBUMIN 4.6 g/dL (3.5-5.0); ALKALINE PHOSPHATASE 74 U/L (38-126); ANION GAP 13 (5-19); ASPARTATE AMINO TRANSFERASE 23 U/L (14-36); BILIRUBIN,DIRECT 0.1 mg/dL (0.0-0.4); BILIRUBIN,TOTAL 0.4 mg/dL (0.2-1.3); BLOOD UREA NITROGEN 15 mg/dL (7-20); CALCIUM 10.8 mg/dL (8.4-10.2); CARBON DIOXIDE 26 mmol/L (22-30); CHLORIDE 98 mmol/L (98-107); GLUCOSE 159 mg/dL (75-110); POTASSIUM 3.8 mmol/L (3.6-5.0)
[2020-01-27 01:35] LABS: ANISOCYTOSIS 2+; APPEARANCE,URINE SLIGHTLY-CLOUDY; BILIRUBIN,URINE NEGATIVE (NEGATIVE); COLOR,URINE YELLOW; GLUCOSE, URINE NEGATIVE (NEGATIVE); KETONES,URINE NEGATIVE (NEGATIVE); LEUKOCYTE ESTERASE,URINE NEGATIVE (NEGATIVE); NITRITE,URINE NEGATIVE (NEGATIVE); POIKILOCYTOSIS SLIGHT; PROTEIN,URINE 100 mg/dL (NEGATIVE); TARGET CELLS SLIGHT; URINE SPECIFIC GRAVITY 1.023
[2020-01-27 01:36] LABS: PLATELET COMMENT ADEQUATE
[2020-01-27] MEDS ORDERED: NORMAL SALINE 1000 ML 1,000 ML IV ONE (03:50)
[2020-01-27] MEDS ORDERED: NORMAL SALINE 1000 ML 1,000 ML IV PRN (03:56)
--- NOTE | 2020-01-27 04:02 | ER Document Report ---
ED General - General Chief Complaint: Abdominal Pain Stated Complaint: GI ISSUES Time Seen by Provider: 01/27/20 00:19 Primary Care Provider: HEIDI ZAMAN MD [Primary Care Provider] - Follow up as needed Notes: 39-year-old female history of diabetes, gastroparesis, distant , tubal ligation presents with 1 day of gradual onset gradually worsening severe vomiting with inability to keep down any liquids or solids by mouth similar to her prior gastroparesis symptoms. Patient endorses some mild epigastric discomfort. Patient denies any recent illness, fever, headache, neck pain or stiffness, dysuria, frequency, urgency, flank pain, black stool, bloody stool, constipation, obstipation, syncope, chest pain, shortness of breath TRAVEL OUTSIDE OF THE [place] IN LAST 30 DAYS: No - Related Data Allergies/Adverse Reactions: acetaminophen [From Tylenol] Allergy (Verified 01/19/20 10:52) tramadol Allergy (Verified 01/19/20 10:52) Past Medical History - General Information source: Patient, [facility] Records - Social History Smoking Status: Unknown if Ever Smoked Family History: Reviewed & Not Pertinent - Past Medical History Cardiac Medical History: Reports: Hx Hypertension Denies: Hx Coronary Artery Disease, Hx Heart Attack Pulmonary Medical History: Denies: Hx Asthma, Hx Bronchitis, Hx COPD, Hx Pneumonia Neurological Medical History: Denies: Hx Cerebrovascular Accident, Hx Seizures Endocrine Medical History: Reports: Hx Diabetes Mellitus Type 2 Renal/ Medical History: Denies: Hx Peritoneal Dialysis GI Medical History: Reports: Hx Gastroesophageal Reflux Disease Musculoskeletal Medical History: Reports Hx Arthritis - GENERALIZED, Reports Hx Musculoskeletal Trauma Psychiatric Medical History: Reports: Hx Depression Past Surgical History: Reports: Hx Section, Hx Tubal Ligation. Denies: Hx Hysterectomy - Immunizations Immunizations up to date: Yes Hx Diphtheria, Pertussis, Tetanus Vaccination: Yes Review of Systems - Review of Systems Notes: REVIEW OF SYSTEMS: CONSTITUTIONAL : Denies fever, chills, or sweats. EENT: Denies recent cold/sinus symptoms, denies throat pain CARDIOVASCULAR: Denies chest pain, LEONELA RESPIRATORY: Denies cough, denies shortness of breath. GASTROINTESTINAL: + abdominal pain, +nausea/vomiting. GENITOURINARY: Denies difficulty urinating, painful urination. FEMALE GENITOURINARY: Denies abnormal vaginal bleeding, vaginal discharge. MUSCULOSKELETAL: Denies neck pain, back pain. SKIN: Denies rash or skin lesions. HEMATOLOGIC : Denies easy bruising or bleeding. LYMPHATIC: Denies swollen, enlarged glands. NEUROLOGICAL: Denies headache, denies change in gait. PSYCHIATRIC: Denies anxiety or stress or depression. Physical Exam - Vital signs Vitals: Temp Pulse Resp BP Pulse Ox 99.4 F 123 H 17 126/69 H 99 01/27/20 00:30 01/27/20 00:30 01/27/20 00:30 01/27/20 00:30 01/27/20 00:30 - Notes Notes: PHYSICAL EXAMINATION: GENERAL: Very comfortable appearing middle-aged woman sleeping in stretcher without any visible signs of pain who arouses easily to voice HEAD: Atraumatic, normocephalic. EYES: Pupils equal round and appropriate constriction, sclera anicteric, conjunctiva are normal. ENT: nares patent, dry mucous membranes. NECK: Normal range of motion, supple without lymphadenopathy LUNGS: Breath sounds clear to auscultation bilaterally and equal. No wheezes rales or rhonchi. HEART: Mildly tachycardic, regular rhythm without any murmurs rubs or gallops ABDOMEN: Soft, nontender, no guarding, no rebound, no masses, no CVAT EXTREMITIES: Normal range of motion, no pitting or edema. No cyanosis. NEUROLOGICAL: Awake, alert, conversing appropriately, moves all extremities spontaneously. PSYCH: Normal mood, normal affect. SKIN: Warm, Dry Course - Re-evaluation Re-evalutation: 01/27/20 04:02 Vomiting with epigastric discomfort, unable to tolerate p.o., and patient with JULIANO with creatinine approximately 50% increase since last visit approximately 2 weeks ago. Benign abdominal exam, patient otherwise well-appearing, initial marked tachycardia has improved at time of my evaluation to mild tachycardia without any intervention in the interim. No significant lab abnormalities, patient will need to follow-up elevated calcium when she is discharged. Patient presented to Dr. Staples for observation for IV hydration, recheck of BMP, and p.o. challenge. 01/27/20 04:33 Dr. Staples has accepted patient to observation. - Vital Signs Vital signs: Temp Pulse Resp BP Pulse Ox 99.4 F 123 H 17 126/69 H 99 01/27/20 00:30 01/27/20 00:30 01/27/20 00:30 01/27/20 00:30 01/27/20 00:30 - Laboratory Result Diagrams: 01/27/20 00:42 01/27/20 00:42 Laboratory results interpreted by me: 01/27/20 01/27/20 01/27/20 00:42 00:42 00:42 Hgb 9.5 L Hct 30.2 L MCV 64 L MCH 20.2 L MCHC 31.5 L RDW 20.0 H Creatinine 1.50 H Est GFR ( Amer) 46 L Est GFR (MDRD) Non-Af 38 L Glucose 159 H Calcium 10.8 H Urine Protein 100 H Urine Urobilinogen 2.0 H Urine Ascorbic Acid 20 H Discharge - Discharge Clinical Impression: Hypercalcemia, Acute kidney injury Nausea & vomiting Qualifiers: Vomiting type: cyclical vomiting Vomiting Intractability: intractable Qualified Code(s): G43.A1 - Cyclical vomiting, 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
[2020-01-27] MEDS ORDERED: RINGERS SOLUTION,LACTATED 1,000 ML IV PRN (04:16)
[2020-01-27] MEDS ORDERED: PROMETHAZINE HCL INJ 25 MG/1 ML VIAL IV PRN (04:16)
[2020-01-27] MEDS ORDERED: GLUCAGON,HUMAN RECOMB 1 MG INJ IM PRN (04:30)
[2020-01-27] MEDS ORDERED: DEXTROSE 50%-WATER 25 GM/50 ML DISP.SYRIN IV PRN ×2 (04:30)
[2020-01-27] MEDS ORDERED: DEXTROSE 40% GEL 15 GM TUBE PO PRN ×2 (04:30)
--- NOTE | 2020-01-27 04:55 | PDOC H&P ---
History of Present Illness Admission Date/PCP: HEIDI ZAMAN MD Patient complains of: Nausea, vomiting History of Present Illness: JOSE GIVENS is a 39 year old female with a history of hypertension, type 2 diabetes with gastroparesis presents with 2 days duration of intractable nausea and vomiting of ingested matter. Associated with this he also reports burning epigastric pain which is 10/10 intensity at its worst, nonradiating with no clear aggravating or relieving factor. She reports history of watery diarrhea 2 days back but she reports that it has improved in the past 24 hours. She endorses episodes of dizziness especially when she gets up from a sitting position. Patient reports that she uses marijuana every day to help her with her back pain. She denies any history of hematemesis, melena, hematochezia, cough, shortness of breath, palpitation, leg swelling. She denies recent sick contact history. Past Medical History Cardiac Medical History: Reports: Hypertension Denies: Coronary Artery Disease, Myocardial Infarction Pulmonary Medical History: Denies: Asthma, Bronchitis, Chronic Obstructive Pulmonary Disease (COPD), Pneumonia Neurological Medical History: Denies: Seizures Endocrine Medical History: Reports: Diabetes Mellitus Type 2 GI Medical History: Reports: Gastroesophageal Reflux Disease Musculoskeltal Medical History: Reports: Arthritis - GENERALIZED Psychiatric Medical History: Reports: Depression Hematology: Reports: Anemia Past Surgical History Past Surgical History: Reports: Section, Tubal Ligation Denies: Hysterectomy Social History Smoking Status: Unknown if Ever Smoked Frequency of Alcohol Use: Occasional Hx Recreational Drug Use: Yes Drugs: Marijuana Hx Prescription Drug Abuse: No - Advance Directive Resuscitation Status: Full Code Family History Family History: Reviewed & Not Pertinent Parental Family History Reviewed: Yes Children Family History Reviewed: Yes Sibling(s) Family History Reviewed.: Yes Medication/Allergy Home Medications: Metoclopramide HCl [Reglan 10 mg Tablet] 10 mg PO TID 11/23/18 Omeprazole 10 mg PO BID 11/23/18 Glimepiride [Amaryl 4 mg Tablet] 4 mg PO DAILY #90 tablet 11/26/18 Lisinopril [Prinivil] 20 mg PO DAILY #90 tablet 11/26/18 Pioglitazone HCl [Actos 30 mg Tablet] 30 mg PO QAM #90 tablet 11/26/18 Acetaminophen [Tylenol] 325 mg PO ASDIR PRN 12/30/18 Brexpiprazole [Rexulti] 3 mg PO DAILY 12/30/18 Fluoxetine HCl [Prozac 20 mg Capsule] 20 mg PO DAILY 12/30/18 Gabapentin [Neurontin 300 mg Capsule] 300 mg PO TID 12/30/18 Ibuprofen [Ibu] 800 mg PO ASDIR PRN 12/30/18 Polyethylene Glycol 3350 [Clearlax] 17 gm PO ASDIR PRN 12/30/18 Potassium Chloride 10 meq PO DAILY 12/30/18 Trazodone HCl [Desyrel] 100 mg PO QHS 12/30/18 Hydrocodone/Acetaminophen [Rice 5-325 mg Tablet] 1 tab PO Q6H PRN #10 tablet 08/24/19 Cephalexin Monohydrate [Keflex 500 mg Capsule] 500 mg PO QID 7 Days #28 capsule 12/04/19 Brexpiprazole [Rexulti] 3 mg PO DAILY 12/22/19 Duloxetine HCl [Cymbalta 20 Mg Capsule.Dr] 20 mg PO DAILY 12/22/19 Ibuprofen [Ibu] 800 mg PO PRN PRN 12/22/19 Lisinopril [Zestril] 10 mg PO DAILY 12/22/19 Metformin HCl 1,000 mg PO BID 12/22/19 Metoclopramide HCl [Reglan] 10 mg PO BID 12/22/19 Oxycodone HCl 5 mg PO PRN PRN 12/22/19 Polyethylene Glycol 3350 [Clearlax] 17 gm PO PRN PRN 12/22/19 Potassium Chloride 10 meq PO DAILY 12/22/19 Ferrous Sulfate 325 mg PO TID 30 Days #90 tablet.dr 01/12/20 Oxycodone HCl 5 mg PO Q8 PRN 3 Days #8 capsule 01/12/20 Allergies/Adverse Reactions: acetaminophen [From Tylenol] Allergy (Verified 01/19/20 10:52) tramadol Allergy (Verified 01/19/20 10:52) Review of Systems Constitutional: PRESENT: as per HPI Eyes: ABSENT: visual disturbances Ears: ABSENT: hearing changes Nose, Mouth, and Throat: ABSENT: as per HPI, headache(s), mouth pain, sore throat, vertigo, other Cardiovascular: ABSENT: chest pain, dyspnea on exertion, edema, orthropnea, palpitations Respiratory: ABSENT: cough, hemoptysis Gastrointestinal: PRESENT: as per HPI Genitourinary: ABSENT: dysuria, hematuria Musculoskeletal: PRESENT: back pain Integumentary: ABSENT: rash, wounds Neurological: ABSENT: abnormal gait, abnormal speech, confusion, dizziness, focal weakness, syncope Psychiatric: ABSENT: anxiety, depression, homidical ideation, suicidal ideation Endocrine: ABSENT: cold intolerance, heat intolerance, polydipsia, polyuria Hematologic/Lymphatic: ABSENT: easy bleeding, easy bruising Physical Exam Vital Signs: Temp Pulse Resp BP Pulse Ox 99.4 F 123 H 17 126/69 H 99 01/27/20 00:30 01/27/20 00:30 01/27/20 00:30 01/27/20 00:30 01/27/20 00:30 Intake & Output 01/25/20 01/26/20 01/27/20 06:59 06:59 06:59 Weight 124.4 kg Additional comments: GENERAL APPEARANCE: Appears in mild discomfort, not in respiratory distress HEENT: Normocephalic and atraumatic. No scleral icterus. Dry oral mucosa NECK: Supple. No lymphadenopathy or tenderness. No JVD CHEST: Symmetric. Nontender to palpation. LUNGS: Breath sounds are equal and clear bilaterally. No wheezes, rhonchi, or rales. HEART: Regular rate and rhythm with normal S1 and S2. No murmurs, gallops, or rubs. ABDOMEN: Full abdomen, normoactive bowel sounds, soft, mild tenderness at epigastric area but no guarding or rigidity No organomegaly or mass detected. No CVA tenderness EXTREMITIES: No cyanosis, clubbing, or edema. MUSCULOSKELETAL: No deformity, atrophy or swelling noted PSYCHIATRIC: The patient is awake, alert, and oriented x3. Appropriate mood and affect. SKIN: Warm, dry, and well perfused. No lesions or rashes are noted. NEUROLOGIC: No focal sensory or motor deficits are noted. Results Laboratory Results: 01/27/20 00:42 01/27/20 00:42 01/27/20 01/27/20 01/27/20 00:42 00:42 00:42 WBC 7.5 RBC 4.72 Hgb 9.5 L Hct 30.2 L MCV 64 L MCH 20.2 L MCHC 31.5 L RDW 20.0 H Plt Count 343 Seg Neutrophils % 69.3 Sodium 137.1 Potassium 3.8 Chloride 98 Carbon Dioxide 26 Anion Gap 13 BUN 15 Creatinine 1.50 H Est GFR ( Amer) 46 L Glucose 159 H Calcium 10.8 H Total Bilirubin 0.4 AST 23 Alkaline Phosphatase 74 Total Protein 8.0 Albumin 4.6 Lipase 51.5 Urine Color YELLOW Urine Appearance SLIGHTLY-CLOUDY Urine pH 6.0 Ur Specific [place] 1.023 Urine Protein 100 H Urine Glucose (UA) NEGATIVE Urine Ketones NEGATIVE Urine Blood NEGATIVE Urine Nitrite NEGATIVE Ur Leukocyte Esterase NEGATIVE Urine WBC (Auto) 1 Urine RBC (Auto) 7 Assessment and Plan - Diagnosis (1) Acute kidney injury Is this a current diagnosis for this admission?: Yes Plan: Likely prerenal secondary to GI loss from her intractable nausea and vomiting BUN/creatinine in this presentation was 15/1.5 from a baseline creatinine of 0.9 Patient has received 2 L of IV fluid while at the ER Due to significant hydration, FeNa may not be revealing Will give additional 1 L of LR Continue monitoring renal indices Avoid nephrotoxic drugs and renally dose medications (2) Volume depletion Is this a current diagnosis for this admission?: Yes Plan: From GI loss due to intractable nausea vomiting and diarrhea Orthostatic vitals not obtained due to patient feeling lightheaded We will continue IV hydration (3) Cannabinoid hyperemesis syndrome Is this a current diagnosis for this admission?: Yes Plan: Patient reports every day use of cannabis Reports multiple past similar symptoms May be overlapping with symptoms of possible gastroparesis We will keep her n.p.o. for now for GI rest Started her on Protonix Phenergan for nausea and vomiting (4) Epigastric pain Is this a current diagnosis for this admission?: Yes Plan: Likely due to dyspepsia from intractable vomiting Lipase was within the normal limit Keep n.p.o. for now for bowel rest Placed her on IV Protonix (5) Microcytic anemia Is this a current diagnosis for this admission?: Yes Plan: H&H on this presentation is 9.5 and 30.2 with an MCV of 64 Patient currently on ferrous sulfate Will obtain iron panel (6) Type 2 diabetes mellitus Is this a current diagnosis for this admission?: Yes Plan: Will hold home oral hypoglycemic for now and place patient on sliding scale insulin, check, hypoglycemia protocol (7) Hypertension Is this a current diagnosis for this admission?: Yes Plan: Will hold antihypertensive medications for now due to volume depletion and JULIANO - Time Time Spent with patient: 35 or more minutes Total Critical Time (Minutes): 35 Medications reviewed and adjusted accordingly: Yes Anticipated Discharge Disposition: Home, Self Care Anticipated Discharge Timeframe: within 48 hours - Inpatient Certification Based on my medical assessment, after consideration of the patient's comorbidities, presenting symptoms, or acuity I expect that the services needed warrant INPATIENT care.: Yes I certify that my determination is in accordance with my understanding of Medicare's requirements for reasonable and necessary INPATIENT services [42 CFR 412.3e].: Yes Medical Necessity: Need Close Monitoring Due to Risk of Patient Decompensation, Need For IV Fluids Post Hospital Care: D/C or Transfer Summary
[2020-01-27] MEDS: HEPARIN SOD (PORCINE) 5,000 UNIT/ML 1 ML VIAL SUBCUT SCH ×3 (06:44→21:08)
[2020-01-27] MEDS: INSULIN REG, HUMAN 100 UNIT/ML 3 ML VIAL (PYX) SUBCUT SCH ×3 (06:48→17:12)
[2020-01-27 07:13] LABS: ANION GAP 9 (5-19); BLOOD UREA NITROGEN 15 mg/dL (7-20); CALCIUM 9.8 mg/dL (8.4-10.2); CARBON DIOXIDE 26 mmol/L (22-30); CHLORIDE 104 mmol/L (98-107); GLUCOSE 134 mg/dL (75-110); POTASSIUM 3.4 mmol/L (3.6-5.0)
[2020-01-27] MEDS ORDERED: RINGERS SOLUTION,LACTATED 1,000 ML IV ONE ×2 (08:39→08:41)
[2020-01-27] MEDS ORDERED: ONDANSETRON 4 MG TAB.RAPDIS PO PRN (08:41)
[2020-01-27] MEDS ORDERED: PROMETHAZINE HCL 25 MG SUPP.RECT PR PRN (08:41)
[2020-01-27] MEDS ORDERED: MAG HYDROX/AL HYDROX/SIMETH SUSP 30 ML UDCUP PO PRN (09:06)
[2020-01-27] MEDS: POTASSI CL 20 MEQ/50 ML RIDER 20 MEQ/50 ML RTUPB IV SCH ×2 (09:58→12:33)
[2020-01-27] MEDS ORDERED: PANTOPRAZOLE SODIUM 40 MG VIAL IV SCH (10:00)
[2020-01-27 10:39] LABS: URINE AMPHETAMINES SCREEN NEGATIVE; URINE BARBITURATES SCREEN NEGATIVE; URINE BENZODIAZEPINES SCREEN NEGATIVE; URINE COCAINE SCREEN NEGATIVE; URINE METHADONE SCREEN NEGATIVE; URINE PHENCYCLIDINE SCREEN NEGATIVE
[2020-01-27 10:47] LABS: URINE MARIJUANA (THC) SCREEN UNCONFIRMED POSITIVE
[2020-01-27] MEDS ORDERED: MAG HYDROX/AL HYDROX/SIMETH SUSP 30 ML UDCUP PO ONE (11:30)
[2020-01-27] MEDS ORDERED: LIDOCAINE 2% VISCOUS SOLN 15 ML UDCUP PO ONE (11:30)
[2020-01-27] MEDS ORDERED: METOCLOPRAMIDE HCL ORAL SOLN 10 MG/10 ML UDCUP PO ONE (11:30)
--- NOTE | 2020-01-27 18:02 | Progress Note ---
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 Overnight events, vital signs, laboratory results, nursing notes, H&P, and orders reviewed. Agree with the plan of care as established. In addition: Have provided an additional liter of LR for hydration. Have replaced her potassium. Have transitioned from IV to oral and rectal antiemetic routes in preparation for discharge. Have resumed the patient's home medication regiment. This evening, per patient's request, have advanced her to a clear liquid diet as she has had no further episodes of emesis. Anticipate discharge home tomorrow morning.
[2020-01-27] MEDS ORDERED: METOCLOPRAMIDE HCL 10 MG TABLET PO SCH (20:00)
[2020-01-27] MEDS: GABAPENTIN 300 MG CAPSULE PO SCH (21:08)
[2020-01-27] MEDS ORDERED: (PENDING PHARMACY ID) (Trazodone Hcl [Desyrel] 100 MG) PO SCH (22:00)
[2020-01-27] MEDS ORDERED: TRAZODONE HCL 50 MG TABLET PO SCH (22:00)
[2020-01-28] MEDS: INSULIN REG, HUMAN 100 UNIT/ML 3 ML VIAL (PYX) SUBCUT SCH ×2 (00:30→06:18)
[2020-01-28 05:18] LABS: IRON(TIBC) 18.2 ug/dL (37-170)
[2020-01-28 05:23] LABS: ANION GAP 8 (5-19); BLOOD UREA NITROGEN 10 mg/dL (7-20); CALCIUM 9.8 mg/dL (8.4-10.2); CARBON DIOXIDE 27 mmol/L (22-30); CHLORIDE 103 mmol/L (98-107); GLUCOSE 90 mg/dL (75-110); POTASSIUM 3.6 mmol/L (3.6-5.0)
[2020-01-28 05:30] LABS: ABSOLUTE RETICS # 0.054 10^6/uL (0.028-0.122); RETICULOCYTE COUNT (AUTO) 1.29 % (0.66-2.85)
[2020-01-28 05:54] LABS: FERRITIN 6.65 ng/mL (6.2-137.0)
[2020-01-28] MEDS: GABAPENTIN 300 MG CAPSULE PO SCH (05:55)
[2020-01-28] MEDS: HEPARIN SOD (PORCINE) 5,000 UNIT/ML 1 ML VIAL SUBCUT SCH (05:55)
[2020-01-28] MEDS ORDERED: PANTOPRAZOLE SODIUM 40 MG TABLET.DR PO SCH (10:00)
[2020-01-28] MEDS ORDERED: DULOXETINE HCL 20 MG CAPSULE.DR PO SCH (10:00)
[2020-01-28] MEDS ORDERED: (PENDING PHARMACY ID) (Brexpiprazole [Rexulti] 3 MG) PO SCH (10:00)
[2020-01-28 10:49] VITALS: BP 148/88
--- NOTE | 2020-01-29 15:31 | PDOC DISCHARGE SUMMARY ---
Impression - Admit/DC Date/PCP Admission Date/Primary Care Provider: 01/27/20 04:55 HEIDI ZAMAN MD Discharge Date: 01/28/20 - Discharge Diagnosis (1) Acute kidney injury Is this a current diagnosis for this admission?: Yes (2) Cannabinoid hyperemesis syndrome Is this a current diagnosis for this admission?: Yes (3) Epigastric pain Is this a current diagnosis for this admission?: Yes (4) Hypertension Is this a current diagnosis for this admission?: Yes (5) Microcytic anemia Is this a current diagnosis for this admission?: Yes (6) Type 2 diabetes mellitus Is this a current diagnosis for this admission?: Yes (7) Volume depletion Is this a current diagnosis for this admission?: Yes - Additional Information Resuscitation Status: Full Code Discharge Diet: As Tolerated Discharge Activity: Activity As Tolerated, Balance Activity w/Rest, Slowly Increase Activity Referrals: HEIDI ZAMAN MD [Primary Care Provider] - 02/02/20 2:45 pm (Follow up within 1 week.) Prescriptions: Ferrous Sulfate 325 mg PO DAILY #90 tablet. Promethazine HCl [Phenergan 25 mg Supp.rect] 1 supp PA Q6H #12 supp.rect Ondansetron [Zofran Odt 4 mg Tablet] 8 mg PO Q6HP PRN #20 tab.rapdis PRN Reason: Home Medications: Glimepiride [Amaryl 4 mg Tablet] 4 mg PO DAILY #90 tablet 11/26/18 Pioglitazone HCl [Actos 30 mg Tablet] 30 mg PO QAM #90 tablet 11/26/18 Gabapentin [Neurontin 300 mg Capsule] 300 mg PO TID 12/30/18 Trazodone HCl [Desyrel] 100 mg PO QHS 12/30/18 Brexpiprazole [Rexulti] 3 mg PO DAILY 12/22/19 Duloxetine HCl [Cymbalta 20 mg Capsule.] 20 mg PO DAILY 12/22/19 Metformin HCl 1,000 mg PO BID 12/22/19 Metoclopramide HCl [Reglan] 10 mg PO BID 12/22/19 Omeprazole 40 mg PO DAILY 01/27/20 Ferrous Sulfate 325 mg PO DAILY #90 tablet. 01/28/20 Ondansetron [Zofran Odt 4 mg Tablet] 8 mg PO Q6HP PRN #20 tab.rapdis 01/28/20 Promethazine HCl [Phenergan 25 mg Supp.rect] 1 supp PA Q6H #12 supp.rect 01/28/20 History of Present Illiness History of Present Illness: Per H&P by Dr. Staples: JOSE GIVENS is a 39 year old female with a history of hypertension, type 2 diabetes with gastroparesis presents with 2 days duration of intractable nausea and vomiting of ingested matter. Associated with this he also reports burning epigastric pain which is 10/10 intensity at its worst, nonradiating with no clear aggravating or relieving factor. She reports history of watery diarrhea 2 days back but she reports that it has improved in the past 24 hours. She endorses episodes of dizziness especially when she gets up from a sitting position. Patient reports that she uses marijuana every day to help her with her back pain. She denies any history of hematemesis, melena, hematochezia, cough, shortness of breath, palpitation, leg swelling. She denies recent sick contact history. Hospital Course Hospital Course: Patient was admitted to the medical floor. She was initially placed in n.p.o. status and provided IV fluids. Electrolytes were monitored and corrected as needed. She received antiemetics for symptom management. As her nausea resolved, she was placed on a clear liquid diet which she tolerated well. The following day, the patient reported that her symptoms had completely resolved and was asking to eat a regular diet and be discharged home. She is discharged in stable condition. She is advised to follow-up with her primary care provider within 1 week. She is instructed to drink plenty of fluids, eat as tolerated and advance her diet slowly. Return to the emergency department as needed, for concerning symptoms. Physical Exam Vital Signs: Temp Pulse Resp BP Pulse Ox 98.2 F 92 18 148/88 H 99 01/28/20 10:00 01/28/20 09:00 01/28/20 09:00 01/28/20 09:00 01/28/20 09:00 Intake & Output 01/27/20 01/28/20 01/29/20 06:59 06:59 06:59 Intake Total 1000 3740 Balance 1000 3740 Weight 124.4 kg 124.4 kg General appearance: PRESENT: no acute distress, cooperative, morbidly obese, well-developed, well-nourished Head exam: PRESENT: atraumatic, normocephalic Eye exam: PRESENT: conjunctiva pink, EOMI, PERRLA. ABSENT: scleral icterus Mouth exam: PRESENT: moist, tongue midline Respiratory exam: PRESENT: clear to auscultation andie, symmetrical, unlabored. ABSENT: rales, rhonchi, wheezes Cardiovascular exam: PRESENT: RRR, +S1, +S2. ABSENT: diastolic murmur, rubs, systolic murmur Vascular exam: PRESENT: normal capillary refill GI/Abdominal exam: PRESENT: normal bowel sounds, soft. ABSENT: distended, guarding, mass, organolmegaly, rebound, tenderness Rectal exam: PRESENT: deferred Extremities exam: PRESENT: full ROM. ABSENT: calf tenderness, clubbing, pedal edema Musculoskeletal exam: PRESENT: ambulatory Neurological exam: PRESENT: alert, awake, oriented to person, oriented to place, oriented to time, oriented to situation, CN II-XII grossly intact. ABSENT: motor sensory deficit Psychiatric exam: PRESENT: appropriate affect, normal mood. ABSENT: homicidal ideation, suicidal ideation Skin exam: PRESENT: dry, intact, warm. ABSENT: cyanosis, rash Results Laboratory Results: WBC 7.5 10^3/uL (4.0-10.5) 01/27/20 00:42 RBC 4.72 10^6/uL (3.72-5.28) 01/27/20 00:42 Hgb 9.5 g/dL (12.0-15.5) L 01/27/20 00:42 Hct 30.2 % (36.0-47.0) L 01/27/20 00:42 MCV 64 fl (80-97) L 01/27/20 00:42 MCH 20.2 pg (27.0-33.4) L 01/27/20 00:42 MCHC 31.5 g/dL (32.0-36.0) L 01/27/20 00:42 RDW 20.0 % (11.5-14.0) H 01/27/20 00:42 Plt Count 343 10^3/uL (150-450) 01/27/20 00:42 Lymph % (Auto) 19.5 % (13-45) 01/27/20 00:42 [place] % (Auto) 6.7 % (3-13) 01/27/20 00:42 Eos % (Auto) 3.8 % (0-6) 01/27/20 00:42 Baso % (Auto) 0.7 % (0-2) 01/27/20 00:42 Reticulocyte # 0.054 10^6/uL (0.028-0.122) 01/28/20 04:45 Absolute Neuts (auto) 5.2 10^3/uL (1.7-8.2) 01/27/20 00:42 Absolute Lymphs (auto) 1.5 10^3/uL (0.5-4.7) 01/27/20 00:42 Absolute Monos (auto) 0.5 10^3/uL (0.1-1.4) 01/27/20 00:42 Absolute Eos (auto) 0.3 10^3/uL (0.0-0.6) 01/27/20 00:42 Absolute Basos (auto) 0.0 10^3/uL (0.0-0.2) 01/27/20 00:42 Seg Neutrophils % 69.3 % (42-78) 01/27/20 00:42 Platelet Comment ADEQUATE 01/27/20 00:42 Poikilocytosis SLIGHT 01/27/20 00:42 Anisocytosis 2+ 01/27/20 00:42 Microcytosis 3+ 01/27/20 00:42 Target Cells SLIGHT 01/27/20 00:42 Retic Count (auto) 1.29 % (0.66-2.85) 01/28/20 04:45 Sodium 137.8 mmol/L (137-145) 01/28/20 04:45 Potassium 3.6 mmol/L (3.6-5.0) 01/28/20 04:45 Chloride 103 mmol/L (98-107) 01/28/20 04:45 Carbon Dioxide 27 mmol/L (22-30) 01/28/20 04:45 Anion Gap 8 (5-19) 01/28/20 04:45 BUN 10 mg/dL (7-20) 01/28/20 04:45 Creatinine 0.81 mg/dL (0.52-1.25) 01/28/20 04:45 Est GFR ( Amer) > 60 (>60) 01/28/20 04:45 Est GFR (MDRD) Non-Af > 60 (>60) 01/28/20 04:45 Glucose 90 mg/dL (75-110) 01/28/20 04:45 POC Glucose 101 mg/dL (70-110) 01/28/20 06:13 Calcium 9.8 mg/dL (8.4-10.2) 01/28/20 04:45 Iron 18.2 ug/dL (37-170) L 01/28/20 04:45 TIBC 391 ug/dL (250-450) 01/28/20 04:45 % Saturation 5 % 01/28/20 04:45 Ferritin 6.65 ng/mL (6.2-137.0) 01/28/20 04:45 Total Bilirubin 0.4 mg/dL (0.2-1.3) 01/27/20 00:42 Direct Bilirubin 0.1 mg/dL (0.0-0.4) 01/27/20 00:42 Neonat Total Bilirubin Not Reportable 01/27/20 00:42 Neonat Direct Bilirubin Not Reportable 01/27/20 00:42 Neonat Indirect Bili Not Reportable 01/27/20 00:42 AST 23 U/L (14-36) 01/27/20 00:42 ALT 13 U/L (<35) 01/27/20 00:42 Alkaline Phosphatase 74 U/L (38-126) 01/27/20 00:42 Total Protein 8.0 g/dL (6.3-8.2) 01/27/20 00:42 Albumin 4.6 g/dL (3.5-5.0) 01/27/20 00:42 Lipase 51.5 U/L (23-300) 01/27/20 00:42 Vitamin B12 320.0 pg/mL (239-931) 01/28/20 04:45 Folate 15.00 ng/mL (>2.76) 01/28/20 04:45 Urine Color YELLOW 01/27/20 00:42 Urine Appearance SLIGHTLY-CLOUDY 01/27/20 00:42 Urine pH 6.0 (5.0-9.0) 01/27/20 00:42 Ur Specific [place] 1.023 01/27/20 00:42 Urine Protein 100 mg/dL (NEGATIVE) H 01/27/20 00:42 Urine Glucose (UA) NEGATIVE mg/dL (NEGATIVE) 01/27/20 00:42 Urine Ketones NEGATIVE mg/dL (NEGATIVE) 01/27/20 00:42 Urine Blood NEGATIVE (NEGATIVE) 01/27/20 00:42 Urine Nitrite NEGATIVE (NEGATIVE) 01/27/20 00:42 Urine Bilirubin NEGATIVE (NEGATIVE) 01/27/20 00:42 Urine Urobilinogen 2.0 mg/dL (<2.0) H 01/27/20 00:42 Ur Leukocyte Esterase NEGATIVE (NEGATIVE) 01/27/20 00:42 Urine WBC (Auto) 1 /HPF 01/27/20 00:42 Urine RBC (Auto) 7 /HPF 01/27/20 00:42 U Hyaline Cast (Auto) 7 /LPF 01/27/20 00:42 Urine Bacteria (Auto) TRACE /HPF 01/27/20 00:42 Squamous Epi Cells Auto 8 /HPF 01/27/20 00:42 Urine Mucus (Auto) OCC /LPF 01/27/20 00:42 Urine Ascorbic Acid 20 (NEGATIVE) H 01/27/20 00:42 Urine HCG, Qual NEGATIVE (NEGATIVE) 01/27/20 00:42 Urine Opiates Screen NEGATIVE 01/27/20 09:05 Urine Methadone Screen NEGATIVE 01/27/20 09:05 Ur Barbiturates Screen NEGATIVE 01/27/20 09:05 Ur Phencyclidine Scrn NEGATIVE 01/27/20 09:05 Ur Amphetamines Screen NEGATIVE 01/27/20 09:05 U Benzodiazepines Scrn NEGATIVE 01/27/20 09:05 Urine Cocaine Screen NEGATIVE 01/27/20 09:05 U Marijuana (THC) Screen UNCONFIRMED POSITIVE 01/27/20 09:05 Plan Plan of Treatment: Patient is discharged home in stable condition. She advised follow-up with her primary care provider within 1 week. Take medications as prescribed. Drink plenty of water, eat as tolerated. Slowly advance diet. Return to the emergency department, as needed, for concerning symptoms. Time Spent: Greater than 30 Minutes Stroke Is this a Stroke Patient?: No Acute Heart Failure Is this a Heart Failure Patient?: No
== END 2020-01-28 11:27 | disposition home or self-care (01) ==
LOC: ER 23:49 → EH 01-27 04:55 → 4N 01-27 07:55
PROVIDERS: ADMIT Student in an Organized Health Care Education/Training Program; ATTEND Registered Nurse
DX: N17.9 Acute kidney failure, unspecified (principal); R11.2 Nausea with vomiting, unspecified; F12.90 Cannabis use, unspecified, uncomplicated; R10.13 Epigastric pain; I10 Essential (primary) hypertension; D50.9 Iron deficiency anemia, unspecified; E11.43 Type 2 diabetes mellitus with diabetic autonomic (poly)neuropathy; K31.84 Gastroparesis; E86.9 Volume depletion, unspecified; K21.9 Gastro-esophageal reflux disease without esophagitis; M54.9 Dorsalgia, unspecified; E66.01 Morbid (severe) obesity due to excess calories; M15.9 Polyosteoarthritis, unspecified; E83.52 Hypercalcemia; R00.0 Tachycardia, unspecified; E11.42 Type 2 diabetes mellitus with diabetic polyneuropathy; Z79.899 Other long term (current) drug therapy; Z79.84 Long term (current) use of oral hypoglycemic drugs; Z98.51 Tubal ligation status
CPT/HCPCS: 99285; 96361; 96374; 96375; 36415 ×2; 82962 ×2; 82607; 82728; 82746; 83540; 83550; 83690; 85025; 81025; 85045; 80048; 80053; 81001; 80307; G0378 ×2; J1644 ×2; J3490 ×7; J2765; C9113; J2550; J3480; J7030; J7120

== ENCOUNTER 2020-03-23 10:08 | Emergency (ER) | payer MEDICAID ==
[2020-03-23 10:20] VITALS: BP 157/99
--- NOTE | 2020-03-23 11:13 | ER Document Report ---
HPI - HPI Time Seen by Provider: 03/23/20 10:59 Quality of pain: Achy Pain Level: 4 Context: Patient presents complaining of bilateral ear pain that started yesterday. Patient complains of swelling to the sclera of her left eye that has been p resent for the past month. Patient complains of chronic right knee pain. Patient denies any injury to the knee. Patient denies any fever. Patient states she came in today because of the ear pain. Patient denies any use of contact lenses or glasses. Patient denies any change in vision. She states she has a cat and is allergic to cats and that is why she has the eye issues. Associated Symptoms: Earache, Other - Right knee pain. denies: Headache, Vomiting Exacerbated by: Movement, Walking Relieved by: Denies Similar symptoms previously: Yes Recently seen / treated by doctor: No - ROS ROS below otherwise negative: Yes Systems Reviewed and Negative: Yes All other systems reviewed and negative - CONSTITUTIONAL Constitutional: DENIES: Fever - EENT EENT: REPORTS: Ear Pain, Eye problems. DENIES: Sore Throat, Congestion - RESPIRATORY Respiratory: DENIES: Coughing - GASTROINTESTINAL Gastrointestinal: DENIES: Nausea, Patient vomiting - REPRODUCTIVE Reproductive: DENIES: : - MUSCULOSKELETAL Musculoskeletal: REPORTS: Extremity pain - Right knee - DERM Skin Color: Normal Skin Problems: None Past Medical History - General Information source: Patient - Social History Smoking Status: Never Smoker Frequency of alcohol use: None Drug Abuse: Marijuana Family History: Reviewed & Not Pertinent - Past Medical History Cardiac Medical History: Reports: Hx Hypertension Denies: Hx Coronary Artery Disease, Hx Heart Attack Pulmonary Medical History: Denies: Hx Asthma, Hx Bronchitis, Hx COPD, Hx Pneumonia Neurological Medical History: Denies: Hx Cerebrovascular Accident, Hx Seizures Endocrine Medical History: Reports: Hx Diabetes Mellitus Type 2 Renal/ Medical History: Denies: Hx Peritoneal Dialysis GI Medical History: Reports: Hx Gastroesophageal Reflux Disease, Other - Gastroparesis Musculoskeletal Medical History: Reports Hx Arthritis, Reports Hx Musculoskeletal Trauma Psychiatric Medical History: Reports: Hx Depression Past Surgical History: Reports: Hx Section, Hx Tubal Ligation. Denies: Hx Hysterectomy - Immunizations Immunizations up to date: Yes Hx Diphtheria, Pertussis, Tetanus Vaccination: Yes Vertical Provider Document - CONSTITUTIONAL Agree With Documented VS: Yes Exam Limitations: No Limitations General Appearance: WD/WN, No Apparent Distress - INFECTION CONTROL TRAVEL OUTSIDE OF THE [place] IN LAST 30 DAYS: No - HEENT HEENT: Atraumatic, Normocephalic. negative: Pharyngeal Exudate, Pharyngeal Tenderness, Pharyngeal Erythema, Tympanic Membrane Red, Tympanic Membrane Bulging Notes: Mild swelling to the left external auditory canal, debris to bilateral external auditory canal, no mastoid tenderness or swelling. Pain with movement of helix bilaterally. Ecchymosis to left eye with some tearing, no purulent drainage noted to eye - NECK Neck: Normal Inspection, Supple - RESPIRATORY Respiratory: Breath Sounds Normal, No Respiratory Distress - CARDIOVASCULAR Cardiovascular: Regular Rate, Regular Rhythm Pulses: Normal: Posterior tibial - MUSCULOSKELETAL/EXTREMETIES Musculoskeletal/Extremeties: MAEW, Tender - Tenderness to right knee inferior and lateral compartment, no obvious effusion, no laxity with varus or valgus maneuvers. No calor, no erythema - NEURO Level of Consciousness: Awake, Alert, Appropriate Motor/Sensory: No Motor Deficit - DERM Integumentary: Warm, Dry Course - Re-evaluation Re-evalutation: 03/23/20 11:08 Patient with chemosis that she attributes to having a cat and a reported cat allergy. Patient states she has had scleral swelling for the past month. Patient encouraged to follow-up with an cigar head piercer for further evaluation. Patient reports chronic knee pain and denies any injury. Patient does see orthopedics and is planning to have a arthroscopic procedure to manage her symptoms. Discussed worsening signs or symptoms of patient should return immediately for. Patient verbalized understanding and is agreeable with discharge plan of care. - Vital Signs Vital signs: Temp Pulse Resp BP Pulse Ox 98.2 F 81 20 157/99 H 99 03/23/20 10:17 03/23/20 10:17 03/23/20 10:17 03/23/20 10:17 03/23/20 10:17 - Laboratory Results Critical Laboratory Results Reviewed: No Critical Results - Radiology Results Critical Radiology Results Reviewed: No Critical Results Discharge - Discharge Clinical Impression: Chemosis of left conjunctiva, Chronic pain of right knee Otitis externa Qualifiers: Otitis externa type: unspecified type Chronicity: acute Laterality: bilateral Qualified Code(s): H60.503 - Unspecified acute noninfective otitis externa, bilateral Condition: Stable Disposition: HOME, SELF-CARE Instructions: Lan Wrap ([facility]), Use of Crutches ([facility]), Use of Ear Drops ([facility]), Eyedrop Use ([facility]), Otitis Externa ([facility]) Additional Instructions: Return immediately for any new or worsening symptoms Followup with your primary care provider, call tomorrow to make a followup appointment Follow-up with an cigar head piercer for recheck of your sclera swelling Follow-up with an principal research economist for any persistent problems with your ears Follow-up with an family reunification specialist for further management of your chronic knee pain Prescriptions: Ciprofloxacin HCl/Dexameth [Ciprodex Otic Suspension 7.5 Ml Drp Bottle] 4 drop AU BID #1 bottle Olopatadine HCl [Pataday] 1 drop OP DAILY #5 ml Referrals: HEIDI ZAMAN MD [Primary Care Provider] - Follow up as needed [facility] [Provider Group] - Follow up as needed [facility] [Provider Group] - Follow up tomorrow [facility] [Provider Group] - Follow up as needed
== END 2020-03-23 11:41 | disposition home or self-care (01) ==
LOC: ER 10:08
DX: H60.503 Unspecified acute noninfective otitis externa, bilateral (principal); H11.422 Conjunctival edema, left eye; M25.561 Pain in right knee; G89.29 Other chronic pain; I10 Essential (primary) hypertension; E11.9 Type 2 diabetes mellitus without complications; F12.10 Cannabis abuse, uncomplicated; Z91.048 Other nonmedicinal substance allergy status
CPT/HCPCS: 99283